=== PATIENT | male | born 1950 | race Caucasian/White ===

== ENCOUNTER → 2024-01-13 07:18 | Outpatient (REF) | payer MEDICARE, OTHER, SELFPAY | LOC: DHCBC/DCA 07:18 | PROVIDERS: ATTENDING PHYSICIAN Internal Medicine Cardiovascular Disease; FAMILY PHYSICIAN Family Medicine | DX: R06.02 Shortness of breath (principal) | CPT/HCPCS: 78452; 93017; A9500 ==

== ENCOUNTER 2025-06-14 22:28 | Inpatient (IN) | payer MEDICARE, OTHER, SELFPAY ==
[2025-06-14 19:50] VITALS: BP 148/66
[2025-06-14 19:51] VITALS: BP 148/66
--- NOTE | 2025-06-14 19:57 | ED.GENMED ---
History of Present Illness
General
Chief Complaint: Chest Pain
Source: patient and records
Exam Limitations: none
Time Seen by Provider: 06/14/25 19:49
Nursing documentation reviewed up to this point in time: agreed with
History of Present Illness
History of Present Illness:
74-year-old male presents via EMS severe mid upper abdominal pain into his back with nausea has not felt well all day ate dinner then developed worsening pain has a history of DJD,
Past History
Past History
ED Past Medical History: HTN, NIDDM and Other (Urinary retention)
ED Past Surgical History: Urological
Social History
Tobacco: Non-smoker
Alcohol: None
Drug: None
Personal:
Living: with family
Employment: Employed
Family History
Family History: Other (No urologic issues)
Review of Systems
Review of Systems
All Other Systems: Not applicable
Constitutional: Denies fever or fatigue
Cardiac: Reports chest pain
ABD/GI: Reports abdominal pain, nausea and vomiting
: Denies difficulty voiding
Musculoskeletal: Reports back pain
Skin: Reports no symptoms
Phy Exam
Physical Exam
Physical Exam:
Physical Exam
General: Ill-appearing male
Neck: No jaundice
Heart: s1/s2 regular rate and rhythm, no murmur. equal radial pulses.
Lungs: no acute respiratory distress. clear bilaterally
Abdomen: Distended diffusely tender most pronounced in the upper and diminished bowel
Neuro: alert and oriented. no focal neurological deficits
Skin: no rash
Psychiatric: well kept. interactive and cooperative
Extremities: no edema.
Scores
Heart Score for Chest Pain Patients
STEMI patient?: No
History: Slightly or Non-Suspicious
ECG: Normal
Age: >45 - <65 years
Risk Factors: 1 or 2 Risk Factors
Troponin: </= Normal Limit
Heart Score for Chest Pain Patients: 2
Heart Score Risk: 2.5% MACE over next 6 weeks
Course
Orders/Labs/Results
Orders:
Orders
06/14/25 19:48
Electrocardiogram (*1) Urgent
Reason for Study: Chest Pain
Cardiac Monitoring- Treatment ONCE
EKG- Treatment ONCE
IV Insert/Care/Rem.- Treatment PRN
O2 Therapy [RESP] Urgent
Titrate/Wean O2 to maintain O2 sat greater than (%): 90
Special Instructions: Maintain sats >/=90%
Pulse Ox/spot Check [RESP] Urgent
Quantity: 1
Special Instructions: ON ROOM AIR
06/14/25 19:49
HYDROmorphone [Dilaudid] 1 mg IV NOW STA
Ondansetron Injectable [Zofran] 4 mg IV NOW STA
06/14/25 19:50
Bladder Scan- Treatment ONCE
06/14/25 19:55
Alcohol Urgent
Complete Blood Count/With Diff Urgent
Comprehensive Metabolic Panel Urgent
Lipase Urgent
Prothrombin Time Urgent
Troponin I Urgent
06/14/25 20:31
US Abdomen Complete/Upper Urgent
Comment:
Reason For Exam: pancreatitis
06/14/25 21:05
0.9% Sodium Chloride 1000 ml [Nss] 1,000 ml IV BOLUS
06/14/25 21:07
Piperacillin/Tazo 3.375 Gram [Zosyn] 3.375 gram in 50 ml IV NOW
06/14/25 21:22
Lactic Acid Urgent
Blood Culture Q30M
CROW Source: Blood/Venous
Specimen Description:
Blood Culture Q30M
CROW Source: Blood/Venous
Specimen Description:
06/14/25 21:32
Promethazine [Phenergan] 25 mg 0.9% Sodium Chloride 50 ml [Nss] 50 ml IV NOW
06/14/25 21:33
0.9% Sodium Chloride [Nss (Preservative Free)] 10 ml IV NOW STA
HYDROmorphone [Dilaudid] 1 mg IV NOW STA
Pantoprazole [Protonix IV] 40 mg IV NOW STA
06/14/25 21:43
Lactated Ringers [Lr] 1,000 ml IV 1,000 mls/hr
06/14/25 21:44
Potassium Chloride [KCl] 40 meq 0.9% Sodium Chloride 250 ml [Nss] 250 ml IV NOW
06/14/25 21:56
Admit/Transfer Patient As Directed
Co-Sign Provider:
Level of Care: Inpatient admission
Assign to:: IMU- Intermediate Care
Physician / Group: wilfrido landa
Diagnosis: sepsis 2/2 acute pancreatitis poss cholangitis
Reason for Hospitalization: sepsis 2/2 acute pancreatitis poss cholangitis
Expected length of stay greater than two midnights?: Yes
ELOS- Estimated Length of Stay in days: 4
I certify the patient meets the requirements for IP care: Yes
Code Status As Directed
Resuscitation Status: Full Code
06/14/25 22:00
PRN Pain Medication Management As Directed
May give lesser potent ordered pain med per pt: Yes
preference::
Protocol:: Medication orders for pain may be administered in a
manner that supports deferring to patient preference
when the pt is:
- Requesting an ordered lesser potent pain medication.
Least to most potent pain medications are defined
as: acetaminophen < NSAID < tramadol < opioids
(morphine, oxycodone, hydromorphone).
- Requesting a lesser dose of the same medication IF
ORDERED.
- Requesting a less intrusive route of administration
if both routes are prescribed by the provider (PO <
IV).
06/14/25 22:01
Consult Notification Routine
Specialty to Notify: Gastroenterology
GASTROINTESTINAL CONSULT Routine
Consulting Provider: Kojo Dangelo
Was physician already notified: No
Reason for consult: sepsis 2/2 acute pancreatitis poss cholangitis
Abnormal Lab Results
06/14/25 06/14/25
19:55 21:22
WBC 21.9 H 10^3/uL
(4.8-10.8)
Abs Immat Gran (auto) 0.2 H 10^3/uL
(0-0.05)
Absolute Neuts (auto) 16.4 H 10^3/uL
(1.4-6.5)
Absolute Monos (auto) 1.9 H 10^3/uL
(0.1-0.6)
Immature Gran % 0.7 H %
(0-0.5)
Lymphocytes % 14.8 L %
(20.5-51.1)
Potassium 3.2 L mmol/L
(3.5-5.1)
Chloride 97 L mmol/L
(98-107)
BUN 28 H mg/dl
(9-20)
Creatinine 1.9 H mg/dL
(0.7-1.3)
Glucose 218 H mg/dl
(70-99)
Lactic Acid 4.0 H* mmol/L
(0.7-2.0)
Total Bilirubin 4.4 H mg/dl
(0.2-1.3)
AST 293 H U/L
(17-59)
ALT 121 H U/L
(0-50)
Albumin 5.1 H g/dl
(3.5-5.0)
Lipase > 4000 H* U/L
(23-300)
06/14/25 19:55
06/14/25 19:55
Vital Signs
Initial and Last Documented VS:
Initial Vital Signs
Temp Pulse Resp BP Pulse Ox
97.4 F 71 22 148/66 97
06/14/25 19:50 06/14/25 19:50 06/14/25 19:50 06/14/25 19:50 06/14/25 19:50
Last Documented Vital Signs
Temp Pulse Resp BP Pulse Ox
97.4 F 71 18 142/60 98
06/14/25 19:50 06/14/25 22:30 06/14/25 22:30 06/14/25 22:00 06/14/25 22:30
MDM/Problems Addressed
Differential Diagnosis Includes:
Thoracic dissection, ruptured AAA pancreatitis biliary colic perforated diverticulitis less likely acute coronary syndrome
MDM/Problems Addressed:
Chest pain back pain abdominal
Chronic conditions affecting care:
Chronic self cath
Chronic conditions affecting care: HTN
Acute Exacerbation and/or Progression of Chronic Illness:
Chronic self cath
Acute Exacerbation and/or Progression of Chronic Illness: HTN
*Pulse Oximetry
SaO2: 97
Oxygen Mode of Delivery: Room air
Patient hypoxic: no
*Critical Care Note
Total Time (30-74mins, 75-104mins- exclusive of procedures): 32
Update Note
Update Note:
8:30 PM update labs are noted looks like an obstructive biliary pattern, transaminitis lipase is pending creatinine is up we will hold on CT scan, check ultrasound gallstone pancreatitis choledocholithiasis would fit could be diagnosed without CT
with IV contrast
ED Attending Note
-
Portions of this chart may have been created with voice recognition software.� Occasional wrong word or��sound alike� substitutions may have occurred due to the inherent limitations of voice recognition software.
Discharge Plan
Departure
Patient Disposition: Admit
Date of Disposition: 06/14/25
Time of Disposition: 21:08
Admit to: Med/Surg
Presentation/result/management discussed w/ accepting MD/DO: Hospitalist
Patient with high blood pressure during this ER visit?: No
Condition: Serious
Discharge Problem:
Acute pancreatitis
Interventions
Interventions:
*Risk Screen - Suicide Last Done: 06/14/25 19:50
*General Assessment Last Done: 06/14/25 19:50
*Neglect/Abuse Screening Last Done: 06/14/25 19:50
*ED- Fall Risk Assessment Last Done: 06/14/25 20:00
*ED COVID-19 Vaccine History Last Done: 06/14/25 20:00
*ED Influenza Vaccine History Last Done: 06/14/25 20:00
ED- Cardiac Assessment Last Done: 06/14/25 20:00
[2025-06-14 20:00] VITALS: BP 142/65
[2025-06-14 20:03] LABS: Hematocrit 42.9 % (39.0-52.0); Hemoglobin 15.2 g/dL (13.0-18.0); Mean Corp Hgb Conc. 35.4 g/dL (33.0-37.0); Mean Corpuscular Volume 85.5 fL (80.0-94.0); Nucleated Red Blood Cells % 0 % (-); Platelet Count 197 10^3/uL (130-400); Red Cell Dist. Width 13.5 % (11.5-14.5)
[2025-06-14] MEDS: ZOFRAN 4 MG IV (20:05)
[2025-06-14] MEDS: DILAUDID 1 MG IV ×2 (20:05→21:43)
[2025-06-14 20:16] LABS: INR 1.00; PT 13.5 Sec (11.4-14.6)
[2025-06-14 20:24] LABS: ALT (SGPT) 121 U/L (0-50); AST (SGOT) 293 U/L (17-59); Albumin 5.1 g/dl (3.5-5.0); Alkaline Phosphatase 57 U/L (38-126); Blood Urea Nitrogen 28 mg/dl (9-20); Calcium 9.3 mg/dl (8.4-10.2); Carbon Dioxide 28 mmol/L (22-30); Chloride 97 mmol/L (98-107); Glucose 218 mg/dl (70-99); Potassium 3.2 mmol/L (3.5-5.1); Sodium 137 mmol/L (135-145); Total Protein 7.6 g/dl (6.3-8.2); eGFR 36.56
[2025-06-14 20:51] LABS: Troponin I 0.020 ng/ml
[2025-06-14 20:59] LABS: Lipase > 4000 U/L (23-300)
--- NOTE | 2025-06-14 21:15 | HPS.HSE ---
Addendum entered and electronically signed by Francisco Harper MD 06/14/25 22:21:
This is an addendum to the H&P written by Natacha Funez on 06/14/2025. �Patient seen and examined independently with PERSONAL DEVELOPMENT MENTOR.
74-year-old male past medical history of BPH, CKD 3B, hypertension, diabetes, hyperlipidemia, presenting with intermittent� indigiestion and heartburn for month. Severe mid upper back pain rating to the back with nausea today. Vomiting.��
Labs show creatinine 1.9. �Potassium 3.2. �LFTs elevated total bilirubin 4.4, AST 23, ALT 121. �Lipase greater than 4000. �Leukocytosis of 22.
Abdominal ultrasound pending.
Patient with acute pancreatitis likely biliary pancreatitis. �Patient appears septic possibly from acute cholangitis. �N.p.o., IV fluids, trend LFTs, GI consulted. �Empiric Zosyn. �Blood cultures. �Liver ultrasound pending. �Considered CT scan
however patient with CKD/SAMANTHA on CKD so will defer for now. �MRCP. �Protonix for GERD.
Original Note:
Family Physician
-
Family Physician: * NONE
Chief Complaint
-
Abdominal pain, nausea, vomiting
History of Present Illness
74-year-old male complaining of severe mid to upper left and right abdominal pain through to his back with nausea after eating dinner tonight. He reports he ate meatballs with Posta salad and bread. He has also had heartburn and indigestion for
the past month. He denies alcohol use states has rare occasional beer. Both of his daughters have had their gallbladders out. He denies fever, chills, chest pain, palpitations, cough, shortness of breath, diarrhea, rash. He has past medical
history of shingles in 2019 with post urinary retention self caths once a day but does also avoid, BPH status post TURP, HTN, DM 2.
Medical History
Past Medical History
Past Medical History: Reports Other
Additional Past Medical History:
history of shingles in 2019
urinary retention self caths once a day but does also avoid unclear occurred after shingles in 2020
BPH status post TURP
HTN
DM 2
Past Surgical History: Reports Other
Additional Past Surgical History:
BPH status post TURP
Social History
Tobacco: Non-smoker
Alcohol: Other (Rare occasional beer)
Personal:
Living: With Family
Employment: Retired
Family History
Family History: Other (Both daughters history of cholecystectomy)
Allergies / Home Medications
Allergies reflects when Allergies were last updated in [facility].
Home Medications with original date entered in [facility]
Allergy/Medication List:
Allergies
Allergy/AdvReac Type Severity Reaction Status Date / Time
seasonal allergies Allergy nasal Uncoded 06/14/25 19:55
symptoms
Home Medications
alfuzosin 10 mg tablet,extended release 24 hr 10 mg PO DAILY Urinary Issue 06/29/20
atenolol 100 mg tablet 100 mg PO DAILY Blood pressure 06/29/20
cholecalciferol (vitamin D3) 25 mcg (1,000 unit) capsule (Vitamin D3) 1,000 unit PO DAILY Supplement 06/29/20
cyanocobalamin (vitamin B-12) 1,000 mcg tablet 1,000 mcg PO DAILY Supplement 06/29/20
ferrous sulfate 137 mg (45 mg iron) tablet,extended release (Slow Fe) 137 mg PO DAILY Supplement 06/29/20
magnesium oxide 400 mg PO DAILY Electrolyte Repletion 06/29/20
multivitamin with folic acid 400 mcg tablet (Tab-A-Thea) 1 tab PO DAILY Supplement 06/29/20
potassium chloride 20 mEq tablet,extended release(part/cryst) (Klor-Con M) 20 meq PO BID Electrolyte Repletion 06/29/20
saw palmetto 450 mg capsule 900 mg PO DAILY Supplement 06/29/20
amlodipine 10 mg tablet (Norvasc) 10 mg PO DAILY Heart Disease/Condition 06/14/25
bethanechol chloride 25 mg tablet 25 mg PO BID Urinary Issue 06/14/25
glimepiride 4 mg tablet 4 mg PO DAILY Diabetes 06/14/25
hydrochlorothiazide 50 mg tablet 50 mg PO DAILY Fluid Retention/Swelling 06/14/25
metformin 500 mg tablet 500 mg PO BID Diabetes 06/14/25
Review of Systems
-
History Source: Patient and Family
A 12 point ROS was completed and negative except as noted: Yes
Constitutional: Reports Fatigue; Denies Fever or Chills
EENT: Denies Sore Throat or Runny Nose
Respiratory: Denies Cough or Trouble Breathing
Cardiac: Denies Chest Pain, Diaphoresis or Palpitations
Abdomen/GI: Reports Abdominal Pain (Generalized increased left upper quad), Nausea and Vomiting; Denies Diarrhea, Constipated, Bloody Stools or Black Stools
: Reports Other (Chronic urine retention); Denies Dysuria, Frequency or Flank Pain
Musculoskeletal: Denies Joint Pain
Skin: Denies Itching or Rash
Neurological: Reports Weakness (Generalized); Denies Dizzy or Headache
Endocrine: Reports No Symptoms
Hematologic/Lymphatic: Reports No Symptoms
Psych: Reports Calm
Physical Exam
Vital Signs
Vital Signs
Temp Pulse Resp BP Pulse Ox
97.4 F 64 20 148/66 97
06/14/25 19:50 06/14/25 19:51 06/14/25 20:01 06/14/25 19:51 06/14/25 19:58
Physical Exam
General: Pain and Other (Patient skinner appearing); No Fever or Chills
HEENT: NormoCephalic, Anicteric, Moist mucous membranes, PERRLA, [place] Conjunctivae and No Ptosis
Respiratory: Clear; No Wheezes, Rales or Rhonchi
Cardiac: S1/S2 and Regular Rhythm; No Murmur, Rub, Gallop or Peripheral Edema
Breast: Deferred by me
GI: Tender (Generalized abdominal pain increased left upper quadrant area unable to palpate liver and spleen due to severe pain)
Rectal: Deferred by Provider
Genito-urinary: Deferred by me
Musculoskeletal: No Clubbing, No Cyanosis and No Edema
Skin: Warm and Dry; No Rash
Neuro: AO x 3, No Motor Deficits, Nonfocal/grossly intact, Cranial Nerves Intact and No Sensory Deficits; No Slurred Speech, Facial Droop, Tremors or Sedated
Psych: Calm
Laboratory Results
-
06/14/25 19:55
06/14/25 19:55
Laboratory Results
PT 13.5 Sec (11.4-14.6) 06/14/25 19:55
INR 1.00 06/14/25 19:55
Total Bilirubin 4.4 mg/dl (0.2-1.3) H 06/14/25 19:55
AST 293 U/L (17-59) H 06/14/25 19:55
ALT 121 U/L (0-50) H 06/14/25 19:55
Alkaline Phosphatase 57 U/L (38-126) 06/14/25 19:55
Troponin I 0.020 ng/ml 06/14/25 19:55
Lipase > 4000 U/L (23-300) H* 06/14/25 19:55
Data Reviewed
-
Diagnostic Radiology: Report Reviewed by me
Lab Data: Labs Reviewed by me
Impression/Plan
-
Impression/plan
Admit to IMU
# Sepsis 2/2 acute pancreatitis suspect gallstone with possible cholangitis
Lipase> 4000
WBC 21.9, T. bili 4.4 , lactic acid 4 will trend
N.p.o.
- Consult GI
- IV pain control Dilaudid
- IV NSS 1 L given in ER
-Will give IV LR 1 L bolus, continue IV LR 100 cc an hour
-IV Protonix now and 40 mg daily
- IV Zofran as needed, IV Phenergan
- Will hold on CT with IV contrast due to estimated creat clearance 21
- Check MRCP/MRI abdomen in a.m.
- Follow CBC, CMP
#Acute transaminitis/hyperbilirubinemia
AST 293, ALT 121, alk phos 57, T. bili 4.4
Follow CMP
#Acute hypokalemia
K3.2
-IV K rider 40 mEq
- Follow CMP
#HTN�benign
BP 148/66
-Hold HCTZ, amlodipine, atenolol
#History urinary retention of unclear etiology developed in 2019 post shingles
Patient self caths once a day does also avoid
#CKD 4
Creat 1.9 prior 1.7 02/25/2022 estimated creat clearance approximately 21
#DM 2
Blood sugar 218
check HgbA1c
-Patient n.p.o.
History of shingles 2019
DVT prophylaxis
Subcu heparin
Full code
[2025-06-14] MEDS: NSS 1000 IV (21:28)
[2025-06-14] MEDS: ZOSYN 50 IV (21:28)
[2025-06-14 21:31] VITALS: BP 140/63
[2025-06-14] MEDS: PROTONIX IV 40 MG IV (21:43)
[2025-06-14] MEDS: NSS (PRESERVATIVE FREE) 10 ML IV (21:43)
[2025-06-14] MEDS: PHENERGAN 51 MG IV (21:56)
[2025-06-14 22:00] VITALS: BP 142/60
[2025-06-14] MEDS: LR 1000 IV (22:32)
[2025-06-14] MEDS: KCL 270 MEQ IV (22:32)
[2025-06-14 23:00] VITALS: BP 178/79
[2025-06-15] VITALS (40 sets, daily range): BP systolic 125–173; BP diastolic 68–97; BMI 29.4
[2025-06-15] MEDS: DILAUDID 1 MG IV ×5 (01:06→21:01)
[2025-06-15] MEDS: ZOFRAN 4 MG IV ×2 (01:06→08:47)
[2025-06-15] MEDS: LR 1000 IV (02:35)
--- NOTE | 2025-06-15 03:02 | PTCARENOTE ---
pt admitted from ED. pt is AAOx3, able to make needs known. VSS. on 2L NC 97%. pt with some nausea, did vomit once from the pain. pt rates pain 10/10 all throughout abdomen. medicated per MAR. NPO. IV fluids infusing. pt self cath's him self once in
the morning. 16F caude cath provided but patient stated he will have bring in supplies from home. pt oriented to room, call hernandez within reach, care ongoing.
[2025-06-15] MEDS: ZOSYN 50 IV ×4 (04:32→22:09)
[2025-06-15] MEDS: DILAUDID 0.5 MG IV ×2 (04:35→15:10)
[2025-06-15] MEDS: COMPAZINE 5 MG IV (04:50)
--- NOTE | 2025-06-15 05:13 | PTCARENOTE ---
pt still with 10/10 pain, medicated with PRN meds as able. still nauseous and dry heaving. not due for any nausea meds. notified covering LEAD DEVELOPER- x1 dose of IV compazine ordered.
[2025-06-15 05:19] LABS: Hematocrit 45.3 % (39.0-52.0); Hemoglobin 15.8 g/dL (13.0-18.0); Mean Corp Hgb Conc. 34.9 g/dL (33.0-37.0); Mean Corpuscular Volume 87.6 fL (80.0-94.0); Nucleated Red Blood Cells % 0 % (-); Platelet Count 157 10^3/uL (130-400); Red Cell Dist. Width 13.6 % (11.5-14.5)
[2025-06-15 05:54] LABS: ALT (SGPT) 329 U/L (0-50); AST (SGOT) 492 U/L (17-59); Albumin 4.0 g/dl (3.5-5.0); Alkaline Phosphatase 53 U/L (38-126); Blood Urea Nitrogen 33 mg/dl (9-20); Calcium 8.0 mg/dl (8.4-10.2); Carbon Dioxide 21 mmol/L (22-30); Chloride 102 mmol/L (98-107); Estimated Creatinine Clearance 32 ml/min; Glucose 416 mg/dl (70-99); HDL Cholesterol 28 mg/dl; LDL Cholesterol, Calculated 85 mg/dl; Potassium 5.5 mmol/L (3.5-5.1); Sodium 131 mmol/L (135-145); Total Protein 6.3 g/dl (6.3-8.2); Very Low Density Lipoprotein 53 mg/dl (0-30); eGFR 30.66
[2025-06-15] MEDS: NSS (PRESERVATIVE FREE) 10 ML IV (08:47)
[2025-06-15] MEDS: PROTONIX IV 40 MG IV (08:47)
[2025-06-15] MEDS: HEPARIN 5000 UNITS SC ×3 (08:48→23:39)
[2025-06-15 09:33] LABS: Glycohemoglobin (HgbA1c) 6.5 % (4.0-5.9)
--- NOTE | 2025-06-15 10:17 | CM ---
I.A: Completed By ANCELMO Simpson
Patient lives with his in a 2 STH w/ 3 LITZ[address], Full Flight inside, No DME, No VN/ PT, and No Inpatient Rehab.
PCP: Dr. Steven Silva
Pharmacy: [facility]
Patient has transportation when discharge to home. PLAN: Anticipate Home No Needs vs. VN.
[2025-06-15 10:48] LABS: Glucose - Point of Care 448 mg/dl (70-99)
[2025-06-15] MEDS: NOVOLIN R 0.1 UNITS IV (11:01)
[2025-06-15] MEDS: CALCIUM GLUCONATE 1000 MG IV (11:02)
--- NOTE | 2025-06-15 11:03 | CON.GS ---
Medical History
-
Chief Complaint: Abdominal pain
History of Present Illness:
Patient is a 74 yo M with a PMH of obesity, HTN, NIDDM, and BPH s/p TURP (self catheterizes daily) who presents with abdominal pain. Mr. Lua states that his pain began acutely yesterday evening. Severe generalized abdominal pain worse in the
middle and radiating to the back. He reports having a meal of meatballs and pasta salad with bread. His also reports a more longer standing history of indigestion over the past month. Denies any prior knowledge of gallstones or issues as a
relates to his gallbladder. No fevers or chills. No nausea or vomiting. Reports jaundice and tea colored urine, no pale stools. He does have an occasional beer. Family history notable for 2 daughters postcholecystectomy. No family history of
pancreatitis.
Past Medical History
Past Medical History: HTN and NIDDM
Past Surgical History: Urological (BPH s/p TURP)
Social History
Tobacco: Non-Smoker
Alcohol: Occasional
Drug: None
Personal:
Living: With Family
Family History
Family History: Other (2 daughters postcholecystectomy)
Allergies / Home Medications
Allergy/AdvReac Type Severity Reaction Status Date / Time
pollen extracts Allergy SEASONAL Verified 06/14/25 21:47
ALLERGIES-NASAL
SYMPTOMS
�Medication �Instructions �Recorded �Confirmed �Type
alfuzosin 10 mg tablet,extended 10 mg PO DAILY Urinary Issue 06/29/20 06/14/25 History
release 24 hr
atenolol 100 mg tablet 100 mg PO DAILY Blood pressure 06/29/20 06/14/25 History
cholecalciferol (vitamin D3) 25 1,000 unit PO DAILY Supplement 06/29/20 06/14/25 History
mcg (1,000 unit) capsule (Vitamin
D3)
cyanocobalamin (vitamin B-12) 1,000 mcg PO DAILY Supplement 06/29/20 06/14/25 History
1,000 mcg tablet
ferrous sulfate 137 mg (45 mg 137 mg PO DAILY Supplement 06/29/20 06/14/25 History
iron) tablet,extended release
(Slow Fe)
magnesium oxide 400 mg PO DAILY Electrolyte 06/29/20 06/14/25 History
Repletion
multivitamin with folic acid 400 1 tab PO DAILY Supplement 06/29/20 06/14/25 History
mcg tablet (Tab-A-Thea)
potassium chloride 20 mEq 20 meq PO BID Electrolyte Repletion 06/29/20 06/14/25 History
tablet,extended
release(part/cryst) (Klor-Con M)
saw palmetto 450 mg capsule 900 mg PO DAILY Supplement 06/29/20 06/14/25 History
amlodipine 10 mg tablet (Norvasc) 10 mg PO DAILY Heart 06/14/25 06/14/25 History
Disease/Condition
bethanechol chloride 25 mg tablet 25 mg PO BID Urinary Issue 06/14/25 06/14/25 History
glimepiride 4 mg tablet 4 mg PO DAILY Diabetes 06/14/25 06/14/25 History
hydrochlorothiazide 50 mg tablet 50 mg PO DAILY Fluid 06/14/25 06/14/25 History
Retention/Swelling
metformin 500 mg tablet 500 mg PO BID Diabetes 06/14/25 06/14/25 History
Review of Systems
-
A 10 point review of systems was completed, and was negative except as per HPI.
Physical Exam
Vital Signs
Temp Pulse Resp BP Pulse Ox
98.2 F 85 21 157/81 94
06/15/25 07:38 06/15/25 10:00 06/15/25 10:00 06/15/25 10:00 06/15/25 10:00
06/14/25 06/15/25 06/16/25
06:59 06:59 06:59
Actual Weight 98.3 kg
Body Mass Index (BMI) 29.4
Lab Results
06/15/25 04:45
WBC 20.6 10^3/uL (4.8-10.8) H 06/15/25 04:45
Hgb 15.8 g/dL (13.0-18.0) 06/15/25 04:45
Hct 45.3 % (39.0-52.0) 06/15/25 04:45
Plt Count 157 10^3/uL (130-400) D 06/15/25 04:45
Abs Immat Gran (auto) 0.1 10^3/uL (0-0.05) H 06/15/25 04:45
Neutrophils % 90.0 % (42.2-75.2) H 06/15/25 04:45
Physical Exam
General: Pain
HEENT: Scleral Icterus
Respiratory: Accessory Resp Muscle Use
Cardiac: Irregular Rhythm (Tachycardic)
GI: Soft, Tender (Diffusely tender), Distended and Obese
Data Reviewed
-
Ultrasound: Image Personally Visualized and interpreted and Report Reviewed by me
Labs: Labs Reviewed by me
Assessment / Plan
-
Patient is a 74 yo M p/w pancreatitis likely biliary in origin given his lab abnormalities (hyperbilirubinemia and transaminitis)
Interesting that his ultrasound demonstrated no stones, more likely sludge, less likely a mass or anatomic issue with his CBD. GI consult noted. MRI pending. The natural history and pathophysiology of biliary and stone disease was briefly
discussed. Role of cholecystectomy in preventing future episodes of pancreatitis was discussed. Timing and indication TBD based on his recovery and above-noted workup. All questions answered.
-- GI consult noted, MRI abdomen
-- Appears dehydrated and needs increased resuscitation
-- Would place Carbone catheter for accurate I's and O's and given his history of urinary retention needing straight caths at baseline, increased likelihood of bladder stretch injury given the volume that will be needed for his resuscitation
-- Timing and indication for cholecystectomy TBD based on his recovery and above-noted workup
[2025-06-15 11:27] LABS: Blood Urea Nitrogen 40 mg/dl (9-20); Calcium 7.4 mg/dl (8.4-10.2); Carbon Dioxide 20 mmol/L (22-30); Chloride 100 mmol/L (98-107); Estimated Creatinine Clearance 26 ml/min; Glucose 480 mg/dl (70-99); Potassium 5.7 mmol/L (3.5-5.1); Sodium 132 mmol/L (135-145); eGFR 23.98
[2025-06-15 11:45] LABS: Glucose - Point of Care 459 mg/dl (70-99)
[2025-06-15 11:46] LABS: Venous Blood Gas B.E. -8.3 mmol/L (-4 to +4); Venous Blood Gas O2 Sat % 99.8 %
[2025-06-15 11:47] LABS: Venous Blood Gas O2 Therapy 21
--- NOTE | 2025-06-15 12:17 | CON.GI ---
Addendum entered and electronically signed by JH Fisher 06/15/25 20:01:
correction to below under initial plan -- should read no stones or duct dilation noted in initial US completed on admission not CT.
Addendum entered and electronically signed by Kojo Dangelo DO 06/15/25 14:14:
I saw and examined the patient.
The BLASTING HELPER's note was reviewed and I agree with the note.
Comment: Mr. Lua is a 74 y.o male with a past medical history of HTN, HLD, NIDDM and BPH (s/p TURP who presented to the ED with abdominal pain. Patient reports being in his usual state of health until yesterday evening when he developed sharp,
acute epigastric abdominal pain with radiating symptoms into his back. Symptoms started after eating dinner and shortly after developed worsening abdominal pain without any nausea or vomiting. Denies any fevers, chills or other constitutional
symptoms. However, noticed his skin becoming more dark yellow as well as darker brown or colored urine. He denies any prior history of pancreatitis or significant alcohol use. Given his worsening symptoms, he came to the ED for further
evaluation. On admission, there was concerns for sepsis and was found to be febrile with leukocytosis as well as an elevated creatinine up to 2.7 along with elevated lactate 4.7 and elevated LFTs with T Bili 7's, AST 492, ALT 329, ALP 5 3 and
lipase greater than 4000. Upon admission, he was started on IV antibiotics as well as IVF for fluid resuscitation. Clinically, seems most consistent with biliary induced pancreatitis likely secondary to sludge as no stones were visualized and
concern for potential cholangitis given his recent fevers. There was no evidence of any biliary ductal dilatation on his prior ultrasound or other luminal filling defects. He would benefit from an eventual MRI/MRCP for further evaluation however
given his worsening abdominal pain favor proceeding with CT abdomen/pelvis for further evaluation given concern for guarding and worsening abdominal discomfort later this afternoon. Agree with ongoing IV abx and monitoring blood cultures. Rest of
ongoing supportive care as per primary ICU team and close monitoring of patient's renal function given concern for SAMANTHA on CKD along with his hyperkalemia. Will continue to follow closely and follow-up with repeat CT imaging later this afternoon.
Rest of care as outlined below.
Discussed with primary internal medicine team. GI will continue to follow.
Original Note:
Consultation
-
Date/Time Consultation Requested: 06/14/250
Date/Time Consultation Performed: 06/15/25 1215
Requesting Provider: JH Robertson
Performing Provider: JH Castro, Kojo Dangelo DO
Reason for Consultation: pancreatiitis
Medical History
Chief Complaint / HPI
Chief Complaint: abdominal pain
History of Present Illness:
Pt is a 74yo with hx obesity, HTN, hyperlipidemia, NIDDM, shingles, urinary retention with st cath daily, arthritis, vasectomy, BPH prior turp, prostate biopsy, spinal injection with onset of abdominal pain to back and nausea with eating after
eating dinner on 06/14. On admission concern for sepsis with WBC 21,900, hbg 15.2, and after admission noted with Na 131, K up to 5.5 creat up to 2.7, glucose 480, lactate 4.7 with rise in bili to 7.5, AST 492, ALT 329, alk phos 53, and lipase
>4000.
Pt with some lethargy with pain med but continued with severe 10/10 pain. In review with family pt with hx GERD with tums PRN with increased use over last several weeks. He takes NSAIDs several times per week for pain. He did have several
episode of non bloody emesis after onset of pain. No issues with diarrhea, constipation or rectal bleeding. No ETOH use, no new medications, no hx pancreatitis in past. No GPL-1 use or wt loss.
06/14/25 US abdomen with fatty liver, mild hepatomegaly
06/15/25 abd X ray No significantly dilated air-filled loops of bowel. No radiographic evidence for pathologic calcification or soft tissue mass. CBD 5 mm
Past Medical History
Past Medical History: HTN, Hypercholesterolemia, NIDDM and Other (shingles, urinary retention with st cath daily, arthritis, obesity )
Past Surgical History: Urological (vastectomy, turp, prostate biopsy, spinal injections)
Social History
Tobacco: Non-Smoker
Alcohol: None
Drug: None
Personal:
Living: With Family
Employment: Retired
Family History
Family History: Other (2 daughters with hx renato )
Allergies / Home Medications
Allergy/AdvReac Type Severity Reaction Status Date / Time
pollen extracts Allergy SEASONAL Verified 06/14/25 21:47
ALLERGIES-NASAL
SYMPTOMS
�Medication �Instructions �Recorded
alfuzosin 10 mg tablet,extended 10 mg PO DAILY Urinary Issue 06/29/20
release 24 hr
atenolol 100 mg tablet 100 mg PO DAILY Blood pressure 06/29/20
cholecalciferol (vitamin D3) 25 1,000 unit PO DAILY Supplement 06/29/20
mcg (1,000 unit) capsule (Vitamin
D3)
cyanocobalamin (vitamin B-12) 1,000 mcg PO DAILY Supplement 06/29/20
1,000 mcg tablet
ferrous sulfate 137 mg (45 mg 137 mg PO DAILY Supplement 06/29/20
iron) tablet,extended release
(Slow Fe)
magnesium oxide 400 mg PO DAILY Electrolyte 06/29/20
Repletion
multivitamin with folic acid 400 1 tab PO DAILY Supplement 06/29/20
mcg tablet (Tab-A-Thea)
potassium chloride 20 mEq 20 meq PO BID Electrolyte Repletion 06/29/20
tablet,extended
release(part/cryst) (Klor-Con M)
saw palmetto 450 mg capsule 900 mg PO DAILY Supplement 06/29/20
amlodipine 10 mg tablet (Norvasc) 10 mg PO DAILY Heart 06/14/25
Disease/Condition
bethanechol chloride 25 mg tablet 25 mg PO BID Urinary Issue 06/14/25
glimepiride 4 mg tablet 4 mg PO DAILY Diabetes 06/14/25
hydrochlorothiazide 50 mg tablet 50 mg PO DAILY Fluid 06/14/25
Retention/Swelling
metformin 500 mg tablet 500 mg PO BID Diabetes 06/14/25
Review of Systems
-
History Source: Patient and Family
Constitutional: Reports Fatigue
EENT: Reports Other (dry mucous membranes )
Respiratory: Reports No Symptoms
Abdomen/GI: Reports Abdominal Pain, Nausea and Vomiting
: Reports Other (decreased urination now with geller hx st cath )
Musculoskeletal: Reports No Symptoms
Skin: Reports No Symptoms
Neurological: Reports Weakness and Other (lethargy but given pain meds )
Endocrine: Reports No Symptoms
Hematologic/Lymphatic: Reports No Symptoms
Vital Signs
Temp Pulse Resp BP Pulse Ox
98.8 F 85 21 157/81 94
06/15/25 12:15 06/15/25 10:00 06/15/25 10:00 06/15/25 10:00 06/15/25 10:00
Physical Exam
Exam
General: Other (ill appearing, sleeping but answering some questions )
HEENT: Normocephalic and Anicteric
Respiratory: Other (decreased bases )
Cardiac: Regular Rhythm
GI: Soft, Distended (mild ) and Other (+ diffuse guarding and rebound with minimal palpation )
Musculoskeletal: No Clubbing and No Cyanosis
Skin: Warm and Dry
Neuro: Other (awakens to voice )
Psych: Calm
Results
WBC 20.6 10^3/uL (4.8-10.8) H 06/15/25 04:45
Hgb 15.8 g/dL (13.0-18.0) 06/15/25 04:45
Hct 45.3 % (39.0-52.0) 06/15/25 04:45
MCV 87.6 fL (80.0-94.0) 06/15/25 04:45
Plt Count 157 10^3/uL (130-400) D 06/15/25 04:45
Absolute Neuts (auto) 18.6 10^3/uL (1.4-6.5) H 06/15/25 04:45
PT 13.5 Sec (11.4-14.6) 06/14/25 19:55
INR 1.00 06/14/25 19:55
Sodium 132 mmol/L (135-145) L 06/15/25 10:56
Potassium 5.7 mmol/L (3.5-5.1) H 06/15/25 10:56
Chloride 100 mmol/L (98-107) 06/15/25 10:56
Carbon Dioxide 20 mmol/L (22-30) L 06/15/25 10:56
BUN 40 mg/dl (9-20) H 06/15/25 10:56
Creatinine 2.7 mg/dL (0.7-1.3) H 06/15/25 10:56
Calcium 7.4 mg/dl (8.4-10.2) L 06/15/25 10:56
Total Bilirubin 7.5 mg/dl (0.2-1.3) H D 06/15/25 04:45
AST 492 U/L (17-59) H 06/15/25 04:45
ALT 329 U/L (0-50) H 06/15/25 04:45
Alkaline Phosphatase 53 U/L (38-126) 06/15/25 04:45
Lipase > 4000 U/L (23-300) H* 06/14/25 19:55
Diagnostic Image Results:
06/14/25 US abdomen with fatty liver, mild hepatomegaly
06/15/25 abd X ray No significantly dilated air-filled loops of bowel. No radiographic evidence for pathologic calcification or soft tissue mass. CBD 5 mm
Prior GI Procedures:
EGD: none
Colonoscopy: none
Assessment / Plan
-
Pt is a 74yo with hx obesity, HTN, hyperlipidemia, NIDDM, shingles, urinary retention with st cath daily, arthritis, vasectomy, BPH prior turp, prostate biopsy, spinal injection with onset of abdominal pain to back and nausea with eating after
eating dinner on 06/14. On admission concern for sepsis with WBC 21,900, hbg 15.2, and after admission noted with Na 131, K up to 5.5 creat up to 2.7, glucose 480, lactate 4.7 with rise in bili to 7.5, AST 492, ALT 329, alk phos 53, and lipase
>4000. He takes NSAIDs several times per week for pain. He did have several episode of non bloody emesis after onset of pain. No issues with diarrhea, constipation or rectal bleeding. No ETOH use, no new medications, no hx pancreatitis in past or
family hx pancreatic issues. No GPL-1 use or wt loss.
06/14/25 US abdomen with fatty liver, mild hepatomegaly
06/15/25 abd X ray No significantly dilated air-filled loops of bowel. No radiographic evidence for pathologic calcification or soft tissue mass. CBD 5 mm
-pancreatitis
elevated LFT's
-increasing abdominal pain with guarding
-leukocytosis with concern for developing sepsis
-elevated lactate
-hemoconcentration with elevated hbg
-SAMANTHA worsening after admission
-leukocytosis
-hyperglycemia
-hyperkalemia
-hyponatremia
other med problems:
-obesity, HTN, hyperlipidemia, NIDDM, shingles, urinary retention with st cath daily, arthritis, vasectomy, BPH prior turp, prostate biopsy, spinal injection
PLAN:
etiology of symptoms with concern for severe pancreatitis--no stone or duct dilation on CT, no hx ETOH use, no new medication, no prior hx pancreatitis in past
agree with transfer to ICU
with degree of pain with guarding and rebound on exam will check CT without contrast to exclude any other process
for MRCP when stable to proceed
aggressive IVF -- getting IVF bolus now cont IVF per renal with worsening SAMANTHA, hyperkalemia and hyperglycemia
cont geller for accurate I+O
close monitoring as concern for developing ileus with distention
add CRP, check triglycerides and IGG4
NPO
pain control per hospitalist
I reviewed with Dr. De Paz from ICU, Dr. Oro from renal, Dr. Ceja, and Dr. Dangelo for
updated family at length on severity of illness and need for very close monitoring of status
-
-
Thank you for consultation and allowing me to participate in the patient's care. Please call the [facility] physician during the after hours with any questions or concerns.
--- NOTE | 2025-06-15 12:17 | PTCARENOTE ---
late entry Received this am, c/o 9.5/10 abd pain screams with palpation. Labs noted. AAO, VSS bp 150s/70s HR 80s SR. LC, 97% RAIR. N/V overnight- IV Zofran given with IV Dilaudid. Bladder scanned d/t pain and no urine output =74ml D/w provider
stat OBS series ordered.
0800 Repeat labs relayed to provider-
1030 IVF changed to NS 150ml/hr. Repeat labs drawn. EKG completed. Accu checked with pre insulin and again post insulin as required- both RR 400s. IV Calcium given.
Carbone placed per provider.
[2025-06-15 12:41] LABS: Glucose 457 mg/dl (70-99)
[2025-06-15] MEDS: NSS 1000 IV ×5 (13:20→22:10)
--- NOTE | 2025-06-15 13:22 | PTCARENOTE ---
NS Bolus initiated
--- NOTE | 2025-06-15 13:50 | W.PN.HOSP.TC ---
Addendum entered and electronically signed by Artem Ceja MD 06/15/25 13:58:
[email or web address]/[email or web address]
Original Note:
Today's Communication/Plan
-
Assessment / Plan
Assessment / Plan
Ill-appearing
Scleral Anicteric
DMM
No JVD
CTABL
RRR though tachycardic, S1/S2
Soft, tenderness to palpation diffusely, ND, BS+
Warm, Dry
AAOx3
Calm
Pancreatitis likely cholangitis
IV fluids
IV antibiotics with anaerobic coverage
Blood cultures
Continue to hyperkalemia change LR to NS
Increase rate
GI and surgery consulted
Hyponatremia hypovolemic
Give Carbone
Hyperkalemia 5.7
Again temporize however also now with hyperglycemia
Slight anion gap of 12
Begin insulin drip hourly Accu-Cheks upgrade to ICU
Diabetes complicated by mild DKA as calculated AG 12
Insulin drip
IV fluids
N.p.o.
Hourly Accu-Cheks
SAMANTHA
Monitor urinary output
Avoid nephrotoxins hypotension
Check urine studies and renal bladder ultrasound
Consult nephrology
Place Carbone catheter
Anticipated Discharge: > 48 hours
Subjective/Interval History
-
Date of Service: June 15, 2025
Seen and examined
Laying in bed tenderness throughout entire abdomen
Objective Data
-
Labs:
Laboratory Results
06/15/25 06/15/25 06/15/25
04:45 10:56 12:01
WBC 20.6 H
Hgb 15.8
Hct 45.3
Plt Count 157 D
Sodium 131 L 132 L Cancelled
Potassium 5.5 H D 5.7 H Cancelled
Chloride 102 100 Cancelled
Carbon Dioxide 21 L 20 L Cancelled
BUN 33 H 40 H Cancelled
Creatinine 2.2 H 2.7 H Cancelled
Glucose 416 H 480 H* Cancelled
Calcium 8.0 L 7.4 L
Total Bilirubin 7.5 H D
AST 492 H
ALT 329 H
Alkaline Phosphatase 53
06/15/25 06/15/25 06/15/25
12:01 12:40 12:56
WBC
Hgb
Hct
Plt Count
Sodium Pending
Potassium Pending Pending
Chloride Pending
Carbon Dioxide Pending
BUN Pending
Creatinine Pending
Glucose 457 H* Pending
Calcium Cancelled Pending
Total Bilirubin
AST
ALT
Alkaline Phosphatase
06/15/25 06/15/25 06/15/25
14:00 16:00 18:00
WBC
Hgb
Hct
Plt Count
Sodium
Potassium Pending Pending Pending
Chloride
Carbon Dioxide
BUN
Creatinine
Glucose
Calcium
Total Bilirubin
AST
ALT
Alkaline Phosphatase
06/15/25 06/15/25
20:00 22:00
WBC
Hgb
Hct
Plt Count
Sodium
Potassium Pending Pending
Chloride
Carbon Dioxide
BUN
Creatinine
Glucose
Calcium
Total Bilirubin
AST
ALT
Alkaline Phosphatase
Vital Signs:
Vital Signs
Temp Pulse Resp BP Pulse Ox
98.8 F 85 21 157/81 94
06/15/25 12:15 06/15/25 10:00 06/15/25 10:00 06/15/25 10:00 06/15/25 10:00
I&O
06/14/25 06/15/25 06/16/25
06:59 06:59 06:59
Intake Total 50 / 50 750 / 750
Output Total 700 / 700 100 / 100
Balance -650 / -650 650 / 650
[2025-06-15 14:00] LABS: C-Reactive Protein 70.90 mg/L (0.0-10.00)
--- NOTE | 2025-06-15 14:00 | PTCARENOTE ---
Report to Emily, transferred to 2721.
--- NOTE | 2025-06-15 14:00 | W.CON.NEPH ---
Consultation
-
Date/Time Consultation Requested: 06/15/25 1:30 PM
Date/Time Consultation Performed: 06/15/25 1:45 PM
Requesting Provider: Dr. Mcgill
Performing Provider: Dr. Oro
Reason for Consultation: Acute kidney
Medical History
-
Chief Complaint: SAMANTHA
History of Present Illness:
The patient is a 74-year-old male with a past medical history of hypertension maintained on amlodipine atenolol and hydrochlorothiazide. He has a history of diabetes and is maintained on metformin and glimepiride. He is maintained alfuzosin
chronically on and for BPH. He has a history of chronic kidney disease stage III with a baseline creatinine noted at 1.7 as of January 2022. He presented to the hospital with nausea vomiting and severe abdominal pain radiating to the mid upper back.
Lipase levels and symptomatology were consistent with pancreatitis. Nephrology was consulted as he is in acute renal failure with his creatinine escalating on presentation from 1.9-2.7. These symptoms came on suddenly last pm after dinner. He has
a history of BPH status post TURP but has chronic urinary retention and self caths once daily.
Past Medical History
history of shingles in 2019
urinary retention self caths once a day but does also avoid unclear occurred after shingles in 2019
BPH status post TURP
HTN
DM 2
CKD stage IIIb creatinine 1.01 February 2022
Social History
Tobacco: Non-Smoker
Alcohol: Occasional
Drug: None
Family History
no ckd
Allergies / Home Medications
Allergy/AdvReac Type Severity Reaction Status Date / Time
pollen extracts Allergy SEASONAL Verified 06/14/25 21:47
ALLERGIES-NASAL
SYMPTOMS
�Medication �Instructions �Recorded �Confirmed �Type
alfuzosin 10 mg tablet,extended 10 mg PO DAILY Urinary Issue 06/29/20 06/14/25 History
release 24 hr
atenolol 100 mg tablet 100 mg PO DAILY Blood pressure 06/29/20 06/14/25 History
cholecalciferol (vitamin D3) 25 1,000 unit PO DAILY Supplement 06/29/20 06/14/25 History
mcg (1,000 unit) capsule (Vitamin
D3)
cyanocobalamin (vitamin B-12) 1,000 mcg PO DAILY Supplement 06/29/20 06/14/25 History
1,000 mcg tablet
ferrous sulfate 137 mg (45 mg 137 mg PO DAILY Supplement 06/29/20 06/14/25 History
iron) tablet,extended release
(Slow Fe)
magnesium oxide 400 mg PO DAILY Electrolyte 06/29/20 06/14/25 History
Repletion
multivitamin with folic acid 400 1 tab PO DAILY Supplement 06/29/20 06/14/25 History
mcg tablet (Tab-A-Thea)
potassium chloride 20 mEq 20 meq PO BID Electrolyte Repletion 06/29/20 06/14/25 History
tablet,extended
release(part/cryst) (Klor-Con M)
saw palmetto 450 mg capsule 900 mg PO DAILY Supplement 06/29/20 06/14/25 History
amlodipine 10 mg tablet (Norvasc) 10 mg PO DAILY Heart 06/14/25 06/14/25 History
Disease/Condition
bethanechol chloride 25 mg tablet 25 mg PO BID Urinary Issue 06/14/25 06/14/25 History
glimepiride 4 mg tablet 4 mg PO DAILY Diabetes 06/14/25 06/14/25 History
hydrochlorothiazide 50 mg tablet 50 mg PO DAILY Fluid 06/14/25 06/14/25 History
Retention/Swelling
metformin 500 mg tablet 500 mg PO BID Diabetes 06/14/25 06/14/25 History
Review of Systems
-
History Source: Patient
All other systems: Negative unless noted
Respiratory: Trouble Breathing
Cardiac: No Symptoms
Abdomen/GI: Abdominal Pain, Nausea and Vomiting
: Other (Chronic self-catheterization currently with Carbone catheter)
Musculoskeletal: Other (back pain)
Skin: No Symptoms
Neurological: No Symptoms
Endocrine: No Symptoms
Hematologic/Lymphatic: No Symptoms
Physical Exam
Vital Signs
Vital Signs
Temp Pulse Resp BP Pulse Ox
98.8 F 85 21 157/81 94
06/15/25 12:15 06/15/25 10:00 06/15/25 10:00 06/15/25 10:00 06/15/25 10:00
Lab Results
06/15/25 04:45
06/15/25 22:00
WBC 20.6 10^3/uL (4.8-10.8) H 06/15/25 04:45
RBC 5.17 10^6/uL (4.70-6.10) 06/15/25 04:45
Hgb 15.8 g/dL (13.0-18.0) 06/15/25 04:45
Hct 45.3 % (39.0-52.0) 06/15/25 04:45
Plt Count 157 10^3/uL (130-400) D 06/15/25 04:45
eGFR Cancelled 06/15/25 12:01
Albumin 4.0 g/dl (3.5-5.0) 06/15/25 04:45
Physical Exam
General: AOx3, Nontoxic , NAD
HEENT: PERRL, EOMI, Anicteric, Conjunctivae Clear, Ear/Nose Intact, Hearing Normal, Oropharynx Clear/Moist, Dentition Intact, Facial Symmetry, Neck Supple, Neck: Trachea Midline, No JVD and No Thyromegaly, no Bruits
Respiratory: Clear to auscultation bilaterally with normal lung excursion
Cardiac: S1/S2 and Regular Rate/Rhythm
Breast: Deferred by me
Abdomen: Exquisitely tender peritoneal signs noted, no detectable bowel sounds and No Hepatosplenomegaly
Rectal: Deferred by Provider
Genito-urinary: No Costovertebral Tenderness
Extremities: No Clubbing, No Cyanosis and No Edema
Skin: No Rash or open lesions
Neuro: Nonfocal/Grossly Intact, CN II-XII (Intact) and Strength (Musculoskeletal exam 5 out of 5 both upper and lower extremities)
Hematologic/Lymphatic: No Cervical Lymphadenopathy, No Submandibular Lymphadenopathy and No Supraclavicular Lymphadenopathy
Psych: Mood/affect pleasant, Insight/judgement good and Appropriate
Vascular: plus 2 pedal and radial pulses
Data Reviewed
-
Radiology: Report Reviewed by me (Chest x-ray personally reviewed no evidence of gross congestive heart failure or pneumonic process)
Labs: Labs Reviewed by me (BMP CBC, lipase, Fractional excretion of sodium < 1 %)
Old Records: Reviewed (Reviewed old records from date 02/25/2022 creatinine 1.7)
Assessment/Plan
-
Impression:
SAMANTHA (2.7)
CKD (1.9 ?)
Metabolic acidosis
Hyperkalemia
Profound abdominal pain likely due to evolving pancreatitis/sepsis
Abnormal LFTs
History of HTN
History of diabetes
History of profound BPH requiring self-catheterization daily
Plan:
SAMANTHA:
- Likely prerenally mediated given fractional secretion of sodium less than 1%
-Possibly also related to pancreatitis with evolving MOF
-No acute dialysis required yet..
-Aggressive IV fluids to be provided with 3 L on admission and then at 200 cc/h of normal saline
-If metabolic acidosis evolves we can add sodium HCO3 to his IV fluid
-Maintain Carbone catheter
-Hold metformin and hydrochlorothiazide
- Zosyn to be renally dosed
[2025-06-15] MEDS: NOVOLIN R INSULIN INFUSION 100 IV (14:04)
[2025-06-15 14:09] LABS: Glucose - Point of Care 445 mg/dl (70-99)
[2025-06-15 14:24] LABS: INR 1.22; PT 15.7 Sec (11.4-14.6)
[2025-06-15 14:26] LABS: APTT 28.3 Sec (23.4-35.0)
--- NOTE | 2025-06-15 14:37 | CON.INTV ---
Consultation
Consultation Request
Date/Time Consultation Requested: 1255 06/15
Date/Time Consultation Performed: 06/15
Requesting Provider: Dr. Artem Ceja
Performing Provider: Dr. Rogers; Dr. De Paz
Medical History
-
Chief Complaint: Abdominal pain
History of Present Illness:
Patient is a 74-year-old male with PMH of NIDDM, CKD stage IIIb, BPH s/p TURP, HTN, and HLD who presented to [facility] with abdominal pain that started last night. Patient has been having some bloating/indigestion for a few weeks. Last
night, he developed acute onset, 10/10 intensity, epigastric abdominal pain with radiation to the back after eating dinner. Patient has never had pain like this before. Patient then presented to the ED due to the pain. Associated symptoms include
nausea, vomiting, subjective fever, fatigue, chills, and shortness of breath due to abdominal pain with inspiration. In the ED, patient was hemodynamically stable, afebrile, and intermittently mildly tachypneic. No history of pancreatitis. No
history of abdominal surgery. No alcohol consumption. Initial labs on 06/14 were remarkable for the following: WBCs 21.9 w/ left shift, lipase >4000, K 3.2, Cr 1.9, lactate 4.0, glucose 218, T. bili 4.4, AST 293, and ALT 121. Today's labs are
remarkable for the following: WBCs 20.6 w/ left shift, VBG showing pH 7.26 and HCO3 18.4, K 5.7, Cr 2.8, glucose 480, and lactate 4.7. Given these findings, patient was upgraded to the ICU.
Past Medical History
Past Medical History: HTN, Hypercholesterolemia, NIDDM, Renal Failure and Other (BPH)
Past Surgical History: Urological (TURP (2019))
Social History
Tobacco: Non-smoker
Alcohol: None
Personal:
Living: With Family
Employment: Retired
Family History
Family History: Other (Cholecystectomy (2 daughters))
Allergies / Home Medications
Allergies
Allergy/AdvReac Type Severity Reaction Status Date / Time
pollen extracts Allergy SEASONAL Verified 06/14/25 21:47
ALLERGIES-NASAL
SYMPTOMS
Home Medications
�Medication �Instructions �Recorded �Confirmed �Last Taken �Type
alfuzosin 10 mg tablet,extended 10 mg PO DAILY Urinary Issue 06/29/20 06/14/25 06/29/20 08:00 History
release 24 hr
atenolol 100 mg tablet 100 mg PO DAILY Blood pressure 06/29/20 06/14/25 06/30/20 06:00 History
cholecalciferol (vitamin D3) 25 1,000 unit PO DAILY Supplement 06/29/20 06/14/25 Unknown History
mcg (1,000 unit) capsule (Vitamin
D3)
cyanocobalamin (vitamin B-12) 1,000 mcg PO DAILY Supplement 06/29/20 06/14/25 Unknown History
1,000 mcg tablet
ferrous sulfate 137 mg (45 mg 137 mg PO DAILY Supplement 06/29/20 06/14/25 Unknown History
iron) tablet,extended release
(Slow Fe)
magnesium oxide 400 mg PO DAILY Electrolyte 06/29/20 06/14/25 Unknown History
Repletion
multivitamin with folic acid 400 1 tab PO DAILY Supplement 06/29/20 06/14/25 Unknown History
mcg tablet (Tab-A-Thea)
potassium chloride 20 mEq 20 meq PO BID Electrolyte Repletion 06/29/20 06/14/25 Unknown History
tablet,extended
release(part/cryst) (Klor-Con M)
saw palmetto 450 mg capsule 900 mg PO DAILY Supplement 06/29/20 06/14/25 Unknown History
amlodipine 10 mg tablet (Norvasc) 10 mg PO DAILY Heart 06/14/25 06/14/25 Unknown History
Disease/Condition
bethanechol chloride 25 mg tablet 25 mg PO BID Urinary Issue 06/14/25 06/14/25 Unknown History
glimepiride 4 mg tablet 4 mg PO DAILY Diabetes 06/14/25 06/14/25 Unknown History
hydrochlorothiazide 50 mg tablet 50 mg PO DAILY Fluid 06/14/25 06/14/25 Unknown History
Retention/Swelling
metformin 500 mg tablet 500 mg PO BID Diabetes 06/14/25 06/14/25 Unknown History
Review of Systems
-
History Source: Patient
Constitutional: Fever, Fatigue and Chills
Respiratory: Trouble Breathing
Abdomen/GI: Abdominal Pain, Nausea and Vomiting
: Dark Urine
Vitals / Labs / Diagnostic Testing
Vital Signs
Temp Pulse Resp BP Pulse Ox
98.8 F 86 24 157/72 97
06/15/25 14:13 06/15/25 14:09 06/15/25 14:09 06/15/25 14:09 06/15/25 14:09
Lab Data
06/15/25 04:45
06/15/25 22:00
Laboratory Results
06/14/25 06/15/25
19:55 13:55
PT 13.5 15.7 H
INR 1.00 1.22
APTT 28.3
Diagnostic Testing:
Physical Exam
-
HEENT: Normocephalic and Anicteric
Cardiovascular: S1/S2 and Regular Rhythm
Respiratory: Clear
GI: Distended, Tender and Other (Guarding)
Neurology: Awake, AO x 3 and No Motor Deficits
Skin: Good Color
Assessment
-
Assessment: Patient is a 74-year-old male with PMH of CKD stage IIIb, NIDDM, HTN, HLD, and BPH who is being upgraded to the [place] ICU with acute pancreatitis and possible sepsis complicated by hyperglycemia, acute kidney injury, hyperkalemia,
hyperbilirubinemia, and transaminitis. Etiology of pancreatitis is to be determined, though concern for acute cholangitis given subjective fever, chills, abdominal pain with guarding, transaminitis, and hyperbilirubinemia. Patient has multiple
signs of decreased end organ perfusion, including lactate 4.8, Cr 2.8, VBG pH 7.26 and HCO3 18.4. Critical illness hypoglycemia with glucose 480.
Impression:
#Acute pancreatitis
#Suspected sepsis 2/2 possible biliary pathology
#Metabolic acidosis
#Hyperglycemia
#SAMANTHA
#Hyperkalemia
#BPH
#HTN
Plan:
#Acute pancreatitis
#Suspected sepsis 2/2 possible biliary pathology
#Metabolic acidosis
#SAMANTHA
Aggressive IVF resuscitation
Continue piperacillin�tazobactam given concern for acute cholangitis and/or sepsis
N.p.o., antiemetics, pain control
CTAP pending
Lactate every 2 hours
Monitor I's and O's, urine output
Nephrology, GI, surgery following
#Hyperglycemia
Insulin bolus and drip, per protocol
BMPs every 4 hours
Goal glucose 140�180
#Hyperkalemia
Insulin and treatment of underlying pancreatitis, possible sepsis should normalize K
Calcium gluconate administered this morning
BMPs every 4 hours
#BPH
Carbone in place
Monitor I's and O's
#HTN
Home medications on hold
DVT PPx: SQH
[2025-06-15] MEDS: NOVOLIN R 10 UNITS IV (14:43)
[2025-06-15 15:20] LABS: Blood Urea Nitrogen 42 mg/dl (9-20); Calcium 7.1 mg/dl (8.4-10.2); Carbon Dioxide 20 mmol/L (22-30); Chloride 103 mmol/L (98-107); Estimated Creatinine Clearance 25 ml/min; Glucose 395 mg/dl (70-99); Potassium 4.8 mmol/L (3.5-5.1); Sodium 131 mmol/L (135-145); eGFR 22.96
[2025-06-15 15:59] LABS: Glucose - Point of Care 317 mg/dl (70-99)
[2025-06-15] MEDS: NOVOLOG FLEXPEN SC (16:40)
[2025-06-15 16:43] LABS: Glucose - Point of Care 287 mg/dl (70-99)
--- NOTE | 2025-06-15 16:53 | W.PN.UPDATE ---
Update Note
Progress Note Update
-06/[address] a/p without contrast
IMPRESSION: Findings suggesting severe acute pancreatitis.
Mild hepatosplenomegaly.
Probable stones in the common bile duct. No secondary findings to suggest acute cholecystitis on this CT exam. However, ultrasound is the study of choice for evaluation of the gallbladder.
Mild abdominopelvic ascites.
Moderate left hydroureter.
Mild diverticulosis.
Moderate air in the bladder likely due to Carbone catheter placement.
Severe prostate hypertrophy.
Mild age indeterminate T12 compression fracture. New from [address] Dangelo-- plan for ERCP today - reviewed risk and benefits of procedure including and not limited to risk of bleeding, infection, perforation, reaction to medication. Also discussed risk of not proceeding with ERCP including
severe sepsis and . Discussed pt with continued to follow closely with severe pancreatitis and risk.
pt with some distention and continue nausea with vomiting-- I attempted to place NGT for decompression prior to procedure. Pt with resistance and pulling with providers hand and now declines reattempt. I reviewed with patient and family risk of
aspiration with procedure. Pt and family accept risk and agree to proceed with ERCP. Updated nursing staff. and binding dyer.
[2025-06-15 17:35] LABS: Venous Blood Gas B.E. -10.6 mmol/L (-4 to +4); Venous Blood Gas O2 Sat % 99.6 %
[2025-06-15 17:38] LABS: Glucose - Point of Care 277 mg/dl (70-99)
[2025-06-15 17:54] LABS: Potassium 2.8 mmol/L (3.5-5.1)
--- NOTE | 2025-06-15 18:00 | PTCARENOTE ---
labs sent prior to pt going to gi lab. upon return to unit, k noted at 2.8. Dr De Paz aware, call placed to gi lab to hold insulin drip until potassium can be redrawn.
--- NOTE | 2025-06-15 19:33 | W.PN.UPDATE ---
Update Note
Progress Note Update
EUS showed choledocholithisis and non-dilated CBD; ERCP attempted but unsuccessful due to inability to locate ampulla, from significant edema in his duodenum. Fever/leukocytosis are likely 2/2 pancreatitis and overlying cholangitis is unlikely.
f/u with blood cx and clinically. will re-attempt ercp in 2 days when his duodenal edema improves. early enteral feeding (unless there is ileus), IVF LR.
--- NOTE | 2025-06-15 19:50 | PTCARENOTE ---
Transferred pt from GI lab via bed on monitor , pt drowsy, disoriented to place/time, 1' AV block w/occas pac, weak distal pulses, + LE edema, skin warm/dry, O2 6 liters nc, sat 96, lungs decr, + bowel sounds, no bm, abd obese, dist/firm/tender, no
n/v, NPO, geller draining scooter urine; Insulin gtt was shut off in the GI lab at 1800, labs sent
[2025-06-15 20:14] LABS: Urine Character Slightly Cloudy (Clear)
[2025-06-15 20:20] LABS: Urine Red Blood Cell 80-90 /HPF (0-2); Urine Squamous Cell 0-2 /LPF (Few)
[2025-06-15 20:26] LABS: Blood Urea Nitrogen 46 mg/dl (9-20); Calcium 6.9 mg/dl (8.4-10.2); Carbon Dioxide 22 mmol/L (22-30); Chloride 105 mmol/L (98-107); Estimated Creatinine Clearance 23 ml/min; Glucose 239 mg/dl (70-99); Magnesium 1.8 mg/dl (1.6-2.3); Potassium 4.9 mmol/L (3.5-5.1); Sodium 135 mmol/L (135-145); eGFR 20.32
--- NOTE | 2025-06-15 20:30 | PTCARENOTE ---
Glycemic protocal restarted per Destiny Tucker NP
2039- apres 10mg iv given for elevated bp
[2025-06-15] MEDS: APRESOLINE 10 MG IV (20:41)
[2025-06-15] MEDS: CALCIUM GLUCONATE 130 MG IV (20:54)
--- NOTE | 2025-06-15 21:01 | PTCARENOTE ---
3gm elaine gluc over 1 hr given, dilauidi 1mg iv given for pain
[2025-06-15 21:40] LABS: Glucose - Point of Care 224 mg/dl (70-99)
[2025-06-15 22:43] LABS: Glucose - Point of Care 242 mg/dl (70-99)
[2025-06-15] MEDS: ATIVAN 0.25 MG IV (23:27)
[2025-06-15 23:40] LABS: Glucose - Point of Care 196 mg/dl (70-99)
--- NOTE | 2025-06-15 23:46 | PTCARENOTE ---
sys reviewed, changes noted, pt oriented, asking appropriate questions, anxious, mitts off, ativan 0.5mg iv given per order
[2025-06-16] VITALS (32 sets, daily range): BP systolic 130–172; BP diastolic 64–92; PULSE 99–100; O2SAT 95–99; BMI 29.6
[2025-06-16 00:47] LABS: Glucose - Point of Care 162 mg/dl (70-99)
--- NOTE | 2025-06-16 00:53 | PTCARENOTE ---
IVF decr to 125/hr per order
[2025-06-16] MEDS: DILAUDID 1 MG IV ×3 (02:00→22:58)
--- NOTE | 2025-06-16 02:00 | PTCARENOTE ---
dilaudid 1mg iv given for pain, CHG bath done, linens changed
--- NOTE | 2025-06-16 03:02 | DOWNTIME ---
There was a [employer] Client Rougher Machine Operator Downtime on 06/16/2025 from 0100 to 06/16/2025 at 0255. Downtime documentation of patient's care, including medication administrations, has been reconciled in the electronic record per guidelines. Refer to the
patient's paper chart under the miscellaneous tab to see printed paper medication records and downtime forms.
[2025-06-16] MEDS: ZOSYN 50 IV ×4 (03:23→22:46)
[2025-06-16 03:41] LABS: Glucose - Point of Care 117 mg/dl (70-99)
[2025-06-16 03:47] LABS: Hematocrit 38.8 % (39.0-52.0); Hemoglobin 13.7 g/dL (13.0-18.0); Mean Corp Hgb Conc. 35.3 g/dL (33.0-37.0); Mean Corpuscular Volume 85.7 fL (80.0-94.0); Platelet Count 160 10^3/uL (130-400); Red Cell Dist. Width 14.3 % (11.5-14.5)
--- NOTE | 2025-06-16 03:52 | PTCARENOTE ---
sys reviewed, changes noted, easily arousable from sleep, oriented,abd pain w/ movement
[2025-06-16 04:36] LABS: ALT (SGPT) 187 U/L (0-50); AST (SGOT) 92 U/L (17-59); Albumin 3.4 g/dl (3.5-5.0); Alkaline Phosphatase 43 U/L (38-126); Blood Urea Nitrogen 48 mg/dl (9-20); Calcium 7.2 mg/dl (8.4-10.2); Carbon Dioxide 21 mmol/L (22-30); Chloride 110 mmol/L (98-107); Estimated Creatinine Clearance 24 ml/min; Glucose 109 mg/dl (70-99); Magnesium 1.8 mg/dl (1.6-2.3); Potassium 4.1 mmol/L (3.5-5.1); Sodium 139 mmol/L (135-145); Total Protein 5.5 g/dl (6.3-8.2); Triglycerides 232 mg/dl (10-149); eGFR 21.13
[2025-06-16] MEDS: NSS 1000 IV (04:53)
[2025-06-16] MEDS: CALCIUM GLUCONATE 130 MG IV (05:21)
--- NOTE | 2025-06-16 05:22 | PTCARENOTE ---
3 gm elaine gluc hung over 1hr per order
[2025-06-16 05:37] LABS: Glucose - Point of Care 105 mg/dl (70-99)
--- NOTE | 2025-06-16 06:17 | PTCARENOTE ---
dilaudid 1mg iv given for pain, 1 gm Mag sulfate hung over 1 hr per order
[2025-06-16] MEDS: MAGNESIUM SULFATE 102 GRAMS IV (06:18)
[2025-06-16 06:38] LABS: Glucose - Point of Care 121 mg/dl (70-99)
[2025-06-16 07:07] LABS: Glucose - Point of Care 163 mg/dl (70-99)
[2025-06-16 07:07] LABS: Glucose - Point of Care 114 mg/dl (70-99)
[2025-06-16 07:42] LABS: Glucose - Point of Care 117 mg/dl (70-99)
[2025-06-16] MEDS: LR 1000 IV ×2 (07:53→15:56)
[2025-06-16] MEDS: HEPARIN 5000 UNITS SC ×3 (07:54→23:02)
[2025-06-16] MEDS: NSS (PRESERVATIVE FREE) 10 ML IV (07:56)
[2025-06-16] MEDS: PROTONIX IV 40 MG IV (07:56)
[2025-06-16 08:42] LABS: Glucose - Point of Care 142 mg/dl (70-99)
--- NOTE | 2025-06-16 08:47 | W.PN.UPDATE ---
Update Note
Progress Note Update
Chart reviewed. Pancreatitis mgmt per GI/Hospitalist. Tentatively for rpt attempt ERCP tomorrow per GI note. CCY timing TBD, GS will follow peripherally.
[2025-06-16] MEDS: NOVOLOG FLEXPEN SC ×3 (09:08→16:13)
--- NOTE | 2025-06-16 09:12 | W.PN.GI.CBS2 ---
Addendum entered and electronically signed by Kojo Dangelo DO 06/16/25 14:17:
I saw and examined the patient.
The DRAPERY MAKER's note was reviewed and I agree with the note.
Comment: Reviewed recent EUS/ERCP findings which was performed on 06/15/2025. As the major papilla could not be found (secondary to duodenal edema), advised to repeat ERCP in 2 days and could be coordinated tomorrow on 06/17/2025 pending patient's
clinical course. He remains critically ill and significantly distended on exam secondary to his underlying biliary-induced pancreatitis with evidence of choledocholithiasis on prior imaging and recent EUS. Would continue to monitor serial
abdominal exams and concern for possible development of abdominal compartment syndrome. No evidence of ileus on recent CT imaging however still at risk and would limit opioids as much as possible if feasible. Okay for small sips of water as
tolerated and keep n.p.o. at midnight. Would continue IV Zosyn as well pending ERCP for biliary decompression. Agree with rest of ongoing supportive care as below.
GI will continue to follow, please call with any questions or concerns.
Original Note:
Today's Communication / Plan
-
etiology of symptoms with concern for severe pancreatitis--CBD stone on CT and EUS, no hx ETOH use, no new medication, no prior hx pancreatitis in past
IGG4 pending, TG stable 232, baseline CRP 70.90
cont to monitor WBC-- with rise overnight without fever
EUS and ERCP as noted unable to complete -- plan for tentative repeat ERCP 06/17
MRCP held as unable to tolerate
attempted NGT 06/15 -- with distention pt declined reattempt
blood cx pending- remains on IV Zosyn, no pressor needed
cont pain control
IVF per renal now at 125ml/hr as requiring 5 liter O2 at this time
ok for ice chips and small sips- slow progression with concern for ileus
hold bowel regiment will give Dulcolax
reviewed with nursing for OOB
pain control per hospitalist
I reviewed with Dr. De Paz from ICU
appreciate renal input
updated and nursing staff
Assessment / Plan
-
Pt is a 74yo with hx obesity, HTN, hyperlipidemia, NIDDM, shingles, urinary retention with st cath daily, arthritis, vasectomy, BPH prior turp, prostate biopsy, spinal injection with onset of abdominal pain to back and nausea with eating after
eating dinner on 06/14. On admission concern for sepsis with WBC 21,900, hbg 15.2, and after admission noted with Na 131, K up to 5.5 creat up to 2.7, glucose 480, lactate 4.7 with rise in bili to 7.5, AST 492, ALT 329, alk phos 53, and lipase
>4000. He takes NSAIDs several times per week for pain. He did have several episode of non bloody emesis after onset of pain. No issues with diarrhea, constipation or rectal bleeding. No ETOH use, no new medications, no hx pancreatitis in past or
family hx pancreatic issues. No GPL-1 use or wt loss.
06/14/25 US abdomen with fatty liver, mild hepatomegaly
06/15/25 abd X ray No significantly dilated air-filled loops of bowel. No radiographic evidence for pathologic calcification or soft tissue mass. CBD 5 mm
06/15/25 CT Abd/pelvis Wo Iv Cont Findings suggesting severe acute pancreatitis. Mild hepatosplenomegaly.Probable stones in the common bile duct. No secondary findings to suggest acute cholecystitis on this CT exam. However, ultrasound is the study
of choice for evaluation of the gallbladder. Mild abdominopelvic ascites. Moderate left hydroureter. Mild diverticulosis. Moderate air in the bladder likely due to Carbone catheter placement.
Severe prostate hypertrophy. Mild age indeterminate T12 compression fracture. New from 2020
06/15/25 EUS - Multiple stones were visualized endosonographically in the lower third of the main bile duct. Pancreatic parenchymal abnormalities consisting of diffuse echogenicity and hyperechoic strands were noted in the pancreatic head. No
specimens collected.
06/15/25 ERCP The esophagus was successfully intubated under direct vision. The major papilla was not found.
-severe acute pancreatitis
-abdominal distention with likely ileus
-elevated LFT's
-leukocytosis
-elevated lactate - improving
-SAMANTHA worsening after admission
-leukocytosis
-hyperglycemia
-hyperkalemia
-hyponatremia
-CT with mild ascites, Moderate left hydroureter
other med problems:
-obesity, HTN, hyperlipidemia, NIDDM, shingles, urinary retention with st cath daily, arthritis, vasectomy, BPH prior turp, prostate biopsy, spinal injection
PLAN:
etiology of symptoms with concern for severe pancreatitis--CBD stone on CT and EUS, no hx ETOH use, no new medication, no prior hx pancreatitis in past
IGG4 pending, TG stable 232, baseline CRP 70.90
cont to monitor WBC-- with rise overnight without fever
EUS and ERCP as noted unable to complete -- plan for tentative repeat ERCP 06/17
MRCP held as unable to tolerate
attempted NGT 06/15 -- with distention pt declined reattempt
blood cx pending- remains on IV Zosyn, no pressor needed
cont pain control
IVF per renal now at 125ml/hr as requiring 5 liter O2 at this time
ok for ice chips and small sips- slow progression with concern for ileus
hold bowel regiment will give Dulcolax
reviewed with nursing for OOB
pain control per hospitalist
I reviewed with Dr. De Paz from ICU
appreciate renal input
updated and nursing staff
Subjective
Subjective
Date of Service: June 16, 2025
NPO small amount of ice chips and sips overnight, no stools, no flatus, still with pain and distention but slight improvement
Objective
Data Reviewed
Laboratory Data:
Laboratory Results
06/16/25 03:31
06/16/25 03:31
Laboratory Results
PT 15.7 Sec (11.4-14.6) H 06/15/25 13:55
INR 1.22 06/15/25 13:55
APTT 28.3 Sec (23.4-35.0) 06/15/25 13:55
Phosphorus 3.9 mg/dl (2.5-4.5) 06/15/25 19:59
Magnesium 1.8 mg/dl (1.6-2.3) 06/16/25 03:31
Total Bilirubin 3.2 mg/dl (0.2-1.3) H D 06/16/25 03:31
AST 92 U/L (17-59) H 06/16/25 03:31
ALT 187 U/L (0-50) H 06/16/25 03:31
Alkaline Phosphatase 43 U/L (38-126) 06/16/25 03:31
Lipase > 4000 U/L (23-300) H* 06/14/25 19:55
Vital Signs and I&O:
Vital Signs
Temp Pulse Resp BP Pulse Ox
98.4 F 97 20 161/81 96
06/16/25 07:20 06/16/25 08:00 06/16/25 08:00 06/16/25 08:00 06/16/25 08:00
I&O
06/15/25 06/16/25 06/17/25
06:59 06:59 06:59
Intake Total 50 / 50 6026.5 / 6278.8 507.6 / 507.6
Output Total 700 / 700 1000 / 1000 125 / 125
Balance -650 / -650 5026.5 / 5278.8 382.6 / 382.6
Physical Exam
Physical Exam
HEENT: Anicteric and Moist mucous membranes
Cardiology: Normal Sinus Rhythm
Pulmonary: Clear and Other (decreased bases )
GI: Distended, Tender (diffuse ) and Other (tympanic )
Extremities: No Edema
Neuro: Other (sleepy but arousable )
--- NOTE | 2025-06-16 09:25 | W.PN.HOSP.TC ---
Today's Communication/Plan
-
NPO/IVF
IV Abx
serial BMPs with DKA protocol
pain control - defer CARRY OUT CLERK AND SHELF STOCKER at present
feeding per GI if indicated
repeat ERCP in 2 or so days - allowing duodenal edema to settle
d/w ICU team and RN
Assessment / Plan
Assessment / Plan
Assessment:
Acute biliary pancreatitis
- CT: severe acute pancreatitis with CBD stones
- s/p EUS and ERCP 06/15: inability to locate ampulla due to duodenal edema. repeat ERCP in 2 days
- continue NPO and IVF
- continue Zosyn for possible cholangitis
- GI following
- GS following for eventual CCY TBD
Ileus from acute pancreatitis
- NPO and IVF
- feeding trials as per GI
SAMANTHA
Acute hyperkalemia
Hypovolemic hyponatremia
- s/p temporization
- continue IVF, now transitioned from NSS To LR
- monitor UOP with Carbone in place
- follow serial BMPs
- renal/bladder US
- Nephrology following
mild DKA (AG 12)
- continue DKA protocol; insulin drip, monitor BMP q6h
- accu-checks
- HYDRAULIC RIVETER following
Hypomagnesemia
Hypocalcemia
- repleted via IV
DVT ppx: SC heparin
Code: Full
Total Critical Care Time 42 minutes. I was immediately available to the patient and staff. I personally examined, reviewed labs, diagnostic images/reports, interpretations, treatment plans, discussed patient care with other providers and family
or caregivers (if patient is unable to make decisions), entered orders as appropriate and documented the medical record.
Anticipated Discharge: > 48 hours
Subjective/Interval History
-
Date of Service: June 16, 2025
reports abdominal tenderness
no fever/chills
no SOB
Cr 3.2 today
Objective Data
-
Labs:
Laboratory Results
06/16/25 06/16/25 06/16/25
03:31 09:21 15:21
WBC 26.6 H
Hgb 13.7
Hct 38.8 L
Plt Count 160
Sodium 139 Pending Pending
Potassium 4.1 Pending Pending
Chloride 110 H Pending Pending
Carbon Dioxide 21 L Pending Pending
BUN 48 H Pending Pending
Creatinine 3.0 H Pending Pending
Glucose 109 H Pending Pending
Calcium 7.2 L Pending Pending
Total Bilirubin 3.2 H D
AST 92 H
ALT 187 H
Alkaline Phosphatase 43
06/16/25
21:21
WBC
Hgb
Hct
Plt Count
Sodium Pending
Potassium Pending
Chloride Pending
Carbon Dioxide Pending
BUN Pending
Creatinine Pending
Glucose Pending
Calcium Pending
Total Bilirubin
AST
ALT
Alkaline Phosphatase
Vital Signs:
Vital Signs
Temp Pulse Resp BP Pulse Ox
98.4 F 97 20 161/81 96
06/16/25 07:20 06/16/25 08:00 06/16/25 08:00 06/16/25 08:00 06/16/25 08:00
I&O
06/15/25 06/16/25 06/17/25
06:59 06:59 06:59
Intake Total 50 / 50 6026.5 / 6278.8 507.6 / 507.6
Output Total 700 / 700 1000 / 1000 125 / 125
Balance -650 / -650 5026.5 / 5278.8 382.6 / 382.6
Physical Exam
-
General: Conversant
HEENT: Normocephalic and Atraumatic
Respiratory: Negative Wheezes or Rales
Cardiac: Regular Rhythm and S1/S2
GI: Tender and Distended
Neuro: AO x 3
Psych: Calm
Data Reviewed
-
Critical Care Time (in minutes): 42
Labs: Labs Reviewed by me
[2025-06-16 09:38] LABS: Glucose - Point of Care 133 mg/dl (70-99)
[2025-06-16] MEDS: DULCOLAX 10 MG RECTAL (09:58)
[2025-06-16] MEDS: NOVOLIN R INSULIN INFUSION 100 IV (10:08)
[2025-06-16 10:24] LABS: Blood Urea Nitrogen 48 mg/dl (9-20); Calcium 7.6 mg/dl (8.4-10.2); Carbon Dioxide 21 mmol/L (22-30); Chloride 109 mmol/L (98-107); Estimated Creatinine Clearance 22 ml/min; Glucose 127 mg/dl (70-99); Potassium 4.2 mmol/L (3.5-5.1); Sodium 138 mmol/L (135-145); eGFR 19.56
--- NOTE | 2025-06-16 10:54 | W.PN.NEPH.PH ---
Today's Communication / Plan
-
cotn IVF
Assessment/Plan
-
Impression:
SAMANTHA (2.7)
CKD (1.9 ?)
Metabolic acidosis
Hyperkalemia
Profound abdominal pain likely due to evolving pancreatitis/sepsis
Abnormal LFTs
History of HTN
History of diabetes
History of profound BPH requiring self-catheterization daily
Plan:
SAMANTHA:
- Likely prerenally mediated given fractional secretion of sodium less than 1%
-Possibly also related to pancreatitis with evolving MOF
-No acute dialysis required yet..
-would cont IVF with LR
monitor mild metabolic acidosis which seem stable
-Maintain Geller catheter
-Held metformin and hydrochlorothiazide
- Zosyn to be renally dosed
get baseline cr from pcp office, will call pcp to fax
-
-
Date of Service: June 16, 2025
CC / HPI / ROS
-
Chief Complaint:
SAMANTHA
History of Present Illness:
cr up at 3.1 non oliguric with geller
elaine is low but improving to 7.6 post IV rider
k normla
Review of Systems:
c/o abd pain, nausea. no cp
Labs
-
Labs:
WBC 26.6 10^3/uL (4.8-10.8) H 06/16/25 03:31
RBC 4.53 10^6/uL (4.70-6.10) L 06/16/25 03:31
Hgb 13.7 g/dL (13.0-18.0) 06/16/25 03:31
Hct 38.8 % (39.0-52.0) L 06/16/25 03:31
Plt Count 160 10^3/uL (130-400) 06/16/25 03:31
eGFR 19.56 06/16/25 09:50
Phosphorus 3.9 mg/dl (2.5-4.5) 06/15/25 19:59
Albumin 3.4 g/dl (3.5-5.0) L 06/16/25 03:31
Physical Exam
-
Vital Signs:
Vital Signs
Temp Pulse Resp BP Pulse Ox
98.4 F 97 20 161/81 96
06/16/25 07:20 06/16/25 08:00 06/16/25 08:00 06/16/25 08:00 06/16/25 08:00
Cardiovascular:: Regular rate and rhythm
Lung Excursion:: Normal (decreased BS)
Abdomen:: Distended, Soft and Tender (mid upper abd)
Extremity Edema:: None: Bilateral:
Geller Catheter: Yes
--- NOTE | 2025-06-16 11:16 | W.PN.INTV ---
Today's Communication / Plan
Recommendations
Continue IVF's, antibiotics, antiemetics, pain control
Continue insulin drip
Plan for repeat ERCP tomorrow
N.p.o. given severe pancreatitis and procedure tomorrow
Assessment
-
Assessment: Patient is a 74-year-old male with PMH of CKD stage IIIb, NIDDM, HTN, HLD, and BPH who is being upgraded to the [place] ICU with acute pancreatitis and possible sepsis complicated by hyperglycemia, acute kidney injury, hyperkalemia,
hyperbilirubinemia, and transaminitis. Etiology of pancreatitis is to be determined, though concern for acute cholangitis given subjective fever, chills, abdominal pain with guarding, transaminitis, and hyperbilirubinemia. Patient has multiple
signs of decreased end organ perfusion, including lactate 4.8, Cr 2.8, VBG pH 7.26 and HCO3 18.4. Critical illness hypoglycemia with glucose 480.
06/16: Patient seems to be slightly improving overall. Status post EUS and attempted ERCP. Concern for the patient's increasing oxygen requirement, as he is now requiring 4 L. Labs overall improving, though WBCs increased to 26.6. Patient is
producing urine (approximately 1 L in last 24 hours), and creatinine may be plateauing in the low threes (currently 3.2). Lactate decreasing, now 1.0 from 4.7 yesterday. Bicarb steady around 21. AST and ALT substantially improved, down to 92 and
187, respectively. T. bili 3.2 from 7.5 yesterday. Glucoses under much better control, now in the mid 100s. Patient is positive approximately 5 L over the last 24 hours. Abdomen distended and slightly more tense than yesterday. Monitoring for
abdominal compartment syndrome given copious IVF's in setting of pancreatitis.
Impression:
#Acute pancreatitis
#Suspected sepsis 2/2 possible biliary pathology
#Metabolic acidosis
#Hyperglycemia
#SAMANTHA
#Hyperkalemia
#BPH
#HTN
Plan:
#Acute pancreatitis
#Possible sepsis 2/2 suspected choledocholithiasis
#Metabolic acidosis
#SAMANTHA
Continue IVF resuscitation (now on LR 125 mL/hr)
Continue piperacillin�tazobactam given concern for acute cholangitis and/or sepsis
N.p.o., antiemetics, pain control
Monitor I's and O's
Per GI, plan is for repeat ERCP tomorrow
Consider intravesical pressure measurement if abdomen becomes more tense
Nephrology, GI, surgery following
#Hyperglycemia
Continue insulin drip, per protocol
BMPs every 4 hours
Goal glucose 140�180
#Hyperkalemia (resolved)
Resolved following insulin administration and treatment of pancreatitis/metabolic acidosis with IVF's, antibiotic
BMPs every 4 hours
#BPH
Carbone in place
Monitor I's and O's
#HTN
Home medications on hold
DVT PPx: SQH
Subjective Dataa
Subjective Data
Date of Service:
Date of Service: June 16, 2025
Subjective:
Patient is at the bedside with present on hospital day #3. Patient is feeling 'much better' than yesterday. Abdominal pain is now 7/10 from 05/07 yesterday. No recent vomiting. Producing urine.
Review of Systems
General: Pain
Cardiopulmonary: Other (Denies shortness of breath and chest pain)
GI: Abdominal Pain, Nausea and Other (Denies vomiting since yesterday)
Genitourinary: Carbone
Objective Data
Data Reviewed
Vital Signs / I&O / Oxygen:
Vital Signs
Temp Pulse Resp BP Pulse Ox
98.4 F 97 20 161/81 96
06/16/25 07:20 06/16/25 08:00 06/16/25 08:00 06/16/25 08:00 06/16/25 08:00
Intake and Output
06/15/25 06/16/25 06/17/25
06:59 06:59 06:59
Intake Total 50 / 50 6026.5 / 6278.8 747.8 / 747.8
Output Total 700 / 700 1000 / 1000 125 / 125
Balance -650 / -650 5026.5 / 5278.8 622.8 / 622.8
SaO2 96
Nasal Cannula flow liters per 6
minute
Physical Exam
General: Pain and Other (Mild tachypnea with shallow breathing, though denies dyspnea)
HEENT: Normocephalic
Cardiovascular: S1-S2, Regular Rhythm and Other (No peripheral edema)
GI: Distended (Tense) and Non Tender
Neurology: Awake, AO x 3 and No Motor Deficits
Skin: Warm and Good Color
Labs/Micro/Reports
Lab Data
06/16/25 03:31
Laboratory Results
06/15/25
13:55
PT 15.7 H
INR 1.22
APTT 28.3
Microbiology
06/14/25 21:22 Blood/Venous Blood Culture - Preliminary
No Growth in 24 hours- Final report to follow
06/14/25 21:22 Blood/Venous Blood Culture - Preliminary
No Growth in 24 hours- Final report to follow
[2025-06-16 11:43] LABS: Glucose - Point of Care 120 mg/dl (70-99)
--- NOTE | 2025-06-16 12:41 | PTCARENOTE ---
Pt reported needing to have bm, refused bedpan. With mod/heavy assist got to commode, but pt reported being unable to move bowel. Assisted to chair. Pt with mild baca with activity. Eased when at rest. Abdomen remains taught, c/o 5-6/10 lower
abd both sides but doesn't feels he needs medication at this time. Forgetful and drowsy, sleeping intermittently t/o shift. Maintained on ivf and glycemic as charted. Carbone continued output as charted. Sediment increased today. Pt tolerating
ice chips/sips of water. Denies nausea. Family at bedside. Call hernandez in place. Otherwise no changes.
[2025-06-16] MEDS: DILAUDID 0.5 MG IV ×3 (12:56→20:41)
--- NOTE | 2025-06-16 12:58 | PN.DE.MGMTRT ---
Insulin Management
- -
06/16/2025 Diabetes Management Consult
Patient admitted 06/14 with c/o sever mid - upper abdominal pain into back with nausea, chest pain - acute pancreatitis. PMH HTN, HLD, diabetes, BPH, urinary retention, ckd 3b. Prior to admission was taking glimepiride 4 mg daily, metformin 500
mg BID. A1C on admission 6.5%, cr 3.2, eGFR 21.13.
Patient is sleeping, awakens to name but dozes right back to sleep, unable to discuss diabetes care but did state he has had diabetes 30+ years. and daughter at bedside able to provide further information. States he has been taking
glimepiride and metformin for about 3 - 4 years and sees his primary doctor for ongoing diabetes care. He has never tested his glucose.
Glucose up to 480 yesterday, critical care glycemic protocol initiated at that time. Has required up to 6 units of insulin per hour. Currently requiring 2.3 units per hour. Patient remains NPO, critically ill. Will continue critical care
glycemic protocol and assess in AM for readiness to transition off of insulin infusion. When patient condition improves will provide glucose monitor and educate on testing procedure and appropriate times to test.
Discussed with nurse
Will follow
Diabetes History
- -
Type of Diabetes: 2
Pre-Admission Diabetes Regimen
06/15/25 06/15/25 06/15/25
13:51 14:42 14:51
Creatinine Cancelled Cancelled 2.8 H
06/15/25 06/16/25 06/16/25
19:59 03:31 09:50
Creatinine 3.1 H 3.0 H 3.2 H
Lab Results
Hemoglobin A1c 6.5 % (4.0-5.9) H 06/15/25 04:45
Insulin Pump Settings
IP Diabetes Regimen
06/15/25 06/15/25 06/15/25
13:51 13:58 14:42
Glucose Cancelled Cancelled
POC Glucose 445 H
06/15/25 06/15/25 06/15/25
14:51 15:48 16:32
Glucose 395 H
POC Glucose 317 H 287 H
06/15/25 06/15/25 06/15/25
17:27 19:59 21:28
Glucose 239 H
POC Glucose 277 H 224 H
06/15/25 06/15/25 06/16/25
22:32 23:28 00:36
Glucose
POC Glucose 242 H 196 H 162 H
06/16/25 06/16/25 06/16/25
01:28 02:29 03:30
Glucose
POC Glucose 163 H 114 H 117 H
06/16/25 06/16/25 06/16/25
03:31 05:26 06:27
Glucose 109 H
POC Glucose 105 H 121 H
06/16/25 06/16/25 06/16/25
07:30 08:31 09:27
Glucose
POC Glucose 117 H 142 H 133 H
06/16/25 06/16/25
09:50 11:32
Glucose 127 H
POC Glucose 120 H
Patient Education
[2025-06-16 13:54] LABS: Glucose - Point of Care 130 mg/dl (70-99)
--- NOTE | 2025-06-16 14:28 | PN.CDI ---
CDI
- -
CDI:
Physician Documentation Request
Admit Date: 06/14/25 22:28
Dear Doctor/Resident ,
Please review the following and provide your response in the progress notes.
Clinical Indicators:
Pt admitted with Acute biliary pancreatitis/SAMANTHA /DKA
GI progress note 06/16,' IVF per renal now at 125ml/hr as requiring 5 liter O2 at this time...Pulmonary: Clear and Other (decreased bases )...'
Direct Marketing Executive consult, ' ..... intermittently mildly tachypneic...Patient has multiple signs of decreased end organ perfusion, including lactate 4.8, Cr 2.8, VBG pH 7.26 ..Respiratory: Trouble Breathing...'
Direct Marketing Executive note 06/16,' Nasal Cannula flow liters per 6 ...General: Pain and Other (Mild tachypnea with shallow breathing, though denies dyspnea)..'
Selected Entries
06/15/25
20:00 06/15/25
20:00 06/15/25
20:00
Nasal Cannula flow liters per minute 6 6 6
06/16/25
08:00 06/16/25
12:00 06/16/25
13:00
Pulse 104 102
Nasal Cannula flow liters per minute 6
Clarify which of the following accurately represents the patient's respiratory status:
Acute Hypoxic respiratory failure
Hypoxia only
Other ( please specify)
Additional information for Respiratory Failure:
Recognized criteria for Respiratory Failure (Source: [employer] 2019 June 17.
Documentation tips: Acute Respiratory Failure, The Hospitalist.)
ABGs: (1 or more) Symptoms Please indicate type if known
1. p)2 <60 or RA SPO2 <91% on RA 1. Tachypnea, SOB, dyspnea Hypoxic
2. pCO2 >45 and pH <7.35 2. Use of accessory muscles Hypercapnic
3. pO2 decrease of pCO2 increase by 3. Pallor or cyanosis Hypoxic and Hypercapnic
10 mmHg from baseline if known 4. Anxiety or restlessness Unable to determine
4. P/F Ratio (pO2/FiO2)less than 300 5. Unable to speak in full sentences
Use of terms such as suspected, likely, concern for, or probable (associated with a specific diagnosis that is being evaluated, monitored, or treated as if it exists) are acceptable and can be coded in the inpatient setting, when documented at the
time of discharge.
Thank you,
Rakel Alejandro RN
CDI Specialist
[place] [facility]
Please use your independent medical judgment in providing your response.
--- NOTE | 2025-06-16 14:52 | PN.CDI ---
CDI
- -
CDI:
Physician Documentation Request
Admit Date: 06/14/25 22:28
Dear Doctor Cruz,
Please review the following and provide your response in the progress notes.
Clinical Indicators:
Pt admitted with Acute biliary pancreatitis/SAMANTHA /DKA
Pt care note 06/15 @ 1950, ' Transferred pt from GI lab via bed on monitor , pt drowsy, disoriented to place/time...'
Pt care note 06/15 @ 2346,' changes noted, pt oriented, asking appropriate questions, anxious, mitts off, ativan 0.5mg iv given per order...'
Pt care note 06/16@ 1241,' Forgetful and drowsy, sleeping intermittently t/o shift. ...'
Based on the above, could you clarify in the Progress Notes and Discharge Summary which, if any of the following, is the most likely etiology of the confusion/altered mental status.
Toxic Metabolic Encephalopathy
Metabolic Encephalopathy
Other ( please specify)
Use of terms such as suspected, likely, concern for, or probable (associated with a specific diagnosis that is being evaluated, monitored, or treated as if it exists) are acceptable and can be coded in the inpatient setting, when documented at the
time of discharge.
Thank you,
Rakel Alejandro RN
CDI Specialist
[employer]
Please use your independent medical judgment in providing your response.
[2025-06-16 14:56] LABS: Venous Blood Gas B.E. -5.8 mmol/L (-4 to +4); Venous Blood Gas O2 Sat % 99.9 %
[2025-06-16 15:36] LABS: Blood Urea Nitrogen 48 mg/dl (9-20); Calcium 7.4 mg/dl (8.4-10.2); Carbon Dioxide 20 mmol/L (22-30); Chloride 108 mmol/L (98-107); Estimated Creatinine Clearance 22 ml/min; Glucose 127 mg/dl (70-99); Potassium 3.9 mmol/L (3.5-5.1); Sodium 135 mmol/L (135-145); eGFR 18.85
[2025-06-16 15:54] LABS: Glucose - Point of Care 126 mg/dl (70-99)
--- NOTE | 2025-06-16 16:01 | CM ---
Acute severe pancreatitis w concern for biliary obstruction, ERCP attempted but unsuccessful,significant edema in his duodenum. Will re-attempt ERCP in 2 days when his duodenal edema improves. SAMANTHA/CKD. NPO. IV/Zosyn. Discharge POC: TBD.
Anticipate no needs vs RN.
--- NOTE | 2025-06-16 17:01 | W.PN.UPDATE ---
Update Note
Progress Note Update
Patient re-examined thru the day. Abdomen seems to be more distended and tender. No rebound tenderness.
Lactate is improving, VBG with improving pH. Urine output, 475 ml over 9 hours, Cr still gradually climbing.
Attempted to check intra-vesical pressure, around 8 mm, unclear if it is accurate reading.
Patient after counselling, agreed for another attempt at NG for decompression, after pre-treatment with dilaudid.
Continue to monitor lactate, pH and urine output.
Updated patient and family regarding risk of compartment syndrome.
POCUS showed small volume ascites in the dependent areas but no large pocket that can be easily drained, will continue to monitor with bedside US
We discussed the next steps in the event he deteriorates, which may include intubation, mechanical ventilation and pharmacological paralytics and attempt at paracentesis.
Continue IVF at reduced rate.
d/w GI, Renal and Surgery service.
[2025-06-16 17:42] LABS: Glucose - Point of Care 131 mg/dl (70-99)
--- NOTE | 2025-06-16 18:02 | W.PN.UPDATE ---
Update Note
Progress Note Update
revisit , pt just had NGT placed
UOP noted 475 since am
cr up at 3.3
baseline cr seem 1.7 on 06/11/25, 1.9 in 01/2025 suspect CKD stage 3b
cont to monitor labs closely and vol status
if concern of hypervolemia would reduce IVF
high risk of dialysis based on clinical course
reviewed with family in detail
--- NOTE | 2025-06-16 18:11 | PTCARENOTE ---
inserted conrad rice for decompression to right nare.
[2025-06-16 18:40] LABS: Glucose - Point of Care 136 mg/dl (70-99)
[2025-06-16 19:41] LABS: Glucose - Point of Care 134 mg/dl (70-99)
[2025-06-16 20:43] LABS: Glucose - Point of Care 145 mg/dl (70-99)
[2025-06-16 21:33] LABS: Glucose - Point of Care 140 mg/dl (70-99)
[2025-06-16 21:50] LABS: Blood Urea Nitrogen 51 mg/dl (9-20); Calcium 7.0 mg/dl (8.4-10.2); Carbon Dioxide 21 mmol/L (22-30); Chloride 108 mmol/L (98-107); Estimated Creatinine Clearance 23 ml/min; Glucose 134 mg/dl (70-99); Potassium 3.8 mmol/L (3.5-5.1); Sodium 133 mmol/L (135-145); eGFR 20.32
[2025-06-16 22:41] LABS: Glucose - Point of Care 129 mg/dl (70-99)
--- NOTE | 2025-06-16 23:38 | PTCARENOTE ---
Patient aao x1 at start of shift, drowsiness and confusion noted. Intra abdominal pressure 12 at start of shift. Patient c/o pain 7/10 earlier, prn dilaudid 0.5mg administered as ordered, patient asleep upon reassessment. Awake a short time later
and c/o continued pain 7/10, PRN dilaudid 1mg administered as ordered. Patient repositioned and currently asleep. NSR on the monitor, wk rp b/l, wk pp b/l, trace LE edema. 93-96% on 6L o2 n/c, lung sounds diminished throughout. Carbone intact and
draining dark yellow urine. Abdomen firm, round, distended. NGT remains in place to LIWS. LR continues at 125ml/hr to right hand IV site, patient remains on insulin gtt as well. Call hernandez within reach, will continue to monitor patient closely.
[2025-06-17] VITALS (29 sets, daily range): BP systolic 144–182; BP diastolic 64–95; PULSE 110; O2SAT 95
[2025-06-17] MEDS: CALCIUM GLUCONATE 130 MG IV (00:47)
[2025-06-17] MEDS: LR 1000 IV ×3 (00:47→20:50)
[2025-06-17 01:05] LABS: Glucose - Point of Care 134 mg/dl (70-99)
--- NOTE | 2025-06-17 01:20 | PTCARENOTE ---
Patient Ca low, repleating at this time. Midnight intra abdominal pressure 16, Tucker [employer] P[employer] HOSE notified. Unsure if pressures are accurate. Assessment otherwise unchanged.
[2025-06-17 02:31] LABS: Glucose - Point of Care 135 mg/dl (70-99)
[2025-06-17] MEDS: ZOSYN 50 IV ×4 (04:07→21:50)
[2025-06-17 04:31] LABS: B.E. -3.9 mmol/L; HCO3 20.8 mmol/L (21-28); O2 Saturation % 97.8 % (94-98); PCO2 36 mmHg (35-48); PO2 81 mmHg (83-108)
[2025-06-17] MEDS: DILAUDID 1 MG IV ×4 (04:32→20:47)
[2025-06-17 04:34] LABS: Glucose - Point of Care 132 mg/dl (70-99)
[2025-06-17 04:51] LABS: Blood Urea Nitrogen 52 mg/dl (9-20); Calcium 7.4 mg/dl (8.4-10.2); Carbon Dioxide 21 mmol/L (22-30); Chloride 109 mmol/L (98-107); Estimated Creatinine Clearance 22 ml/min; Glucose 133 mg/dl (70-99); Potassium 3.8 mmol/L (3.5-5.1); Sodium 139 mmol/L (135-145); eGFR 18.85
[2025-06-17] MEDS: CALCIUM GLUCONATE 100 IV (05:38)
[2025-06-17 06:10] LABS: Hematocrit 35.6 % (39.0-52.0); Hemoglobin 12.4 g/dL (13.0-18.0); Mean Corp Hgb Conc. 34.8 g/dL (33.0-37.0); Mean Corpuscular Volume 86.8 fL (80.0-94.0); Nucleated Red Blood Cells % 0 % (-); Platelet Count 129 10^3/uL (130-400); Red Cell Dist. Width 14.6 % (11.5-14.5)
[2025-06-17 06:31] LABS: ALT (SGPT) 98 U/L (0-50); AST (SGOT) 38 U/L (17-59); Albumin 3.0 g/dl (3.5-5.0); Alkaline Phosphatase 57 U/L (38-126); Total Protein 5.3 g/dl (6.3-8.2)
[2025-06-17 06:33] LABS: Glucose - Point of Care 143 mg/dl (70-99)
[2025-06-17 06:35] LABS: C-Reactive Protein > 270.00 mg/L (0.0-10.00)
[2025-06-17 07:13] LABS: ALT (SGPT) 96 U/L (0-50); AST (SGOT) 38 U/L (17-59); Albumin 2.9 g/dl (3.5-5.0); Alkaline Phosphatase 56 U/L (38-126); Total Protein 5.1 g/dl (6.3-8.2)
--- NOTE | 2025-06-17 07:19 | W.PN.UPDATE ---
Update Note
Progress Note Update
no new issues overnight, NGT placed and abdomen slight less distended this am with decompression of air. WBC lower 20,900, and LFT's some improved trend. Tentative plan for ERCP today pending review with Dr. Marte. Updated nursing staff. cont NPO,
IV remain at LR at 100ml/hr.
[2025-06-17] MEDS: NOVOLOG FLEXPEN SC ×3 (07:46→15:58)
[2025-06-17] MEDS: HEPARIN 5000 UNITS SC ×3 (07:47→23:58)
[2025-06-17] MEDS: PROTONIX IV 40 MG IV (07:47)
[2025-06-17] MEDS: NSS (PRESERVATIVE FREE) 10 ML IV (07:47)
[2025-06-17 08:34] LABS: Glucose - Point of Care 140 mg/dl (70-99)
--- NOTE | 2025-06-17 08:58 | PTCARENOTE ---
recd pt 0715 handoff bedside with previous RN. VS noted, forgetful initially, slow speech, hesitant to answer orientation questions initially. After engagement, pt more brightly interactive, A&O x 4. Verbalizing appropriately. See assessment as
documented. bedside, updated on plans for day. Seen by GI and Dr. De Paz. Intraabdominal pressure obtained. Continues on glycemic protocol.
--- NOTE | 2025-06-17 09:33 | PN.DE.MGMTRT ---
Insulin Management
- -
06/17/2025 Diabetes Management Consult Follow up
Patient admitted 06/14 with c/o sever mid - upper abdominal pain into back with nausea, chest pain - acute pancreatitis. PMH HTN, HLD, diabetes, BPH, urinary retention, ckd 3b. Prior to admission was taking glimepiride 4 mg daily, metformin 500
mg BID. A1C on admission 6.5%, cr 3.2, eGFR 21.13.
Patient awakens to name, but dozes right back to sleep, unable to discuss diabetes care but did state he has had diabetes 30+ years. and daughter at bedside able to provide further information. States he has been taking glimepiride and
metformin for about 3 - 4 years and sees his primary doctor for ongoing diabetes care. He has never tested his glucose.
Critical Care glycemic protocol initiated yesterday. Has required up to 1.5 units of insulin per hour. Patient remains NPO, critically ill. Patient for ERCP today. Will continue critical care glycemic protocol and assess in AM for readiness to
transition off of insulin infusion. When patient condition improves will provide glucose monitor and educate on testing procedure and appropriate times to test.
Discussed with nurse
Will follow
Diabetes History
- -
Type of Diabetes: 2
Pre-Admission Diabetes Regimen
06/16/25 06/16/25 06/16/25
09:50 14:42 21:20
Creatinine 3.2 H 3.3 H 3.1 H
06/17/25 06/17/25
04:03 06:00
Creatinine 3.3 H Cancelled
Lab Results
Hemoglobin A1c 6.5 % (4.0-5.9) H 06/15/25 04:45
Insulin Pump Settings
IP Diabetes Regimen
06/16/25 06/16/25 06/16/25
09:27 09:50 11:32
Glucose 127 H
POC Glucose 133 H 120 H
06/16/25 06/16/25 06/16/25
13:43 14:42 15:43
Glucose 127 H
POC Glucose 130 H 126 H
06/16/25 06/16/25 06/16/25
17:31 18:28 19:30
Glucose
POC Glucose 131 H 136 H 134 H
06/16/25 06/16/25 06/16/25
20:31 21:20 21:22
Glucose 134 H
POC Glucose 145 H 140 H
06/16/25 06/17/25 06/17/25
22:30 00:45 02:29
Glucose
POC Glucose 129 H 134 H 135 H
06/17/25 06/17/25 06/17/25
04:03 04:33 06:00
Glucose 133 H Cancelled
POC Glucose 132 H
06/17/25 06/17/25
06:32 08:32
Glucose
POC Glucose 143 H 140 H
Patient Education
--- NOTE | 2025-06-17 09:49 | W.PN.GS2 ---
Today's Communication / Plan
-
`
Assessment / Plan
-
Assessment: 74-year-old male with severe pancreatitis gallstone mediated with choledocholithiasis on CT and EUS
Secondary ileus
Initial ERCP unsuccessful at stone extraction.
Surgery notified yesterday evening regarding concerns for abdominal compartment syndrome.
Symptoms were likely reflective of worsening ileus. Abdomen is distended but soft. There are no clinical signs of ACS (hemodynamic instability, multisystem organ failure, increased peak airway pressures and difficulty with ventilation). Bladder
pressures typically only reflective of an accurate intra-abdominal pressure when measured in patients who are intubated and paralyzed.
Plan:
Continue current supportive care for severe pancreatitis
ERCP per GI
Available for assistance however given severity of pancreatitis and ileus cholecystectomy would likely be deferred on unless complete resolution of abdominal distention and ileus prior to discharge.
Subjective Data
-
Date of Service: June 17, 2025
Patient seen and examined.
at bedside.
Reviewed with nursing
Resting comfortably in hospital bed.
Just received Dilaudid recently.
Reports improved abdominal pain.
NG tube in place
Objective Data
-
Intake and Output
06/16/25 06/17/25 06/18/25
06:59 06:59 06:59
Intake Total 6026.5 / 6278.8 3344.9 / 3446.4 233.0 / 233.0
Output Total 1000 / 1000 1925 / 1925 175 / 175
Balance 5026.5 / 5278.8 1419.9 / 1521.4 58.0 / 58.0
Intake:
IV fluids (Total) 5926.5 / 6178.8 2764.9 / 2866.4 203.0 / 203.0
Lr 1,000 ml @ 100 mls/hr IV . 2595 / 2695 200 / 200
Q10H [facility] Rx#:[id number]
Nss 1,000 ml @ 125 mls/hr IV . 2750 / 2875 125 / 125
Q8H [facility] Rx#:[id number]
elaine gluc 260 / 260
insulin 66.5 / 68.8 44.9 / 46.4 3.0 / 3.0
mag sulfate 100 / 100
nss 1999 / 1999
IV piggybacks 100 / 100 380 / 380
Carbone intermittent irrigation 200 / 200
Amount instilled into GI Tube (
Total)
[place]
Output:
Urine, Carbone 1000 / 1000 1925 / 1925 175 / 175
Urine, Voided 0 / 0
Vital Signs
Temp Pulse Resp BP Pulse Ox
98.5 F 110 20 163/83 92
06/17/25 08:00 06/17/25 08:00 06/17/25 08:00 06/17/25 08:00 06/17/25 08:00
Lab Results
06/17/25 05:43
Calcium Cancelled 06/17/25 06:00
Phosphorus 3.9 mg/dl (2.5-4.5) 06/15/25 19:59
Magnesium 1.8 mg/dl (1.6-2.3) 06/16/25 03:31
Total Bilirubin 2.3 mg/dl (0.2-1.3) H 06/17/25 06:30
Direct Bilirubin 0.9 mg/dl (0.0-0.4) H 06/17/25 06:30
AST 38 U/L (17-59) 06/17/25 06:30
ALT 96 U/L (0-50) H 06/17/25 06:30
Alkaline Phosphatase 56 U/L (38-126) 06/17/25 06:30
Total Protein 5.1 g/dl (6.3-8.2) L 06/17/25 06:30
Albumin 2.9 g/dl (3.5-5.0) L 06/17/25 06:30
Physical Exam
-
NAD AAO x 3
ABD: Softly distended and protuberant. Not tense. Generalized areas of tenderness with some voluntary guarding on deep palpation but no signs of peritonitis.
NG tube in place with bilious contents in canister
--- NOTE | 2025-06-17 10:23 | W.PN.NEPH.PH ---
Today's Communication / Plan
-
cotn IVF and follow labs
Assessment/Plan
-
Impression:
SAMANTHA (2.7)
CKD 3b(1.7-1.9 )
Metabolic acidosis
Hyperkalemia
Profound abdominal pain likely due to evolving pancreatitis/sepsis
Abnormal LFTs
History of HTN
History of diabetes
History of profound BPH requiring self-catheterization daily
Plan:
SAMANTHA:
- Likely prerenally mediated given fractional secretion of sodium less than 1%
-Possibly also related to pancreatitis with evolving MOF
cr relatively no sig change at 3.3 and improving UOP with geller
-No acute dialysis required yet..
-would cont IVF with LR
monitor mild metabolic acidosis which seem stable
-Maintain Geller catheter
-Held metformin and hydrochlorothiazide
- Zosyn to be renally dosed
prn calcium rider, check i elaine in am
for ERCP today
d/w pt and GI
d/w family at bedside
-
-
Date of Service: June 17, 2025
CC / HPI / ROS
-
Chief Complaint:
SAMANTHA
History of Present Illness:
cr up at 3.3 non oliguric with geller
elaine is low s/p post IV rider
bicarb stable 21, alb 2.9
Review of Systems:
c/o abd pain,has NGT placed last night no cp at rest
Labs
-
Labs:
WBC 20.9 10^3/uL (4.8-10.8) H 06/17/25 05:43
RBC 4.10 10^6/uL (4.70-6.10) L 06/17/25 05:43
Hgb 12.4 g/dL (13.0-18.0) L 06/17/25 05:43
Hct 35.6 % (39.0-52.0) L 06/17/25 05:43
Plt Count 129 10^3/uL (130-400) L 06/17/25 05:43
eGFR Cancelled 06/17/25 06:00
Phosphorus 3.9 mg/dl (2.5-4.5) 06/15/25 19:59
Albumin 2.9 g/dl (3.5-5.0) L 06/17/25 06:30
Physical Exam
-
Vital Signs:
Vital Signs
Temp Pulse Resp BP Pulse Ox
98.5 F 114 20 153/73 94
06/17/25 08:00 06/17/25 10:00 06/17/25 10:00 06/17/25 09:52 06/17/25 09:52
Cardiovascular:: Regular rate and rhythm
Lung Excursion:: Normal (decreased BS)
Abdomen:: Distended, Soft and Tender (mid upper abd)
Extremity Edema:: None: Bilateral: (trace)
Geller Catheter: Yes
[2025-06-17 10:44] LABS: Glucose - Point of Care 159 mg/dl (70-99)
--- NOTE | 2025-06-17 11:20 | W.PN.HOSP.TC ---
Today's Communication/Plan
-
continue insulin drip
IVF, NPO, NGT
repeat ERCP
continue Abx
follow GI/GS/ICU/Renal recs
d/w bedside earlier today
Assessment / Plan
Assessment / Plan
Assessment:
Acute biliary pancreatitis
- CT: severe acute pancreatitis with CBD stones
- s/p EUS and ERCP 06/15: inability to locate ampulla due to duodenal edema. repeat ERCP today
- continue NPO and IVF
- continue Zosyn for possible cholangitis
- GI following
- GS following for eventual CCY TBD
Ileus from acute pancreatitis
- NPO and IVF
- NGT in place for decompression
SAMANTHA
Acute hyperkalemia
Hypovolemic hyponatremia
- s/p temporization
- continue LR fluids
- monitor UOP with Carbone in place
- follow serial BMPs
- renal/bladder US when able
- Nephrology following
mild DKA (AG 12)
- continue DKA protocol; insulin drip, monitor serial BMPs
- accu-checks
- [employer] Diabetes team following
Acute hypoxic respiratory failure on 6L NC
Bibasilar atelectasis
- IS as able
- wean O2 as able
Hypomagnesemia
Hypocalcemia
- repleted via IV
Toxic Metabolic Encephalopathy
- multifactorial from procedural sedation, acute illness, pain meds
- monitor mentation
DVT ppx: SC heparin
Code: Full
Total Critical Care Time 42 minutes. I was immediately available to the patient and staff. I personally examined, reviewed labs, diagnostic images/reports, interpretations, treatment plans, discussed patient care with other providers and family or
caregivers (if patient is unable to make decisions), entered orders as appropriate and documented the medical record.
Anticipated Discharge: > 48 hours
Subjective/Interval History
-
Date of Service: June 17, 2025
improving abd pain with NGT and Dilaudid dosing
for repeat ERCP today
Objective Data
-
Labs:
Laboratory Results
06/17/25 06/17/25 06/17/25
04:03 04:19 05:43
WBC 20.9 H
Hgb 12.4 L
Hct 35.6 L
Plt Count 129 L
HCO3 20.8 L
Sodium 139
Potassium 3.8
Chloride 109 H
Carbon Dioxide 21 L
BUN 52 H
Creatinine 3.3 H
Glucose 133 H
Calcium 7.4 L
Total Bilirubin 2.4 H
AST 38
ALT 98 H
Alkaline Phosphatase 57
06/17/25 06/17/25 06/17/25
06:00 06:30 12:00
WBC
Hgb
Hct
Plt Count
HCO3
Sodium Cancelled Pending
Potassium Cancelled Pending
Chloride Cancelled Pending
Carbon Dioxide Cancelled Pending
BUN Cancelled Pending
Creatinine Cancelled Pending
Glucose Cancelled Pending
Calcium Cancelled Pending
Total Bilirubin Cancelled 2.3 H
AST Cancelled 38
ALT Cancelled 96 H
Alkaline Phosphatase Cancelled 56
06/17/25
20:00
WBC
Hgb
Hct
Plt Count
HCO3
Sodium Pending
Potassium Pending
Chloride Pending
Carbon Dioxide Pending
BUN Pending
Creatinine Pending
Glucose Pending
Calcium Pending
Total Bilirubin
AST
ALT
Alkaline Phosphatase
Vital Signs:
Vital Signs
Temp Pulse Resp BP Pulse Ox
98.5 F 114 20 153/73 94
06/17/25 08:00 06/17/25 10:00 06/17/25 10:00 06/17/25 09:52 06/17/25 09:52
I&O
06/16/25 06/17/25 06/18/25
06:59 06:59 06:59
Intake Total 6026.5 / 6278.8 3344.9 / 3446.4 587.7 / 587.7
Output Total 1000 / 1000 1925 / 1925 500 / 500
Balance 5026.5 / 5278.8 1419.9 / 1521.4 87.7 / 87.7
Physical Exam
-
General: No Apparent Distress
HEENT: Normocephalic, Atraumatic and Other (+ NG tube)
Cardiac: Regular Rhythm and S1/S2
GI: Tender and Distended
Genito-urinary: No Costovertebral Tender
Neuro: AO x 3
Psych: Calm
Data Reviewed
-
Critical Care Time (in minutes): 42
Labs: Labs Reviewed by me
--- NOTE | 2025-06-17 11:21 | W.PN.INTV ---
Today's Communication / Plan
Recommendations
N.p.o. for tentative repeat ERCP today
Continue IVF's, antibiotics
NGT in place for decompression
Assessment
-
Assessment: Patient is a 74-year-old male with PMH of CKD stage IIIb, NIDDM, HTN, HLD, and BPH who is being upgraded to the [place] ICU with acute pancreatitis and possible sepsis complicated by hyperglycemia, acute kidney injury, hyperkalemia,
hyperbilirubinemia, and transaminitis. Etiology of pancreatitis is to be determined, though concern for acute cholangitis given subjective fever, chills, abdominal pain with guarding, transaminitis, and hyperbilirubinemia. Patient has multiple
signs of decreased end organ perfusion, including lactate 4.8, Cr 2.8, VBG pH 7.26 and HCO3 18.4. Critical illness hypoglycemia with glucose 480.
06/16: Patient seems to be slightly improving overall. Status post EUS and attempted ERCP. Concern for the patient's increasing oxygen requirement, as he is now requiring 4 L. Labs overall improving, though WBCs increased to 26.6. Patient is
producing urine (approximately 1 L in last 24 hours), and creatinine may be plateauing in the low threes (currently 3.2). Lactate decreasing, now 1.0 from 4.7 yesterday. Bicarb steady around 21. AST and ALT substantially improved, down to 92 and
187, respectively. T. bili 3.2 from 7.5 yesterday. Glucoses under much better control, now in the mid 100s. Patient is positive approximately 5 L over the last 24 hours. Abdomen distended and slightly more tense than yesterday. Monitoring for
abdominal compartment syndrome given copious IVF's in setting of pancreatitis.
06/17: Patient slightly improved from yesterday afternoon/evening. Good urine output (~800 mL from 12 AM�6 AM). Improved oxygen requirement from yesterday, currently on 2 L. Improving leukocytosis, transaminases, and bilirubin. Creatinine still
elevated at 3.3, which is relatively stable from recent days. Sugars well-controlled on insulin drip. CXR shows improving atelectasis, which is consistent with the patient's improved abdominal exam. Overall, respiratory status, abdominal exam,
increased urine output, and labs indicate slight improvement.
Impression:
#Acute pancreatitis
#Suspected sepsis 2/2 possible biliary pathology
#Metabolic acidosis
#Hyperglycemia
#SAMANTHA
#Hyperkalemia
#BPH
#HTN
Plan:
#Acute pancreatitis
#Possible sepsis 2/2 suspected choledocholithiasis
#Metabolic acidosis
#SAMANTHA
Continue IVF resuscitation (now on LR 125 mL/hr)
Continue piperacillin�tazobactam given concern for acute cholangitis and/or sepsis
Per GI, tentative plan is for repeat ERCP today
N.p.o., antiemetics, pain control
NGT in place
Monitor I's and O's
Nephrology, GI, surgery following
#Hyperglycemia
Continue insulin drip, per protocol
BMPs every 8 hours
Goal glucose 140�180
#Hyperkalemia (resolved)
Resolved following insulin administration and treatment of pancreatitis/metabolic acidosis with IVF's, antibiotic
BMPs every 8 hours
#BPH
Carbone in place
Monitor I's and O's
#HTN
Home medications on hold
DVT PPx: SQH
Subjective Dataa
Subjective Data
Date of Service:
Date of Service: June 17, 2025
Subjective:
Patient is seen at the bedside on hospital day #4. Patient states he is feeling a little better than yesterday. Abdominal pain is now 5/10 from 02/04 yesterday. Patient reports feeling slightly less distended. No nausea or vomiting. Mild
shortness of breath with improved oxygen requirement relative to yesterday.
Review of Systems
General: Other (Denies fever or chills)
Cardiopulmonary: Dyspnea (Mild)
GI: Abdominal Pain (5/10, improved from yesterday) and Other (Denies nausea or vomiting)
Genitourinary: Carbone
Objective Data
Data Reviewed
Vital Signs / I&O / Oxygen:
Vital Signs
Temp Pulse Resp BP Pulse Ox
98.5 F 114 20 153/73 94
06/17/25 08:00 06/17/25 10:00 06/17/25 10:00 06/17/25 09:52 06/17/25 09:52
Intake and Output
06/16/25 06/17/25 06/18/25
06:59 06:59 06:59
Intake Total 6026.5 / 6278.8 3344.9 / 3446.4 587.7 / 587.7
Output Total 1000 / 1000 1925 / 1925 500 / 500
Balance 5026.5 / 5278.8 1419.9 / 1521.4 87.7 / 87.7
SaO2 94
Nasal Cannula flow liters per 2
minute
Physical Exam
General: Pain and Other (Mild tachypnea, though appears more comfortable than yesterday)
HEENT: Normocephalic
Cardiovascular: S1-S2, Regular Rhythm and Other (No peripheral edema)
GI: Soft (Improved from tense abdomen yesterday afternoon/evening), Distended (Markedly improved from yesterday evening), Non Tender and NG Tube (Draining dark green, bilious abdominal contents)
Neurology: Awake, Alert, Oriented (X 2; disoriented to time) and No Motor Deficits
Skin: Warm and Good Color
Labs/Micro/Reports
Lab Data
06/17/25 05:43
Laboratory Results
06/17/25
04:19
pH 7.37
pCO2 36
pO2 81 L
HCO3 20.8 L
O2 Delivery Level
Microbiology
06/15/25 19:59 Urine Urine Culture - Final
NO GROWTH
06/14/25 21:22 Blood/Venous Blood Culture - Preliminary
No Growth in 48 hours- Final report to follow
06/14/25 21:22 Blood/Venous Blood Culture - Preliminary
No Growth in 48 hours- Final report to follow
06/15/25 12:01 Blood/Venous Blood Culture - Preliminary
No Growth in 24 hours- Final report to follow
06/15/25 11:30 Blood/Venous Blood Culture - Preliminary
No Growth in 24 hours- Final report to follow
--- NOTE | 2025-06-17 12:21 | PTCARENOTE ---
Awaiting procedure. Family bedside. Oral care done, labs drawn and sent.
[2025-06-17] MEDS: APRESOLINE 10 MG IV (12:47)
[2025-06-17 12:58] LABS: Glucose - Point of Care 129 mg/dl (70-99)
[2025-06-17 13:14] LABS: Blood Urea Nitrogen 53 mg/dl (9-20); Calcium 7.4 mg/dl (8.4-10.2); Carbon Dioxide 21 mmol/L (22-30); Chloride 109 mmol/L (98-107); Estimated Creatinine Clearance 22 ml/min; Glucose 137 mg/dl (70-99); Potassium 3.7 mmol/L (3.5-5.1); Sodium 140 mmol/L (135-145); eGFR 19.56
--- NOTE | 2025-06-17 13:55 | PTCARENOTE ---
transported to GI lab #6 for procedure. Pt anxious. Support given to pt, and handoff to GI lab staff.
[2025-06-17 14:17] LABS: Glucose - Point of Care 142 mg/dl (70-99)
[2025-06-17] MEDS: ZOFRAN 4 MG IV (15:58)
--- NOTE | 2025-06-17 16:12 | SUR.PHASEI ---
arrived back in ICU via bed from GI lab 6. Sonorous. Settled in room, VS noted, IV fluids continue, LR as ordered. Glucose noted, insulin continuing. NG to low intermittent, connected, irrigated easily. Carbone emptied clear yellow. NG tube
falcon changed. VS noted, see documentation filed for exact times, as policy after general anesthesia. Med as requested, see MAR for exact times, for nausea and pain. Abd softly distended. Brushed/swabbed teeth. resting unless disturbed.
[2025-06-17 16:16] LABS: Glucose - Point of Care 142 mg/dl (70-99)
[2025-06-17 16:41] LABS: Glucose - Point of Care 153 mg/dl (70-99)
--- NOTE | 2025-06-17 18:12 | PTCARENOTE ---
I/O tallied. Order obtained re: intraabdominal pressure monitoring, to discontinue. Sleeping unless disturbed. When awakened, notes pain bearable.
[2025-06-17 18:53] LABS: Glucose - Point of Care 143 mg/dl (70-99)
--- NOTE | 2025-06-17 20:00 | PTCARENOTE ---
Assumed care of patient. Hand-off validation done with off-going nurse. Patient is drowsy but awakens to verbal stimuli. Patient is disoriented to time, but follows commands and moves all extremities. He is in sinus tach, blood pressures with
systolic 150-160. Trace generalized edema noted, pulses are all palpable. Patient is on 4L NC, lungs diminished in the bases. Abdomen is distended, firm but softer than previous assessment according to off-going nurse. Bowel sounds are hypoactive,
abdomen is tender. Carbone catheter in place draining light yellow urine. Skin is dry and intact, IV sites are c/d/i.
[2025-06-17 20:34] LABS: Glucose - Point of Care 156 mg/dl (70-99)
[2025-06-17 21:12] LABS: Blood Urea Nitrogen 54 mg/dl (9-20); Calcium 7.1 mg/dl (8.4-10.2); Carbon Dioxide 23 mmol/L (22-30); Chloride 109 mmol/L (98-107); Estimated Creatinine Clearance 25 ml/min; Glucose 156 mg/dl (70-99); Potassium 3.6 mmol/L (3.5-5.1); Sodium 136 mmol/L (135-145); eGFR 22.01
[2025-06-17 22:40] LABS: Glucose - Point of Care 153 mg/dl (70-99)
[2025-06-18] VITALS (29 sets, daily range): BP systolic 153–188; BP diastolic 63–91; BMI 30.6
--- NOTE | 2025-06-18 | PTCARENOTE ---
Patient required medication for pain throughout abdomen. BGM checks Q2 per protocol. No other changes in assessment at this time.
[2025-06-18] MEDS: DILAUDID 0.5 MG IV ×3 (00:04→19:43)
[2025-06-18] MEDS: ZOFRAN 4 MG IV (00:25)
[2025-06-18] MEDS: APRESOLINE 10 MG IV ×4 (00:26→20:19)
[2025-06-18 00:31] LABS: Glucose - Point of Care 162 mg/dl (70-99)
[2025-06-18] MEDS: DILAUDID 1 MG IV ×2 (02:36→06:31)
[2025-06-18] MEDS: LR 1000 IV ×2 (02:37→08:56)
[2025-06-18 02:41] LABS: Glucose - Point of Care 176 mg/dl (70-99)
[2025-06-18] MEDS: ZOSYN 50 IV ×4 (04:06→21:55)
[2025-06-18 04:08] LABS: Hematocrit 35.0 % (39.0-52.0); Hemoglobin 11.6 g/dL (13.0-18.0); Mean Corp Hgb Conc. 33.1 g/dL (33.0-37.0); Mean Corpuscular Volume 92.8 fL (80.0-94.0); Platelet Count 142 10^3/uL (130-400); Red Cell Dist. Width 14.3 % (11.5-14.5)
--- NOTE | 2025-06-18 04:13 | PTCARENOTE ---
No changes in patient assessment.
[2025-06-18 04:39] LABS: Glucose - Point of Care 141 mg/dl (70-99)
[2025-06-18 04:49] LABS: Blood Urea Nitrogen 55 mg/dl (9-20); Calcium 6.9 mg/dl (8.4-10.2); Carbon Dioxide 25 mmol/L (22-30); Chloride 112 mmol/L (98-107); Estimated Creatinine Clearance 24 ml/min; Glucose 135 mg/dl (70-99); Potassium 3.4 mmol/L (3.5-5.1); Sodium 144 mmol/L (135-145); eGFR 21.13
[2025-06-18] MEDS: CALCIUM GLUCONATE 130 MG IV (05:21)
[2025-06-18] MEDS: KCL 270 MEQ IV (05:27)
[2025-06-18 06:38] LABS: Glucose - Point of Care 145 mg/dl (70-99)
--- NOTE | 2025-06-18 08:06 | W.PN.GI.CBS2 ---
Addendum entered and electronically signed by Demetria Luciano MD 06/18/25 08:52:
duodenitis continue PPI
Original Note:
Today's Communication / Plan
-
Continue supportive care with IV fluids, pain control, NG decompression, correction of electrolytes, antibiotics
will give Dulcolax suppository today
repeat obstruction series in a.m. and if distention is improving will start him on clear liquids
if mentation is not improving may also need a CT head but most likely has metabolic encephalopathy. Will also get ammonia level.
Assessment / Plan
-
Pt is a 74yo with hx obesity, HTN, hyperlipidemia, NIDDM, shingles, urinary retention with st cath daily, arthritis, vasectomy, BPH prior turp, prostate biopsy, spinal injection with onset of abdominal pain to back and nausea with eating after
eating dinner on 06/14. On admission concern for sepsis with WBC 21,900, hbg 15.2, and after admission noted with Na 131, K up to 5.5 creat up to 2.7, glucose 480, lactate 4.7 with rise in bili to 7.5, AST 492, ALT 329, alk phos 53, and lipase
>4000. He takes NSAIDs several times per week for pain. He did have several episode of non bloody emesis after onset of pain. No issues with diarrhea, constipation or rectal bleeding. No ETOH use, no new medications, no hx pancreatitis in past or
family hx pancreatic issues. No GPL-1 use or wt loss.
06/14/25 US abdomen with fatty liver, mild hepatomegaly
06/15/25 abd X ray No significantly dilated air-filled loops of bowel. No radiographic evidence for pathologic calcification or soft tissue mass. CBD 5 mm
06/15/25 CT Abd/pelvis Wo Iv Cont Findings suggesting severe acute pancreatitis. Mild hepatosplenomegaly.Probable stones in the common bile duct. No secondary findings to suggest acute cholecystitis on this CT exam. However, ultrasound is the study
of choice for evaluation of the gallbladder. Mild abdominopelvic ascites. Moderate left hydroureter. Mild diverticulosis. Moderate air in the bladder likely due to Carbone catheter placement.
Severe prostate hypertrophy. Mild age indeterminate T12 compression fracture. New from 2020
06/15/25 EUS - Multiple stones were visualized endosonographically in the lower third of the main bile duct. Pancreatic parenchymal abnormalities consisting of diffuse echogenicity and hyperechoic strands were noted in the pancreatic head. No
specimens collected.
06/15/25 ERCP The esophagus was successfully intubated under direct vision. The major papilla was not found.
-severe acute pancreatitis
-abdominal distention with likely ileus
-elevated LFT's
-leukocytosis
-elevated lactate - improving
-SAMANTHA worsening after admission
-leukocytosis
-hyperglycemia
-hyperkalemia
-hyponatremia
-CT with mild ascites, Moderate left hydroureter
other med problems:
-obesity, HTN, hyperlipidemia, NIDDM, shingles, urinary retention with st cath daily, arthritis, vasectomy, BPH prior turp, prostate biopsy, spinal injection
PLAN:
etiology of symptoms with concern for severe pancreatitis--CBD stone on CT and EUS, no hx ETOH use, no new medication, no prior hx pancreatitis in past
IGG4 normal at 9, TG stable 232, baseline CRP 70.90
Status post ERCP 06/17/2025 with removal of CBD stones and stent to common hepatic and PD
Still appears very confused likely encephalopathy multifactorial from opiates, sepsis, SAMANTHA with electrolyte disturbances, will also get an ammonia level he did have mild hepatosplenomegaly on imaging so possible cirrhosis cannot be ruled out likely
from MAFLD
Ileus improving from acute pancreatitis abdomen distention is less with NG tube decompression
Continue antibiotics with Zosyn
WBC count trending down
Continue to trend labs nephrology on board. His creatinine is improving. Correction of hypokalemia per primary team
Continue IV fluids
Could likely start clear liquids if NG output decreases and abdominal distention decreases would be ideal to start enteric/PO feeds as soon as possible
Will also give Dulcolax suppository.
Subjective
Subjective
Date of Service: June 18, 2025
Patient appears very drowsy and not able to really answer any questions at the current time. Does respond to pain stimulus. Status post ERCP 06/17/2025 with removal of CBD stones and placement of stent in the common hepatic and PD
Objective
Data Reviewed
Laboratory Data:
Laboratory Results
06/18/25 03:59
Laboratory Results
PT 15.7 Sec (11.4-14.6) H 06/15/25 13:55
INR 1.22 06/15/25 13:55
APTT 28.3 Sec (23.4-35.0) 06/15/25 13:55
Phosphorus 3.9 mg/dl (2.5-4.5) 06/15/25 19:59
Magnesium 1.8 mg/dl (1.6-2.3) 06/16/25 03:31
Total Bilirubin 2.3 mg/dl (0.2-1.3) H 06/17/25 06:30
AST 38 U/L (17-59) 06/17/25 06:30
ALT 96 U/L (0-50) H 06/17/25 06:30
Alkaline Phosphatase 56 U/L (38-126) 06/17/25 06:30
Lipase > 4000 U/L (23-300) H* 06/14/25 19:55
Vital Signs and I&O:
Vital Signs
Temp Pulse Resp BP Pulse Ox
99.6 F 98 17 167/65 94
06/18/25 07:39 06/18/25 06:00 06/18/25 06:00 06/18/25 06:06 06/18/25 06:00
I&O
06/17/25 06/18/25 06/19/25
06:59 06:59 06:59
Intake Total 3344.9 / 3446.4 3124.0 / 3250.5 253.0 / 253.0
Output Total 1924 / 192 3050 / 3150 250 / 250
Balance 1419.9 / 1521.4 74.0 / 100.5 3.0 / 3.0
06/17/2025 ERCP
Impression:
- Duodenitis, characterized by congestion (edema), erythema and
friability.
- The major papilla appeared normal.
- A filling defect consistent with a stone was seen on the
cholangiogram.
- Choledocholithiasis was found. Removal was accomplished by
biliary sphincterotomy and balloon extraction.
- A pancreatic sphincterotomy was performed.
- One plastic pancreatic stent was placed into the ventral
pancreatic duct.
- A biliary sphincterotomy was performed.
- The biliary tree was swept.
- One plastic stent was placed into the common hepatic duct.
Physical Exam
Physical Exam
Cardiology: Normal Sinus Rhythm and Other (Tachycardic)
Pulmonary: Other (Decreased breath sounds at the bases)
GI: Soft, Distended, Tender and Other (Hypoactive bowel sounds, no rebound or rigidity)
--- NOTE | 2025-06-18 08:09 | PTCARENOTE ---
0700 assumed care . pt in bed;
- awake, drowsy, oriented to himself, place; Pupils sluggish +2 center, equal
-SpO2: 94% on 4L via nasal canula; Decreased to 2L ; Lungs diminished RR 19 to 20
-Abdomen distended, soft, hyperactive bowel sounds x 4 Quadrants . N-J tube RT: green output 200 overnight
-Indwelling Carbone: scooter, clear urine
- On Insulin qtt-Accu checks Q 2 hrs; Insulin adjusted per critical hyperglycemic protocol; LR 125; K-cl for K 3.4
HOB elevated call hernandez within reach
--- NOTE | 2025-06-18 08:14 | W.PN.INTV ---
Today's Communication / Plan
Recommendations
Continue IVF, antibiotics, insulin drip
Monitor LFTs s/p ERCP
Urine output improving, continue to monitor labs
Assessment
-
Assessment: Patient is a 74-year-old male with PMH of CKD stage IIIb, NIDDM, HTN, HLD, and BPH who is being upgraded to the [place] ICU with acute pancreatitis and possible sepsis complicated by hyperglycemia, acute kidney injury, hyperkalemia,
hyperbilirubinemia, and transaminitis. Etiology of pancreatitis is to be determined, though concern for acute cholangitis given subjective fever, chills, abdominal pain with guarding, transaminitis, and hyperbilirubinemia. Patient has multiple
signs of decreased end organ perfusion, including lactate 4.8, Cr 2.8, VBG pH 7.26 and HCO3 18.4. Critical illness hypoglycemia with glucose 480.
06/16: Patient seems to be slightly improving overall. Status post EUS and attempted ERCP. Concern for the patient's increasing oxygen requirement, as he is now requiring 4 L. Labs overall improving, though WBCs increased to 26.6. Patient is
producing urine (approximately 1 L in last 24 hours), and creatinine may be plateauing in the low threes (currently 3.2). Lactate decreasing, now 1.0 from 4.7 yesterday. Bicarb steady around 21. AST and ALT substantially improved, down to 92 and
187, respectively. T. bili 3.2 from 7.5 yesterday. Glucoses under much better control, now in the mid 100s. Patient is positive approximately 5 L over the last 24 hours. Abdomen distended and slightly more tense than yesterday. Monitoring for
abdominal compartment syndrome given copious IVF's in setting of pancreatitis.
06/17: Patient slightly improved from yesterday afternoon/evening. Good urine output (~800 mL from 12 AM�6 AM). Improved oxygen requirement from yesterday, currently on 2 L. Improving leukocytosis, transaminases, and bilirubin. Creatinine still
elevated at 3.3, which is relatively stable from recent days. Sugars well-controlled on insulin drip. CXR shows improving atelectasis, which is consistent with the patient's improved abdominal exam. Overall, respiratory status, abdominal exam,
increased urine output, and labs indicate slight improvement.
06/18: Patient appears to be doing well s/p ERCP yesterday. Good urine output (~700 mL from 12 AM�6 AM). Patient lowered from 4L to 2 L while at the bedside, breathing comfortably. Improving leukocytosis (17.6 from 20.9 yesterday). Creatinine
slightly improved at 3.0 from 3.3 yesterday, though still elevated over baseline of 1.7�1.9. Sugars well-controlled on insulin drip. Fluids and antibiotics continuing. Waxing and waning confusion and drowsiness this morning, suspect ICU related
delirium. Overall, abdominal exam improving with good urine output, stable respiratory status, and labs indicating slight improvement.
Impression:
#Acute pancreatitis
#Suspected sepsis 2/2 possible biliary pathology
#Metabolic acidosis
#Hyperglycemia
#SAMANTHA
#Hyperkalemia
#BPH
#HTN
Plan:
#Acute pancreatitis
#Possible sepsis 2/2 suspected choledocholithiasis
#Metabolic acidosis
#SAMANTHA
Continue IVF resuscitation (now on LR 75 mL/hr)
Continue piperacillin�tazobactam given concern for acute cholangitis and/or sepsis
S/p ERCP 06/17 with choledocholithiasis, stone removal, and stents placed in CHD and pancreatic duct
N.p.o., antiemetics, pain control
NGT in place for decompression
CMP to evaluate LFTs s/p ERCP
Monitor I's and O's
Nephrology, GI, surgery following
#Hyperglycemia
Continue insulin drip, per protocol
BMPs q8h
Goal glucose 140�180
#Hyperkalemia
K 3.4 this morning
Repleted with 40 mEq IV
BMPs q8h
#BPH
Carbone in place, producing clear light yellow urine
Monitor I's and O's
#HTN
Start metoprolol 5 mg IV q6h
Home medications on hold
#Delirium
Hydromorphone reduced from 1 mg IV q.4h. to 0.5 mg IV q.3h.
No other delirium associated medications currently being administered
DVT PPx: SQH
PT/OT: eval pending
Subjective Dataa
Subjective Data
Date of Service:
Date of Service: June 18, 2025
Subjective:
Patient seen at the bedside on hospital day number #5. Nursing reports NAEO. Patient appears drowsy, but he is arousable and answers questions. Denies pain and shortness of breath. Producing adequate urine. No BM.
Review of Systems
General: Other (Denies pain or chills)
Cardiopulmonary: Other (Denies shortness of breath)
GI: Other (Denies abdominal pain)
Objective Data
Data Reviewed
Vital Signs / I&O / Oxygen:
Vital Signs
Temp Pulse Resp BP Pulse Ox
99.6 F 98 17 167/65 94
06/18/25 07:39 06/18/25 06:00 06/18/25 06:00 06/18/25 06:06 06/18/25 06:00
Intake and Output
06/17/25 06/18/25 06/19/25
06:59 06:59 06:59
Intake Total 3344.9 / 3446.4 3124.0 / 3250.5 253.0 / 253.0
Output Total 1925 / 1925 3050 / 3150 250 / 250
Balance 1419.9 / 1521.4 74.0 / 100.5 3.0 / 3.0
SaO2 94
Nasal Cannula flow liters per 2
minute
Physical Exam
General: Other (Resting comfortably in bed)
HEENT: Normocephalic
Cardiovascular: S1-S2, Regular Rhythm and Other (No M/R/G)
Respiratory: Clear
GI: Soft (Improving relative to prior 2 days), Distended (Improving relative to prior 2 days), Non Tender and NG Tube (Draining dark green, bilious abdominal contents)
Neurology: Other (Awoken from sleep, appears tired, but arousable and answers questions)
Skin: Warm, Good Color and Other (No jaundice)
Labs/Micro/Reports
Lab Data
06/18/25 03:59
Microbiology
06/14/25 21:22 Blood/Venous Blood Culture - Preliminary
No Growth in 72 hours- Final report to follow
06/14/25 21:22 Blood/Venous Blood Culture - Preliminary
No Growth in 72 hours- Final report to follow
06/15/25 12:01 Blood/Venous Blood Culture - Preliminary
No Growth in 48 hours- Final report to follow
06/15/25 11:30 Blood/Venous Blood Culture - Preliminary
No Growth in 48 hours- Final report to follow
06/15/25 19:59 Urine Urine Culture - Final
NO GROWTH
[2025-06-18 08:20] LABS: Glucose - Point of Care 130 mg/dl (70-99)
[2025-06-18] MEDS: NOVOLOG FLEXPEN SC ×3 (08:43→18:14)
[2025-06-18] MEDS: HEPARIN 5000 UNITS SC ×3 (08:54→23:07)
[2025-06-18] MEDS: PROTONIX IV 40 MG IV (08:54)
[2025-06-18] MEDS: NSS (PRESERVATIVE FREE) 10 ML IV (08:54)
[2025-06-18] MEDS: DULCOLAX 10 MG RECTAL (08:55)
[2025-06-18 08:59] LABS: Ammonia 10 umol/L (9-30)
--- NOTE | 2025-06-18 09:20 | PTCARENOTE ---
LR dropped from 125 to 75 ; Hydralizine given PRN order for BP 177/101.
--- NOTE | 2025-06-18 09:21 | W.PN.NEPH.PH ---
Today's Communication / Plan
-
Maintain lactated Ringer's
Replete IV calcium
Follow BMP
No acute HD required
Maintain Lopressor for blood pressure
Assessment/Plan
-
Impression:
SAMANTHA (2.7)
CKD 3b(1.7-1.9 )
Metabolic acidosis
Hyperkalemia
Profound abdominal pain likely due to evolving pancreatitis/sepsis
Abnormal LFTs
History of HTN
History of diabetes
History of profound BPH requiring self-catheterization daily
Plan:
SAMANTHA:
-Status post ERCP last evening (06/17) with placement of endoscopic stent into biliary or pancreatic duct with sphincterotomy
- Likely prerenally mediated given fractional secretion of sodium less than 1%
-Possibly also related to pancreatitis with evolving MOF
-cr down to 3 with significant nonoliguric urine output of 2600 via Geller,weights rising
-No acute dialysis required
-would cont IVF with LR
-Remains hypertensive, maintained on IV metoprolol
-monitor mild metabolic acidosis which seem stable
-Maintain Geller catheter
-NG tube to drain
-Held metformin and hydrochlorothiazide
- Zosyn to be renally dosed
-Continue calcium infusion follow-up ionized calcium for hypocalcemia
d/w pt and GI
d/w family at bedside
-
-
Date of Service: June 18, 2025
CC / HPI / ROS
-
Chief Complaint:
SAMANTHA
History of Present Illness:
cr down to 3 ,non oliguric with geller
elaine is low s/p post IV rider
Hemodynamically stable, hypertensive
Review of Systems:
c/o abd pain,has NGT placed last night no cp at rest
Geller
Lethargic but weakly interact
Labs
-
Labs:
WBC 17.6 10^3/uL (4.8-10.8) H 06/18/25 03:59
RBC 3.77 10^6/uL (4.70-6.10) L 06/18/25 03:59
Hgb 11.6 g/dL (13.0-18.0) L 06/18/25 03:59
Hct 35.0 % (39.0-52.0) L 06/18/25 03:59
Plt Count 142 10^3/uL (130-400) 06/18/25 03:59
eGFR Cancelled 06/18/25 12:00
Phosphorus 3.9 mg/dl (2.5-4.5) 06/15/25 19:59
Physical Exam
-
Vital Signs:
Vital Signs
Temp Pulse Resp BP Pulse Ox
99.6 F 111 17 177/103 94
06/18/25 07:39 06/18/25 08:54 06/18/25 06:00 06/18/25 08:54 06/18/25 06:00
Cardiovascular:: Regular rate and rhythm
Lung Excursion:: Normal (decreased BS)
Abdomen:: Distended, Soft and Tender (mid upper abd)
Extremity Edema:: None: Bilateral: (trace)
Geller Catheter: Yes
Other Findings::
NG tube
--- NOTE | 2025-06-18 10:04 | PN.DE.MGMTRT ---
Insulin Management
- -
06/18/2025 Diabetes Management Consult Follow up
Patient admitted 06/14 with c/o sever mid - upper abdominal pain into back with nausea, chest pain - acute pancreatitis. PMH HTN, HLD, diabetes, BPH, urinary retention, ckd 3b. Prior to admission was taking glimepiride 4 mg daily, metformin 500
mg BID. A1C on admission 6.5%, cr 3, eGFR 21.13.
Patient awakens to name, but dozes right back to sleep, unable to discuss diabetes care but did state he has had diabetes 30+ years. at bedside able to provide further information. States he has been taking glimepiride and metformin for about
3 - 4 years and sees his primary doctor for ongoing diabetes care. He has never tested his glucose.
Critical Care glycemic protocol initiated 06/15. Has required 1.5 to 2 units of insulin per hour. Patient remains NPO, critically ill. Will continue critical care glycemic protocol insulin infusion; discussed briefly with candlemaking laborer.
When patient condition improves will provide glucose monitor and educate on testing procedure and appropriate times to test.
Discussed with nurse
Will follow
Diabetes History
- -
Type of Diabetes: 2
Pre-Admission Diabetes Regimen
06/17/25 06/17/25 06/18/25
12:06 20:37 03:59
Creatinine 3.2 H 2.9 H 3.0 H
06/18/25 06/18/25
03:59 12:00
Creatinine Cancelled Cancelled
Lab Results
Hemoglobin A1c 6.5 % (4.0-5.9) H 06/15/25 04:45
Insulin Pump Settings
IP Diabetes Regimen
06/17/25 06/17/25 06/17/25
10:33 12:06 12:57
Glucose 137 H
POC Glucose 159 H 129 H
06/17/25 06/17/25 06/17/25
14:16 16:05 16:30
Glucose
POC Glucose 142 H 142 H 153 H
06/17/25 06/17/25 06/17/25
18:42 20:33 20:37
Glucose 156 H
POC Glucose 143 H 156 H
06/17/25 06/18/25 06/18/25
22:29 00:19 02:29
Glucose
POC Glucose 153 H 162 H 176 H
06/18/25 06/18/25 06/18/25
03:59 03:59 04:27
Glucose 135 H Cancelled
POC Glucose 141 H
06/18/25 06/18/25 06/18/25
06:28 08:00 12:00
Glucose Cancelled
POC Glucose 145 H 130 H
Patient Education
[2025-06-18 10:23] LABS: Glucose - Point of Care 159 mg/dl (70-99)
[2025-06-18] MEDS: LOPRESSOR 5 MG IV ×3 (11:54→23:08)
[2025-06-18 12:17] LABS: Glucose - Point of Care 154 mg/dl (70-99)
--- NOTE | 2025-06-18 13:05 | CM ---
Addendum entered by Joana Brito 06/18/25 14:55:
Spoke with . Explained and provided [employer] list. Chose in order of preference: [facility] [place], [place], [facility] and [facility].
Original Note:
NGT, OBS series on 06/19/25, IV/Lopressor, IV/Zosyn, following lytes. Discharge POC: Therapy rec for SNF. [employer] list explained and provided to 3 daughters in room. Requested at least 4 preferences.
--- NOTE | 2025-06-18 13:10 | W.PN.HOSP.TC ---
Today's Communication/Plan
-
reduce pain meds
continue IVF; monitor I/os and UOP
continue Abx
continue NG decompression; OBS series in 24 hours
PT/OT
follow GI/ICU/renal/GS recs
family updated
Assessment / Plan
Assessment / Plan
Assessment:
Acute biliary pancreatitis
- CT: severe acute pancreatitis with CBD stones
- s/p EUS and ERCP 06/15: inability to locate ampulla due to duodenal edema.
- repeat ERCP 06/17: sphincterotomy and stone extraction, bile duct and pancreatic duct stent placements.
- continue NPO and IVF
- continue Zosyn, day 4
- GI following
- GS following for eventual CCY TBD
Ileus from acute pancreatitis
- NPO and IVF
- NGT in place for decompression
- Obs series 06/19
SAMANTHA
Acute hyperkalemia
Hypovolemic hyponatremia
- s/p temporization
- continue LR fluids
- monitor UOP with Carbone in place
- follow serial BMPs
- renal/bladder US when able
- Nephrology following
mild DKA (AG 12)
- continue DKA protocol; insulin drip, monitor serial BMPs
- accu-checks
- INCIDENT MANAGER Diabetes team following
Acute hypoxic respiratory failure on 6L NC
Bibasilar atelectasis
- IS as able
- wean O2 as able
Hypomagnesemia
Hypocalcemia
- repleted via IV
Toxic Metabolic Encephalopathy
- multifactorial from procedural sedation, acute illness, pain meds
- monitor mentation
Duodenitis on EGD
- continue PPI
DVT ppx: SC heparin
Code: Full
Total Critical Care Time 41 minutes. I was immediately available to the patient and staff. I personally examined, reviewed labs, diagnostic images/reports, interpretations, treatment plans, discussed patient care with other providers and family or
caregivers (if patient is unable to make decisions), entered orders as appropriate and documented the medical record.
Anticipated Discharge: > 48 hours
Subjective/Interval History
-
Date of Service: June 18, 2025
s/p ERCP 06/17 with stone removal
distention improving with NG tube
drowsiness earlier but improved after decrease in pain meds
Objective Data
-
Labs:
Laboratory Results
06/18/25 06/18/25 06/18/25
03:59 03:59 03:59
WBC 17.6 H
Hgb 11.6 L
Hct 35.0 L
Plt Count 142
Sodium 144 D Cancelled
Potassium 3.4 L Cancelled
Chloride 112 H
Carbon Dioxide
BUN
Creatinine
Glucose
Calcium
Total Bilirubin
AST
ALT
Alkaline Phosphatase
06/18/25 06/18/25 06/18/25
03:59 03:59 03:59
WBC
Hgb
Hct
Plt Count
Sodium
Potassium
Chloride Cancelled
Carbon Dioxide 25 Cancelled
BUN 55 H Cancelled
Creatinine 3.0 H
Glucose
Calcium
Total Bilirubin
AST
ALT
Alkaline Phosphatase
06/18/25 06/18/25 06/18/25
03:59 03:59 03:59
WBC
Hgb
Hct
Plt Count
Sodium
Potassium
Chloride
Carbon Dioxide
BUN
Creatinine Cancelled
Glucose 135 H Cancelled
Calcium 6.9 L* Cancelled
Total Bilirubin
AST
ALT
Alkaline Phosphatase
06/18/25 06/18/25
12:00 16:00
WBC
Hgb
Hct
Plt Count
Sodium Cancelled Pending
Potassium Cancelled Pending
Chloride Cancelled Pending
Carbon Dioxide Cancelled Pending
BUN Cancelled Pending
Creatinine Cancelled Pending
Glucose Cancelled Pending
Calcium Cancelled Pending
Total Bilirubin Pending
AST Pending
ALT Pending
Alkaline Phosphatase Pending
Vital Signs:
Vital Signs
Temp Pulse Resp BP Pulse Ox
99.2 F 111 17 177/103 94
06/18/25 11:18 06/18/25 08:54 06/18/25 06:00 06/18/25 08:54 06/18/25 06:00
I&O
06/17/25 06/18/25 06/19/25
06:59 06:59 06:59
Intake Total 3344.9 / 3446.4 3124.0 / 3250.5 559.0 / 559.0
Output Total 1925 / 1925 3050 / 3150 850 / 850
Balance 1419.9 / 1521.4 74.0 / 100.5 -291.0 / -291.0
Physical Exam
-
General: No Apparent Distress
HEENT: Normocephalic, Atraumatic and Other (+ NG Tube)
Respiratory: Negative Wheezes
Cardiac: Regular Rhythm and S1/S2
GI: Soft and Distended
Musculoskeletal: No Edema
Neuro: AO x 3
Psych: Calm
Data Reviewed
-
Critical Care Time (in minutes): 41
Labs: Labs Reviewed by me
[2025-06-18] MEDS: NOVOLIN R INSULIN INFUSION 100 IV (13:16)
[2025-06-18 14:15] LABS: Glucose - Point of Care 133 mg/dl (70-99)
--- NOTE | 2025-06-18 15:50 | PTCARENOTE ---
- patient remains in bed. Bed placed in a chair position - pt tolerated for 3 hours
-mental status waxing and waning from been oriented to been confused; Family (2 daughters) and at bedside, updates provided
-Sinus Tachycardia 101 . Blood pressure elevated : Hydralazine PRN + Metoprolol 5 IV Q 6 hrs
- On 2L via nasal canula SpO2 95%. on RA SpO2 89%
-Abdomen continues to be distended, tender to touch. NJ tube flushed, on Low-intermitted suctioning- draining green output
-Indwelling geller draining yellow urine; Monitoring strict I and O : see documentation
-On Insulin qtt per critical care protocol; LR 75/hr
[2025-06-18 15:53] LABS: ALT (SGPT) 58 U/L (0-50); AST (SGOT) 27 U/L (17-59); Albumin 3.0 g/dl (3.5-5.0); Alkaline Phosphatase 66 U/L (38-126); Blood Urea Nitrogen 53 mg/dl (9-20); Calcium 7.4 mg/dl (8.4-10.2); Carbon Dioxide 23 mmol/L (22-30); Chloride 112 mmol/L (98-107); Estimated Creatinine Clearance 31 ml/min; Glucose 142 mg/dl (70-99); Potassium 3.4 mmol/L (3.5-5.1); Sodium 140 mmol/L (135-145); Total Protein 5.4 g/dl (6.3-8.2); eGFR 25.09
[2025-06-18 16:08] LABS: Glucose - Point of Care 157 mg/dl (70-99)
[2025-06-18 16:44] LABS: Magnesium 2.2 mg/dl (1.6-2.3)
[2025-06-18] MEDS: KCL 260 MEQ IV (17:15)
[2025-06-18 18:10] LABS: Glucose - Point of Care 177 mg/dl (70-99)
[2025-06-18] MEDS: LR IV (19:39)
--- NOTE | 2025-06-18 20:00 | PTCARENOTE ---
Assumed care at 1900. IVF and insulin infusing. Patient confused and delirious requiring frequent reorientation. Sinus tach on the monitor. Abdomen round, firm, distended with hypoactive bowel sounds. PRN dilaudid given for 9/10 abd pain with some
relief. See worklist for nursing shift assessment details.
[2025-06-18 20:37] LABS: Glucose - Point of Care 174 mg/dl (70-99)
[2025-06-18] MEDS: MELATONIN 5 MG PO (21:55)
[2025-06-18 22:54] LABS: Glucose - Point of Care 160 mg/dl (70-99)
[2025-06-19] VITALS (45 sets, daily range): BP systolic 89–178; BP diastolic 63–113; BMI 29.6
--- NOTE | 2025-06-19 | PTCARENOTE ---
No change from previous assessment. Enema given without results.
[2025-06-19] MEDS: LR 1000 IV ×3 (01:07→22:49)
[2025-06-19 01:21] LABS: Glucose - Point of Care 153 mg/dl (70-99)
[2025-06-19] MEDS: DILAUDID 0.5 MG IV (01:55)
[2025-06-19] MEDS: CARDIZEM 20 MG IV (02:06)
[2025-06-19] MEDS: CARDIZEM 125 IV ×3 (02:13→16:50)
--- NOTE | 2025-06-19 02:44 | W.PN.UPDATE ---
Update Note
Progress Note Update
0150- Patient's rhythm changed, heart rate sustained 150s in rapid Afib. EKG obtained. SBP 170s, slightly diaphoretic, and short of breath at times but able to speak. He had not received pain medication in some time and is being treated for acute
pancreatitis, will give prn dilaudid IV now. Last dose of lopressor given at 2330. Will initiate cardizem bolus of 20mg IV and cardizem gtt for Rapid Afib.
[2025-06-19 03:00] LABS: Hematocrit 33.4 % (39.0-52.0); Hemoglobin 11.4 g/dL (13.0-18.0); Mean Corp Hgb Conc. 34.1 g/dL (33.0-37.0); Mean Corpuscular Volume 89.3 fL (80.0-94.0); Platelet Count 129 10^3/uL (130-400); Red Cell Dist. Width 13.9 % (11.5-14.5)
[2025-06-19 03:27] LABS: ALT (SGPT) 53 U/L (0-50); AST (SGOT) 31 U/L (17-59); Albumin 3.0 g/dl (3.5-5.0); Alkaline Phosphatase 76 U/L (38-126); Blood Urea Nitrogen 53 mg/dl (9-20); Calcium 7.3 mg/dl (8.4-10.2); Carbon Dioxide 23 mmol/L (22-30); Chloride 115 mmol/L (98-107); Estimated Creatinine Clearance 35 ml/min; Glucose 136 mg/dl (70-99); Potassium 3.1 mmol/L (3.5-5.1); Sodium 143 mmol/L (135-145); Total Protein 5.4 g/dl (6.3-8.2); eGFR 29.07
[2025-06-19] MEDS: ZOSYN 50 IV ×4 (04:06→21:18)
[2025-06-19 04:15] LABS: Glucose - Point of Care 139 mg/dl (70-99)
[2025-06-19] MEDS: ATIVAN 1 MG IV (05:29)
[2025-06-19] MEDS: LOPRESSOR 5 MG IV (05:29)
[2025-06-19] MEDS: KCL 270 MEQ IV ×3 (05:29→20:33)
[2025-06-19] MEDS: NSS (PRESERVATIVE FREE) 0.5 ML IV (05:36)
[2025-06-19 06:24] LABS: Glucose - Point of Care 152 mg/dl (70-99)
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
--- NOTE | 2025-06-19 07:17 | W.PN.INTV ---
Today's Communication / Plan
Recommendations
- Continue IV Lopressor scheduled and titrate Cardizem infusion as needed
- Give additional IV KCl 40 mEq, serial labs
- Clamp chest tube, trial of clear liquids
- check TSH, ECHO
Assessment
-
Assessment: Patient is a 74-year-old male with PMH of CKD stage IIIb, NIDDM, HTN, HLD, and BPH who is being upgraded to the [place] ICU with acute pancreatitis and possible sepsis complicated by hyperglycemia, acute kidney injury, hyperkalemia,
hyperbilirubinemia, and transaminitis. Etiology of pancreatitis is to be determined, though concern for acute cholangitis given subjective fever, chills, abdominal pain with guarding, transaminitis, and hyperbilirubinemia. Patient has multiple
signs of decreased end organ perfusion, including lactate 4.8, Cr 2.8, VBG pH 7.26 and HCO3 18.4. Critical illness hypoglycemia with glucose 480.
06/16: Patient seems to be slightly improving overall. Status post EUS and attempted ERCP. Concern for the patient's increasing oxygen requirement, as he is now requiring 4 L. Labs overall improving, though WBCs increased to 26.6. Patient is
producing urine (approximately 1 L in last 24 hours), and creatinine may be plateauing in the low threes (currently 3.2). Lactate decreasing, now 1.0 from 4.7 yesterday. Bicarb steady around 21. AST and ALT substantially improved, down to 92 and
187, respectively. T. bili 3.2 from 7.5 yesterday. Glucoses under much better control, now in the mid 100s. Patient is positive approximately 5 L over the last 24 hours. Abdomen distended and slightly more tense than yesterday. Monitoring for
abdominal compartment syndrome given copious IVF's in setting of pancreatitis.
06/17: Patient slightly improved from yesterday afternoon/evening. Good urine output (~800 mL from 12 AM�6 AM). Improved oxygen requirement from yesterday, currently on 2 L. Improving leukocytosis, transaminases, and bilirubin. Creatinine still
elevated at 3.3, which is relatively stable from recent days. Sugars well-controlled on insulin drip. CXR shows improving atelectasis, which is consistent with the patient's improved abdominal exam. Overall, respiratory status, abdominal exam,
increased urine output, and labs indicate slight improvement.
06/18: Patient appears to be doing well s/p ERCP yesterday. Good urine output (~700 mL from 12 AM�6 AM). Patient lowered from 4L to 2 L while at the bedside, breathing comfortably. Improving leukocytosis (17.6 from 20.9 yesterday). Creatinine
slightly improved at 3.0 from 3.3 yesterday, though still elevated over baseline of 1.7�1.9. Sugars well-controlled on insulin drip. Fluids and antibiotics continuing. Waxing and waning confusion and drowsiness this morning, suspect ICU related
delirium. Overall, abdominal exam improving with good urine output, stable respiratory status, and labs indicating slight improvement.
#1. Acute severe pancreatitis, with concern for biliary obstruction
- CT abdomen pelvis reviewed, suggestive of stone in CBD. Abnormal LFTs noted.
- 06/15, Patient upgraded to ICU, 2 additional liters of normal saline bolus given in view of elevated lactate and developing multiorgan dysfunction followed by maintenance IV fluids
- Lactic acid level improving
- 06/16. Abdominal progressively more distended with concern for abdominal compartment syndrome. NG tube was placed after sedation with decompression.
- 06/18. Abdominal is less distended, less tender, clinically improving. after ERCP, stone extraction and strent placement on 06/17
- 06/19, continued improvement in abdominal exam. Trial of NG clamping and clear liquids
#2. Acute kidney injury with underlying chronic kidney disease with hyperkalemia
- Responded well to aggressive IV fluid hydration
- Continue insulin infusion, hyperkalemia improved, rather hypokalemia now, replace with IV KCl
- Serial labs
- Nephrology service on case
- Creatinine continues to improve, good urine output
#3. Hyperglycemia, suspect in the setting of acute severe pancreatitis
- Continue insulin infusion, serial BMPs
#4. Lactic acidosis
- This is in the setting of severe pancreatitis
- Serial lactate improved, pH improved.
#5. Atrial Fibrillation with RVR, new onset 06/19
- Likely in the setting of acute critical illness
- Continue IV Lopressor 5 mg every 6 hours scheduled, Cardizem infusion in addition. Check TSH, check echocardiogram
- In view of recent sphincterotomy and acute critical illness, hold off full dose anticoagulation in the short-term
DVT prophylaxis subcu heparin, GI prophylaxis with IV Protonix
Critical Care time [48] mins -- The patient is admitted for acute critical illness for the treatment of vital organ failure and/or prevention of further life-threatening conditions. Total care includes time spent in review of history, physical exam,
medications, hemodynamic/ventilator parameters, laboratory data, imaging and discussion with house staff, pharmacy, respiratory therapy, valet attendant, and nursing.
Updated patient's at bedside
Subjective Dataa
Subjective Data
Date of Service:
Date of Service: June 19, 2025
Subjective:
Patient comfortably lying in bed in no acute distress, appears more confused.
Review of Systems
General: Other (Looks comfortable, somewhat limited review of system due to encephalopathy)
Objective Data
Data Reviewed
Vital Signs / I&O / Oxygen:
Vital Signs
Temp Pulse Resp BP Pulse Ox
99.2 F 113 25 152/71 95
06/19/25 06:19 06/19/25 06:15 06/19/25 06:15 06/19/25 06:15 06/19/25 06:15
Intake and Output
06/18/25 06/19/25 06/20/25
06:59 06:59 06:59
Intake Total 3124.0 / 3250.5 2223.5 / 2223.5
Output Total 3050 / 3150 3475 / 3475
Balance 74.0 / 100.5 -1251.5 / -1251.5
SaO2 95
Nasal Cannula flow liters per 2
minute
Physical Exam
General: Other (Resting comfortably in bed)
HEENT: Normocephalic
Cardiovascular: S1-S2, Regular Rhythm and Other (No M/R/G)
Respiratory: Clear
GI: Soft (Improving relative to prior 2 days), Distended (Improving relative to prior 2 days), Non Tender and NG Tube (Draining dark green, bilious abdominal contents)
Neurology: Other (Awoken from sleep, appears tired, but arousable and answers questions)
Skin: Warm, Good Color and Other (No jaundice)
Labs/Micro/Reports
Lab Data
06/19/25 02:46
Microbiology
06/14/25 21:22 Blood/Venous Blood Culture - Preliminary
No Growth in 4 days- Final report to follow
06/14/25 21:22 Blood/Venous Blood Culture - Preliminary
No Growth in 4 days- Final report to follow
06/15/25 12:01 Blood/Venous Blood Culture - Preliminary
No Growth in 72 hours- Final report to follow
06/15/25 11:30 Blood/Venous Blood Culture - Preliminary
No Growth in 72 hours- Final report to follow
06/15/25 19:59 Urine Urine Culture - Final
NO GROWTH
--- NOTE | 2025-06-19 07:58 | W.PN.GI.CBS2 ---
Today's Communication / Plan
-
Clamp NG tube and trial of clear liquids
Currently on Cardizem drip for new onset of A-fib may need cardiology evaluation to see if he needs anticoagulation also
Will give milk of molasses enema
Assessment / Plan
-
Pt is a 74yo with hx obesity, HTN, hyperlipidemia, NIDDM, shingles, urinary retention with st cath daily, arthritis, vasectomy, BPH prior turp, prostate biopsy, spinal injection with onset of abdominal pain to back and nausea with eating after
eating dinner on 06/14. On admission concern for sepsis with WBC 21,900, hbg 15.2, and after admission noted with Na 131, K up to 5.5 creat up to 2.7, glucose 480, lactate 4.7 with rise in bili to 7.5, AST 492, ALT 329, alk phos 53, and lipase
>4000. He takes NSAIDs several times per week for pain. He did have several episode of non bloody emesis after onset of pain. No issues with diarrhea, constipation or rectal bleeding. No ETOH use, no new medications, no hx pancreatitis in past or
family hx pancreatic issues. No GPL-1 use or wt loss.
06/14/25 US abdomen with fatty liver, mild hepatomegaly
06/15/25 abd X ray No significantly dilated air-filled loops of bowel. No radiographic evidence for pathologic calcification or soft tissue mass. CBD 5 mm
06/15/25 CT Abd/pelvis Wo Iv Cont Findings suggesting severe acute pancreatitis. Mild hepatosplenomegaly.Probable stones in the common bile duct. No secondary findings to suggest acute cholecystitis on this CT exam. However, ultrasound is the study
of choice for evaluation of the gallbladder. Mild abdominopelvic ascites. Moderate left hydroureter. Mild diverticulosis. Moderate air in the bladder likely due to Carbone catheter placement.
Severe prostate hypertrophy. Mild age indeterminate T12 compression fracture. New from 2020
06/15/25 EUS - Multiple stones were visualized endosonographically in the lower third of the main bile duct. Pancreatic parenchymal abnormalities consisting of diffuse echogenicity and hyperechoic strands were noted in the pancreatic head. No
specimens collected.
06/15/25 ERCP The esophagus was successfully intubated under direct vision. The major papilla was not found.
-severe acute pancreatitis
-abdominal distention with likely ileus
-elevated LFT's
-leukocytosis
-elevated lactate - improving
-SAMANTHA worsening after admission
-leukocytosis
-hyperglycemia
-hyperkalemia
-hyponatremia
-CT with mild ascites, Moderate left hydroureter
other med problems:
-obesity, HTN, hyperlipidemia, NIDDM, shingles, urinary retention with st cath daily, arthritis, vasectomy, BPH prior turp, prostate biopsy, spinal injection
PLAN:
etiology of symptoms with concern for severe pancreatitis--CBD stone on CT and EUS, no hx ETOH use, no new medication, no prior hx pancreatitis in past
IGG4 normal at 9, TG stable 232, baseline CRP 70.90
Status post ERCP 06/17/2025 with removal of CBD stones and stent to common hepatic and PD
Still appears very confused likely encephalopathy multifactorial from opiates, sepsis, SAMANTHA with electrolyte disturbances, ammonia level normal. has mild hepatosplenomegaly on imaging so possible cirrhosis cannot be ruled out likely from MAFLD
Ileus improving from acute pancreatitis abdomen distention is less with NG tube decompression and abdomen x-ray also shows improved ileus.
Receiving K rider for hypokalemia
Continue antibiotics with Zosyn
WBC count trending down
Continue to trend labs nephrology on board. His creatinine is improving.
Since ileus is improving will clamp NG tube today and start a trial of clear liquids and if tolerates can DC NG tube
would be ideal to start enteric/PO feeds as soon as possible especially since he has not had oral intake and also has hypoalbuminemia, will start protein supplements if able to tolerate diet
Did not have a bowel movement with a suppository and enema yesterday will give him a milk of molasses enema also today
New onset of A-fib last night started on Cardizem drip may need cardiology evaluation to see if he needs anticoagulation
Subjective
Subjective
Date of Service: June 19, 2025
He had an episode of rapid A-fib last night and was started on Cardizem drip. he still appears confused but mentation is waxing and waning, ammonia level was normal. Received suppository and soapsuds enema but no bowel movement. Abdomen x-ray
shows no bowel obstruction NG tube with minimal output
Objective
Data Reviewed
Laboratory Data:
Laboratory Results
06/19/25 02:46
Laboratory Results
PT 15.7 Sec (11.4-14.6) H 06/15/25 13:55
INR 1.22 06/15/25 13:55
APTT 28.3 Sec (23.4-35.0) 06/15/25 13:55
Phosphorus 3.9 mg/dl (2.5-4.5) 06/15/25 19:59
Magnesium 2.2 mg/dl (1.6-2.3) 06/18/25 03:59
Total Bilirubin 1.5 mg/dl (0.2-1.3) H 06/19/25 02:46
Total Bilirubin Cancelled 06/19/25 02:46
AST 31 U/L (17-59) 06/19/25 02:46
AST Cancelled 06/19/25 02:46
ALT 53 U/L (0-50) H 06/19/25 02:46
ALT Cancelled 06/19/25 02:46
Alkaline Phosphatase 76 U/L (38-126) 06/19/25 02:46
Alkaline Phosphatase Cancelled 06/19/25 02:46
Lipase > 4000 U/L (23-300) H* 06/14/25 19:55
06/19/2025 CXR
IMPRESSION:
Lung volumes are mildly decreased with mild bibasilar atelectasis, similar to prior.
06/19/2025 Abd Xray
IMPRESSION:
Nasoenteric tube tip and side-port project over the stomach. Nonobstructive bowel gas pattern.
Vital Signs and I&O:
Vital Signs
Temp Pulse Resp BP Pulse Ox
99.2 F 113 25 152/71 95
06/19/25 06:19 06/19/25 06:15 06/19/25 06:15 06/19/25 06:15 06/19/25 06:15
I&O
06/18/25 06/19/25 06/20/25
06:59 06:59 06:59
Intake Total 3124.0 / 3250.5 2223.5 / 2223.5
Output Total 3050 / 3150 3475 / 3475
Balance 74.0 / 100.5 -1251.5 / -1251.5
Physical Exam
Physical Exam
Cardiology: Irregular Rate/Rhythm (Tachycardic)
Pulmonary: Clear and Other (Decreased breath sounds at bases)
GI: Soft and Distended (Less distended than yesterday, hypoactive bowel sounds, nontender)
[2025-06-19 08:18] LABS: Glucose - Point of Care 133 mg/dl (70-99)
--- NOTE | 2025-06-19 08:55 | W.PN.NEPH.PH ---
Today's Communication / Plan
-
Continue IV fluids and potassium repletion
SAMANTHA improving with creatinine down to 2.3
Assessment/Plan
-
Impression:
SAMANTHA (2.7)
CKD 3b(1.7-1.9 )
Metabolic acidosis
Hyperkalemia
Profound abdominal pain likely due to evolving pancreatitis/sepsis
Abnormal LFTs
History of HTN
History of diabetes
History of profound BPH requiring self-catheterization daily
Plan:
SAMANTHA:
-Status post ERCP evening (06/17) with placement of endoscopic stent into biliary or pancreatic duct with sphincterotomy
- Likely prerenally mediated given fractional secretion of sodium less than 1%
-Possibly also related to pancreatitis with evolving MOF
-cr down to 2.3 with significant nonoliguric urine output of 3 liters via Geller,weights stable
-No acute dialysis required
-would cont IVF with LR
-Remains hypertensive with atrial fibrillation last evening now on Cardizem drip
-monitor mild metabolic acidosis which seem stable
-Maintain Geller catheter
-NG tube to drain
-Held metformin and hydrochlorothiazide
- Zosyn to be renally dosed
-Replete potassium with another 40 mill equivalents this afternoon
d/w and nursing at bedside
-
-
Date of Service: June 19, 2025
CC / HPI / ROS
-
Chief Complaint:
SAMANTHA
History of Present Illness:
cr down to 2.3,non oliguric with geller
Evolving hypokalemia
Hemodynamically stable, hypertensive and with A-fib now on Cardizem drip
Review of Systems:
c/o abd pain,
Nonoliguric via Geller
Lethargic but weakly interact
Weight stable
Labs
-
Labs:
WBC 15.5 10^3/uL (4.8-10.8) H 06/19/25 02:46
RBC 3.74 10^6/uL (4.70-6.10) L 06/19/25 02:46
Hgb 11.4 g/dL (13.0-18.0) L 06/19/25 02:46
Hct 33.4 % (39.0-52.0) L 06/19/25 02:46
Plt Count 129 10^3/uL (130-400) L 06/19/25 02:46
eGFR 29.07 06/19/25 02:46
eGFR Cancelled 06/19/25 02:46
Phosphorus 3.9 mg/dl (2.5-4.5) 06/15/25 19:59
Physical Exam
-
Vital Signs:
Vital Signs
Temp Pulse Resp BP Pulse Ox
99.2 F 113 25 152/71 95
06/19/25 06:19 06/19/25 06:15 06/19/25 06:15 06/19/25 06:15 06/19/25 06:15
Cardiovascular:: Regular rate and rhythm
Respiratory:: Bilateral: CTA
Lung Excursion:: Normal (decreased BS)
Abdomen:: Distended, Soft and Tender (mid upper abd)
Extremity Edema:: None: Bilateral: (trace)
Geller Catheter: Yes
Other Findings::
NG tube
[2025-06-19] MEDS: NOVOLOG FLEXPEN SC ×3 (09:45→18:08)
[2025-06-19] MEDS: HEPARIN 5000 UNITS SC (09:47)
[2025-06-19] MEDS: NSS (PRESERVATIVE FREE) 10 ML IV (09:47)
[2025-06-19] MEDS: PROTONIX IV 40 MG IV (09:47)
--- NOTE | 2025-06-19 09:54 | PTCARENOTE ---
0700 assumed care.
On cardizem qtt 15ml for Afib; Insulin qtt per critical glycose protocol, K-cl for (K 3.1/ Total replated K-CL 40mg x 2 (80mg); LR adjusted per order from 75 to 100;
Inwelling geller for chronic retention draining clear urine
[2025-06-19 10:08] LABS: Glucose - Point of Care 152 mg/dl (70-99)
[2025-06-19 12:13] LABS: Glucose - Point of Care 132 mg/dl (70-99)
--- NOTE | 2025-06-19 12:18 | CON.CAR ---
Addendum entered and electronically signed by Tony Titus MD 06/19/25 13:26:
Patient seen and examined
2 daughters and son-in-law at bedside
Patient in acute distress due to abdominal pain
Recent procedures as noted
And new onset atrial fibrillation which is a new diagnosis with heart rates in the 110s to 130s
Agree with DONTRELL Gutierrez's note and assessment
Agree with DONTRELL Gutierrez's plan
Exam:
Appears in acute distress
Awake alert and oriented
Telemetry demonstrates atrial fibrillation 120 to 130 bpm
He is normotensive with that heart rate
Cor irregularly irregular without murmur rub
Lungs are diminished but clear
Nonfocal neurologically
JVP 6
His abdomen is distended and tender in the right and middle epigastric quadrants
He is having diarrhea
Trace extremity edema
PCP: Steven Silva
Operations Logistics Analyst: Noe Mckeon
Impression:
Presented 06/14/2025 with severe abdominal pain associated with radiation to back and nausea
Acute pancreatitis with CBD stones
s/p EUS and ERCP 06/15: inability to locate ampulla due to duodenal edema.
repeat ERCP 06/17: sphincterotomy and stone extraction, bile duct and pancreatic duct stent placements.Ileus from acute pancreatitis
Abnormal LFTs
Atrial fibrillation with rapid ventricular response new diagnosis as of 06/19/2025
SAMANTHA on CKD (baseline creat 1.7-1.9)
Leukocytosis
Hyperkalemia
Hyponatremia
Acute hypoxic respiratory insufficiency
TME
Duodenitis on EGD
Chronic kidney disease stage IIIb
Type II DM
Hypertension
Hyperlipidemia
Obesity
History of shingles
Arthritis
BPH with self-catheterization
History of TURP
Echo: ordered
Exercise nuclear stress test 01/13/2024: 6 minutes on Vito protocol achieving 7 METS 85% age-predicted max heart rate. Normal blood pressure response. Abnormal sestamibi perfusion complicated by soft tissue attenuation with fixed defect in apical
lateral segment consistent with possible area of ischemia
Plan:
Presented 06/14/2025 with severe abdominal pain associated with radiation to back and nausea and was found to have acute severe pancreatitis with CBD stones. Status post ERCP/sphincterectomy, stone extraction, bile duct and pancreatic duct stents
06/17/2025. Complicated by ileus
- Per review of GI notes patient continues to be n.p.o. with trial of clear liquids and clamp of NG tube.
- Continue antibiotics per primary service
Patient developed atrial fibrillation with rapid ventricular response on morning of 06/19/2025 this is new diagnosis for patient
- Current plan is for rate control. Continue IV diltiazem drip at 15 mg/hr plus IV Lopressor 7.5 mg Q6. Adequate heart rate control goal is average less than 110 bpm which will be difficult given his pancreatitis and recent procedures. I spent
time with patient family and nursing discussing that we may need to allow permissive elevated rates until his overall clinical picture improves and his pancreatitis improves.. Increase Lopressor to 7.5 mg IV every 6 hours.
- Continue with correction of electrolytes as patient's potassium 3.4 (being repleted), calcium 7.4
- Patient currently getting subcu heparin every 8 hours. After discussing with grades 1 thru 6 home teacher, hospitalist and GI they are okay with starting IV heparin gtt. Eventual initiation of oral anticoagulation well once no additional procedures planned
- Would check echocardiogram this admission.
- Check TSH, plan for labs on 06/20/2025
SAMANTHA on CKD 3. Patient baseline creatinine 1.7-1.9. Peaked at 3.3. Improving, currently 2.3. Nephrology following. Carbone in place patient making good urine. Defer to nephrology regarding diuretic
Patient does have history of hypertension and previously on amlodipine 10 mg, atenolol 100 mg, hydrochlorothiazide 50 mg as outpatient. These medications are currently on hold.
Plan discussed with patient, patient's at bedside, nursing, hospitalist, GI, grades 1 thru 6 home teacher
Original Note:
Consultation
Consultation Request
Date/Time Consultation Requested: 06/19/2025
Date/Time Consultation Performed: 06/19/2025
Requesting Provider: Dr. Arroyo
Performing Provider: Tianna Gutierrez PA-C for Dr. Titus
Reason for Consultation: New onset atrial fibrillation with rapid ventricular response
Medical History
-
History of Present Illness:
Patient is a 74-year-old male with PMH of CKD stage IIIb, NIDDM, HTN, HLD, and BPH with self catheterization who presented to emergency department 06/14/2025 with severe mid to upper left and right abdominal pain through to his back with nausea.
Patient was found to have severe acute pancreatitis with abnormal LFTs, leukocytosis, SAMANTHA. Also found to have ileus. He underwent EUS ERCP 06/15/2025 with inability to locate ampulla due to duodenal edema. He underwent repeat ERCP on 06/17/2025
with removal of CBD stones and stent to common hepatic and pancreatic duct. Patient developed atrial fibrillation with rapid ventricular response on early childhood associate of 06/19/2025 prompting cardiology consult. At time of this evaluation patient
lethargic in bed with at bedside. She helps to provide history. Prior to presentation to hospital patient was a active 74-year-old male with no concerning cardiac symptoms. He walked his dog regularly as well as performed out side yard work
and chores without concerning cardiac symptoms.
Past medical history:
Chronic kidney disease stage IIIb
Type II DM
Hypertension
Hyperlipidemia
Obesity
History of shingles
Arthritis
BPH with self-catheterization
History of TURP
Past Medical History
Past Medical History: Other (See HPI)
Past Surgical History: Urological (TURP/prostate biopsy, vasectomy)
Social History
Tobacco: Non-Smoker
Alcohol: Occasional
Drug: None
Personal:
Living: With Family
Employment: Retired
Family History
Family History: Other (Father had coronary artery disease/LA. Mother hypertension, diabetes)
Allergies / Home Medications
Allergy/AdvReac Type Severity Reaction Status Date / Time
pollen extracts Allergy SEASONAL Verified 06/14/25 21:47
ALLERGIES-NASAL
SYMPTOMS
�Medication �Instructions �Recorded �Confirmed �Type
alfuzosin 10 mg tablet,extended 10 mg PO DAILY Urinary Issue 06/29/20 06/14/25 History
release 24 hr
atenolol 100 mg tablet 100 mg PO DAILY Blood pressure 06/29/20 06/14/25 History
cholecalciferol (vitamin D3) 25 1,000 unit PO DAILY Supplement 06/29/20 06/14/25 History
mcg (1,000 unit) capsule (Vitamin
D3)
cyanocobalamin (vitamin B-12) 1,000 mcg PO DAILY Supplement 06/29/20 06/14/25 History
1,000 mcg tablet
ferrous sulfate 137 mg (45 mg 137 mg PO DAILY Supplement 06/29/20 06/14/25 History
iron) tablet,extended release
(Slow Fe)
magnesium oxide 400 mg PO DAILY Electrolyte 06/29/20 06/14/25 History
Repletion
multivitamin with folic acid 400 1 tab PO DAILY Supplement 06/29/20 06/14/25 History
mcg tablet (Tab-A-Thea)
potassium chloride 20 mEq 20 meq PO BID Electrolyte Repletion 06/29/20 06/14/25 History
tablet,extended
release(part/cryst) (Klor-Con M)
saw palmetto 450 mg capsule 900 mg PO DAILY Supplement 06/29/20 06/14/25 History
amlodipine 10 mg tablet (Norvasc) 10 mg PO DAILY Heart 06/14/25 06/14/25 History
Disease/Condition
bethanechol chloride 25 mg tablet 25 mg PO BID Urinary Issue 06/14/25 06/14/25 History
glimepiride 4 mg tablet 4 mg PO DAILY Diabetes 06/14/25 06/14/25 History
hydrochlorothiazide 50 mg tablet 50 mg PO DAILY Fluid 06/14/25 06/14/25 History
Retention/Swelling
metformin 500 mg tablet 500 mg PO BID Diabetes 06/14/25 06/14/25 History
Review of Systems
-
History Source: Family (Patient's at bedside as patient is lethargic)
All other systems: Negative unless noted
Physical Exam
Vital Signs
Temp Pulse Resp BP Pulse Ox
98.5 F 113 25 152/71 95
06/19/25 12:00 06/19/25 06:15 06/19/25 06:15 06/19/25 06:15 06/19/25 06:15
GEN: Lethargic, lying in bed moaning, opens eyes and follows simple commands
HEENT: supple, anicteric, mmm
LUNGS: Crackles at bases otherwise CTA anteriorly, no wheezes/rales
CV: Irregularly irregular tachycardic S1/S2, no murmur, rub or gallop
ABD: Distended, tender to palpation
EXT: No edema, clubbing or cyanosis
NEURO: Unable to assess as patient lethargic but opens eyes and follows simple commands
SKIN: No rash, warm, dry, pink
Lab Results
06/19/25 02:46
Troponin I 0.020 ng/ml 06/14/25 19:55
Impression / Plan
-
PCP: Steven Silva
Operations Logistics Analyst: Noe Mckeon
Impression:
Presented 06/14/2025 with severe abdominal pain associated with radiation to back and nausea
Acute pancreatitis with CBD stones
s/p EUS and ERCP 06/15: inability to locate ampulla due to duodenal edema.
repeat ERCP 06/17: sphincterotomy and stone extraction, bile duct and pancreatic duct stent placements.
Ileus from acute pancreatitis
Abnormal LFTs
Atrial fibrillation with rapid ventricular response new diagnosis as of 06/19/2025
SAMANTHA on CKD (baseline creat 1.7-1.9)
Leukocytosis
Hyperkalemia
Hyponatremia
Acute hypoxic respiratory insufficiency
TME
Duodenitis on EGD
Chronic kidney disease stage IIIb
Type II DM
Hypertension
Hyperlipidemia
Obesity
History of shingles
Arthritis
BPH with self-catheterization
History of TURP
Echo: ordered
Exercise nuclear stress test 01/13/2024: 6 minutes on Vito protocol achieving 7 METS 85% age-predicted max heart rate. Normal blood pressure response. Abnormal sestamibi perfusion complicated by soft tissue attenuation with fixed defect in apical
lateral segment consistent with possible area of ischemia
Plan:
Presented 06/14/2025 with severe abdominal pain associated with radiation to back and nausea and was found to have acute severe pancreatitis with CBD stones. Status post ERCP/sphincterectomy, stone extraction, bile duct and pancreatic duct stents
06/17/2025. Complicated by ileus
- Per review of GI notes patient continues to be n.p.o. with trial of clear liquids and clamp of NG tube.
- Continue antibiotics per primary service
Patient developed atrial fibrillation with rapid ventricular response on morning of 06/19/2025 this is new diagnosis for patient
- Current plan is for rate control. Continue IV diltiazem drip at 15 mg/hr plus IV Lopressor 5 mg Q6. Heart rates remain poorly controlled and blood pressure also elevated. Increase Lopressor to 7.5 mg IV every 6 hours.
- Continue with correction of electrolytes as patient's potassium 3.4 (being repleted), calcium 7.4
- Patient currently getting subcu heparin every 8 hours. After discussing with grades 1 thru 6 home teacher, hospitalist and GI they are okay with starting IV heparin gtt. Eventual initiation of oral anticoagulation well once no additional procedures planned
- Would check echocardiogram this admission.
- Check TSH, plan for labs on 06/20/2025
SAMANTHA on CKD 3. Patient baseline creatinine 1.7-1.9. Peaked at 3.3. Improving, currently 2.3. Nephrology following. Carbone in place patient making good urine.
Patient does have history of hypertension and previously on amlodipine 10 mg, atenolol 100 mg, hydrochlorothiazide 50 mg as outpatient. These medications are currently on hold.
Plan discussed with patient, patient's at bedside, nursing, hospitalist, GI, grades 1 thru 6 home teacher
HPI 06/19/2025:
Patient is a 74-year-old male with PMH of CKD stage IIIb, NIDDM, HTN, HLD, and BPH with self catheterization who presented to emergency department 06/14/2025 with severe mid to upper left and right abdominal pain through to his back with nausea.
Patient was found to have severe acute pancreatitis with abnormal LFTs, leukocytosis, SAMANTHA. Also found to have ileus. He underwent EUS ERCP 06/15/2025 with inability to locate ampulla due to duodenal edema. He underwent repeat ERCP on 06/17/2025
with removal of CBD stones and stent to common hepatic and pancreatic duct. Patient developed atrial fibrillation with rapid ventricular response on early childhood associate of 06/19/2025 prompting cardiology consult. At time of this evaluation patient
lethargic in bed with at bedside. She helps to provide history. Prior to presentation to hospital patient was a active 74-year-old male with no concerning cardiac symptoms. He walked his dog regularly as well as performed out side yard work
and chores without concerning cardiac symptoms.
Data Reviewed
-
EKG: Report Reviewed by me, Discussed with Physician, Discussed with Nurse, Discussed with Patient and Discussed with Family
Radiology: Report Reviewed by me, Discussed with Physician, Discussed with Nurse, Discussed with Patient and Discussed with Family
CT Scan: Report Reviewed by me, Discussed with Physician, Discussed with Nurse, Discussed with Patient and Discussed with Family
Labs: Labs Reviewed by me, Discussed with Physician, Discussed with Nurse, Discussed with Patient and Discussed with Family
[2025-06-19] MEDS: ZOFRAN 4 MG IV (13:17)
[2025-06-19 13:41] LABS: Hematocrit 32.9 % (39.0-52.0); Hemoglobin 11.4 g/dL (13.0-18.0); Mean Corp Hgb Conc. 34.7 g/dL (33.0-37.0); Mean Corpuscular Volume 86.6 fL (80.0-94.0); Platelet Count 147 10^3/uL (130-400); Red Cell Dist. Width 13.9 % (11.5-14.5)
[2025-06-19 13:54] LABS: APTT 32.2 Sec (23.4-35.0)
[2025-06-19] MEDS: LOPRESSOR 7.5 MG IV ×3 (14:06→23:00)
[2025-06-19 14:18] LABS: Glucose - Point of Care 199 mg/dl (70-99)
[2025-06-19] MEDS: LOPRESSOR IV (14:23)
--- NOTE | 2025-06-19 15:02 | W.PN.HOSP.TC ---
Today's Communication/Plan
-
rate control; IV Cardizem, IV Lopressor, Heparin drip for A. Fib
clears
bowel regimen
IV Abx
wean insulin drip
Assessment / Plan
Assessment / Plan
Assessment:
Acute biliary pancreatitis
- CT: severe acute pancreatitis with CBD stones
- s/p EUS and ERCP 06/15: inability to locate ampulla due to duodenal edema.
- repeat ERCP 06/17: sphincterotomy and stone extraction, bile duct and pancreatic duct stent placements.
- diet: Clears
- continue IVF
- continue Zosyn, day 5
- GI following
- GS following for eventual CCY TBD
Ileus from acute pancreatitis
- AXR 06/19 with improved distention, non-obstuctive gas pattern
- diet: clears
- prn Zofran
SAMANTHA
Acute hyperkalemia
Hypovolemic hyponatremia
- s/p temporization
- continue LR fluids
- monitor UOP with Carbone in place
- follow serial BMPs
- renal/bladder US when able
- Nephrology following
mild DKA (AG 12)
- continue DKA protocol; insulin drip, monitor serial BMPs
- accu-checks
- PATENT SEARCHER Diabetes team following
new Parox A. Fib
- check TSH
- continue Cardizem drip + standing Lopressor 7.5mg q6
- continue IV Heparin drip - requires intensive monitoring
- Echo pending
Acute hypoxic respiratory failure on 6L NC
Bibasilar atelectasis
- IS as able
- wean O2 as able
Hypomagnesemia
Hypocalcemia
Hypokalemia
- repleted via IV
Toxic Metabolic Encephalopathy
- multifactorial from procedural sedation, acute illness, pain meds
- monitor mentation
Duodenitis on EGD
- continue PPI
DVT ppx: SC heparin
Code: Full
Total Critical Care Time 41 minutes. I was immediately available to the patient and staff. I personally examined, reviewed labs, diagnostic images/reports, interpretations, treatment plans, discussed patient care with other providers and family or
caregivers (if patient is unable to make decisions), entered orders as appropriate and documented the medical record.
Anticipated Discharge: > 48 hours
Subjective/Interval History
-
Date of Service: June 19, 2025
periods of agitation requiring restraints, IV ativan last evening
AXR with improved distention, less obstructive gas pattern
GI placed on clears
also New Afib today on Cardizem drip
Objective Data
-
Labs:
Laboratory Results
06/19/25 06/19/25 06/19/25
02:46 13:35 21:00
WBC 18.7 H
Hgb 11.4 L
Hct 32.9 L
Plt Count 147
APTT 32.2 Pending
Sodium 143
Potassium 3.1 L
Chloride 115 H
Carbon Dioxide 23
BUN 53 H
Creatinine 2.3 H
Glucose 136 H
Calcium 7.3 L
Total Bilirubin 1.5 H
AST 31
ALT 53 H
Alkaline Phosphatase 76
Vital Signs:
Vital Signs
Temp Pulse Resp BP Pulse Ox
98.5 F 128 25 152/88 95
06/19/25 12:00 06/19/25 14:06 06/19/25 06:15 06/19/25 14:06 06/19/25 06:15
I&O
06/18/25 06/19/25 06/20/25
06:59 06:59 06:59
Intake Total 3124.0 / 3250.5 2223.5 / 2240.2 1304.7 / 1304.7
Output Total 3050 / 3150 3475 / 3475 1250 / 1250
Balance 74.0 / 100.5 -1251.5 / -1234.8 54.7 / 54.7
Physical Exam
-
General: No Apparent Distress
HEENT: Normocephalic, Atraumatic and Other (+ NG tube)
Respiratory: Decreased Breath Sounds; Negative Wheezes
Cardiac: Irregular Rhythm
GI: Soft and Nontender
Musculoskeletal: No Edema
Neuro: AO x 3
Psych: Calm
Data Reviewed
-
Critical Care Time (in minutes): 41
Labs: Labs Reviewed by me
--- NOTE | 2025-06-19 15:45 | PTCARENOTE ---
- Enema (MOM) given per order. Moderate bowel movement post enema
- patient confused at all times. Dilaudid have not given during this shift. Restraints taking off
- Afib 109 on telemetry; Per cardiology orders : Metoprolol 7.5 Iv Q 6 hours (increased from 5 mg); On Cardizem 15 mg /15ml; BP: 150/75; Heparin initiated
- SpO2 96% on RA lungs diminished No SOB observed
- Abdomen round, distended, soft to touch, mild tenderness per non-verbal pain assessment scale; N-[place] tube capped since am, around 12:00 pt pulled [place] tube out. Encouraged clear liquid diet
-Insulin qtt : per critical glucose protocol
-Indwelling geller (chronic urinal retention) clear yellow urine
[2025-06-19 16:15] LABS: Glucose - Point of Care 146 mg/dl (70-99)
[2025-06-19 18:15] LABS: Glucose - Point of Care 135 mg/dl (70-99)
[2025-06-19 19:43] LABS: ALT (SGPT) 54 U/L (0-50); AST (SGOT) 38 U/L (17-59); Albumin 3.0 g/dl (3.5-5.0); Alkaline Phosphatase 79 U/L (38-126); Blood Urea Nitrogen 45 mg/dl (9-20); Calcium 7.4 mg/dl (8.4-10.2); Carbon Dioxide 23 mmol/L (22-30); Chloride 116 mmol/L (98-107); Estimated Creatinine Clearance 36 ml/min; Glucose 189 mg/dl (70-99); Potassium 3.3 mmol/L (3.5-5.1); Sodium 144 mmol/L (135-145); Total Protein 5.4 g/dl (6.3-8.2); eGFR 34.38
[2025-06-19 20:07] LABS: Glucose - Point of Care 220 mg/dl (70-99)
[2025-06-19] MEDS: APRESOLINE 10 MG IV (20:33)
[2025-06-19 21:00] LABS: Glucose - Point of Care 217 mg/dl (70-99)
--- NOTE | 2025-06-19 21:33 | PTCARENOTE ---
Received pt from previous RN. Pt is AAOx2 (time), confused/forgetful, restless. Afib on the monitor. Pt on 2L NC O2 sat 96%, lungs diminished, non-productive cough. Pt incont of two liquid/loose stools. Carbone in place, for critical I&O. Cardizem,
Heparin gtts. LR infusing at 100 ml/hr. Insulin gtt per protocol (see worklist). PRN Hydralazine given (see MAR). Mouth care provided. Bed alarm in place. Call hernandez in reach. Safe environment maintained.
[2025-06-19 21:37] LABS: APTT 60.7 Sec (23.4-35.0)
[2025-06-19] MEDS: MELATONIN 5 MG PO (22:02)
[2025-06-19 22:06] LABS: Glucose - Point of Care 189 mg/dl (70-99)
[2025-06-19 23:06] LABS: Glucose - Point of Care 159 mg/dl (70-99)
--- NOTE | 2025-06-19 23:56 | PTCARENOTE ---
Systems reviewed, no new changes in assessment. Gtts maintained (see worklist). Call hernandez in reach. Safe environment maintained.
[2025-06-20] VITALS (17 sets, daily range): BP systolic 143–176; BP diastolic 74–145; BMI 29.6
[2025-06-20 00:05] LABS: Glucose - Point of Care 133 mg/dl (70-99)
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
[2025-06-20] MEDS: CARDIZEM 125 IV ×3 (00:59→18:08)
[2025-06-20 01:10] LABS: Glucose - Point of Care 96 mg/dl (70-99)
[2025-06-20 02:07] LABS: Glucose - Point of Care 121 mg/dl (70-99)
[2025-06-20] MEDS: DILAUDID 0.5 MG IV ×2 (02:11→20:04)
[2025-06-20] MEDS: APRESOLINE 10 MG IV (03:01)
[2025-06-20 03:09] LABS: Glucose - Point of Care 148 mg/dl (70-99)
--- NOTE | 2025-06-20 03:36 | PTCARENOTE ---
Systems reviewed, no new changes in assessment. Frequently reorienting pt. Pt cursing and calling staff names. B/l wrist restraints in place. AM labs provided. Gtts maintained. Insulin gtt turned off per protocol (see worklist). Call hernandez in reach.
Safe environment maintained.
[2025-06-20 03:46] LABS: Hematocrit 32.7 % (39.0-52.0); Hemoglobin 11.2 g/dL (13.0-18.0); Mean Corp Hgb Conc. 34.3 g/dL (33.0-37.0); Mean Corpuscular Volume 88.6 fL (80.0-94.0); Platelet Count 161 10^3/uL (130-400); Red Cell Dist. Width 13.6 % (11.5-14.5)
[2025-06-20] MEDS: ZOSYN 50 IV ×4 (04:00→21:36)
[2025-06-20 04:09] LABS: APTT 77.6 Sec (23.4-35.0)
[2025-06-20 04:10] LABS: Glucose - Point of Care 193 mg/dl (70-99)
[2025-06-20 04:39] LABS: ALT (SGPT) 59 U/L (0-50); AST (SGOT) 44 U/L (17-59); Albumin 3.0 g/dl (3.5-5.0); Alkaline Phosphatase 84 U/L (38-126); Blood Urea Nitrogen 40 mg/dl (9-20); Calcium 7.5 mg/dl (8.4-10.2); Carbon Dioxide 21 mmol/L (22-30); Chloride 117 mmol/L (98-107); Estimated Creatinine Clearance 37 ml/min; Glucose 158 mg/dl (70-99); Magnesium 1.9 mg/dl (1.6-2.3); Potassium 3.3 mmol/L (3.5-5.1); Sodium 146 mmol/L (135-145); Total Protein 5.4 g/dl (6.3-8.2); eGFR 36.56
[2025-06-20] MEDS: LOPRESSOR 7.5 MG IV ×4 (05:01→23:02)
[2025-06-20 05:04] LABS: Glucose - Point of Care 195 mg/dl (70-99)
[2025-06-20] MEDS: KCL 270 MEQ IV (05:04)
[2025-06-20 06:06] LABS: Glucose - Point of Care 221 mg/dl (70-99)
[2025-06-20 06:58] LABS: Glucose - Point of Care 193 mg/dl (70-99)
--- NOTE | 2025-06-20 08:13 | W.PN.CARDCBS ---
Today's Communication / Plan
-
IV diltiazem
IV metoprolol
Heparin until tolerating p.o.'s and can give NOAC therapy
Permissive elevated rates
Impression / Plan
-
PCP: Steven Silva
Joss House Keeper: Noe Mckeon
Impression:
Presented 06/14/2025 with severe abdominal pain associated with radiation to back and nausea
Acute pancreatitis with CBD stones
s/p EUS and ERCP 06/15: inability to locate ampulla due to duodenal edema.
repeat ERCP 06/17: sphincterotomy and stone extraction, bile duct and pancreatic duct stent placements.
Ileus from acute pancreatitis
Abnormal LFTs
Atrial fibrillation with rapid ventricular response new diagnosis as of 06/19/2025
SAMANTHA on CKD (baseline creat 1.7-1.9)
Leukocytosis
Hyperkalemia
Hyponatremia
Acute hypoxic respiratory insufficiency
TME
Duodenitis on EGD
Chronic kidney disease stage IIIb
Type II DM
Hypertension
Hyperlipidemia
Obesity
History of shingles
Arthritis
BPH with self-catheterization
History of TURP
Echo: ordered
Exercise nuclear stress test 01/13/2024: 6 minutes on Vito protocol achieving 7 METS 85% age-predicted max heart rate. Normal blood pressure response. Abnormal sestamibi perfusion complicated by soft tissue attenuation with fixed defect in apical
lateral segment consistent with possible area of ischemia
Plan:
Presented 06/14/2025 with severe abdominal pain associated with radiation to back and nausea and was found to have acute severe pancreatitis with CBD stones. Status post ERCP/sphincterectomy, stone extraction, bile duct and pancreatic duct stents
06/17/2025. Complicated by ileus
- Per review of GI notes patient continues to be n.p.o. with trial of clear liquids and clamp of NG tube.
- Continue antibiotics per primary service
Patient developed atrial fibrillation with rapid ventricular response on morning of 06/19/2025 this is new diagnosis for patient
- Current plan is for rate control. Continue IV diltiazem drip at 15 mg/hr plus IV Lopressor 5 mg Q6. Heart rates remain poorly controlled and blood pressure also elevated. Increased Lopressor to 7.5 mg IV every 6 hours.
- Continue with correction of electrolytes as patient's potassium 3.4 (being repleted), calcium 7.4
- Continue heparin drip and can transition to oral anticoagulation once we are sure he will need further procedures
- Would check echocardiogram this admission.
- Check TSH, plan for labs on 06/20/2025
Renal function improving nephrology following. Carbone in place patient making good urine.
Patient does have history of hypertension and previously on amlodipine 10 mg, atenolol 100 mg, hydrochlorothiazide 50 mg as outpatient. These medications are currently on hold.
HPI 06/19/2025:
Patient is a 74-year-old male with PMH of CKD stage IIIb, NIDDM, HTN, HLD, and BPH with self catheterization who presented to emergency department 06/14/2025 with severe mid to upper left and right abdominal pain through to his back with nausea.
Patient was found to have severe acute pancreatitis with abnormal LFTs, leukocytosis, SAMANTHA. Also found to have ileus. He underwent EUS ERCP 06/15/2025 with inability to locate ampulla due to duodenal edema. He underwent repeat ERCP on 06/17/2025
with removal of CBD stones and stent to common hepatic and pancreatic duct. Patient developed atrial fibrillation with rapid ventricular response on business education instructor of 06/19/2025 prompting cardiology consult. At time of this evaluation patient
lethargic in bed with at bedside. She helps to provide history. Prior to presentation to hospital patient was a active 74-year-old male with no concerning cardiac symptoms. He walked his dog regularly as well as performed out side yard work
and chores without concerning cardiac symptoms.
Progress Note - Joss House Keeper
Subjective
Date of Service: June 20, 2025
And restraints
Pain improved
Objective
Labs:
06/20/25 03:27
Labs
Hgb 11.2 g/dL (13.0-18.0) L 06/20/25 03:27
Hct 32.7 % (39.0-52.0) L 06/20/25 03:27
Plt Count 161 10^3/uL (130-400) 06/20/25 03:27
PT 15.7 Sec (11.4-14.6) H 06/15/25 13:55
INR 1.22 06/15/25 13:55
APTT 77.6 Sec (23.4-35.0) H 06/20/25 03:27
Sodium 146 mmol/L (135-145) H 06/20/25 03:27
Potassium 3.3 mmol/L (3.5-5.1) L 06/20/25 03:27
BUN 40 mg/dl (9-20) H 06/20/25 03:27
Creatinine 1.9 mg/dL (0.7-1.3) H 06/20/25 03:27
Glucose 158 mg/dl (70-99) H 06/20/25 03:27
Vital Signs and I&O:
Vital Signs
Temp Pulse Resp BP Pulse Ox
100.2 F 126 24 157/87 95
06/20/25 02:55 06/20/25 06:00 06/20/25 06:00 06/20/25 06:00 06/20/25 06:00
Vital Signs
Temp Pulse Resp BP Pulse Ox
100.2 F 126 24 157/87 95
06/20/25 02:55 06/20/25 06:00 06/20/25 06:00 06/20/25 06:00 06/20/25 06:00
Intake & Output
06/18/25 06/19/25 06/20/25 06/21/25
06:59 06:59 06:59 06:59
Intake Total 3124.0 / 3250.5 2223.5 / 2240.2 3973.0 / 4159.5 367.7 / 367.7
Output Total 3050 / 3150 3475 / 3475 4010 / 4210 400 / 400
Balance 74.0 / 100.5 -1251.5 / -1234.8 -37.0 / -50.5 -32.3 / -32.3
Physical Exam
Physical Exam
����Physical Exam
���������������������General:��no apparent distress, not acutely ill
���������������������������Neck:��supple. no meningeal signs. normal psoterior pharynx
������������������������
���������������������������Heart:�Cor irregularly irregular
��������������������������Lungs: ��no acute respiratory distress. clear bilaterally
����������������������Abdomen:�normal bowel sounds. not tender. no CVAT
��������������������������Neuro:��alert and oriented. no focal neurological deficits
������������������������������Skin: ��no rash
�����������������������Psychiatric:�well kept. interactive and cooperative
�����������������������Extremities:��no edema. no calf tenderness. negative homans. good distal pulses
��
�
--- NOTE | 2025-06-20 08:20 | W.PN.NEPH.PH ---
Today's Communication / Plan
-
Maintain more hypotonic IV fluid
SAMANTHA continues to improve
Maintain Geller catheter
Assessment/Plan
-
Impression:
SAMANTHA (2.7)
CKD 3b(1.7-1.9 )
Metabolic acidosis
Hyperkalemia
Profound abdominal pain likely due to evolving pancreatitis/sepsis
Abnormal LFTs
History of HTN
History of diabetes
History of profound BPH requiring self-catheterization daily
Plan:
SAMANTHA:
-Status post ERCP evening (06/17) with placement of endoscopic stent into biliary or pancreatic duct with sphincterotomy
- Likely prerenally mediated given fractional secretion of sodium less than 1%
-Possibly also related to pancreatitis with evolving MOF
-cr down to 1.9 with significant nonoliguric urine output of 2.8 liters via Geller,weights stable
-No acute dialysis required
- IV fluids already changed by the link wire fabric machine tender to more hypotonic given evolving hypernatremia
-Remains hypertensive with atrial fibrillation last evening now on Cardizem drip and heparin
-monitor mild metabolic acidosis which seem stable
-Maintain Geller catheter
-NG tube to drain
-Held metformin and hydrochlorothiazide
- Zosyn to be renally dosed
-Replete potassium
d/w and nursing at bedside
-
-
Date of Service: June 20, 2025
CC / HPI / ROS
-
Chief Complaint:
SAMANTHA
History of Present Illness:
cr down to 1.9,non oliguric with geller
Evolving hypokalemia and hypernatremia
Hemodynamically stable, hypertensive and with A-fib now on Cardizem drip and heparin
Patient now in restraints after extreme agitation last evening
Review of Systems:
c/o abd pain,
Nonoliguric via Geller
Lethargic but weakly interacts following sedation
Weight stable
Labs
-
Labs:
WBC 18.6 10^3/uL (4.8-10.8) H 06/20/25 03:27
RBC 3.69 10^6/uL (4.70-6.10) L 06/20/25 03:27
Hgb 11.2 g/dL (13.0-18.0) L 06/20/25 03:27
Hct 32.7 % (39.0-52.0) L 06/20/25 03:27
Plt Count 161 10^3/uL (130-400) 06/20/25 03:27
eGFR 36.56 06/20/25 03:27
Phosphorus 3.9 mg/dl (2.5-4.5) 06/15/25 19:59
Albumin 3.0 g/dl (3.5-5.0) L 06/20/25 03:27
Physical Exam
-
Vital Signs:
Vital Signs
Temp Pulse Resp BP Pulse Ox
100.2 F 126 24 157/87 95
06/20/25 02:55 06/20/25 06:00 06/20/25 06:00 06/20/25 06:00 06/20/25 06:00
Cardiovascular:: Regular rate and rhythm
Respiratory:: Bilateral: CTA
Lung Excursion:: Normal (decreased BS)
Abdomen:: Distended, Soft and Tender (mid upper abd)
Extremity Edema:: None: Bilateral: (trace)
Geller Catheter: Yes
[2025-06-20] MEDS: NOVOLIN R INSULIN INFUSION 100 IV (08:22)
[2025-06-20] MEDS: MAGNESIUM SULFATE 102 GRAMS IV (08:22)
[2025-06-20] MEDS: KCL ELIXIR 40 MEQ PO ×2 (08:25→18:05)
[2025-06-20] MEDS: NSS (PRESERVATIVE FREE) 10 ML IV (08:25)
[2025-06-20] MEDS: NOVOLOG FLEXPEN SC (08:26)
[2025-06-20] MEDS: PROTONIX IV 40 MG IV (08:26)
[2025-06-20 08:29] LABS: Glucose - Point of Care 141 mg/dl (70-99)
[2025-06-20] MEDS: HALDOL 2 MG IV ×2 (08:44→23:01)
[2025-06-20] MEDS: LR IV (08:47)
--- NOTE | 2025-06-20 08:49 | W.PN.GI.CBS2 ---
Today's Communication / Plan
-
LFD
Assessment / Plan
-
Pt is a 74yo with hx obesity, HTN, hyperlipidemia, NIDDM, shingles, urinary retention with st cath daily, arthritis, vasectomy, BPH prior turp, prostate biopsy, spinal injection with onset of abdominal pain to back and nausea with eating after
eating dinner on 06/14. On admission concern for sepsis with WBC 21,900, hbg 15.2, and after admission noted with Na 131, K up to 5.5 creat up to 2.7, glucose 480, lactate 4.7 with rise in bili to 7.5, AST 492, ALT 329, alk phos 53, and lipase
>4000. He takes NSAIDs several times per week for pain. He did have several episode of non bloody emesis after onset of pain. No issues with diarrhea, constipation or rectal bleeding. No ETOH use, no new medications, no hx pancreatitis in past or
family hx pancreatic issues. No GPL-1 use or wt loss.
06/14/25 US abdomen with fatty liver, mild hepatomegaly
06/15/25 abd X ray No significantly dilated air-filled loops of bowel. No radiographic evidence for pathologic calcification or soft tissue mass. CBD 5 mm
06/15/25 CT Abd/pelvis Wo Iv Cont Findings suggesting severe acute pancreatitis. Mild hepatosplenomegaly.Probable stones in the common bile duct. No secondary findings to suggest acute cholecystitis on this CT exam. However, ultrasound is the study
of choice for evaluation of the gallbladder. Mild abdominopelvic ascites. Moderate left hydroureter. Mild diverticulosis. Moderate air in the bladder likely due to Carbone catheter placement.
Severe prostate hypertrophy. Mild age indeterminate T12 compression fracture. New from 2020
06/15/25 EUS - Multiple stones were visualized endosonographically in the lower third of the main bile duct. Pancreatic parenchymal abnormalities consisting of diffuse echogenicity and hyperechoic strands were noted in the pancreatic head. No
specimens collected.
06/15/25 ERCP The esophagus was successfully intubated under direct vision. The major papilla was not found.
-severe acute pancreatitis
-abdominal distention with likely ileus
-elevated LFT's
-leukocytosis
-elevated lactate - improving
-SAMANTHA worsening after admission
-leukocytosis
-hyperglycemia
-hyperkalemia
-hyponatremia
-CT with mild ascites, Moderate left hydroureter
other med problems:
-obesity, HTN, hyperlipidemia, NIDDM, shingles, urinary retention with st cath daily, arthritis, vasectomy, BPH prior turp, prostate biopsy, spinal injection
PLAN:
etiology of symptoms with concern for severe pancreatitis--CBD stone on CT and EUS, no hx ETOH use, no new medication, no prior hx pancreatitis in past
IGG4 normal at 9, TG stable 232, baseline CRP 70.90
Status post ERCP 06/17/2025 with removal of CBD stones and stent to common hepatic and PD
encephalopathy multifactorial from opiates, sepsis, SAMANTHA with electrolyte disturbances, ammonia level normal. has mild hepatosplenomegaly on imaging so possible cirrhosis cannot be ruled out likely from MAFLD
Ileus improving tolerating clear liquids will advance to low-fat diet
Will also start him on a bowel regimen with senna he had multiple bowel movements after milk of molasses enema
Electrolyte management per renal and critical care
Continue antibiotics with Zosyn
New onset of A-fib started on Cardizem drip and also evaluated by cardiology and started on heparin yesterday
Duodenitis continue PPI will change to p.o. twice daily
Follow-up with Dr. Marte in 6 to 8 weeks after DC
Will s/o and willl be available as needed
Subjective
Subjective
Date of Service: June 20, 2025
Mentation is improving less delirious today morning, he had multiple bowel movements after the milk of molasses enema yesterday discussed with nurse at bedside, he pulled out the NG tube yesterday and was tolerating clear liquids he was started on
heparin for new onset of A-fib and seen by cardiology
Objective
Data Reviewed
Laboratory Data:
Laboratory Results
06/20/25 03:27
Laboratory Results
PT 15.7 Sec (11.4-14.6) H 06/15/25 13:55
INR 1.22 06/15/25 13:55
APTT 77.6 Sec (23.4-35.0) H 06/20/25 03:27
Phosphorus 3.9 mg/dl (2.5-4.5) 06/15/25 19:59
Magnesium 1.9 mg/dl (1.6-2.3) 06/20/25 03:27
Total Bilirubin 1.6 mg/dl (0.2-1.3) H 06/20/25 03:27
AST 44 U/L (17-59) 06/20/25 03:27
ALT 59 U/L (0-50) H 06/20/25 03:27
Alkaline Phosphatase 84 U/L (38-126) 06/20/25 03:27
Lipase > 4000 U/L (23-300) H* 06/14/25 19:55
Vital Signs and I&O:
Vital Signs
Temp Pulse Resp BP Pulse Ox
100.2 F 126 24 157/87 95
06/20/25 02:55 06/20/25 06:00 06/20/25 06:00 06/20/25 06:00 06/20/25 06:00
I&O
06/19/25 06/20/25 06/21/25
06:59 06:59 06:59
Intake Total 2223.5 / 2240.2 3973.0 / 4159.5 367.7 / 367.7
Output Total 3475 / 3475 4010 / 4210 400 / 400
Balance -1251.5 / -1234.8 -37.0 / -50.5 -32.3 / -32.3
Physical Exam
Physical Exam
Cardiology: Irregular Rate/Rhythm
Pulmonary: Other (Decreased breath sounds at bases)
GI: Soft, Distended (Less distended), Non Tender and Normal Bowel Sounds
[2025-06-20] MEDS: HEPARIN 25000 UNITS/250 ML IV (08:51)
--- NOTE | 2025-06-20 08:53 | PTCARENOTE ---
07:00 Assumed care; patient in bed. In soft wrist restraints for Protection (attempted to heat staff during previous shift, acute delirium )
-confused, disoriented to time, oriented of person and place; Non-verbal pain scale 5 out of 10 pain scale level. C/o of lower back pain, denies abdominal pain. pt repositioned
-Afib 117: Metoprolol 7.5 IV +Cardizem 15ml; BP via RT Upper arm 167/94; MAP 113; Heparin qtt 12/
-SpO2 97% on 2L ;occasional wheezing
-Abdomen soft, round, distended, NOT firm, hypoactive bowel sounds x 4 quadrants; abdomen non-tender; On clear liquid diet- tolerating ok
-Inwelling geller draining clear yellow urine with hourly output about 150 to 200 cc
-on Insulin qtt; IVF; changed from LR to D5 0.45% with 20K-cl; Mg 1gm replated; K replated
-
[2025-06-20] MEDS: D5/0.45%NSS with KCL 20 MEQ 1000 IV ×2 (09:55→18:10)
[2025-06-20 10:23] LABS: Glucose - Point of Care 192 mg/dl (70-99)
[2025-06-20 10:28] LABS: APTT 80.9 Sec (23.4-35.0)
[2025-06-20 11:18] LABS: Glucose - Point of Care 192 mg/dl (70-99)
--- NOTE | 2025-06-20 11:40 | PTCARENOTE ---
PTT 80.9; PTT Within range/2nd PTT within range; No change in rate. per protocol next PTT in am
--- NOTE | 2025-06-20 12:24 | W.PN.INTV ---
Today's Communication / Plan
Recommendations
- Haldol 2 mg IV stat, initiate Seroquel 50 mg nightly
- Discontinue Ringer lactate, initiate D5 with half-normal saline, 20 of KCl at 100 mL/h
- Replace low potassium 40 mill equivalents IV and 40 mill equivalents p.o. Give magnesium sulfate 1 g x 1
- Serial labs
Assessment
-
Assessment: Patient is a 74-year-old male with PMH of CKD stage IIIb, NIDDM, HTN, HLD, and BPH who is being upgraded to the [facility] with acute pancreatitis and possible sepsis complicated by hyperglycemia, acute kidney injury, hyperkalemia,
hyperbilirubinemia, and transaminitis. Etiology of pancreatitis is to be determined, though concern for acute cholangitis given subjective fever, chills, abdominal pain with guarding, transaminitis, and hyperbilirubinemia. Patient has multiple
signs of decreased end organ perfusion, including lactate 4.8, Cr 2.8, VBG pH 7.26 and HCO3 18.4. Critical illness hypoglycemia with glucose 480.
06/16: Patient seems to be slightly improving overall. Status post EUS and attempted ERCP. Concern for the patient's increasing oxygen requirement, as he is now requiring 4 L. Labs overall improving, though WBCs increased to 26.6. Patient is
producing urine (approximately 1 L in last 24 hours), and creatinine may be plateauing in the low threes (currently 3.2). Lactate decreasing, now 1.0 from 4.7 yesterday. Bicarb steady around 21. AST and ALT substantially improved, down to 92 and
187, respectively. T. bili 3.2 from 7.5 yesterday. Glucoses under much better control, now in the mid 100s. Patient is positive approximately 5 L over the last 24 hours. Abdomen distended and slightly more tense than yesterday. Monitoring for
abdominal compartment syndrome given copious IVF's in setting of pancreatitis.
06/17: Patient slightly improved from yesterday afternoon/evening. Good urine output (~800 mL from 12 AM�6 AM). Improved oxygen requirement from yesterday, currently on 2 L. Improving leukocytosis, transaminases, and bilirubin. Creatinine still
elevated at 3.3, which is relatively stable from recent days. Sugars well-controlled on insulin drip. CXR shows improving atelectasis, which is consistent with the patient's improved abdominal exam. Overall, respiratory status, abdominal exam,
increased urine output, and labs indicate slight improvement.
06/18: Patient appears to be doing well s/p ERCP yesterday. Good urine output (~700 mL from 12 AM�6 AM). Patient lowered from 4L to 2 L while at the bedside, breathing comfortably. Improving leukocytosis (17.6 from 20.9 yesterday). Creatinine
slightly improved at 3.0 from 3.3 yesterday, though still elevated over baseline of 1.7�1.9. Sugars well-controlled on insulin drip. Fluids and antibiotics continuing. Waxing and waning confusion and drowsiness this morning, suspect ICU related
delirium. Overall, abdominal exam improving with good urine output, stable respiratory status, and labs indicating slight improvement.
#1. Acute severe pancreatitis, with concern for biliary obstruction
- CT abdomen pelvis reviewed, suggestive of stone in CBD. Abnormal LFTs noted.
- 06/15, Patient upgraded to ICU, 2 additional liters of normal saline bolus given in view of elevated lactate and developing multiorgan dysfunction followed by maintenance IV fluids
- Lactic acid level improving
- 06/16. Abdominal progressively more distended with concern for abdominal compartment syndrome. NG tube was placed after sedation with decompression.
- 06/18. Abdominal is less distended, less tender, clinically improving. after ERCP, stone extraction and stent placement on 06/17
- 06/19, continued improvement in abdominal exam. Trial of NG clamping and clear liquids
- 06/20, NG discontinued, tolerating clear liquids well
#2. Acute kidney injury with underlying chronic kidney disease with hyperkalemia/hypokalemia, hypernatremia
- Responded well to aggressive IV fluid hydration
- Continue insulin infusion, hyperkalemia improved, rather hypokalemia now, replace with IV KCl as well as PO Kcl
- Serial labs
- Nephrology service on case
- Creatinine continues to improve, good urine output
- Switch IV fluids to D5/half-normal/KCl in view of hypernatremia
#3. Hyperglycemia, suspect in the setting of acute severe pancreatitis
- Continue insulin infusion, serial BMPs
#4. Lactic acidosis
- This is in the setting of severe pancreatitis
- Serial lactate improved, pH improved.
#5. Atrial Fibrillation with RVR, new onset 06/19
- Likely in the setting of acute critical illness
- Continue IV Lopressor 5 mg every 6 hours scheduled, Cardizem infusion in addition. Check TSH, check echocardiogram
- On heparin for anticoagulation
#6. Delirium
- Patient has barely slept in 3 nights, ICU delirium complicated by critical illness, pain, essentially bedbound status
- Haldol 2 mg IV x 1 stat. Initiate Seroquel 50 mg nightly
DVT prophylaxis subcu heparin, GI prophylaxis with IV Protonix
Critical Care time [50] mins -- The patient is admitted for acute critical illness for the treatment of vital organ failure and/or prevention of further life-threatening conditions. Total care includes time spent in review of history, physical exam,
medications, hemodynamic/ventilator parameters, laboratory data, imaging and discussion with house staff, pharmacy, respiratory therapy, control cabinet assembler, and nursing.
Updated patient's at bedside
Subjective Dataa
Subjective Data
Date of Service:
Date of Service: June 20, 2025
Subjective:
Continues to improve from GI standpoint, continues to be delirious
Review of Systems
General: Other (Unable to obtain due to delirium)
Objective Data
Data Reviewed
Vital Signs / I&O / Oxygen:
Vital Signs
Temp Pulse Resp BP Pulse Ox
100.2 F 133 22 162/86 96
06/20/25 02:55 06/20/25 11:00 06/20/25 11:00 06/20/25 10:00 06/20/25 10:00
Intake and Output
06/19/25 06/20/25 06/21/25
06:59 06:59 06:59
Intake Total 2223.5 / 2240.2 3973.0 / 4159.5 367.7 / 367.7
Output Total 3475 / 3475 4010 / 4210 400 / 400
Balance -1251.5 / -1234.8 -37.0 / -50.5 -32.3 / -32.3
SaO2 96
Nasal Cannula flow liters per 2
minute
Physical Exam
General: Other (Resting comfortably in bed)
HEENT: Normocephalic
Cardiovascular: S1-S2, Irregular Rhythm (A-fib, heart rate 120s) and Other (No M/R/G)
Respiratory: Clear
GI: Soft (Improving relative to prior 2 days), Distended (Continues to improve), Non Tender and NG Tube (Removed)
Neurology: Other (Delirious, restless.)
Skin: Warm, Good Color and Other (No jaundice)
Labs/Micro/Reports
Lab Data
06/20/25 03:27
Laboratory Results
06/19/25 06/19/25 06/20/25
13:35 20:48 03:27
APTT 32.2 60.7 H 77.6 H
06/20/25
10:06
APTT 80.9 H
Microbiology
06/15/25 12:01 Blood/Venous Blood Culture - Final
No Growth - Final Report
06/15/25 11:30 Blood/Venous Blood Culture - Final
No Growth - Final Report
06/14/25 21:22 Blood/Venous Blood Culture - Final
No Growth - Final Report
06/14/25 21:22 Blood/Venous Blood Culture - Final
No Growth - Final Report
06/15/25 19:59 Urine Urine Culture - Final
NO GROWTH
--- NOTE | 2025-06-20 12:37 | PTCARENOTE ---
Improving in mental status noted. Patient awake and oriented person and place, still disoriented of time. Able to have logical conversations with staff and his who is bedside. Denies abdominal pain, denies chest pain. Does c/o of lower
abdominal pain. At times patient noted to be forgetful and attempting to pull peripheral lines. Will continue with current order of soft wrist restraints. For lunch, 1st time had low fat diet, able to tolerate without difficulties. Continues with
loose stools post enema MOM 06/19. Rectal Trumpit inserted. Inwelling geller care done, draining clear yellow urine.
[2025-06-20 12:39] LABS: Glucose - Point of Care 200 mg/dl (70-99)
[2025-06-20] MEDS: NOVOLOG FLEXPEN 4 UNITS SC ×2 (12:46→18:03)
--- NOTE | 2025-06-20 14:23 | W.PN.HOSP.TC ---
Today's Communication/Plan
-
seroquel HS, prn Haldol
LFD
continue IV abx
continue Cardizem/IV heparin
Echo Saturday
Assessment / Plan
Assessment / Plan
Assessment:
Acute biliary pancreatitis
- CT: severe acute pancreatitis with CBD stones
- s/p EUS and ERCP 06/15: inability to locate ampulla due to duodenal edema.
- repeat ERCP 06/17: sphincterotomy and stone extraction, bile duct and pancreatic duct stent placements.
- diet: LFD
- continue IVF
- continue Zosyn, day 6
- GI following
- GS following for eventual CCY TBD
Ileus from acute pancreatitis
- AXR 06/19 with improved distention, non-obstuctive gas pattern
- diet: LFD
- prn Zofran
SAMANTHA on CKD stage 3b (Cr baseline 1.7 to 1.9)
Acute hyperkalemia
Hypovolemic hyponatremia
- s/p temporization
- continue LR fluids
- monitor UOP with Carbone in place
- follow serial BMPs
- renal/bladder US when able
- Nephrology following
mild DKA (AG 12)
- continue DKA protocol; insulin drip, monitor serial BMPs
- accu-checks
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
new Parox A. Fib
- TSH normal
- continue Cardizem drip + standing Lopressor 7.5mg q6
- continue IV Heparin drip - requires intensive monitoring
- Echo pending
Acute hypoxic respiratory failure on 6L NC
Bibasilar atelectasis
- IS as able
- wean O2 as able
Hypomagnesemia
Hypocalcemia
Hypokalemia
- repleted via IV
Toxic Metabolic Encephalopathy/critical care delirium
- multifactorial from procedural sedation, acute illness, pain meds
- prn Haldol
- Seroquel HS
- monitor mentation
Duodenitis on EGD
- continue PPI
DVT ppx: SC heparin
Code: Full
Total Critical Care Time 41 minutes. I was immediately available to the patient and staff. I personally examined, reviewed labs, diagnostic images/reports, interpretations, treatment plans, discussed patient care with other providers and family or
caregivers (if patient is unable to make decisions), entered orders as appropriate and documented the medical record.
Anticipated Discharge: > 48 hours
Subjective/Interval History
-
Date of Service: June 20, 2025
delirious overnight - required IV Haldol
remains with confusion and delirium today
on LFD
Objective Data
-
Labs:
Laboratory Results
06/20/25 06/20/25 06/20/25
03:27 10:06 16:00
WBC 18.6 H
Hgb 11.2 L
Hct 32.7 L
Plt Count 161
APTT 77.6 H 80.9 H
Sodium 146 H Pending
Potassium 3.3 L Pending
Chloride 117 H Pending
Carbon Dioxide 21 L Pending
BUN 40 H Pending
Creatinine 1.9 H Pending
Glucose 158 H Pending
Calcium 7.5 L Pending
Total Bilirubin 1.6 H
AST 44
ALT 59 H
Alkaline Phosphatase 84
Vital Signs:
Vital Signs
Temp Pulse Resp BP Pulse Ox
98.5 F 111 21 143/78 98
06/20/25 14:11 06/20/25 14:00 06/20/25 14:00 06/20/25 14:00 06/20/25 14:00
I&O
06/19/25 06/20/25 06/21/25
06:59 06:59 06:59
Intake Total 2223.5 / 2240.2 3973.0 / 4159.5 822.5 / 822.5
Output Total 3475 / 3475 4010 / 4210 900 / 900
Balance -1251.5 / -1234.8 -37.0 / -50.5 -77.5 / -77.5
Physical Exam
-
General: No Apparent Distress
HEENT: Normocephalic and Atraumatic
Respiratory: Negative Wheezes
Cardiac: Regular Rhythm and S1/S2
GI: Soft and Nontender
Neuro: AO x 3
Psych: Calm
Data Reviewed
-
Critical Care Time (in minutes): 41
Labs: Labs Reviewed by me
[2025-06-20 14:26] LABS: Glucose - Point of Care 133 mg/dl (70-99)
[2025-06-20 15:28] LABS: Glucose - Point of Care 123 mg/dl (70-99)
[2025-06-20 16:15] LABS: Blood Urea Nitrogen 34 mg/dl (9-20); Calcium 7.4 mg/dl (8.4-10.2); Carbon Dioxide 25 mmol/L (22-30); Chloride 117 mmol/L (98-107); Estimated Creatinine Clearance 40 ml/min; Glucose 121 mg/dl (70-99); Potassium 3.4 mmol/L (3.5-5.1); Sodium 145 mmol/L (135-145); eGFR 39.01
[2025-06-20] MEDS: TYLENOL 650 MG PO (16:15)
[2025-06-20 16:33] LABS: Glucose - Point of Care 120 mg/dl (70-99)
--- NOTE | 2025-06-20 16:57 | PTCARENOTE ---
BMP 15:05: Na 145; K 3.[address] De Paz : will continue with IV fluids per current order; K-CL 40 meq elixir po now x 1 dose
[2025-06-20 17:29] LABS: Glucose - Point of Care 128 mg/dl (70-99)
[2025-06-20 18:27] LABS: Glucose - Point of Care 136 mg/dl (70-99)
--- NOTE | 2025-06-20 18:27 | PTCARENOTE ---
patient in bed. awake and oriented of person, place, and time. periods of confusion still noted. Restraints in place
Afib 85 : metoprlol 7.5 IV and Cardizem 15; Heparin 06/1200 PTT at goal. Next PTT in am
SpO2 98% via nasal canula. Intermittent wheezing
Multiple loose stool through shift. Low Fat diet able to tolerating
Indwelling Carbone draining clear yellow urine
K 34 Replated w K-cl 40 meq PO x 1; on D5 0.45 % w Potassium at 100/hr
HOB elevated
(Edilma ) at bedside, update provided
[2025-06-20] MEDS: PROTONIX 40 MG PO (20:03)
[2025-06-20 20:29] LABS: Glucose - Point of Care 155 mg/dl (70-99)
[2025-06-20] MEDS: SEROQUEL 50 MG PO (21:36)
[2025-06-20 22:18] LABS: Glucose - Point of Care 143 mg/dl (70-99)
--- NOTE | 2025-06-20 22:29 | PTCARENOTE ---
Patient aao x2 at start of shift; to person and place. Patient anxious about sleep and c/o pain 04/07 to back. PRN Dilaudid administered per orders with positive results. Afib on the monitor, positive pulses, trace edema. Lung sounds diminished at
b/l bases. Pox 96-97% on 2L o2 via n/c. BS active x4, patient incontinent of moderate amount of brown liquid/loose bm, patient unaware of incontinence. Hygiene provided with CHG wipes and catheter wipes. Carbone cath draining clear, yellow urine,
approx 100ml/hr. Patient contines on Cardiazem gtt, Heparin gtt, Insulin gtt, D5 NS 0.45% with 20mEq of potassium. Patient continues to be restless, agitated at times. Patient yells out when he needs something, despite call hernandez being next to right
hand. Bed alarm on, will continue to monitor patient closely. Restraints in use for safety at this time.
[2025-06-21] VITALS (26 sets, daily range): BP systolic 122–189; BP diastolic 67–109; BMI 30.3
[2025-06-21 00:27] LABS: Glucose - Point of Care 137 mg/dl (70-99)
[2025-06-21] MEDS: CARDIZEM 125 IV (01:43)
[2025-06-21 02:04] LABS: Glucose - Point of Care 108 mg/dl (70-99)
--- NOTE | 2025-06-21 02:09 | PTCARENOTE ---
Around 2300, patient states he is unable to sleep and is becoming increasingly agitated. Updated Amrik MICROBIOLOGICAL LABORATORY TECHNICIAN, 1x order placed for Haldol 2mg IV stat. Medication administered with positive results. Patient awakens easily, but appears to be more
relaxed and able to sleep at times. Last bg 108, Insulin gtt decreased to 1u per orders. Call hernandez within reach, will continue to monitor patient closely.
[2025-06-21] MEDS: APRESOLINE 10 MG IV ×2 (02:37→21:43)
[2025-06-21] MEDS: D5/0.45%NSS with KCL 20 MEQ 1000 IV ×2 (03:21→21:22)
[2025-06-21] MEDS: ZOSYN 50 IV ×4 (03:21→20:18)
[2025-06-21 03:31] LABS: Glucose - Point of Care 150 mg/dl (70-99)
[2025-06-21 03:39] LABS: Hematocrit 32.9 % (39.0-52.0); Hemoglobin 11.1 g/dL (13.0-18.0); Mean Corp Hgb Conc. 33.7 g/dL (33.0-37.0); Mean Corpuscular Volume 87.7 fL (80.0-94.0); Platelet Count 163 10^3/uL (130-400); Red Cell Dist. Width 13.8 % (11.5-14.5)
[2025-06-21 03:54] LABS: APTT 62.4 Sec (23.4-35.0)
[2025-06-21] MEDS: ZOFRAN 4 MG IV (03:54)
[2025-06-21 03:56] LABS: ALT (SGPT) 228 U/L (0-50); AST (SGOT) 446 U/L (17-59); Albumin 3.0 g/dl (3.5-5.0); Alkaline Phosphatase 152 U/L (38-126); Blood Urea Nitrogen 29 mg/dl (9-20); Calcium 7.1 mg/dl (8.4-10.2); Carbon Dioxide 25 mmol/L (22-30); Chloride 115 mmol/L (98-107); Estimated Creatinine Clearance 40 ml/min; Glucose 144 mg/dl (70-99); Magnesium 1.8 mg/dl (1.6-2.3); Potassium 3.5 mmol/L (3.5-5.1); Sodium 146 mmol/L (135-145); Total Protein 5.3 g/dl (6.3-8.2); eGFR 39.01
--- NOTE | 2025-06-21 04:02 | PTCARENOTE ---
Patient attempting to spit out mucous. RN offered suction, prior to deepuer touching patients mouth, patient vomited a moderate amount of clear/yellowish mucous. Hygiene provided. RN administered PRN Zofran and notified Amrik PEÑALOZA. HOB elevated
above 30 degrees. Pox 96% on 2L, no change in respiratory status. Will continue to monitor patient closely.
[2025-06-21 04:25] LABS: Glucose - Point of Care 170 mg/dl (70-99)
[2025-06-21] MEDS: HEPARIN 25000 UNITS/250 ML IV ×2 (05:03→22:07)
[2025-06-21] MEDS: LOPRESSOR 7.5 MG IV (05:04)
[2025-06-21 05:13] LABS: Glucose - Point of Care 186 mg/dl (70-99)
[2025-06-21 06:10] LABS: Glucose - Point of Care 180 mg/dl (70-99)
[2025-06-21] MEDS: MAGNESIUM SULFATE 102 GRAMS IV (06:21)
[2025-06-21] MEDS: KCL 270 MEQ IV (06:25)
[2025-06-21] MEDS: PROTONIX 40 MG PO (07:34)
--- NOTE | 2025-06-21 08:03 | W.PN.GI.CBS2 ---
Addendum entered and electronically signed by Demetria Luciano MD 06/21/25 14:20:
Since he is very lethargic now may not be able to tolerate p.o. intake will need Dobbhoff tube placement for enteric feeds and if unable to tolerate that then will need TPN
Addendum entered and electronically signed by Demetria Luciano MD 06/21/25 14:18:
Discussed with Dr. Marte he recommended getting an abdomen x-ray to check for stent placement will order for bedside.
Addendum entered and electronically signed by Demetria Luciano MD 06/21/25 14:08:
patient had a CT head today for worsening mentation changes and is consistent with acute CVA.
Also reviewed ultrasound results no obvious ductal dilatation noted and no cholecystitis noted discussed with Dr. Marte who is going to review the images and let us know if he needs repeat MRCP versus EUS and ERCP to rule out possible stent migration
If he has further nausea or vomiting may need NG tube placement and change his diet back to clear liquids, currently on low-fat diet as tolerated, need to encourage enteric feeds if tolerated but if unable to may need TPN
Continue to trend LFTs discussed with Dr. Hernandez also.
Diltiazem was discontinued and started on amiodarone and on heparin for A-fib
Original Note:
Today's Communication / Plan
-
Trend LFTs very closely and if continuing to rise will need to repeat MRCP and also then need to rule out the possibility of DILI less likely from shock liver although he is tachycardic his blood pressure has been stable
Assessment / Plan
-
Pt is a 74yo with hx obesity, HTN, hyperlipidemia, NIDDM, shingles, urinary retention with st cath daily, arthritis, vasectomy, BPH prior turp, prostate biopsy, spinal injection with onset of abdominal pain to back and nausea with eating after
eating dinner on 06/14. On admission concern for sepsis with WBC 21,900, hbg 15.2, and after admission noted with Na 131, K up to 5.5 creat up to 2.7, glucose 480, lactate 4.7 with rise in bili to 7.5, AST 492, ALT 329, alk phos 53, and lipase
>4000. He takes NSAIDs several times per week for pain. He did have several episode of non bloody emesis after onset of pain. No issues with diarrhea, constipation or rectal bleeding. No ETOH use, no new medications, no hx pancreatitis in past or
family hx pancreatic issues. No GPL-1 use or wt loss.
06/14/25 US abdomen with fatty liver, mild hepatomegaly
06/15/25 abd X ray No significantly dilated air-filled loops of bowel. No radiographic evidence for pathologic calcification or soft tissue mass. CBD 5 mm
06/15/25 CT Abd/pelvis Wo Iv Cont Findings suggesting severe acute pancreatitis. Mild hepatosplenomegaly.Probable stones in the common bile duct. No secondary findings to suggest acute cholecystitis on this CT exam. However, ultrasound is the study
of choice for evaluation of the gallbladder. Mild abdominopelvic ascites. Moderate left hydroureter. Mild diverticulosis. Moderate air in the bladder likely due to Carbone catheter placement.
Severe prostate hypertrophy. Mild age indeterminate T12 compression fracture. New from 2020
06/15/25 EUS - Multiple stones were visualized endosonographically in the lower third of the main bile duct. Pancreatic parenchymal abnormalities consisting of diffuse echogenicity and hyperechoic strands were noted in the pancreatic head. No
specimens collected.
06/15/25 ERCP The esophagus was successfully intubated under direct vision. The major papilla was not found.
-severe acute pancreatitis
-abdominal distention with likely ileus
-elevated LFT's
-leukocytosis
-elevated lactate - improving
-SAMANTHA worsening after admission
-leukocytosis
-hyperglycemia
-hyperkalemia
-hyponatremia
-CT with mild ascites, Moderate left hydroureter
other med problems:
-obesity, HTN, hyperlipidemia, NIDDM, shingles, urinary retention with st cath daily, arthritis, vasectomy, BPH prior turp, prostate biopsy, spinal injection
PLAN:
etiology of symptoms with concern for severe pancreatitis--CBD stone on CT and EUS, no hx ETOH use, no new medication, no prior hx pancreatitis in past
IGG4 normal at 9, TG stable 232, baseline CRP 70.90
Status post ERCP 06/17/2025 with removal of CBD stones and stent to common hepatic and PD
encephalopathy multifactorial from opiates, sepsis, SAMANTHA with electrolyte disturbances, ammonia level normal. Started on Seroquel per critical care and also on Haldol PRN
has mild hepatosplenomegaly on imaging so possible cirrhosis cannot be ruled out likely from MAFLD
Ileus improving started low-fat diet 06/20
Continue senna
Electrolyte management per renal and critical care
Continue antibiotics with Zosyn
New onset of A-fib started on Cardizem drip and also evaluated by cardiology and started on heparin
Duodenitis continue PPI will change to p.o. twice daily
Follow-up with Dr. Marte in 6 to 8 weeks after DC
Acute rise in LFTs today unclear if it is related to edema which he has had around the ampulla with severe duodenitis continue to trend LFTs and if persistently elevated on repeat then will need repeat MRCP. Although he is tachycardic there was no
reported hypotension so doubt low flow state or shock liver also less likely DILI but need to watch closely
Subjective
Subjective
Date of Service: June 21, 2025
Patient's mentation is still waxing and waning. He is on Haldol and also started on Seroquel. Currently he is very drowsy and unable to answer questions but discussed with nurse at bedside apparently prior to this he was more oriented and awake..
He has had 2 bowel movements overnight. Still tachycardic. Has been started on heparin and has been on Cardizem no bleeding. His LFTs acutely bumped up today
Objective
Data Reviewed
Laboratory Data:
Laboratory Results
06/21/25 03:17
06/21/25 03:17
Laboratory Results
PT 15.7 Sec (11.4-14.6) H 06/15/25 13:55
INR 1.22 06/15/25 13:55
APTT 62.4 Sec (23.4-35.0) H 06/21/25 03:17
Phosphorus 3.9 mg/dl (2.5-4.5) 06/15/25 19:59
Magnesium 1.8 mg/dl (1.6-2.3) 06/21/25 03:17
Total Bilirubin 2.6 mg/dl (0.2-1.3) H D 06/21/25 03:17
AST 446 U/L (17-59) H 06/21/25 03:17
ALT 228 U/L (0-50) H 06/21/25 03:17
Alkaline Phosphatase 152 U/L (38-126) H 06/21/25 03:17
Lipase > 4000 U/L (23-300) H* 06/14/25 19:55
Vital Signs and I&O:
Vital Signs
Temp Pulse Resp BP Pulse Ox
98.2 F 119 25 156/96 95
06/21/25 07:16 06/21/25 07:00 06/21/25 07:00 06/21/25 07:00 06/21/25 07:14
I&O
06/20/25 06/21/25 06/22/25
06:59 06:59 06:59
Intake Total 3973.0 / 4174.5 3893.1 / 4232.6 339.5 / 339.5
Output Total 4010 / 4210 3550 / 3625 75 / 75
Balance -37.0 / -35.5 343.1 / 607.6 264.5 / 264.5
Physical Exam
Physical Exam
Cardiology: Irregular Rate/Rhythm (Tachycardic)
Pulmonary: Clear and Other (Few crackles and decreased breath sounds at the bases)
GI: Soft, Distended, Non Tender and Other (Hypoactive bowel sounds)
[2025-06-21 08:05] LABS: Glucose - Point of Care 150 mg/dl (70-99)
--- NOTE | 2025-06-21 08:20 | PTCARENOTE ---
Rec'd care of patient at 0700. Patient initially alert and oriented. Communicating with staff. Repositioned into sitting position in bed to sip on clears and take po medication. Around 0745, patient lethargic. Opening eyes to verbal and tactile
stimuli. BG 150. Hospitalist at bedside. Order for lactic and ABG to be placed. Afib, 110-120's. Cardizem gtt infusing @ 15 mg/hr. +1 generalized anasarca. Palpable pulses. Weaned to RA. Pulse ox 93%. Lung sounds diminished in b/l base. Tachypneic.
Hypo BS. Abdomen round/soft/distended. Loose stools overnight. ABD US ordered. Carbone for critical I/O. Scrotal edema present. Heparin gtt infusing; next PTT due at 1000. GP maintained.
[2025-06-21] MEDS: NOVOLOG FLEXPEN SC ×3 (08:28→15:36)
--- NOTE | 2025-06-21 08:31 | PTCARENOTE ---
Orders placed to discontinue Cardizem gtt and initiate Amiodarone gtt.
--- NOTE | 2025-06-21 08:55 | PTCARENOTE ---
G collected. ABD US in progress.
[2025-06-21 09:03] LABS: B.E. -0.6 mmol/L; HCO3 22.9 mmol/L (21-28); O2 Saturation % 98.1 % (94-98); PCO2 33 mmHg (35-48); PO2 80 mmHg (83-108)
[2025-06-21] MEDS: CORDARONE 103 MG IV (09:15)
--- NOTE | 2025-06-21 09:23 | W.PN.NEPH.PH ---
Today's Communication / Plan
-
follow BMP
Assessment/Plan
-
Impression:
SAMANTHA (2.7)
CKD 3b(1.7-1.9 )
Metabolic acidosis
Hyperkalemia
Profound abdominal pain likely due to evolving pancreatitis/sepsis
Abnormal LFTs
History of HTN
History of diabetes
History of profound BPH requiring self-catheterization daily
Plan:
continue hypotonic IVF with K repletion
follow BMP
for ABG/abd US
for amiodarone to better control afib
will consider viri tomorrow given that he is intravascularly euvolemic but total body overloaded
d/w
critical care time 31 minutes
-
-
Date of Service: June 21, 2025
CC / HPI / ROS
-
Chief Complaint:
SAMANTHA
History of Present Illness:
cr down to 1.8, nonoliguric with geller
Na up at 146
Hemodynamically stable
A-fib now on Cardizem drip and heparin, tachycardic still
confused/lethargic today
critically ill in ICU
LFTs, bili rising
Review of Systems:
no pain
Nonoliguric via Geller
Lethargic but weakly interacts following commands
Labs
-
Labs:
WBC 17.0 10^3/uL (4.8-10.8) H 06/21/25 03:17
RBC 3.75 10^6/uL (4.70-6.10) L 06/21/25 03:17
Hgb 11.1 g/dL (13.0-18.0) L 06/21/25 03:17
Hct 32.9 % (39.0-52.0) L 06/21/25 03:17
Plt Count 163 10^3/uL (130-400) 06/21/25 03:17
Sodium 146 mmol/L (135-145) H 06/21/25 03:17
Potassium 3.5 mmol/L (3.5-5.1) 06/21/25 03:17
Chloride 115 mmol/L (98-107) H 06/21/25 03:17
Carbon Dioxide 25 mmol/L (22-30) 06/21/25 03:17
BUN 29 mg/dl (9-20) H 06/21/25 03:17
Creatinine 1.8 mg/dL (0.7-1.3) H 06/21/25 03:17
eGFR 39.01 06/21/25 03:17
Glucose 144 mg/dl (70-99) H 06/21/25 03:17
Calcium 7.1 mg/dl (8.4-10.2) L 06/21/25 03:17
Phosphorus 3.9 mg/dl (2.5-4.5) 06/15/25 19:59
Albumin 3.0 g/dl (3.5-5.0) L 06/21/25 03:17
Physical Exam
-
Vital Signs:
Vital Signs
Temp Pulse Resp BP Pulse Ox
98.2 F 118 21 145/83 91
06/21/25 07:16 06/21/25 08:00 06/21/25 08:00 06/21/25 08:00 06/21/25 08:00
Cardiovascular:: Regular rate and rhythm
Respiratory:: Bilateral: Coarse
Lung Excursion:: Normal
Abdomen:: Soft and Tender
Bowel Sounds:: Decreased
Extremity Edema:: +3: Bilateral:
[2025-06-21] MEDS: CORDARONE 259 MG IV ×2 (09:27→20:36)
--- NOTE | 2025-06-21 09:34 | PN.DE.MGMTRT ---
Insulin Management
- -
06/21/2025: Diabetes Management Follow up
Patient admitted 06/14 with c/o sever mid - upper abdominal pain into back with nausea, chest pain - acute pancreatitis.
PMH: HTN, HLD, diabetes, BPH, urinary retention, ckd 3b. Has had diabetes 30+ years. Prior to admission was taking glimepiride 4 mg daily, metformin 500 mg BID. A1C on admission 6.5%, cr 3--0>1.8, eGFR 39.01 today.
Patient asleep, attempts to awaken to name, but dozes right back to sleep, unable to discuss diabetes care. and 2 dtrs at bedside able to provide further information. States he has been taking glimepiride and metformin for about 3 - 4 years
and sees his primary doctor for ongoing diabetes care. He has never tested his glucose. Critical Care glycemic protocol was initiated on 06/15. Pt remains on continuous insulin infusion, requiring 1.7 to 3 units of insulin per hour.
Patient was started on low residue diet but still not eating, he is not awake enough to eat.
Will continue critical care glycemic protocol insulin infusion for now and closely monitor
When patient condition improves will provide glucose monitor and educate on testing procedure and appropriate times to test.
Discussed with nurse. Will cont to follow
Diabetes History
- -
Type of Diabetes: 2
Pre-Admission Diabetes Regimen
06/20/25 06/21/25
15:05 03:17
Creatinine 1.8 H 1.8 H
Lab Results
Hemoglobin A1c 6.5 % (4.0-5.9) H 06/15/25 04:45
Insulin Pump Settings
IP Diabetes Regimen
06/20/25 06/20/25 06/20/25
10:02 11:05 12:18
Glucose
POC Glucose 192 H 192 H 200 H
06/20/25 06/20/25 06/20/25
14:04 15:05 15:07
Glucose 121 H
POC Glucose 133 H 123 H
06/20/25 06/20/25 06/20/25
16:12 17:07 18:02
Glucose
POC Glucose 120 H 128 H 136 H
06/20/25 06/20/25 06/21/25
20:17 22:05 00:15
Glucose
POC Glucose 155 H 143 H 137 H
06/21/25 06/21/25 06/21/25
01:53 03:17 03:19
Glucose 144 H
POC Glucose 108 H 150 H
06/21/25 06/21/25 06/21/25
04:13 05:00 05:57
Glucose
POC Glucose 170 H 186 H 180 H
06/21/25
07:52
Glucose
POC Glucose 150 H
Meal type: Dinner
Meal type: Lunch
Amount consumed: 100%
Amount consumed: 50%
Patient Education
--- NOTE | 2025-06-21 09:38 | W.PN.HOSP.TC ---
Today's Communication/Plan
-
US RUQ and renal b/l
adjust Zosyn since SAMANTHA resolved
check lactate
head CT
low threshold to NG placement if no further improvement to attempt decompression with recent ileus
Assessment / Plan
Assessment / Plan
74yo M with PMHx of HTN, Afib, CHARLIE, DM admitted with abdominal pain, nausea, vomiting, CT found acute pancreatitis and duodenitis as well as acute cholangittis with stones seen in CBD on CT, had ERCP on 06/17/25 and remained on Abx afterwards.
A/P:
#Acute gall stone pancreatitis
#CHoledocholithiasis with colangitis
#Transaminitis 2/2 above
s/p hydration
On Zosyn - renaly adjusted
Bcx NTD
GI follows: S/P ERCP on 06/17/25
LFT elevated again on 06/21/25 - US RUQ and renal urgently, also cannot exclude cholecystitis, however not sen on initial CT
GEnSX eventually planning colecystectomy
#Paroxysmal Afib with RVR
poor control on max Cardizem
Started Amiodarone on 06/21/25
cotn telemetry
Cardiology follows
TSH WNL
HEparin drip
Echo
#SAMANTHA on CKD stage 3b
#Moderate L hydroureter
#BPH
Cr baseline 1.9-1.8
SAMANTHA resolved as of 06/20/25
follow Cr
[employer]ional Economic Liaison follows
watch for urinary retention
#DM with possible mild DKA
on insulin drip
DM diet when able to eat
DM CHILDREN'S AUTHOR follows
#Acute hypoxic respiratory failure on 6l O2 2/2 acute disease
off O2 as of 06/21/25
Follow chest XR
ABG w/o hypercarbia
#DIstended abd
since admission
moderate ascits on initial CT
follow US
#Acute metabolic encephalopathy
worsened on 06/21/[address]
CT head reasonable with new heparin drip and AMS
CAnnot exclude iatrogenic: received Haldol 8h prior on the top of CKD
#Ileus
s/p NG tube
BS present
XR on 06/19/25 - no obstructive pattern
#Hypokalemia
#Hypomagnesemia
#Hypokalemia
#Hypocalcemia
replete and follow
#DUodenitits
PPI as per GI
#Hepatosplenomegaly
Advise outpatient follow up, unclear reason for now
#Diverticulosis w/o diverticulitis
high fiber diet
DVT ppx hep drip
Full code
I have spent at least 60min critical care time reviewing chart, test results, communication with consultants, family bedside and providing direct patient care
Anticipated Discharge: > 48 hours
Subjective/Interval History
-
Date of Service: June 21, 2025
Objective Data
-
Labs:
Laboratory Results
06/21/25 06/21/25 06/21/25
03:17 08:54 10:00
WBC 17.0 H
Hgb 11.1 L
Hct 32.9 L
Plt Count 163
APTT 62.4 H Pending
HCO3 22.9
Sodium 146 H
Potassium 3.5
Chloride 115 H
Carbon Dioxide 25
BUN 29 H
Creatinine 1.8 H
Glucose 144 H
Calcium 7.1 L
Total Bilirubin 2.6 H D
AST 446 H
ALT 228 H
Alkaline Phosphatase 152 H
Vital Signs:
Vital Signs
Temp Pulse Resp BP Pulse Ox
98.2 F 118 21 145/83 91
06/21/25 07:16 06/21/25 08:00 06/21/25 08:00 06/21/25 08:00 06/21/25 08:00
I&O
06/20/25 06/21/25 06/22/25
06:59 06:59 06:59
Intake Total 3973.0 / 4174.5 3893.1 / 4232.6 487.7 / 487.7
Output Total 4010 / 4210 3550 / 3625 150 / 150
Balance -37.0 / -35.5 343.1 / 607.6 337.7 / 337.7
Review of Systems
-
Unable to obtain full review of systems at this time due to: Acuity
History Source: Patient
Physical Exam
-
General: Appears in Distress
HEENT: Normocephalic
Respiratory: Clear to Auscultation
Cardiac: Irregular Rhythm and Tachycardic
GI: Nontender and Distended
Genito-urinary: No Costovertebral Tender
Musculoskeletal: No Clubbing, No Cyanosis and No Edema
Neuro: Other (lethargic)
Psych: Confused
[2025-06-21 10:12] LABS: Glucose - Point of Care 179 mg/dl (70-99)
[2025-06-21 10:27] LABS: APTT 63.3 Sec (23.4-35.0)
[2025-06-21] MEDS: TRANDATE 10 MG IV ×3 (11:03→23:05)
[2025-06-21] MEDS: CALCIUM GLUCONATE 100 IV (11:03)
--- NOTE | 2025-06-21 12:12 | W.PN.INTV ---
Addendum entered and electronically signed by Houston Hernandez MD 06/22/25 02:16:
Pertinent physical exam:
Elderly man, sitting in bed in NAD; somnolent yet arousable to voice and following commands
PERRL/EOMI
No tracheal deviation
Tachycardic; irregularly irregular
CTA b/l with no w/r/r
Abdominal distension; no abd pain to palpation; firm but not rigid
No LE edema
Following commands although somnolent
Original Note:
Today's Communication / Plan
Recommendations
Repeat CMP to trend LFTs
Continue IVF's, insulin drip, amiodarone, Zosyn
CT head pending
Assessment
-
Assessment: Patient is a 74-year-old male with PMH of CKD stage IIIb, NIDDM, HTN, HLD, and BPH who is being upgraded to the [facility] with acute pancreatitis and possible sepsis complicated by hyperglycemia, acute kidney injury, hyperkalemia,
hyperbilirubinemia, and transaminitis. Etiology of pancreatitis is to be determined, though concern for acute cholangitis given subjective fever, chills, abdominal pain with guarding, transaminitis, and hyperbilirubinemia. Patient has multiple
signs of decreased end organ perfusion, including lactate 4.8, Cr 2.8, VBG pH 7.26 and HCO3 18.4. Critical illness hypoglycemia with glucose 480.
06/16: Patient seems to be slightly improving overall. Status post EUS and attempted ERCP. Concern for the patient's increasing oxygen requirement, as he is now requiring 4 L. Labs overall improving, though WBCs increased to 26.6. Patient is
producing urine (approximately 1 L in last 24 hours), and creatinine may be plateauing in the low threes (currently 3.2). Lactate decreasing, now 1.0 from 4.7 yesterday. Bicarb steady around 21. AST and ALT substantially improved, down to 92 and
187, respectively. T. bili 3.2 from 7.5 yesterday. Glucoses under much better control, now in the mid 100s. Patient is positive approximately 5 L over the last 24 hours. Abdomen distended and slightly more tense than yesterday. Monitoring for
abdominal compartment syndrome given copious IVF's in setting of pancreatitis.
06/17: Patient slightly improved from yesterday afternoon/evening. Good urine output (~800 mL from 12 AM�6 AM). Improved oxygen requirement from yesterday, currently on 2 L. Improving leukocytosis, transaminases, and bilirubin. Creatinine still
elevated at 3.3, which is relatively stable from recent days. Sugars well-controlled on insulin drip. CXR shows improving atelectasis, which is consistent with the patient's improved abdominal exam. Overall, respiratory status, abdominal exam,
increased urine output, and labs indicate slight improvement.
06/18: Patient appears to be doing well s/p ERCP yesterday. Good urine output (~700 mL from 12 AM�6 AM). Patient lowered from 4L to 2 L while at the bedside, breathing comfortably. Improving leukocytosis (17.6 from 20.9 yesterday). Creatinine
slightly improved at 3.0 from 3.3 yesterday, though still elevated over baseline of 1.7�1.9. Sugars well-controlled on insulin drip. Fluids and antibiotics continuing. Waxing and waning confusion and drowsiness this morning, suspect ICU related
delirium. Overall, abdominal exam improving with good urine output, stable respiratory status, and labs indicating slight improvement.
: Over the weekend, patient's abdominal exam improved and his NG tube was removed following clamping trial. Patient's creatinine continued to improve with good urine output. He was switched to IVFs D5/half-normal/KCl due to
hypernatremia. His insulin infusion was continued. On 06/19, patient developed A-fib with RVR. He was put on diltiazem infusion and Lopressor IV 5 mg every 6 hours was continued. Heparin for anticoagulation. Patient continued to have ICU
delirium, which was likely related to lack of sleep, critical illness, pain, and essentially bedbound status. Haldol 2 mg IV x 1 given overnight. Seroquel 50 mg nightly started.
06/21: Patient feeling same as yesterday. Abdomen is distended, moderately tense, though nontender. No pain reported. Transaminases elevated with AST 446 and ALT 228, increased from 44 and 59 yesterday, respectively. Alk phos 152. T. bili 2.6.
Lactate 0.6. Persistent leukocytosis (WBCs 17.0). Creatinine 1.8, which is patient's baseline. Patient in A-fib with HR 120s while on diltiazem, prior to starting amiodarone. ABG this morning showed pH 7.45, HCO3 22.9, pO2 80, and pCO2 33.
Abdominal ultrasound ordered for transaminitis showed no evidence for gallstones, gallbladder wall thickening, or biliary ductal dilation.
Impression:
#Acute pancreatitis
#Suspected sepsis 2/2 possible biliary pathology
#Metabolic acidosis
#Hyperglycemia
#SAMANTHA
#Hyperkalemia
#BPH
#HTN
#Delirium
#Transaminitis
#Hyperbilirubinemia
#Hypernatremia
Plan:
#Acute pancreatitis
#Possible sepsis 2/2 suspected choledocholithiasis
#Metabolic acidosis
#Transaminitis
#Hyperbilirubinemia
#SAMANTHA
CMP this afternoon to trend LFTs
Continue maintenance IVF (now on D5/0.45% NSS 100 mL/hr)
Continue piperacillin�tazobactam given concern for acute cholangitis and/or sepsis
S/p ERCP 06/15 and 06/17 with choledocholithiasis, stone removal, and stents placed in CHD and pancreatic duct
Antiemetics, pain control
NGT no longer in place
Blood cultures pending
Monitor I's and O's
Nephrology, GI, surgery following
#Hyperglycemia
Continue insulin drip, per protocol
Trend BMP
Goal glucose 140�180
#Hyperkalemia/hypokalemia
K 3.5 this morning
Repleted with 20 mEq IV
Trend BMP
#Hypernatremia
Na 146 this morning, stable from yesterday
Continue IVFs D5/0.45% NSS 100 mL/hr)
#BPH
Carbone in place, producing clear light yellow urine
Monitor I's and O's
#Atrial fibrillation
#HTN
Continue metoprolol 5 mg IV q6h
Diltiazem gtt discontinued this morning
Amiodarone gtt started this morning
Labetalol as needed for HTN
Home medications on hold
#Delirium
Hydromorphone reduced to 0.25 mg every 4 hours
Seroquel at bedtime
No other delirium associated medications currently being administered
Per primary team, CT head pending for lethargy
DVT PPx: Heparin
Subjective Dataa
Subjective Data
Date of Service:
Date of Service: June 21, 2025
Subjective:
Patient seen at the bedside with present on hospital day #8. Patient states he is feeling about the same as yesterday. No pain currently. No shortness of breath. states she thinks her is more distended than yesterday. Vomited
overnight, otherwise no new complaints.
Review of Systems
Cardiopulmonary: Other (Denies shortness of breath, palpitations, or chest pain)
GI: Other (Denies abdominal pain, nausea, or diarrhea. Vomited overnight.)
Objective Data
Data Reviewed
Vital Signs / I&O / Oxygen:
Vital Signs
Temp Pulse Resp BP Pulse Ox
98.2 F 112 23 138/96 94
06/21/25 07:16 06/21/25 11:03 06/21/25 11:00 06/21/25 11:03 06/21/25 11:00
Intake and Output
06/20/25 06/21/25 06/22/25
06:59 06:59 06:59
Intake Total 3973.0 / 4174.5 3893.1 / 4232.6 946.5 / 946.5
Output Total 4010 / 4210 3550 / 3625 375 / 375
Balance -37.0 / -35.5 343.1 / 607.6 571.5 / 571.5
SaO2 94
Nasal Cannula flow liters per 2
minute
Physical Exam
General: Other (Appears tired while lying in bed)
HEENT: Normocephalic
Cardiovascular: S1-S2, Irregular Rhythm (A-fib, heart rate 130s) and Other (No M/R/G)
Respiratory: Clear, Non-Labored Respirations and Other (No wheezes, crackles, or rhonchi; no supplemental O2 currently)
GI: Distended and Non Tender
Neurology: Awake, AO x 3 and Other (Answer questions appropriately)
Skin: Warm, Good Color and Other (No jaundice)
Labs/Micro/Reports
Lab Data
06/21/25 03:17
06/21/25 03:17
Laboratory Results
06/21/25 06/21/25 06/21/25
03:17 08:54 09:56
APTT 62.4 H 63.3 H
pH 7.45
pCO2 33 L
pO2 80 L
HCO3 22.9
O2 Delivery Level
Microbiology
06/15/25 12:01 Blood/Venous Blood Culture - Final
No Growth - Final Report
06/15/25 11:30 Blood/Venous Blood Culture - Final
No Growth - Final Report
06/14/25 21:22 Blood/Venous Blood Culture - Final
No Growth - Final Report
06/14/25 21:22 Blood/Venous Blood Culture - Final
No Growth - Final Report
[2025-06-21] MEDS: NOVOLIN R INSULIN INFUSION 100 IV (12:18)
[2025-06-21 12:29] LABS: Glucose - Point of Care 194 mg/dl (70-99)
--- NOTE | 2025-06-21 12:50 | W.PN.CARDCBS ---
Today's Communication / Plan
-
Pt remains NPO, GI evaluation ongoing.
Cont abx as per primary service.
Cont supportive care
Neuro work up per primary service.
Patient developed atrial fibrillation with rapid ventricular response on morning of 06/19/2025 this is new diagnosis for patient
Cont rate control.
IV cardizem changed to IV amiodarone by primary service for better rate control.
IV labetalol currently as needed. Will likely give [id number] labetalol next 24 hours.
Continue IV heparin anticoagulation with transition eventually to oral anticoagulation once mental status is improved and no further procedures are planned.
Echocardiogram is pending.
Impression / Plan
-
.
PCP: Steven Silva
Folder And Notcher: Noe Mckeon
Impression:
Presented 06/14/2025 with severe abdominal pain associated with radiation to back and nausea
Acute pancreatitis with CBD stones
s/p EUS and ERCP 06/15: inability to locate ampulla due to duodenal edema.
repeat ERCP 06/17: sphincterotomy and stone extraction, bile duct and pancreatic duct stent placements.
Suspected sepsis secondary to above
Ileus from acute pancreatitis
TME
Abnormal LFTs
Atrial fibrillation with rapid ventricular response new diagnosis as of 06/19/2025
SAMANTHA on CKD (baseline creat 1.7-1.9)
Leukocytosis
Hyperkalemia
Hyponatremia
Acute hypoxic respiratory insufficiency
Duodenitis on EGD
Chronic kidney disease stage IIIb
Type II DM
Hypertension
Hyperlipidemia
Obesity
History of shingles
BPH with self-catheterization / Hx TURP
Echo: pending
Exercise nuclear stress test 01/13/2024: 6 minutes on Vito protocol achieving 7 METS 85% age-predicted max heart rate. Normal blood pressure response. Abnormal sestamibi perfusion complicated by soft tissue attenuation with fixed defect in apical
lateral segment consistent with possible area of ischemia
Plan:
Presented 06/14/2025 with severe abdominal pain associated with radiation to back and nausea and was found to have acute severe pancreatitis with CBD stones. Status post ERCP/sphincterectomy, stone extraction, bile duct and pancreatic duct stents
06/17/2025. Complicated by ileus
Pt remains NPO, GI evaluation ongoing.
Cont abx as per primary service.
Cont supportive care
Neuro work up per primary service.
Patient developed atrial fibrillation with rapid ventricular response on morning of 06/19/2025 this is new diagnosis for patient
Cont rate control.
IV cardizem changed to IV amiodarone by primary service for better rate control.
IV labetalol currently as needed. Will likely give [id number] labetalol next 24 hours.
Continue IV heparin anticoagulation with transition eventually to oral anticoagulation once mental status is improved and no further procedures are planned.
Echocardiogram is pending.
Renal function improving nephrology following. Carbone in place
Patient does have history of hypertension and previously on amlodipine 10 mg, atenolol 100 mg, hydrochlorothiazide 50 mg as outpatient. These medications are currently on hold.
Discussed with nursing
CCT: 31 min
HPI 06/19/2025:
Patient is a 74-year-old male with PMH of CKD stage IIIb, NIDDM, HTN, HLD, and BPH with self catheterization who presented to emergency department 06/14/2025 with severe mid to upper left and right abdominal pain through to his back with nausea.
Patient was found to have severe acute pancreatitis with abnormal LFTs, leukocytosis, SMAANTHA. Also found to have ileus. He underwent EUS ERCP 06/15/2025 with inability to locate ampulla due to duodenal edema. He underwent repeat ERCP on 06/17/2025
with removal of CBD stones and stent to common hepatic and pancreatic duct. Patient developed atrial fibrillation with rapid ventricular response on early childhood worker of 06/19/2025 prompting cardiology consult. At time of this evaluation patient
lethargic in bed with at bedside. She helps to provide history. Prior to presentation to hospital patient was a active 74-year-old male with no concerning cardiac symptoms. He walked his dog regularly as well as performed out side yard work
and chores without concerning cardiac symptoms.
Progress Note - Folder And Notcher
Subjective
Date of Service: June 21, 2025
Pt seen and examined. lethargic. Does not answer questions
Objective
Labs:
06/21/25 03:17
06/21/25 03:17
Labs
Hgb 11.1 g/dL (13.0-18.0) L 06/21/25 03:17
Hct 32.9 % (39.0-52.0) L 06/21/25 03:17
Plt Count 163 10^3/uL (130-400) 06/21/25 03:17
PT 15.7 Sec (11.4-14.6) H 06/15/25 13:55
INR 1.22 06/15/25 13:55
APTT 63.3 Sec (23.4-35.0) H 06/21/25 09:56
Sodium 146 mmol/L (135-145) H 06/21/25 03:17
Potassium 3.5 mmol/L (3.5-5.1) 06/21/25 03:17
BUN 29 mg/dl (9-20) H 06/21/25 03:17
Creatinine 1.8 mg/dL (0.7-1.3) H 06/21/25 03:17
Glucose 144 mg/dl (70-99) H 06/21/25 03:17
Vital Signs and I&O:
Vital Signs
Temp Pulse Resp BP Pulse Ox
98.5 F 105 20 170/88 93
06/21/25 11:15 06/21/25 12:00 06/21/25 12:00 06/21/25 12:00 06/21/25 12:00
Vital Signs
Temp Pulse Resp BP Pulse Ox
98.5 F 105 20 170/88 93
06/21/25 11:15 06/21/25 12:00 06/21/25 12:00 06/21/25 12:00 06/21/25 12:00
Intake & Output
06/19/25 06/20/25 06/21/25 06/22/25
06:59 06:59 06:59 06:59
Intake Total 2223.5 / 2240.2 3973.0 / 4174.5 3893.1 / 4232.6 946.5 / 946.5
Output Total 3475 / 3475 4010 / 4210 3550 / 3625 375 / 375
Balance -1251.5 / -1234.8 -37.0 / -35.5 343.1 / 607.6 571.5 / 571.5
Physical Exam
Physical Exam
General: No acute distress, lethargic
Neck: Negative JVD
Heart: Irregularly irregular, Negative S3 positive S1/S2, Negative S4, No murmur
Lungs: CTA b/l, negative wheezes/rales/rhonchi
Abd: Positive BS, NT/ND, neg rebound/rigidity/guarding
Ext: Negative cyanosis/clubbing/edema
Neuro: nonfocal
--- NOTE | 2025-06-21 13:06 | PTCARENOTE ---
Addendum entered by Juliana Rosales RN 06/21/25 13:21:
MRI of the brain ordered.
Original Note:
Head ct completed. Neuro consult placed. Neurologist at bedside.
[2025-06-21] MEDS: LOPRESSOR IV (13:14)
[2025-06-21 13:21] LABS: Glucose - Point of Care 207 mg/dl (70-99)
[2025-06-21 13:24] LABS: ALT (SGPT) 290 U/L (0-50); AST (SGOT) 312 U/L (17-59); Albumin 2.7 g/dl (3.5-5.0); Alkaline Phosphatase 161 U/L (38-126); Total Protein 5.2 g/dl (6.3-8.2)
[2025-06-21 14:17] LABS: Glucose - Point of Care 186 mg/dl (70-99)
--- NOTE | 2025-06-21 14:38 | PTCARENOTE ---
Abdominal series ordered by GI.
--- NOTE | 2025-06-21 14:50 | CM ---
Acute pancreatitis, ? Sepsis. A-fib 120's, increased abdominal distention, CT head for lethargy, IV/insulin/Lopressor/Zosyn. Discharge POC: SNF. referrals previously forwarded. Suki following and updated today.
[2025-06-21 15:18] LABS: Glucose - Point of Care 183 mg/dl (70-99)
--- NOTE | 2025-06-21 15:21 | CON.NEURO4 ---
Addendum entered and electronically signed by Reymundo Aguilar MD 06/21/25 22:26:
The patient was seen and examined on 06/21/2025 along with the nurse practitioner Xiao Mathis, and I agree with the nurse practitioner Xiao Mathis's assessment and the management plan. Given below is my addendum.
The patient is 74 years old male, who has presented to the hospital on 06/14/25 with report of several weeks of indigestion and bloating and acute onset severe upper abdominal pain radiating to his back. Patient was found to have acute pancreatitis,
duodenitis, acute cholangitis with CBD stones and underwent ERCP on 06/17/25. Hospital course has been complicated by SAMANTHA on CKD, possible mild DKA, ileus, hypoxic respiratory failure, metabolic encephalopathy, and new onset Afib with RVR noted on
06/19/25. Per nursing staff, patient was severely agitated yesterday (06/20/25) and received haloperidol 2mg IV and was started on Seroquel 50mg HS.
CT Head was obtained and is suggestive of a right parietal lobe acute to subacute ischemic infarction.
He has been on a heparin drip for Afib with RVR.
The right parietal lobe acute to subacute infarct is likely secondary to atrial fibrillation with RVR which was noted on morning of 06/19/2025, however it does not likely explain the patient's altered mental status which is likely due to toxic
metabolic encephalopathy. MRI of the brain, and MRA of the head and neck are pending. The neurologic examination was limited as the patient could not cooperate with the neurologic examination. The patient was drowsy but was able to tell his name
and his age. The patient had antigravity strength in bilateral upper and lower extremities but he appeared to be weaker on the left side as compared to the right side. The plan is to continue with IV heparin with transition eventually to oral
anticoagulation once the patient's mental status has improved. Recommend to decrease the dose of Seroquel if possible and to avoid any sedating medication if possible.
Will follow-up.
Original Note:
Consultation - Neurology 4
-
CONSULTING PHYSICIAN: Reymundo Whitehead MD
REFERRING PHYSICIAN: Hospitalists/Dr. Landon
DICTATED BY: JH Kelly
DATE/TIME OF REQUEST: 06/21/25
DATE/TIME OF CONSULTATION: 06/21/25
Reason for Consultation: Change in mental status
History of Present Illness:
This is a 74-year-old male who has presented to the hospital on 06/14/25 with report of several weeks of indigestion and bloating and acute onset severe upper abdominal pain radiating to his back. Patient was found to have acute pancreatitis,
duodenitis, acute cholangitis with CBD stones and underwent ERCP on 06/17/25. Hospital course has been complicated by SAMANTHA on CKD, possible mild DKA, ileus, hypoxic respiratory failure, metabolic encephalopathy, and new onset Afib with RVR noted on
06/19/25. Per nursing staff, patient was severely agitate yesterday (06/20/25) and received haloperidol 2mg IV and was started on quetiapine 50mg HS. Today (06/21/25), he was noted to be severely lethargic with worsened abdominal distension. CT Head
was obtained and is suggestive of a right parietal lobe subacute ischemic infarct. He has been on a heparin drip for Afib with RVR. Patient is currently obtunded and does not provide extensive answers to questions but follows simple commands. Offers
no complaints. He is not a candidate for TNK/IAT due to stroke onset likely being several days ago and he is therapeutic on a heparin drip. His family denies any history of TIA or stroke in the past.
Past Medical History: HTN, HLD, CKD IIIb, DM, BPH, arthritis, shingles 2020 followed by chronic urinary retention/straight caths once daily
Surgical History: TURP, vasectomy, JOLIE.
Family History: Reviewed and noncontributory.
Social History: Denies tobacco and illicit drug use. Rare alcohol.
Allergies: Pollen extracts.
Home Medications: See below.
Review of Symptoms:
er the HPI. I am unable to obtain a complete review of systems�because of patient's inability to provide history.
Physical Exam:
The patient is afebrile, abdomen is rounded, breathing is unlabored, skin is warm and dry.
NIH Stroke Scale:
I performed the NIH stroke scale on the patient on 06/21/25 at 1300. The patient scored 7 points on the NIH stroke scale assessment, which were assigned as follows: See below.
Neurologic Examination:
The patient is obtunded. Opens eyes to loud voice/touch. He is oriented to person only. He is able to follow one-step commands and answer simple questions appropriately. There is no aphasia or dysarthria. On cranial nerve assessment, pupils are 3
mm bilateral, round and reactive to light and accommodation. Visual ferguson are challenging to assess but appear full. Extraocular movements are challenging to assess, tracks in all directions. There is no apparent facial asymmetry. Hearing is intact
bilaterally to normal conversation volume. Motor strength is 3+/5 LUE, and 4+/5 RUE and bilateral lower extremities. CHANEL sensation, double simultaneous, and coordination due to lethargy.
Lab Results: See below.
Neuro Imaging:
1. CT Head 06/21/25: Band-shaped focus of decreased density within the right parietal lobe as described, which likely represents an area of acute to subacute infarction.
Differentials for the patient's presentation include:
1. CT head imaging is suggestive of a subacute right parietal lobe ischemic stroke; etiology is concerning for a cardioembolic source given new onset Afib on 06/19/25.
2. Altered mental status; likely due to toxic metabolic encephalopathy. Subacute stroke is only likely playing a small role in the patient's lethargy/confusion/agitation.
Patient has the following risk factors for their symptoms: new onset Afib, HTN, HLD, DM
IV Tenecteplase/IAT candidacy: He is not a candidate for TNK/IAT due to stroke onset likely being several days ago and he is therapeutic on a heparin drip.
Recommendations:
-Okay to continue heparin drip with eventual transition to OAC. Would avoid giving heparin boluses.
-MRI brain, MRA head/neck pending.
-Goal normotension as this stroke likely occurred several days ago.
-Minimize sedating medications.
-Infectious workup per primary team.
-NIHSS and neurological checks per unit guidelines.
-LDL goal <70. LDL is 85. Statin use is contraindicated at this time due to severely elevated liver enzymes.
-Goal normoglycemia, hbA1c is 6.5.
-PT/OT/ST evaluations.
-Provide patient's family with a stroke education packet.
Discussed patient care with: Dr. Aguilar, patient's family
Vital Signs and Labs
-
Vital Signs and Labs:
Vital Signs
Temp Pulse Resp BP Pulse Ox
98 F 124 21 166/95 94
06/21/25 15:12 06/21/25 15:00 06/21/25 15:00 06/21/25 15:00 06/21/25 15:00
Lab Results
06/21/25 03:17
06/21/25 03:17
PT 15.7 Sec (11.4-14.6) H 06/15/25 13:55
INR 1.22 06/15/25 13:55
APTT 63.3 Sec (23.4-35.0) H 06/21/25 09:56
Sodium 146 mmol/L (135-145) H 06/21/25 03:17
Potassium 3.5 mmol/L (3.5-5.1) 06/21/25 03:17
BUN 29 mg/dl (9-20) H 06/21/25 03:17
Glucose 144 mg/dl (70-99) H 06/21/25 03:17
Calcium 7.1 mg/dl (8.4-10.2) L 06/21/25 03:17
Phosphorus 3.9 mg/dl (2.5-4.5) 06/15/25 19:59
LDL Cholesterol, Calc 85 mg/dl 06/15/25 04:45
Medications
-
Active Medications
Generic Name Dose Route Start Last Admin
Trade Name Freq PRN Reason Stop Dose Admin
Acetaminophen 650 mg 06/18/25 18:37
Acetaminophen 650 Mg Rectal Suppository RECTAL 07/16/25 18:36
Q6HPRN PRN
pain/fever
Acetaminophen 650 mg 06/20/25 16:11 06/20/25 16:15
Acetaminophen 325 Mg Tablet PO 07/18/25 16:10 650 mg
Q6HPRN PRN Administration
mild-moderate pain
Dextrose 12.5 grams 06/15/25 10:25
Dextrose 50% (0.5 Grams/Ml) 50 Ml Syringe IV 07/13/25 10:24
[id number] PRN
hypoglycemia (BG < 70 mg/dL)
Protocol
Hydralazine HCl 10 mg 06/15/25 20:36 06/21/25 02:37
Hydralazine 20 Mg/Ml Vial IV 07/13/25 20:35 10 mg
Q6HPRN PRN Administration
SBP>160 or DBP>105
Hydromorphone HCl 0.25 mg 06/21/25 08:29
Hydromorphone 0.5 Mg/0.5 Ml Syringe IV 07/05/25 08:23
Q4HPRN PRN
mild/mod pain
Insulin Human Regular 100 units in 100 mls @ 0 mls/hr 06/18/25 20:45 06/21/25 12:18
Novolin R Insulin Infusion IV 100 mls
PER PROTOCOL MODESTO Administration
Protocol
Per Protocol
Heparin Sodium 25,000 units in 250 mls @ 0 mls/hr 06/19/25 13:00 06/21/25 05:03
Heparin 17836 Units/250 Ml IV 250 mls
PER PROTOCOL MODESTO Administration
Protocol
Per Protocol
Potassium Chloride/Dextrose/Sod Cl 20 meq in 1,000 mls @ 100 mls/hr 06/20/25 08:00 06/21/25 03:21
D5/0.45%Nss With Kcl 20 Meq IV 1,000 mls
.Q10H MODESTO Administration
Piperacillin Sod/Tazobactam Sod 3.375 gram in 50 mls @ 100 mls/hr 06/21/25 08:00 06/21/25 13:26
Zosyn IV 50 mls
Q6H MODESTO Administration
Amiodarone HCl 450 mg/ 259 mls @ 0 mls/hr 06/21/25 08:30 06/21/25 09:27
Dextrose IV 259 mls
PER PROTOCOL MOEDSTO Administration
Protocol
Per Protocol
Insulin Aspart 0 units 06/15/25 16:30 06/21/25 15:36
Insulin Aspart (Novolog) 100 Units/Ml 3 Ml Flexpen SC 07/13/25 16:29 Not Given
AC MODESTO
Protocol
Labetalol HCl 10 mg 06/21/25 10:27
Labetalol Hcl 5 Mg/1 Ml (20 Mg/4 Ml) Injection IV 07/19/25 10:26
Q6HPRN PRN
SBP>160 and HR>100
Melatonin 5 mg 06/18/25 15:22 06/19/25 22:02
Melatonin 5 Mg Tablet PO 07/16/25 15:21 5 mg
HSPRN PRN Administration
SLEEP
Metoprolol Tartrate 7.5 mg 06/19/25 13:18 06/21/25 13:14
Metoprolol 5 Mg/5 Ml Vial IV 07/17/25 13:17 Not Given
Q6 MODESTO
Ondansetron HCl 4 mg 06/15/25 00:59 06/21/25 03:54
Ondansetron 4 Mg/2 Ml Vial IV 07/13/25 00:58 4 mg
Q6HPRN PRN Administration
nausea and vomiting
Pantoprazole Sodium 40 mg 06/20/25 20:00 06/21/25 07:34
Pantoprazole 40 Mg Delayed Release Tablet PO 07/18/25 19:59 40 mg
BID MODESTO Administration
Quetiapine Fumarate 50 mg 06/20/25 22:00 06/20/25 21:36
Quetiapine 25 Mg Tablet PO 07/18/25 21:59 50 mg
HS MODESTO Administration
Sennosides 17.2 mg 06/20/25 22:00 06/20/25 21:37
Sennosides (Senokot) 8.6 Mg Tablet PO 07/18/25 21:59 Not Given
HS MODESTO
Sodium Chloride 0 flush 06/15/25 02:00
Sodium Chloride 0.9% (Flush) Syringe IV 07/13/25 01:59
PER PROTOCOL MODESTO
Home Medications
�Medication �Instructions �Recorded
alfuzosin 10 mg tablet,extended 10 mg PO DAILY Urinary Issue 06/29/20
release 24 hr
atenolol 100 mg tablet 100 mg PO DAILY Blood pressure 06/29/20
cholecalciferol (vitamin D3) 25 1,000 unit PO DAILY Supplement 06/29/20
mcg (1,000 unit) capsule (Vitamin
D3)
cyanocobalamin (vitamin B-12) 1,000 mcg PO DAILY Supplement 06/29/20
1,000 mcg tablet
ferrous sulfate 137 mg (45 mg 137 mg PO DAILY Supplement 06/29/20
iron) tablet,extended release
(Slow Fe)
magnesium oxide 400 mg PO DAILY Electrolyte 06/29/20
Repletion
multivitamin with folic acid 400 1 tab PO DAILY Supplement 06/29/20
mcg tablet (Tab-A-Thea)
potassium chloride 20 mEq 20 meq PO BID Electrolyte Repletion 06/29/20
tablet,extended
release(part/cryst) (Klor-Con M)
saw palmetto 450 mg capsule 900 mg PO DAILY Supplement 06/29/20
amlodipine 10 mg tablet (Norvasc) 10 mg PO DAILY Heart 06/14/25
Disease/Condition
bethanechol chloride 25 mg tablet 25 mg PO BID Urinary Issue 06/14/25
glimepiride 4 mg tablet 4 mg PO DAILY Diabetes 06/14/25
hydrochlorothiazide 50 mg tablet 50 mg PO DAILY Fluid 06/14/25
Retention/Swelling
metformin 500 mg tablet 500 mg PO BID Diabetes 06/14/25
NIH Stroke Score
Subsequent NIH Scale
Date of Subsequent NIH Scale: 06/21/25
Time of Subsequent NIH Scale: 13:00
NIH Stroke Score
Level of Consciousness: 1 - Arousable
LOC Questions: 1-Answers one correctly
LOC Commands: 0-Performs both correctly
Best Horizontal Gaze: 0-Normal
Visual Ferguson: 0=Normal, no visual loss
Facial Palsy: 0=Normal, symmetrical
Motor - Right Arm: 1=Drift < 10 seconds
Motor - Left Arm: 2=Partial vs. gravity
Motor - Right Le-Drift < 5 seconds
Motor - Left Le-Drift < 5 seconds
Limb Ataxia: UN-Amputation/jointfusion
Sensation: 0-Normal
Best Language: 0-No aphasia
Dysarthria: 0-Normal
Extinction and Inattention: 0-No abnormality
NIH Total Score:: 7
Modified Adonis (mRS) Score
Modified Florence Scale (mRS): Moderately severe disability. Unable to attend to bodily needs/walk.
Score: 4
Alteplase Contraindication
Inclusion and Exclusion criteria reviewed: Yes
Reasons for NON-Tx with Thrombolytics ABSOLUTE Exclusions: Greater than 4.5 hrs from onset of sxs and On IV Heparin within last 48hrs and elevated PTT
[2025-06-21 16:19] LABS: Glucose - Point of Care 164 mg/dl (70-99)
[2025-06-21 16:33] LABS: APTT 130.3 Sec (23.4-35.0)
--- NOTE | 2025-06-21 16:41 | PTCARENOTE ---
Patient more alert. No recollection of today's events. Reoriented. Speech clear and appropriate. MAEx4. No other changes from previous assessments. Repositioned for comfort. Echo postponed d/t HR.
[2025-06-21 17:12] LABS: Glucose - Point of Care 140 mg/dl (70-99)
[2025-06-21 17:24] LABS: Glucose - Point of Care 125 mg/dl (70-99)
[2025-06-21 18:16] LABS: Glucose - Point of Care 118 mg/dl (70-99)
[2025-06-21] MEDS: PROTONIX PO (19:11)
[2025-06-21 19:17] LABS: Glucose - Point of Care 114 mg/dl (70-99)
[2025-06-21 20:25] LABS: Glucose - Point of Care 103 mg/dl (70-99)
[2025-06-21] MEDS: DILAUDID 0.25 MG IV (20:48)
[2025-06-21] MEDS: NSS (PRESERVATIVE FREE) 10 ML IV (20:48)
[2025-06-21] MEDS: PROTONIX IV 40 MG IV (20:48)
[2025-06-21 21:09] LABS: Glucose - Point of Care 109 mg/dl (70-99)
[2025-06-21] MEDS: LIDOCAINE 4% PATCH 1 PATCH TOPICAL (21:22)
--- NOTE | 2025-06-21 21:30 | PTCARENOTE ---
Received pt from previous RN. Pt is AAOx3, forgetful, NIH and neuro checks per protocol (see worklist). Afib w/ PVCs on the monitor, general +1 edema, weak pedals. Pt on RA O2 sat 95%, lungs diminished, tachypneic. Abd round/obese/distended, incont
of stool. Carbone in place for critical I&O. IVF infusing at 100 ml/hr. Heparin, Insulin and Amio gtts (see worklist). Pt c/o 03/07 back pain, PRN Dilaudid given (see MAR), lidocaine patch applied. Mouth care provided. PICC line being placed, awaiting
chest xray. Call hernandez in reach. Safe environment maintained.
[2025-06-21] MEDS: SEROQUEL PO (21:35)
[2025-06-21 22:13] LABS: Glucose - Point of Care 123 mg/dl (70-99)
[2025-06-21 23:14] LABS: Glucose - Point of Care 125 mg/dl (70-99)
[2025-06-21 23:26] LABS: APTT 109.1 Sec (23.4-35.0)
[2025-06-21] MEDS: OCEAN, SALINE MIST 2 SPRAYS NASAL (23:28)
[2025-06-21] MEDS: D5/0.45%NSS with KCL 20 MEQ IV (23:31)
[2025-06-22] VITALS (41 sets, daily range): BP systolic 140–204; BP diastolic 59–92; PULSE 96; O2SAT 95; BMI 30.5
[2025-06-22 00:04] LABS: Glucose - Point of Care 125 mg/dl (70-99)
--- NOTE | 2025-06-22 00:07 | PTCARENOTE ---
Systems reviewed, no new changes in assessment. Gtts maintained. PRN Hydralazine and Labetalol given (see MAR). Call hernandez in reach. Safe environment maintained.
[2025-06-22] MEDS: ZOSYN 50 IV ×4 (01:02→19:41)
[2025-06-22 01:05] LABS: Glucose - Point of Care 119 mg/dl (70-99)
[2025-06-22] MEDS: TRANDATE 20 MG IV (03:03)
[2025-06-22 03:12] LABS: Glucose - Point of Care 124 mg/dl (70-99)
--- NOTE | 2025-06-22 03:19 | PTCARENOTE ---
ICU WINE MANAGER ordered Labetalol 20 mg x1 for pts BP (see VS). Pt in NSR.
[2025-06-22] MEDS: APRESOLINE 20 MG IV ×3 (04:12→21:13)
[2025-06-22 04:39] LABS: Hematocrit 30.6 % (39.0-52.0); Hemoglobin 10.2 g/dL (13.0-18.0); Mean Corp Hgb Conc. 33.3 g/dL (33.0-37.0); Mean Corpuscular Volume 89.0 fL (80.0-94.0); Platelet Count 144 10^3/uL (130-400); Red Cell Dist. Width 13.8 % (11.5-14.5)
[2025-06-22 04:47] LABS: APTT 135.5 Sec (23.4-35.0)
[2025-06-22 05:09] LABS: Glucose - Point of Care 109 mg/dl (70-99)
[2025-06-22 05:12] LABS: ALT (SGPT) 189 U/L (0-50); AST (SGOT) 75 U/L (17-59); Albumin 2.6 g/dl (3.5-5.0); Alkaline Phosphatase 122 U/L (38-126); Blood Urea Nitrogen 28 mg/dl (9-20); Calcium 7.4 mg/dl (8.4-10.2); Carbon Dioxide 24 mmol/L (22-30); Chloride 116 mmol/L (98-107); Estimated Creatinine Clearance 38 ml/min; Glucose 110 mg/dl (70-99); Magnesium 1.9 mg/dl (1.6-2.3); Potassium 3.7 mmol/L (3.5-5.1); Sodium 143 mmol/L (135-145); Total Protein 5.0 g/dl (6.3-8.2); eGFR 32.42
[2025-06-22] MEDS: TRANDATE 10 MG IV ×2 (05:17→20:16)
[2025-06-22 05:31] LABS: Nucleated Red Blood Cells % 0.1 % (-)
[2025-06-22] MEDS: CARDENE 200 IV (05:44)
--- NOTE | 2025-06-22 05:53 | PTCARENOTE ---
Cardene gtt added for pts BP (see worklist).
[2025-06-22 06:06] LABS: Glucose - Point of Care 124 mg/dl (70-99)
[2025-06-22 06:55] LABS: Glucose - Point of Care 134 mg/dl (70-99)
--- NOTE | 2025-06-22 07:15 | PTCARENOTE ---
Received pt from previous RN this am. Pt is AAOx3, NIH performed in tandem with offgoing RN. (see worklist). This RN remained in room with patient while night RN left, then pt began making inappropriate comments to RN re: physical appearance,
marital status, etc. Pt was informed immediately that this line of conversation will not be tolerated. Charge nurse and community leader notified, incident report filed.
Pt remains in ST/SR on the monitor, general +1 edema, weak pedals, vitals as documented. Pt on RA O2 sat 95%, lungs diminished, tachypneic, wheezes t/o. Abd round/obese/distended, incont of stool overnight x3. Carbone in place for critical I&O. IVF,
Heparin, Insulin, Cardene, and Amio gtts infusing(see worklist). Plan discussed with patient and care team. Call hernandez in reach. Safe environment maintained.
[2025-06-22] MEDS: NOVOLOG FLEXPEN SC (08:16)
[2025-06-22 08:20] LABS: Glucose - Point of Care 134 mg/dl (70-99)
[2025-06-22] MEDS: PROTONIX IV 40 MG IV ×2 (08:26→19:42)
[2025-06-22] MEDS: D5/0.45%NSS with KCL 20 MEQ 1000 IV (08:26)
[2025-06-22] MEDS: NSS (PRESERVATIVE FREE) 10 ML IV ×2 (08:27→19:42)
[2025-06-22] MEDS: REMOVE LIDOCAINE PATCH 1 PATCH REMOVE (08:27)
--- NOTE | 2025-06-22 08:35 | W.PN.INTV ---
Today's Communication / Plan
Recommendations
Trend LFTs
Echo pending
MRI brain, MRA head/neck pending
C. Diff studies pending
Transitioned off amiodarone gtt, insulin gtt, nicardipine gtt, and IVFs
Low-fat diet started
Assessment
-
Assessment: Patient is a 74-year-old male with PMH of CKD stage IIIb, NIDDM, HTN, HLD, and BPH who is being upgraded to the [place] ICU with acute pancreatitis and possible sepsis complicated by hyperglycemia, acute kidney injury, hyperkalemia,
hyperbilirubinemia, and transaminitis. Etiology of pancreatitis is to be determined, though concern for acute cholangitis given subjective fever, chills, abdominal pain with guarding, transaminitis, and hyperbilirubinemia. Patient has multiple
signs of decreased end organ perfusion, including lactate 4.8, Cr 2.8, VBG pH 7.26 and HCO3 18.4. Critical illness hypoglycemia with glucose 480.
06/16: Patient seems to be slightly improving overall. Status post EUS and attempted ERCP. Concern for the patient's increasing oxygen requirement, as he is now requiring 4 L. Labs overall improving, though WBCs increased to 26.6. Patient is
producing urine (approximately 1 L in last 24 hours), and creatinine may be plateauing in the low threes (currently 3.2). Lactate decreasing, now 1.0 from 4.7 yesterday. Bicarb steady around 21. AST and ALT substantially improved, down to 92 and
187, respectively. T. bili 3.2 from 7.5 yesterday. Glucoses under much better control, now in the mid 100s. Patient is positive approximately 5 L over the last 24 hours. Abdomen distended and slightly more tense than yesterday. Monitoring for
abdominal compartment syndrome given copious IVF's in setting of pancreatitis.
06/17: Patient slightly improved from yesterday afternoon/evening. Good urine output (~800 mL from 12 AM�6 AM). Improved oxygen requirement from yesterday, currently on 2 L. Improving leukocytosis, transaminases, and bilirubin. Creatinine still
elevated at 3.3, which is relatively stable from recent days. Sugars well-controlled on insulin drip. CXR shows improving atelectasis, which is consistent with the patient's improved abdominal exam. Overall, respiratory status, abdominal exam,
increased urine output, and labs indicate slight improvement.
06/18: Patient appears to be doing well s/p ERCP yesterday. Good urine output (~700 mL from 12 AM�6 AM). Patient lowered from 4L to 2 L while at the bedside, breathing comfortably. Improving leukocytosis (17.6 from 20.9 yesterday). Creatinine
slightly improved at 3.0 from 3.3 yesterday, though still elevated over baseline of 1.7�1.9. Sugars well-controlled on insulin drip. Fluids and antibiotics continuing. Waxing and waning confusion and drowsiness this morning, suspect ICU related
delirium. Overall, abdominal exam improving with good urine output, stable respiratory status, and labs indicating slight improvement.
: Over the weekend, patient's abdominal exam improved and his NG tube was removed following clamping trial. Patient's creatinine continued to improve with good urine output. He was switched to IVFs D5/half-normal/KCl due to
hypernatremia. His insulin infusion was continued. On 06/19, patient developed A-fib with RVR. He was put on diltiazem infusion and Lopressor IV 5 mg every 6 hours was continued. Heparin for anticoagulation. Patient continued to have ICU
delirium, which was likely related to lack of sleep, critical illness, pain, and essentially bedbound status. Haldol 2 mg IV x 1 given overnight. Seroquel 50 mg nightly started.
06/21: Patient feeling same as yesterday. Abdomen is distended, moderately tense, though nontender. No pain reported. Transaminases elevated with AST 446 and ALT 228, increased from 44 and 59 yesterday, respectively. Alk phos 152. T. bili 2.6.
Lactate 0.6. Persistent leukocytosis (WBCs 17.0). Creatinine 1.8, which is patient's baseline. Patient in A-fib with HR 120s while on diltiazem, prior to starting amiodarone. ABG this morning showed pH 7.45, HCO3 22.9, pO2 80, and pCO2 33.
Abdominal ultrasound ordered for transaminitis showed no evidence for gallstones, gallbladder wall thickening, or biliary ductal dilation.
06/22: Patient feeling better than yesterday. He is awake, alert, oriented, conversant, and has much more energy. No pain. No SOB or supplemental oxygen requirement. No focal deficits. LFTs improved from yesterday, though still mildly elevated.
Persistent leukocytosis, slightly increased from yesterday. AXR yesterday showed biliary stents in place. No further GI interventions warranted at this time. Creatinine increased slightly from yesterday to 2.1 from 1.8, the patient continues to
produce good urine output. Insulin drip discontinued this morning, and patient started on glargine. Nicardipine drip started for HTN overnight, but stopped this morning. Patient started on metoprolol. Cardiac rhythm well-controlled on amiodarone,
with patient transitioned from amiodarone drip to PO this morning. Heparin drip continuing. Patient has had four mucoid BMs since last night, raising concern for C. diff given antibiotics and prolonged hospital course.
Plan:
#Acute pancreatitis
#Possible sepsis 2/2 suspected choledocholithiasis
#Metabolic acidosis
#Transaminitis
#Hyperbilirubinemia
#SAMANTHA
Trend LFTs
Continue piperacillin�tazobactam given concern for acute cholangitis and/or sepsis
IVFs discontinued this morning
S/p ERCP 06/15 and 06/17 with choledocholithiasis, stone removal, and stents placed in CHD and pancreatic duct
Antiemetics, pain control
NGT no longer in place
Blood cultures pending
Monitor I's and O's
Nephrology, GI, surgery following
#Hyperglycemia
Insulin drip discontinued this morning
Lantus started
Trend BMP
Goal glucose 140�180
#Hyperkalemia/hypokalemia (resolved)
K 3.7 this morning
Trend BMP
#Hypernatremia (resolved)
Na 143 this morning, resolved from yesterday
Continue IVFs D5/0.45% NSS 75 mL/hr)
#BPH
Carbone in place, producing clear light yellow urine
Monitor I's and O's
#Atrial fibrillation
#HTN
Amiodarone transitioned from gtt to PO this morning
Labetalol as needed for HTN
Home medications on hold (amlodipine, atenolol, HCTZ)
#Delirium
#Right parietal infarct
Hydromorphone reduced to 0.25 mg every 4 hours
Seroquel not given last
No other delirium associated medications currently being administered
CT head yesterday showed right parietal acute/subacute infarct
Per neurology, MRI brain and MRA head/neck pending
Neurology following
#Mucoid bowel movements
C. Diff studies pending
DVT PPx: Heparin
Subjective Dataa
Subjective Data
Date of Service:
Date of Service: June 22, 2025
Subjective:
Patient is seen at the bedside with present on hospital day #9. Patient is conversant and appears to have much more energy today. No current complaints. Patient has an appetite and wants to eat. Per nursing, patient had 3 mucoid bowel
movements overnight. Denies pain, shortness of breath, or palpitations. All of patient's/'s questions answered. While at the bedside, HR 105 in NSR, RR 24, SpO2 94% on RA.
Review of Systems
General: Satisfactory Appetite and Other (Denies fever, fatigue, chills, or pain)
Cardiopulmonary: Other (Denies shortness of breath, chest pain, or palpitations)
GI: Other (Denies abdominal pain, nausea, or vomiting)
Objective Data
Data Reviewed
Vital Signs / I&O / Oxygen:
Vital Signs
Temp Pulse Resp BP Pulse Ox
98.4 F 109 25 146/72 93
06/22/25 03:10 06/22/25 08:00 06/22/25 08:00 06/22/25 08:00 06/22/25 08:00
Intake and Output
06/21/25 06/22/25 06/23/25
06:59 06:59 06:59
Intake Total 3893.1 / 4232.6 3711.3 / 3855.0 287.4 / 287.4
Output Total 3550 / 3625 1500 / 1600 200 / 200
Balance 343.1 / 607.6 2211.3 / 2255.0 87.4 / 87.4
SaO2 93
Nasal Cannula flow liters per 2
minute
Physical Exam
General: Good Appetite and Other (Conversant with much more energy today)
HEENT: Normocephalic and Anicteric
Cardiovascular: S1-S2, Regular Rhythm, Peripheral Edema (Trace bilaterally) and Other (No M/R/G; pulses 2+ bilateral UE's)
Respiratory: Clear, Non-Labored Respirations and Other (No wheezes, crackles, or rhonchi; no supplemental O2 currently)
GI: Distended (Slightly less than yesterday), Non Tender and Other (No jaundice)
Neurology: Awake, Alert, AO x 3, No Motor Deficits and Other (CN II through XII grossly intact)
Skin: Warm, Good Color and Other (No jaundice)
Labs/Micro/Reports
Lab Data
06/22/25 04:17
06/22/25 04:17
Laboratory Results
06/21/25 06/21/25 06/21/25
08:54 09:56 16:06
APTT 63.3 H 130.3 H
pH 7.45
pCO2 33 L
pO2 80 L
HCO3 22.9
O2 Delivery Level
06/21/25 06/22/25
22:58 04:17
APTT 109.1 H 135.5 H
pH
pCO2
pO2
HCO3
O2 Delivery Level
Microbiology
06/15/25 12:01 Blood/Venous Blood Culture - Final
No Growth - Final Report
06/15/25 11:30 Blood/Venous Blood Culture - Final
No Growth - Final Report
06/14/25 21:22 Blood/Venous Blood Culture - Final
No Growth - Final Report
06/14/25 21:22 Blood/Venous Blood Culture - Final
No Growth - Final Report
--- NOTE | 2025-06-22 08:46 | PN.DE.MGMTRT ---
Insulin Management
- -
06/22/2025: Diabetes Management Follow up
Patient admitted 06/14 with c/o sever mid - upper abdominal pain into back with nausea, chest pain - acute pancreatitis.
PMH: HTN, HLD, diabetes, BPH, urinary retention, ckd 3b. Has had diabetes 30+ years. Prior to admission was taking glimepiride 4 mg daily, metformin 500 mg BID. A1C on admission 6.5%, cr 3--2.1, eGFR 32.42 today.
Patient aawake alert and oriented eating breakfast able discuss diabetes care. States he has been taking glimepiride and metformin for about 3 - 4 years and sees his primary doctor for ongoing diabetes care. He has never tested his glucose.
Critical Care glycemic protocol was initiated on 06/15. Pt remains on continuous insulin infusion, requiring 2 to 6 units of insulin per hour. Dr. Thompson has stopped drip, current glucose 147. Corrective insulin only ordered.
Discussed with Stunner, will start Lantus 12 units now and follow for needed adjustments.
When patient condition improves will provide glucose monitor and educate on testing procedure and appropriate times to test.
Discussed with nurse. Will cont to follow
Diabetes History
- -
Type of Diabetes: 2
Pre-Admission Diabetes Regimen
06/22/25
04:17
Creatinine 2.1 H
Lab Results
Hemoglobin A1c 6.5 % (4.0-5.9) H 06/15/25 04:45
Insulin Pump Settings
IP Diabetes Regimen
06/21/25 06/21/25 06/21/25
09:59 12:17 13:08
Glucose
POC Glucose 179 H 194 H 207 H
06/21/25 06/21/25 06/21/25
14:06 15:06 16:05
Glucose
POC Glucose 186 H 183 H 164 H
06/21/25 06/21/25 06/21/25
17:00 17:13 18:04
Glucose
POC Glucose 140 H 125 H 118 H
06/21/25 06/21/25 06/21/25
19:02 20:14 20:57
Glucose
POC Glucose 114 H 103 H 109 H
06/21/25 06/21/25 06/21/25
22:00 23:02 23:53
Glucose
POC Glucose 123 H 125 H 125 H
06/22/25 06/22/25 06/22/25
00:53 03:01 04:17
Glucose 110 H
POC Glucose 119 H 124 H
06/22/25 06/22/25 06/22/25
04:57 05:55 06:43
Glucose
POC Glucose 109 H 124 H 134 H
06/22/25
08:09
Glucose
POC Glucose 134 H
Patient Education
--- NOTE | 2025-06-22 08:49 | W.PN.GI.CBS2 ---
Today's Communication / Plan
-
Continue supportive care per critical care and primary team
Continue to trend LFTs
Since he is more awake okay for low-fat diet
Continue antibiotics
For echo
Assessment / Plan
-
Pt is a 74yo with hx obesity, HTN, hyperlipidemia, NIDDM, shingles, urinary retention with st cath daily, arthritis, vasectomy, BPH prior turp, prostate biopsy, spinal injection with onset of abdominal pain to back and nausea with eating after
eating dinner on 06/14. On admission concern for sepsis with WBC 21,900, hbg 15.2, and after admission noted with Na 131, K up to 5.5 creat up to 2.7, glucose 480, lactate 4.7 with rise in bili to 7.5, AST 492, ALT 329, alk phos 53, and lipase
>4000. He takes NSAIDs several times per week for pain. He did have several episode of non bloody emesis after onset of pain. No issues with diarrhea, constipation or rectal bleeding. No ETOH use, no new medications, no hx pancreatitis in past or
family hx pancreatic issues. No GPL-1 use or wt loss.
06/14/25 US abdomen with fatty liver, mild hepatomegaly
06/15/25 abd X ray No significantly dilated air-filled loops of bowel. No radiographic evidence for pathologic calcification or soft tissue mass. CBD 5 mm
06/15/25 CT Abd/pelvis Wo Iv Cont Findings suggesting severe acute pancreatitis. Mild hepatosplenomegaly.Probable stones in the common bile duct. No secondary findings to suggest acute cholecystitis on this CT exam. However, ultrasound is the study
of choice for evaluation of the gallbladder. Mild abdominopelvic ascites. Moderate left hydroureter. Mild diverticulosis. Moderate air in the bladder likely due to Carbone catheter placement.
Severe prostate hypertrophy. Mild age indeterminate T12 compression fracture. New from 2020
06/15/25 EUS - Multiple stones were visualized endosonographically in the lower third of the main bile duct. Pancreatic parenchymal abnormalities consisting of diffuse echogenicity and hyperechoic strands were noted in the pancreatic head. No
specimens collected.
06/15/25 ERCP The esophagus was successfully intubated under direct vision. The major papilla was not found.
-severe acute pancreatitis
-abdominal distention with likely ileus
-elevated LFT's
-leukocytosis
-elevated lactate - improving
-SAMANTHA worsening after admission
-leukocytosis
-hyperglycemia
-hyperkalemia
-hyponatremia
-CT with mild ascites, Moderate left hydroureter
other med problems:
-obesity, HTN, hyperlipidemia, NIDDM, shingles, urinary retention with st cath daily, arthritis, vasectomy, BPH prior turp, prostate biopsy, spinal injection
PLAN:
etiology of symptoms with concern for severe pancreatitis--CBD stone on CT and EUS, no hx ETOH use, no new medication, no prior hx pancreatitis in past
IGG4 normal at 9, TG stable 232, baseline CRP 70.90
Status post ERCP 06/17/2025 with removal of CBD stones and stent to common hepatic and PD
encephalopathy multifactorial from opiates, sepsis, SAMANTHA with electrolyte disturbances, ammonia level normal. Started on Seroquel per critical care and also on Haldol PRN
has mild hepatosplenomegaly on imaging so possible cirrhosis cannot be ruled out likely from MAFLD
Ileus improving started low-fat diet 06/20
Continue senna
Electrolyte management per renal and critical care
Continue antibiotics with Zosyn
New onset of A-fib 06/19 started on Cardizem drip and also evaluated by cardiology and started on heparin
Duodenitis continue PPI will change to p.o. twice daily
Follow-up with Dr. Marte in 6 to 8 weeks after DC
He had acute rise in LFTs yesterday which have been trending down unclear if he had a small amount of sludge or stones that he passed or if it was related to possible emboli given that he also has had an acute CVA, agree with echo to rule out
possible vegetations. No recorded hypotension so less likely shock liver, also less likely DILI
Ultrasound was negative for any ductal dilatation 06/21 and also abdomen x-ray shows that the biliary and PD stent are in place discussed with Dr. Marte yesterday no need for repeat EUS or ERCP for now will continue to trend LFTs
Noted input from neurology although he has an acute CVA they think the altered mental status was more from toxic encephalopathy. Haldol discontinued.
His mentation is much improved today. Would minimize opiates and sedation
Subjective
Subjective
Date of Service: June 22, 2025
Patient much more awake today and oriented to name and place, hungry and wants to eat, denies abdominal pain currently, had 3 bowel movements since yesterday no rectal bleeding soft not loose
LFTs are trending down, WBC count slightly higher today afebrile
Blood cultures from 06/21 pending but prior blood cultures are negative
Noted events yesterday acute worsening mental status he then had a CT head which showed possible acute CVA was evaluated by neurology and his altered mental status was thought to be more from toxic encephalopathy and less likely from the CVA.
Haldol was discontinued
Also had a abdomen x-ray which shows that the biliary stents are in place, ultrasound with no ductal dilatation noted
Objective
Data Reviewed
Laboratory Data:
Laboratory Results
06/22/25 04:17
06/22/25 04:17
Laboratory Results
PT 15.7 Sec (11.4-14.6) H 06/15/25 13:55
INR 1.22 06/15/25 13:55
APTT 135.5 Sec (23.4-35.0) H 06/22/25 04:17
Phosphorus 2.7 mg/dl (2.5-4.5) 06/22/25 04:17
Magnesium 1.9 mg/dl (1.6-2.3) 06/22/25 04:17
Total Bilirubin 1.3 mg/dl (0.2-1.3) 06/22/25 04:17
AST 75 U/L (17-59) H 06/22/25 04:17
ALT 189 U/L (0-50) H 06/22/25 04:17
Alkaline Phosphatase 122 U/L (38-126) 06/22/25 04:17
Lipase > 4000 U/L (23-300) H* 06/14/25 19:55
06/22/25 CXR
FINDINGS/IMPRESSION:
Placement of a right PICC with the catheter tip at the cavoatrial junction.
Mild opacity in the left lung base suggesting atelectasis or pneumonia. No pneumothorax or large pleural effusion. Stable cardiomediastinal silhouette.
06/21/25 CT head
IMPRESSION:
Band-shaped focus of decreased density within the right parietal lobe as described, which likely represents an area of acute to subacute infarction.
06/21/25 Abd Xray
IMPRESSION:
Biliary and pancreatic stents project over the right upper quadrant, stable from previous abdominal radiograph of June 19, 2025.
Since exam of June 19, 2025, interval removal of nasogastric tube.
06/21/25 US abdomen
IMPRESSION:
Small to moderate amount of free fluid is seen in all 4 quadrants, likely related to pancreatitis.
No evidence for gallstones or gallbladder wall thickening. Negative sonographic Capellan's sign.
No evidence for intrahepatic or extrahepatic biliary ductal dilation. On recent CT examination, small foci of increased density are present within the common bile duct, suspicious for common bile duct calculi.
Diffuse fatty infiltration of the liver.
Limited visualization of the pancreas with no gross peripancreatic fluid collection.
Splenomegaly.
Vital Signs and I&O:
Vital Signs
Temp Pulse Resp BP Pulse Ox
98.3 F 109 25 146/72 93
06/22/25 08:00 06/22/25 08:00 06/22/25 08:00 06/22/25 08:00 06/22/25 08:00
I&O
06/21/25 06/22/25 06/23/25
06:59 06:59 06:59
Intake Total 3893.1 / 4232.6 3711.3 / 3855.0 287.4 / 287.4
Output Total 3550 / 3625 1500 / 1600 200 / 200
Balance 343.1 / 607.6 2211.3 / 2255.0 87.4 / 87.4
Physical Exam
Physical Exam
Cardiology: Irregular Rate/Rhythm
Pulmonary: Clear and Other (Decreased breath sounds at the bases)
GI: Soft, Distended, Non Tender and Other (Hypoactive bowel sounds)
--- NOTE | 2025-06-22 09:05 | W.PN.NEPH.PH ---
Today's Communication / Plan
-
UA
Assessment/Plan
-
Impression:
SAMANTHA (2.7)
CKD 3b(1.7-1.9 )
Metabolic acidosis
Hyperkalemia
Profound abdominal pain likely due to evolving pancreatitis/sepsis
Abnormal LFTs
History of HTN
History of diabetes
History of profound BPH requiring self-catheterization daily
Plan:
continue hypotonic IVF with K repletion
follow BMP
US kidney 06/21 unremarkable
check UA
on amiodarone
will consider lasix tomorrow
wean cardene gtt as allowed, can convert to nifedipine
d/w
critical care time 31 minutes
-
-
Date of Service: June 22, 2025
CC / HPI / ROS
-
Chief Complaint:
SAMANTHA
History of Present Illness:
Cr up to 2.[address], nonoliguric
Na better
BP high, now on cardene gtt
Afib controlled with amiodarone
critically ill in ICU
LFTs, bili improving
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
Review of Systems:
no pain
Nonoliguric via Geller
awake and interactive
Labs
-
Labs:
WBC 18.9 10^3/uL (4.8-10.8) H 06/22/25 04:17
RBC 3.44 10^6/uL (4.70-6.10) L 06/22/25 04:17
Hgb 10.2 g/dL (13.0-18.0) L 06/22/25 04:17
Hct 30.6 % (39.0-52.0) L 06/22/25 04:17
Plt Count 144 10^3/uL (130-400) 11/25/25 04:17
Sodium 143 mmol/L (135-145) 06/22/25 04:17
Potassium 3.7 mmol/L (3.5-5.1) 06/22/25 04:17
Chloride 116 mmol/L (98-107) H 06/22/25 04:17
Carbon Dioxide 24 mmol/L (22-30) 06/22/25 04:17
BUN 28 mg/dl (9-20) H 06/22/25 04:17
Creatinine 2.1 mg/dL (0.7-1.3) H 06/22/25 04:17
eGFR 32.42 06/22/25 04:17
Glucose 110 mg/dl (70-99) H 06/22/25 04:17
Calcium 7.4 mg/dl (8.4-10.2) L 06/22/25 04:17
Phosphorus 2.7 mg/dl (2.5-4.5) 06/22/25 04:17
Albumin 2.6 g/dl (3.5-5.0) L 06/22/25 04:17
Physical Exam
-
Vital Signs:
Vital Signs
Temp Pulse Resp BP Pulse Ox
98.3 F 109 25 146/72 93
06/22/25 08:00 06/22/25 08:00 06/22/25 08:00 06/22/25 08:00 06/22/25 08:00
Cardiovascular:: Irregular rate and rhythm
Respiratory:: Bilateral: Coarse
Lung Excursion:: Normal
Abdomen:: Nontender and Soft
Bowel Sounds:: Normal
Extremity Edema:: None: Bilateral:
--- NOTE | 2025-06-22 09:10 | W.PN.CARDCBS ---
Today's Communication / Plan
-
Diet being advanced, GI evaluation ongoing.
Cont abx as per primary service.
Cont supportive care
Neuro work up per primary service. MRI brain pending
Patient developed atrial fibrillation with rapid ventricular response on morning of 06/19/2025 this is new diagnosis for patient
Converted to sinus.
Transition from IV amiodarone to amiodarone 200 mg BID
Transition from IV cardene to oral Lopressor 50 mg BID for HTN and HR control.
Continue IV heparin anticoagulation with transition eventually to oral anticoagulation once mental status is improved and no further procedures are planned.
Echocardiogram is pending.
His wt is up and would consider IV lasix. Reviewed with nephrology, likely to start IV diuresis next [address]
Patient does have history of hypertension and previously on amlodipine 10 mg, atenolol 100 mg, hydrochlorothiazide 50 mg as outpatient. These medications are currently on hold.
Discussed with nursing and family at bedside.
Impression / Plan
-
.
PCP: Steven Silva
Custom Tailor: Noe Mckeon
Impression:
Presented 06/14/2025 with severe abdominal pain associated with radiation to back and nausea
Acute pancreatitis with CBD stones
s/p EUS and ERCP 06/15: inability to locate ampulla due to duodenal edema.
repeat ERCP 06/17: sphincterotomy and stone extraction, bile duct and pancreatic duct stent placements.
Suspected sepsis secondary to above
Ileus from acute pancreatitis
TME
Abnormal LFTs
Atrial fibrillation with rapid ventricular response new diagnosis as of 06/19/2025
SAMANTHA on CKD (baseline creat 1.7-1.9)
Leukocytosis
Hyperkalemia
Hyponatremia
Acute hypoxic respiratory insufficiency
Duodenitis on EGD
Chronic kidney disease stage IIIb
Type II DM
Hypertension
Hyperlipidemia
Obesity
History of shingles
BPH with self-catheterization / Hx TURP
Echo: pending
Exercise nuclear stress test 01/13/2024: 6 minutes on Vito protocol achieving 7 METS 85% age-predicted max heart rate. Normal blood pressure response. Abnormal sestamibi perfusion complicated by soft tissue attenuation with fixed defect in apical
lateral segment consistent with possible area of ischemia
Plan:
Presented 06/14/2025 with severe abdominal pain associated with radiation to back and nausea and was found to have acute severe pancreatitis with CBD stones. Status post ERCP/sphincterectomy, stone extraction, bile duct and pancreatic duct stents
06/17/2025. Complicated by ileus
Diet being advanced, GI evaluation ongoing.
Cont abx as per primary service.
Cont supportive care
Neuro work up per primary service. MRI brain pending
Patient developed atrial fibrillation with rapid ventricular response on morning of 06/19/2025 this is new diagnosis for patient
Converted to sinus.
Transition from IV amiodarone to amiodarone 200 mg BID
Transition from IV cardene to oral Lopressor 50 mg BID for HTN and HR control.
Continue IV heparin anticoagulation with transition eventually to oral anticoagulation once mental status is improved and no further procedures are planned.
LFTs are improving
Echocardiogram is pending.
His wt is up and would consider IV lasix. Reviewed with nephrology, likely to start IV diuresis next [address]
Patient does have history of hypertension and previously on amlodipine 10 mg, atenolol 100 mg, hydrochlorothiazide 50 mg as outpatient. These medications are currently on hold.
Discussed with nursing and family at bedside.
HPI 06/19/2025:
Patient is a 74-year-old male with PMH of CKD stage IIIb, NIDDM, HTN, HLD, and BPH with self catheterization who presented to emergency department 06/14/2025 with severe mid to upper left and right abdominal pain through to his back with nausea.
Patient was found to have severe acute pancreatitis with abnormal LFTs, leukocytosis, SAMANTHA. Also found to have ileus. He underwent EUS ERCP 06/15/2025 with inability to locate ampulla due to duodenal edema. He underwent repeat ERCP on 06/17/2025
with removal of CBD stones and stent to common hepatic and pancreatic duct. Patient developed atrial fibrillation with rapid ventricular response on hub cutter apprentice of 06/19/2025 prompting cardiology consult. At time of this evaluation patient
lethargic in bed with at bedside. She helps to provide history. Prior to presentation to hospital patient was a active 74-year-old male with no concerning cardiac symptoms. He walked his dog regularly as well as performed out side yard work
and chores without concerning cardiac symptoms.
Progress Note - Custom Tailor
Subjective
Date of Service: June 22, 2025
Pt seen and examined. No complaints. No chest pain or shortness of breath.
Objective
Labs:
06/22/25 04:17
06/22/25 04:17
Labs
Hgb 10.2 g/dL (13.0-18.0) L 06/22/25 04:17
Hct 30.6 % (39.0-52.0) L 06/22/25 04:17
Plt Count 144 10^3/uL (130-400) 06/22/25 04:17
PT 15.7 Sec (11.4-14.6) H 06/15/25 13:55
INR 1.22 06/15/25 13:55
APTT 135.5 Sec (23.4-35.0) H 06/22/25 04:17
Sodium 143 mmol/L (135-145) 06/22/25 04:17
Potassium 3.7 mmol/L (3.5-5.1) 06/22/25 04:17
BUN 28 mg/dl (9-20) H 06/22/25 04:17
Creatinine 2.1 mg/dL (0.7-1.3) H 06/22/25 04:17
Glucose 110 mg/dl (70-99) H 06/22/25 04:17
Vital Signs and I&O:
Vital Signs
Temp Pulse Resp BP Pulse Ox
98.3 F 109 25 146/72 93
06/22/25 08:00 06/22/25 08:00 06/22/25 08:00 06/22/25 08:00 06/22/25 08:00
Vital Signs
Temp Pulse Resp BP Pulse Ox
98.3 F 109 25 146/72 93
06/22/25 08:00 06/22/25 08:00 06/22/25 08:00 06/22/25 08:00 06/22/25 08:00
Intake & Output
06/20/25 06/21/25 06/22/25 06/23/25
06:59 06:59 06:59 06:59
Intake Total 3973.0 / 4174.5 3893.1 / 4232.6 3711.3 / 3855.0 287.4 / 287.4
Output Total 4010 / 4210 3550 / 3625 1500 / 1600 200 / 200
Balance -37.0 / -35.5 343.1 / 607.6 2211.3 / 2255.0 87.4 / 87.4
Physical Exam
Physical Exam
General: No acute distress, AAOX3
Neck: Negative JVD
Heart: Regular, Negative S3 positive S1/S2, Negative S4, No murmur
Lungs: CTA b/l, negative wheezes/rales/rhonchi
Abd: Positive BS, NT/ND, neg rebound/rigidity/guarding
Ext: Negative cyanosis/clubbing/edema
Neuro: nonfocal
[2025-06-22 09:12] LABS: Glucose - Point of Care 167 mg/dl (70-99)
[2025-06-22] MEDS: CALCIUM GLUCONATE 100 IV (09:29)
[2025-06-22] MEDS: LOPRESSOR 50 MG PO ×2 (09:48→19:41)
[2025-06-22] MEDS: PACERONE 200 MG PO ×2 (09:49→19:41)
--- NOTE | 2025-06-22 09:50 | PTCARENOTE ---
PO Amiodarone and Metoprolol given at this time per order. Amio gtt and Cardene gtt stopped. Dr. Landon in room to assess pt at this time. Plan discussed to stop insulin gtt and resume sliding scale coverage.
[2025-06-22 09:58] LABS: Urine Character Slightly Cloudy (Clear)
[2025-06-22 10:03] LABS: Urine Red Blood Cell 60-70 /HPF (0-2); Urine Squamous Cell 0-2 /LPF (Few); Urine White Cell 0-2 /HPF (0-5)
[2025-06-22] MEDS: LANTUS 0.12 UNITS SC (10:45)
--- NOTE | 2025-06-22 11:21 | W.PN.HOSP.TC ---
Today's Communication/Plan
-
started diet
switched to oral Amio
Insulin switched from drip to SS
cont Zosyn and AM labs - noted small increase in Cr, but need to stop IVF as concern for developing edema. Discussed with nephro
Assessment / Plan
Assessment / Plan
74yo M with PMHx of HTN, Afib, CHARLIE, DM, chronic urinary retention with self cath at home admitted with abdominal pain, nausea, vomiting, CT found acute pancreatitis and duodenitis as well as acute cholangittis with stones seen in CBD on CT, had ERCP
on 06/17/25 and remained on Abx afterwards.
A/P:
#Acute gall stone pancreatitis
#Choledocholithiasis with cholangitis
#Transaminitis 2/2 above
s/p hydration
On Zosyn - renaly adjusted
Bcx NTD
GI follows: S/P ERCP on 06/17/25
LFT elevated again on 06/21/25 - US RUQ without new pathology, showed patent stent, LFT started to improve with better HR control
GEnSX eventually planning cholecystectomy
#Persistent leukocytosis
repeated Bcx
Chest XR without overt pneumonia
follow CBC
Patient started to improve on 06/22/25 - would not change Abx, monitor CBC and patient condition
No signs of developing sepsis - not hypotensive and not febrile
#Paroxysmal Afib with RVR
poor control on max Cardizem improved on Amiodarone on 06/21/25. Cont PO amio and BB as per cardio
cotn telemetry
Cardiology follows
TSH WNL
HEparin drip until finalized decisions on cholecystectomy
Echo
#Acute/subacute CVA
Band-shaped focus of decreased density within the right parietal lobe as described, which likely represents an area of acute to subacute infarction seen on CT on 06/21/25
cont Heparin and later Eliquis as per neurology
start statin when LFT improved
MRI/MRA brain pending
accuchecks
PT/OT
TSH 0.72 - WNL
HgbA1c 6.5%
LDL 85
#SAMANTHA on CKD stage 3b
#Moderate L hydroureter
#BPH with chronic urinary retention on self cath at home
Cr baseline 1.9-1.8
SAMANTHA resolved as of 06/20/25
follow Cr
Processing Supervisor follows
Carbone in place
US showed no hydronephrosis b/l as of 06/21/25
#DM with possible mild DKA
restarted insulin SS with accuchecks since on diet since 06/22/25
DM diet when able to eat
DM GEAR HOBBER SET UP OPERATOR follows
#Acute hypoxic respiratory failure on 6l O2 2/2 acute disease
off O2 as of 06/21/25
chest XR with atelectasis - IS
ABG w/o hypercarbia
#Distended abd
since admission
moderate ascites on initial CT
#Acute metabolic encephalopathy
worsened on 06/21/[address] head reasonable with new heparin drip and AMS
CAnnot exclude iatrogenic: received Haldol 8h prior on the top of CKD
#Ileus
s/p NG tube
BS present
XR on 06/19/25 - no obstructive pattern, BM daily since then
#Hypokalemia
#Hypomagnesemia
#Hypokalemia
#Hypocalcemia
replete and follow
#Duodenitis
PPI as per GI
#Hepatosplenomegaly
Advise outpatient follow up, unclear reason for now
#Diverticulosis w/o diverticulitis
high fiber diet
DVT ppx hep drip
Full code
I have spent at least 60min critical care time reviewing chart, test results, communication with consultants, family bedside and providing direct patient care
Anticipated Discharge: > 48 hours
Subjective/Interval History
-
Date of Service: June 22, 2025
Objective Data
-
Labs:
Laboratory Results
06/21/25 06/22/25 06/22/25
22:58 04:17 11:50
WBC 18.9 H
Hgb 10.2 L
Hct 30.6 L
Plt Count 144
APTT 109.1 H 135.5 H Pending
Sodium 143
Potassium 3.7
Chloride 116 H
Carbon Dioxide 24
BUN 28 H
Creatinine 2.1 H
Glucose 110 H
Calcium 7.4 L
Total Bilirubin 1.3
AST 75 H
ALT 189 H
Alkaline Phosphatase 122
Vital Signs:
Vital Signs
Temp Pulse Resp BP Pulse Ox
98.3 F 99 30 171/80 94
06/22/25 08:00 06/22/25 10:00 06/22/25 10:00 06/22/25 10:00 06/22/25 10:00
I&O
06/21/25 06/22/25 06/23/25
06:59 06:59 06:59
Intake Total 3893.1 / 4232.6 3711.3 / 3855.0 1024.6 / 1024.6
Output Total 3550 / 3625 1500 / 1600 350 / 350
Balance 343.1 / 607.6 2211.3 / 2255.0 674.6 / 674.6
Review of Systems
-
History Source: Patient
All other systems: Reviewed and negative
Physical Exam
-
General: No Apparent Distress
HEENT: Normocephalic
Respiratory: Clear to Auscultation
Cardiac: Irregular Rhythm
GI: Nontender and Distended
Genito-urinary: Turbid Urine and Carbone
Musculoskeletal: No Clubbing, No Cyanosis and No Edema
Neuro: Awake, Alert, Oriented, AO x 3 and No Motor Deficits
Psych: Calm
[2025-06-22 11:23] LABS: Glucose - Point of Care 147 mg/dl (70-99)
[2025-06-22 11:44] LABS: Lipase 187 U/L (23-300)
[2025-06-22 11:57] LABS: APTT 92.7 Sec (23.4-35.0)
--- NOTE | 2025-06-22 12:05 | PTCARENOTE ---
Addendum entered by Elin Brunner RN 06/22/25 16:26:
Stool was Cdiff neg.
Original Note:
Pt had 2nd loose/mucoid BM, per discussion in rounds, stool sent off to r/o cdiff. UA was also sent along with ordered PTT. Pt assisted oob to chair with physical therapist and RN, LINDSAY utilized for stability. Pt's and daughter in room. Pt with
hep gtt running, vitals remain stable.
[2025-06-22] MEDS: NORVASC 5 MG PO (13:32)
[2025-06-22] MEDS: NOVOLOG FLEXPEN-HIGH RESISTANCE 10 UNITS SC (13:33)
[2025-06-22 13:41] LABS: Glucose - Point of Care 314 mg/dl (70-99)
[2025-06-22] MEDS: NOVOLOG FLEXPEN 5 UNITS SC ×2 (14:54→17:24)
--- NOTE | 2025-06-22 15:03 | PTCARENOTE ---
PRN Hydralazine administered for HTN, see documentation. Echo was completed.
[2025-06-22] MEDS: DUONEB 3 ML INH ×2 (15:17→20:29)
--- NOTE | 2025-06-22 15:53 | CM ---
Started low fat diet, Insulin drip d/cd now on sliding scale, IV/Zosyn. Discharge POC: SNF. Referrals previously forwarded. Suki sorto.
--- NOTE | 2025-06-22 16:26 | PTCARENOTE ---
Pt dozing when undisturbed, occasionally disoriented when awakens from nap. States 'I don't feel good.' Vitals stable. Emotional support provided, pt reoriented to situation. remains at bedside.
--- NOTE | 2025-06-22 16:28 | PTCARENOTE ---
Scheduled nebs added per Dr. Hernandez, RT administered first dose as ordered.
[2025-06-22 17:12] LABS: Glucose - Point of Care 287 mg/dl (70-99)
[2025-06-22] MEDS: NOVOLOG FLEXPEN-HIGH RESISTANCE 7 UNITS SC (17:23)
--- NOTE | 2025-06-22 18:18 | W.PN.NEURO.1 ---
Today's Communication / Plan
-
The patient's mental status is much better today as compared to yesterday. He is alert and oriented x 3 and speech is clear. He has antigravity strength in bilateral upper and lower extremities. The patient is able to communicate fairly well
today.
Right parietal lobe acute to subacute infarct is likely secondary to atrial fibrillation with RVR which was noted on morning of 06/19/2025, however it does not likely explain the patient's altered mental status yesterday, which was likely due to
toxic metabolic encephalopathy. Today the patient's mental status has improved significantly.
MRI of the brain, and MRA of the head and neck are pending.
The plan is to continue with IV heparin until final decision regarding cholecystectomy. Later the patient can be started on Eliquis.
To start statin once the liver function tests have improved.
Recommend to avoid any sedating medication if possible.
I had a detailed discussion with the patient and his regarding the assessment and the management plan, and they verbalized understanding of our discussion.
Subjective/Objective
Subjective Data
Date of Service: June 22, 2025
The patient was seen and examined today.
The patient is 74 years old male, who has presented to the hospital on 06/14/25 with report of several weeks of indigestion and bloating and acute onset severe upper abdominal pain radiating to his back. Patient was found to have acute pancreatitis,
duodenitis, acute cholangitis with CBD stones and underwent ERCP on 06/17/25. Hospital course has been complicated by SAMANTHA on CKD, possible mild DKA, ileus, hypoxic respiratory failure, metabolic encephalopathy, and new onset Afib with RVR noted on
06/19/25. Per nursing staff, patient was severely agitated on 06/20/25 and received haloperidol 2mg IV and was started on Seroquel 50mg HS.
CT Head was obtained and is suggestive of a right parietal lobe acute to subacute ischemic infarction.
He has been on a heparin drip for Afib with RVR.
The patient's mental status is much better today as compared to yesterday. He is alert and oriented x 3 and speech is clear. He has antigravity strength in bilateral upper and lower extremities. The patient is able to communicate fairly well
today.
Right parietal lobe acute to subacute infarct is likely secondary to atrial fibrillation with RVR which was noted on morning of 06/19/2025, however it does not likely explain the patient's altered mental status yesterday, which was likely due to
toxic metabolic encephalopathy. Today the patient's mental status has improved significantly.
MRI of the brain, and MRA of the head and neck are pending.
The plan is to continue with IV heparin until final decision regarding cholecystectomy. Later the patient can be started on Eliquis.
To start statin once the liver function tests have improved.
Recommend to avoid any sedating medication if possible.
I had a detailed discussion with the patient and his regarding the assessment and the management plan, and they verbalized understanding of our discussion.
Objective Data
Vital Signs
Temp Pulse Resp BP Pulse Ox
36.6 C 101 23 182/81 94
06/22/25 15:29 06/22/25 18:00 06/22/25 18:00 06/22/25 18:00 06/22/25 18:00
Lab Results
06/22/25 04:17
06/22/25 04:17
PT 15.7 Sec (11.4-14.6) H 06/15/25 13:55
INR 1.22 06/15/25 13:55
APTT 92.7 Sec (23.4-35.0) H 06/22/25 11:26
Sodium 143 mmol/L (135-145) 06/22/25 04:17
Potassium 3.7 mmol/L (3.5-5.1) 06/22/25 04:17
BUN 28 mg/dl (9-20) H 06/22/25 04:17
Glucose 110 mg/dl (70-99) H 06/22/25 04:17
Calcium 7.4 mg/dl (8.4-10.2) L 06/22/25 04:17
Phosphorus 2.7 mg/dl (2.5-4.5) 06/22/25 04:17
Gxe-Q-Grohzegdtju Pept 6250 pg/ml 06/22/25 04:17
LDL Cholesterol, Calc 85 mg/dl 06/15/25 04:45
Patient Allergies
pollen extracts Allergy (Verified 06/14/25 21:47)
SEASONAL ALLERGIES-NASAL SYMPTOMS
Vital Signs and Labs
-
Vital Signs and Labs:
Vital Signs
Temp Pulse Resp BP Pulse Ox
36.6 C 101 23 182/81 94
06/22/25 15:29 06/22/25 18:00 06/22/25 18:00 06/22/25 18:00 06/22/25 18:00
Lab Results
06/22/25 04:17
06/22/25 04:17
PT 15.7 Sec (11.4-14.6) H 06/15/25 13:55
INR 1.22 06/15/25 13:55
APTT 92.7 Sec (23.4-35.0) H 06/22/25 11:26
Sodium 143 mmol/L (135-145) 06/22/25 04:17
Potassium 3.7 mmol/L (3.5-5.1) 06/22/25 04:17
BUN 28 mg/dl (9-20) H 06/22/25 04:17
Glucose 110 mg/dl (70-99) H 06/22/25 04:17
Calcium 7.4 mg/dl (8.4-10.2) L 06/22/25 04:17
Phosphorus 2.7 mg/dl (2.5-4.5) 06/22/25 04:17
Igy-G-Klfamkuiozc Pept 6250 pg/ml 06/22/25 04:17
LDL Cholesterol, Calc 85 mg/dl 06/15/25 04:45
Medications
-
Active Medications
Generic Name Dose Route Start Last Admin
Trade Name Freq PRN Reason Stop Dose Admin
Acetaminophen 650 mg 06/18/25 18:37
Acetaminophen 650 Mg Rectal Suppository RECTAL 07/16/25 18:36
Q6HPRN PRN
pain/fever
Acetaminophen 650 mg 06/20/25 16:11 06/20/25 16:15
Acetaminophen 325 Mg Tablet PO 07/18/25 16:10 650 mg
Q6HPRN PRN Administration
mild-moderate pain
Albuterol/Ipratropium 3 ml 06/22/25 16:00 06/22/25 15:17
Ipratropium 0.5/Albuterol 3 Mg (3 Ml Ampul) INH 06/26/25 12:01 3 ml
R QID MODESTO Administration
Protocol
Albuterol/Ipratropium 3 ml 06/22/25 14:43
Ipratropium 0.5/Albuterol 3 Mg (3 Ml Ampul) INH
R Q4HPRN PRN
SOB/wheezing
Protocol
Amiodarone HCl 200 mg 06/22/25 10:00 06/22/25 09:49
Amiodarone 200 Mg Tablet PO 07/20/25 09:59 200 mg
BID MODESTO Administration
Amlodipine Besylate 5 mg 06/22/25 12:00 06/22/25 13:32
Amlodipine 5 Mg Tablet PO 07/20/25 11:59 5 mg
DAILY MODESTO Administration
Dextrose 12.5 grams 06/22/25 10:13
Dextrose 50% (0.5 Grams/Ml) 50 Ml Syringe IV 07/20/25 10:12
[id number] PRN
hypoglycemia
Protocol
Glucagon 1 mg 06/22/25 10:13
Glucagon 1 Mg Vial IM 07/20/25 10:12
PRN PRN
hypoglycemia
Protocol
Hydralazine HCl 20 mg 06/22/25 04:03 06/22/25 14:58
Hydralazine 20 Mg/Ml Vial IV 07/13/25 20:35 20 mg
Q6HPRN PRN Administration
SBP>160 or DBP>105
Hydromorphone HCl 0.25 mg 06/21/25 08:29 06/21/25 20:48
Hydromorphone 0.5 Mg/0.5 Ml Syringe IV 07/05/25 08:23 0.25 mg
Q4HPRN PRN Administration
mild/mod pain
Heparin Sodium 25,000 units in 250 mls @ 0 mls/hr 06/19/25 13:00 06/21/25 22:07
Heparin 17893 Units/250 Ml IV 250 mls
PER PROTOCOL MODESTO Administration
Protocol
Per Protocol
Piperacillin Sod/Tazobactam Sod 2.25 grams in 50 mls @ 100 mls/hr 06/22/25 14:00 06/22/25 13:33
Zosyn IV 50 mls
Q6H MODESTO Administration
Insulin Glargine 15 units/ 0.15 mls @ 0 mls/hr 06/23/25 08:00
Device SC 07/21/25 07:59
DAILY MODESTO
As Directed
Insulin Aspart 0 units 06/22/25 11:30 06/22/25 17:23
Insulin Aspart High Resistance 300 Units/3 Ml Pen.Injctr SC 07/20/25 11:29 7 units
AC MODESTO Administration
Protocol
Insulin Aspart 5 units 06/22/25 16:30 06/22/25 17:24
Insulin Aspart (Novolog) 100 Units/Ml 3 Ml Flexpen SC 07/20/25 16:29 5 units
AC MODESTO Administration
Labetalol HCl 10 mg 06/21/25 10:27 06/22/25 05:17
Labetalol Hcl 5 Mg/1 Ml (20 Mg/4 Ml) Injection IV 07/19/25 10:26 10 mg
Q6HPRN PRN Administration
SBP>160 and HR>100
Lidocaine 1 patch 06/21/25 20:00 06/21/25 21:22
Lidocaine 4% Topical Patch TOPICAL 07/19/25 19:59 1 patch
DAILY@2000 MODESTO Administration
Protocol
Melatonin 5 mg 06/18/25 15:22 06/19/25 22:02
Melatonin 5 Mg Tablet PO 07/16/25 15:21 5 mg
HSPRN PRN Administration
SLEEP
Metoprolol Tartrate 50 mg 06/22/25 10:00 06/22/25 09:48
Metoprolol 50 Mg Regular Release Tablet PO 07/20/25 09:59 50 mg
BID MODESTO Administration
Ondansetron HCl 4 mg 06/15/25 00:59 06/21/25 03:54
Ondansetron 4 Mg/2 Ml Vial IV 07/13/25 00:58 4 mg
Q6HPRN PRN Administration
nausea and vomiting
Pantoprazole Sodium 40 mg 06/21/25 20:00 06/22/25 08:26
Pantoprazole Sodium 40 Mg/10 Ml Vial IV 07/19/25 19:59 40 mg
BID MODESTO Administration
Patch Removal 0 patch 06/22/25 08:00 06/22/25 08:27
Remove Lidocaine Patch REMOVE 07/20/25 07:59 1 patch
DAILY MODESTO Administration
Sennosides 17.2 mg 06/20/25 22:00 06/21/25 21:35
Sennosides (Senokot) 8.6 Mg Tablet PO 07/18/25 21:59 Not Given
HS MODESTO
Sodium Chloride 0 flush 06/15/25 02:00
Sodium Chloride 0.9% (Flush) Syringe IV 07/13/25 01:59
PER PROTOCOL MODESTO
Sodium Chloride 10 ml 06/21/25 20:00 06/22/25 08:27
Sodium Chloride 0.9% (Preservative Free) 10 Ml Vial IV 07/19/25 19:59 10 ml
BID MODESTO Administration
Sodium Chloride 2 sprays 06/21/25 23:07 06/21/25 23:28
Sodium Chloride 0.65% Nasal [place] 45 Ml Bottle NASAL 07/19/25 23:06 2 sprays
QIDPRN PRN Administration
dryness
Home Medications
�Medication �Instructions �Recorded
alfuzosin 10 mg tablet,extended 10 mg PO DAILY Urinary Issue 06/29/20
release 24 hr
atenolol 100 mg tablet 100 mg PO DAILY Blood pressure 06/29/20
cholecalciferol (vitamin D3) 25 1,000 unit PO DAILY Supplement 06/29/20
mcg (1,000 unit) capsule (Vitamin
D3)
cyanocobalamin (vitamin B-12) 1,000 mcg PO DAILY Supplement 06/29/20
1,000 mcg tablet
ferrous sulfate 137 mg (45 mg 137 mg PO DAILY Supplement 06/29/20
iron) tablet,extended release
(Slow Fe)
magnesium oxide 400 mg PO DAILY Electrolyte 06/29/20
Repletion
multivitamin with folic acid 400 1 tab PO DAILY Supplement 06/29/20
mcg tablet (Tab-A-Thea)
potassium chloride 20 mEq 20 meq PO BID Electrolyte Repletion 06/29/20
tablet,extended
release(part/cryst) (Klor-Con M)
saw palmetto 450 mg capsule 900 mg PO DAILY Supplement 06/29/20
amlodipine 10 mg tablet (Norvasc) 10 mg PO DAILY Heart 06/14/25
Disease/Condition
bethanechol chloride 25 mg tablet 25 mg PO BID Urinary Issue 06/14/25
glimepiride 4 mg tablet 4 mg PO DAILY Diabetes 06/14/25
hydrochlorothiazide 50 mg tablet 50 mg PO DAILY Fluid 06/14/25
Retention/Swelling
metformin 500 mg tablet 500 mg PO BID Diabetes 06/14/25
[2025-06-22] MEDS: HEPARIN 25000 UNITS/250 ML IV (18:30)
[2025-06-22] MEDS: LIDOCAINE 4% PATCH 1 PATCH TOPICAL (19:41)
[2025-06-22 20:01] LABS: APTT 81.7 Sec (23.4-35.0)
[2025-06-22] MEDS: OCEAN, SALINE MIST 2 SPRAYS NASAL (21:10)
[2025-06-22] MEDS: MELATONIN 5 MG PO (21:13)
[2025-06-22 21:28] LABS: Glucose - Point of Care 217 mg/dl (70-99)
--- NOTE | 2025-06-22 21:36 | PTCARENOTE ---
Received pt from previous RN. Pt is AAOx3, NIH/neuro checks per protocol (see worklist), forgetful at times pt reoriented, questions answered. NSR/sinus tach on the monitor. Pt on RA O2 sat 94%, lungs diminished, occasional wheezing, tachypneic. Abd
round/distended/obese/firm. Carbone in place. PTT drawn for 2nd therapeutic level, repeat in the morning. Heparin gtt at 1300 units (see worklist). PRN Labetalol and Hydralazine given for BP (see MAR). Mouth care provided. Call hernandez in reach. Safe
environment maintained.
[2025-06-22] MEDS: NOVOLOG FLEXPEN 4 UNITS SC (21:43)
[2025-06-23] VITALS (26 sets, daily range): BP systolic 126–206; BP diastolic 57–99; PULSE 84–100; O2SAT 95; BMI 30.9
--- NOTE | 2025-06-23 00:14 | PTCARENOTE ---
Systems reviewed, no new changes in assessment. Heparin gtt maintained. Neuro check complete. CHG bath complete. Call hernandez in reach. Safe environment maintained.
[2025-06-23] MEDS: ZOSYN 50 IV ×4 (02:27→19:42)
[2025-06-23] MEDS: TRANDATE 10 MG IV ×2 (04:22→11:48)
--- NOTE | 2025-06-23 04:48 | PTCARENOTE ---
Systems reviewed, no new changes in assessment. AM labs provided. Call hernandez in reach. Safe environment maintained.
[2025-06-23 04:52] LABS: Hematocrit 28.6 % (39.0-52.0); Hemoglobin 9.9 g/dL (13.0-18.0); Mean Corp Hgb Conc. 34.6 g/dL (33.0-37.0); Mean Corpuscular Volume 89.7 fL (80.0-94.0); Nucleated Red Blood Cells % 0.1 % (-); Platelet Count 153 10^3/uL (130-400); Red Cell Dist. Width 13.6 % (11.5-14.5)
[2025-06-23 05:11] LABS: APTT 83.0 Sec (23.4-35.0)
[2025-06-23 05:26] LABS: ALT (SGPT) 94 U/L (0-50); AST (SGOT) 26 U/L (17-59); Albumin 2.6 g/dl (3.5-5.0); Alkaline Phosphatase 102 U/L (38-126); Blood Urea Nitrogen 29 mg/dl (9-20); Calcium 7.5 mg/dl (8.4-10.2); Carbon Dioxide 22 mmol/L (22-30); Chloride 111 mmol/L (98-107); Estimated Creatinine Clearance 38 ml/min; Glucose 218 mg/dl (70-99); Potassium 3.7 mmol/L (3.5-5.1); Sodium 138 mmol/L (135-145); Total Protein 5.0 g/dl (6.3-8.2); eGFR 32.42
[2025-06-23] MEDS: DUONEB 3 ML INH ×4 (07:22→20:20)
--- NOTE | 2025-06-23 07:30 | PTCARENOTE ---
Received pt from previous RN. Pt is AAOx3, forgetful at times, drowsy but arousable, affect flat. NIH/neuro checks per protocol (see worklist), NSR/sinus tach on the monitor. Pt on RA O2 sat 94%, lungs diminished, tachypneic. Nebs administered by RT
as ordered. Abd round/distended/obese/firm. Incont loose/mucoid brown small bm. Carbone in place. Heparin gtt running (see worklist). Medications and assessment as documented. Plan discussed w/ pt and . Oral and rudolph care provided, CHG bath
completed. Call hernandez in reach. Safe environment maintained.
--- NOTE | 2025-06-23 07:55 | PN.DE.MGMTRT ---
Insulin Management
- -
06/23/2025: Diabetes Management Follow up
Patient admitted 06/14 with c/o severe mid - upper abdominal pain into back with nausea, chest pain - acute pancreatitis.
PMH: HTN, HLD, diabetes, BPH, urinary retention, ckd 3b. Has had diabetes 30+ years. Prior to admission was taking glimepiride 4 mg daily, metformin 500 mg BID. A1C on admission 6.5%, cr 3--2.1, eGFR 32.42 today.
Patient awake alert and oriented eating breakfast able discuss diabetes care. States he has been taking glimepiride and metformin for about 3 - 4 years and sees his primary doctor for ongoing diabetes care. He has never tested his glucose. Insulin
infusion stopped 06/22, glucose 147. Corrective insulin only ordered.
Yesterday received Lantus 12 units in AM, pre lunch glucose 314. AC novolog 5 units started, high corrective insulin continued. HS glucose 217 - received 4 units novolog.
Fasting glucose today 218. Will increase AM lantus to 15 units and AC novolog to 10 units continue high corrective insulin.
When patient condition improves will provide glucose monitor and educate on testing procedure and appropriate times to test.
Discussed with nurse. Will cont to follow
Diabetes History
- -
Type of Diabetes: 2 requiring insulin
Pre-Admission Diabetes Regimen
06/23/25
04:40
Creatinine 2.1 H
Lab Results
Hemoglobin A1c 6.5 % (4.0-5.9) H 06/15/25 04:45
Insulin Pump Settings
IP Diabetes Regimen
06/22/25 06/22/25 06/22/25
08:09 09:01 10:22
Glucose
POC Glucose 134 H 167 H 147 H
06/22/25 06/22/25 06/22/25
13:31 17:02 21:17
Glucose
POC Glucose 314 H 287 H 217 H
06/23/25
04:40
Glucose 218 H
POC Glucose
Meal type: Lunch
Meal type: Breakfast
Amount consumed: 50%
Amount consumed: 100%
Patient Education
--- NOTE | 2025-06-23 07:56 | W.PN.NEPH.PH ---
Today's Communication / Plan
-
No more IV fluids
Lasix 20 mg IV provided
Assessment/Plan
-
Impression:
SAMANTHA (2.7)
CKD 3b(1.7-1.9 )
Metabolic acidosis
Hyperkalemia
Profound abdominal pain likely due to evolving pancreatitis/sepsis
Abnormal LFTs
History of HTN
History of diabetes
History of profound BPH requiring self-catheterization daily
Plan:
Creatinine unchanged at 2.1 but patient is grossly nonoliguric with 1800 cc
Weights up, will provide 20 mg IV Lasix today
No further IV fluids as diet is advanced
follow BMP
US kidney 06/21 unremarkable
Remains hypertensive
checked UA (4 plus blood and albumin)
Zosyn renally dosed
on amiodarone
Now off Cardene and transition to metoprolol
critical care time 31 minutes
-
-
Date of Service: June 23, 2025
CC / HPI / ROS
-
Chief Complaint:
SAMANTHA
History of Present Illness:
Cr unchanged at 2.[address], nonoliguric
Na better
BP high, now on metoprolol
Afib controlled with amiodarone and on IV heparin
LFTs, bili improving
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
Review of Systems:
no pain
Nonoliguric via Geller
awake and interactive
Labs
-
Labs:
WBC 20.4 10^3/uL (4.8-10.8) H 06/23/25 04:40
RBC 3.19 10^6/uL (4.70-6.10) L 06/23/25 04:40
Hgb 9.9 g/dL (13.0-18.0) L 06/23/25 04:40
Hct 28.6 % (39.0-52.0) L 06/23/25 04:40
Plt Count 153 10^3/uL (130-400) 06/23/25 04:40
Sodium 138 mmol/L (135-145) 06/23/25 04:40
Potassium 3.7 mmol/L (3.5-5.1) 06/23/25 04:40
Chloride 111 mmol/L (98-107) H 06/23/25 04:40
Carbon Dioxide 22 mmol/L (22-30) 06/23/25 04:40
BUN 29 mg/dl (9-20) H 06/23/25 04:40
Creatinine 2.1 mg/dL (0.7-1.3) H 06/23/25 04:40
eGFR 32.42 06/23/25 04:40
Glucose 218 mg/dl (70-99) H 06/23/25 04:40
Calcium 7.5 mg/dl (8.4-10.2) L 06/23/25 04:40
Phosphorus 2.7 mg/dl (2.5-4.5) 06/22/25 04:17
Bwa-G-Vljjdetjrjt Pept 6250 pg/ml 06/22/25 04:17
Albumin 2.6 g/dl (3.5-5.0) L 06/23/25 04:40
Physical Exam
-
Vital Signs:
Vital Signs
Temp Pulse Resp BP Pulse Ox
99.4 F 96 16 173/86 95
06/23/25 07:43 06/23/25 07:23 06/23/25 07:23 06/23/25 07:00 06/23/25 07:23
Cardiovascular:: Irregular rate and rhythm
Respiratory:: Bilateral: Coarse
Lung Excursion:: Normal
Abdomen:: Nontender and Soft
Bowel Sounds:: Normal
Extremity Edema:: None: Bilateral:
Geller Catheter: Yes
[2025-06-23 08:09] LABS: Glucose - Point of Care 240 mg/dl (70-99)
--- NOTE | 2025-06-23 08:25 | W.PN.INTV ---
Today's Communication / Plan
Recommendations
Carbone catheter to be removed
Continue antibiotics
Trend CBC, CMP
Assessment
-
Assessment: Patient is a 74-year-old male with PMH of CKD stage IIIb, NIDDM, HTN, HLD, and BPH who is being upgraded to the [place] [facility] with acute pancreatitis and possible sepsis complicated by hyperglycemia, acute kidney injury, hyperkalemia,
hyperbilirubinemia, and transaminitis. Etiology of pancreatitis is to be determined, though concern for acute cholangitis given subjective fever, chills, abdominal pain with guarding, transaminitis, and hyperbilirubinemia. Patient has multiple
signs of decreased end organ perfusion, including lactate 4.8, Cr 2.8, VBG pH 7.26 and HCO3 18.4. Critical illness hypoglycemia with glucose 480.
06/16: Patient seems to be slightly improving overall. Status post EUS and attempted ERCP. Concern for the patient's increasing oxygen requirement, as he is now requiring 4 L. Labs overall improving, though WBCs increased to 26.6. Patient is
producing urine (approximately 1 L in last 24 hours), and creatinine may be plateauing in the low threes (currently 3.2). Lactate decreasing, now 1.0 from 4.7 yesterday. Bicarb steady around 21. AST and ALT substantially improved, down to 92 and
187, respectively. T. bili 3.2 from 7.5 yesterday. Glucoses under much better control, now in the mid 100s. Patient is positive approximately 5 L over the last 24 hours. Abdomen distended and slightly more tense than yesterday. Monitoring for
abdominal compartment syndrome given copious IVF's in setting of pancreatitis.
06/17: Patient slightly improved from yesterday afternoon/evening. Good urine output (~800 mL from 12 AM�6 AM). Improved oxygen requirement from yesterday, currently on 2 L. Improving leukocytosis, transaminases, and bilirubin. Creatinine still
elevated at 3.3, which is relatively stable from recent days. Sugars well-controlled on insulin drip. CXR shows improving atelectasis, which is consistent with the patient's improved abdominal exam. Overall, respiratory status, abdominal exam,
increased urine output, and labs indicate slight improvement.
06/18: Patient appears to be doing well s/p ERCP yesterday. Good urine output (~700 mL from 12 AM�6 AM). Patient lowered from 4L to 2 L while at the bedside, breathing comfortably. Improving leukocytosis (17.6 from 20.9 yesterday). Creatinine
slightly improved at 3.0 from 3.3 yesterday, though still elevated over baseline of 1.7�1.9. Sugars well-controlled on insulin drip. Fluids and antibiotics continuing. Waxing and waning confusion and drowsiness this morning, suspect ICU related
delirium. Overall, abdominal exam improving with good urine output, stable respiratory status, and labs indicating slight improvement.
: Over the weekend, patient's abdominal exam improved and his NG tube was removed following clamping trial. Patient's creatinine continued to improve with good urine output. He was switched to IVFs D5/half-normal/KCl due to
hypernatremia. His insulin infusion was continued. On 06/19, patient developed A-fib with RVR. He was put on diltiazem infusion and Lopressor IV 5 mg every 6 hours was continued. Heparin for anticoagulation. Patient continued to have ICU
delirium, which was likely related to lack of sleep, critical illness, pain, and essentially bedbound status. Haldol 2 mg IV x 1 given overnight. Seroquel 50 mg nightly started.
06/21: Patient feeling same as yesterday. Abdomen is distended, moderately tense, though nontender. No pain reported. Transaminases elevated with AST 446 and ALT 228, increased from 44 and 59 yesterday, respectively. Alk phos 152. T. bili 2.6.
Lactate 0.6. Persistent leukocytosis (WBCs 17.0). Creatinine 1.8, which is patient's baseline. Patient in A-fib with HR 120s while on diltiazem, prior to starting amiodarone. ABG this morning showed pH 7.45, HCO3 22.9, pO2 80, and pCO2 33.
Abdominal ultrasound ordered for transaminitis showed no evidence for gallstones, gallbladder wall thickening, or biliary ductal dilation.
06/22: Patient feeling better than yesterday. He is awake, alert, oriented, conversant, and has much more energy. No pain. No SOB or supplemental oxygen requirement. No focal deficits. LFTs improved from yesterday, though still mildly elevated.
Persistent leukocytosis, slightly increased from yesterday. AXR yesterday showed biliary stents in place. No further GI interventions warranted at this time. Creatinine increased slightly from yesterday to 2.1 from 1.8, the patient continues to
produce good urine output. Insulin drip discontinued this morning, and patient started on glargine. Nicardipine drip started for HTN overnight, but stopped this morning. Patient started on metoprolol. Cardiac rhythm well-controlled on amiodarone,
with patient transitioned from amiodarone drip to PO this morning. Heparin drip continuing. Patient has had four mucoid BMs since last night, raising concern for C. diff given antibiotics and prolonged hospital course.
06/23: Patient feeling little better today. Conversant with good energy. Denies pain or any other complaints. No SOB or supplemental O2 requirement. No chills. No focal deficits. LFTs continuing to improve. Persistent leukocytosis, slightly
increased from yesterday. ID now following. Creatinine stable, though slightly elevated over baseline. Good urine output. Heparin drip, though no other drips currently. Amlodipine increased to 10 mg p.o. daily, and metoprolol increased to 100
mg p.o. twice daily for hypertension. Lasix 20 mg started given peripheral edema. Overall, patient has greatly improved over the last few days.
Plan:
#Acute pancreatitis
#Possible sepsis 2/2 suspected choledocholithiasis
#Metabolic acidosis
#Transaminitis
#Hyperbilirubinemia
#SAMANTHA
Trend LFTs
Continue piperacillin�tazobactam given concern for acute cholangitis and/or sepsis
S/p ERCP 06/15 and 06/17 with choledocholithiasis, stone removal, and stents placed in CHD and pancreatic duct
Antiemetics, pain control as needed
Blood cultures show NGTD
Per nephrology, Lasix started
Monitor I's and O's
Nephrology, GI, surgery following
#Hyperglycemia
Continue basal-bolus insulin
Trend BMP
Goal glucose 140�180
#Hyperkalemia/hypokalemia (resolved)
K 3.7 this morning
Trend BMP
#Hypernatremia (resolved)
Na 138 this morning, stable
#BPH
Carbone in place, producing clear light yellow urine
Carbone will be discontinued
Straight catheterizations as needed
Monitor I's and O's
#Atrial fibrillation
#HTN
Continue amiodarone
Amlodipine increased from 5 to 10 mg p.o. daily
Labetalol, hydralazine as needed for HTN
Home atenolol and HCTZ on hold
#Delirium
#Right parietal infarct
Hydromorphone reduced to 0.25 mg every 4 hours, the patient has not needed it over recent days
No other delirium associated medications currently being administered
CT head 06/21 showed right parietal acute/subacute infarct
Per neurology, MRI brain and MRA head/neck pending (likely this afternoon)
Neurology following
#Mucoid bowel movements
C. Diff studies negative
DVT PPx: Heparin
Subjective Dataa
Subjective Data
Date of Service:
Date of Service: June 23, 2025
Subjective:
Patient seen at bedside with his present on hospital day #10. Patient states he is feeling a little better every day. No current complaints. Patient was hypertensive overnight, requiring labetalol and hydralazine. Otherwise, nurse reports
NAEO. Denies abdominal pain, shortness of breath, chills, or N/V/D.
Review of Systems
General: Other (Denies pain or chills)
Cardiopulmonary: Other (Denies chest pain or shortness of breath)
GI: Other (Denies abdominal pain, nausea, vomiting, or diarrhea)
Neuro: Other (Denies headache)
Objective Data
Data Reviewed
Vital Signs / I&O / Oxygen:
Vital Signs
Temp Pulse Resp BP Pulse Ox
99.4 F 96 16 173/86 95
06/23/25 07:43 06/23/25 07:23 06/23/25 07:23 06/23/25 07:00 06/23/25 07:23
Intake and Output
06/22/25 06/23/25 06/24/25
06:59 06:59 06:59
Intake Total 3711.3 / 3855.0 1724.6 / 1737.6
Output Total 1500 / 1600 1900 / 1900
Balance 2211.3 / 2255.0 -175.4 / -162.4
SaO2 95
Nasal Cannula flow liters per 2
minute
Physical Exam
General: Good Appetite and Other (Conversant)
HEENT: Normocephalic and Anicteric
Cardiovascular: S1-S2, Regular Rhythm, Peripheral Edema (1+ bilaterally) and Other (No M/R/G)
Respiratory: Clear, Non-Labored Respirations and Other (No wheezes, crackles, or rhonchi; no supplemental O2 currently)
GI: Distended (Less than yesterday), Non Tender and Other (No jaundice)
Neurology: Awake, Alert, AO x 3, No Motor Deficits and Other (CN II through XII grossly intact)
Skin: Warm and Good Color
Labs/Micro/Reports
Lab Data
06/23/25 04:40
06/23/25 04:40
Laboratory Results
06/22/25 06/22/25 06/23/25
19:36 04:40
APTT 92.7 H 81.7 H 83.0 H
Microbiology
06/21/25 12:39 Blood/Venous Blood Culture - Preliminary
No Growth in 24 hours- Final report to follow
06/22/25 11:26 Feces/Stool C. difficile GDH Antigen & Toxins - Final
Negative for toxigenic C.difficile
06/21/25 09:56 Blood/Venous Blood Culture - Preliminary
No Growth in 24 hours- Final report to follow
06/15/25 12:01 Blood/Venous Blood Culture - Final
No Growth - Final Report
06/15/25 11:30 Blood/Venous Blood Culture - Final
No Growth - Final Report
--- NOTE | 2025-06-23 08:50 | CON.ID ---
Consultation
-
Date/Time Consultation Requested: 06/23/25 7:08
Date/Time Consultation Performed: 06/23/25 8:50
Requesting Provider: Dr Landon
Performing Provider: Dr Griffith
Reason for Consultation: worsening leukocytosis
Chief Complaint / Past History
Chief Complaint
abdominal pain, nausea, vomiting
History of Present Illness
Mr Lua is a 74 year old male with past medical history of DM2 who presented here 06/14, 10 days ago, for severe mid to upper bilateral abdominal pain with radiation to the back and nausea beginning after dinner - meatballs, pasta salad and bread.
He has noticed some jaundice and dark brown urine. He reports a month of indigestion and heartburn which he treated with tums. No history of pancreatitis, gallstones or gallbladder disease. Has occasional beer. No new medications. Denied:
fever, chills, chest pain, palpitations, cough, shortness of breath, diarrhea, rash. Two daughters have had cholecystectomy.
On arrival here he was initially afebrile, bp hypertensive, HR 60s, wbc count 21.9, hgb 15.2, plt 197, no L shift on day 1 however developing on day 2, na 137, cr 1.9 - baseline seems to be 1.7 per nephrology, a1c 6.5, lactic acid initially 4 and
took two days to normalize, t bili initially 4.4, ast 293, alt 121, alk phos 57, lipase >4000. T bili peaked HD 2, 06/15 at 7.5, ast 492, alt 329 and alk phos 53 - subsequently downtrending. admission alcohol level was undetectable. He was started
on zosyn on admission. 06/14 abd us: fatty liver, gallbladder without calculi or wall thickening, blood cultures x2 done and finalized negative 06/15 CT a/p without IV contrast: severe acute pancreatitis, probable stones in CBD, mild abdominopelvic
ascites 06/15 he was noted to be in DKA and DKA protacol started. CXR no acute CP disease, 06/15 ERCP: choledocholithiasis and nondilated CBD, major papilla was not found, significant edema in the duodenum plan for repeat in two days; blood cultures
x2 done and finalized negative, UA 6-10 wbc/hpf and culture negative 06/16 CXR atelectasis, developing pneumonia not excluded, 06/17: repeat ERCP with removal of stone fragments, placement of plastic stent, shincterotomy 06/19 course complicated by
afib started on lopressor and cardizem 06/20 in the context of poor sleep developed ICU delirium treated with haldol and seroquel. 06/21 acute rise in LFTs noted t bili 2.6, AST 446, alt 228, alk phos 152 AXR showed stent in stable position, Abd US
no gallstones or gallbladder wall thickening, small/moderate free fluid in all 4 quadrants 06/21 CT head right parietal lobe acute to subacute infarct, seen by neurology and IV heparin drip continued, MRI of the brain and MRA of head and neck
planned; cardizem changed to amiodarone, CXR mild L lung base opacity - atelectasis vs pneumonia, echo: no valvular disease 06/23 wbc 20.4 (from 18.9 the day previous) hgb 9.9, plt 153,with increasing L shift from 82% to 87%, na 138, cr stable at
2.1, t bili 1.2, d bili 0.4, ast 26, alt 94, alk phos 102, probnp 6250, lipase 187, UA without pyuria just 0-2 wbc/hpf, started on lasix, C difficile negative, blood cultures x2 no growth at 24 hours. Patient is alert and able to provide a history.
Only complaints is back pain that has been present since admission and is unchanged and some sinus tenderness with scant bloody nasal discharge. No: headaches, sore throat, cough, sputum production, abdominal pain, suprapubic pain, pain over IVs,
new rashes, new joint pains. He has a central line and two peripheral IVs. He has a geller. He has been on zosyn since admission. ID is consulted for assistance with management.
Past History
Additional Past Medical History:
history of shingles in 2019
urinary retention self caths once a day
BPH status post TURP
HTN
DM 2
Additional Past Surgical History:
BPH status post TURP
Allergy History:
pollen extracts Allergy (Verified 06/14/25 21:47)
SEASONAL ALLERGIES-NASAL SYMPTOMS
Medications Reviewed: Yes
Social History
Tobacco: Non-Smoker
Alcohol: Occasional
Personal:
Family History
Family History: Other (as per hpi)
Review of Systems
Review of Systems
Constitutional: Reports Fatigue; Denies Fever or Chills
EENT: Denies Sore Throat or Runny Nose
Respiratory: Denies Cough or Trouble Breathing
Cardiac: Denies Chest Pain, Diaphoresis or Palpitations
Abdomen/GI: Reports Abdominal Pain (Generalized increased left upper quad), Nausea and Vomiting; Denies Diarrhea, Constipated, Bloody Stools or Black Stools
: Reports Other (Chronic urine retention); Denies Dysuria, Frequency or Flank Pain
Musculoskeletal: Denies Joint Pain
Skin: Denies Itching or Rash
Neurological: Reports Weakness (Generalized); Denies Dizzy or Headache
Endocrine: Reports No Symptoms
Hematologic/Lymphatic: Reports No Symptoms
Psych: Reports Calm
Vital Signs
Temp Pulse Resp BP Pulse Ox
99.4 F 96 16 173/86 95
06/23/25 07:43 06/23/25 07:23 06/23/25 07:23 06/23/25 07:00 06/23/25 07:23
Physical Exam
Physical Exam
Constitutional: No Acute Distress
Cardiovascular: Regular Rate and S1/S2; Negative Murmur or Rub
Pulmonary: Clear and Symmetric; Negative Wheezes, Rales or Rhonchi
Gastrointestinal: Soft, Non Tender, Non Distended and Normal Bowel Sounds
Skin: Warm and Dry; Negative Rash or Jaundice
Lab / Diagnostic Study Results
06/23/25 04:40
06/23/25 04:40
Abs Immat Gran (auto) 0.8 10^3/uL (0-0.05) H 06/23/25 04:40
Absolute Neuts (auto) 17.8 10^3/uL (1.4-6.5) H 06/23/25 04:40
Absolute Lymphs (auto) 0.8 10^3/uL (1.2-3.4) L 06/23/25 04:40
Absolute Monos (auto) 0.8 10^3/uL (0.1-0.6) H 06/23/25 04:40
Absolute Basos (auto) 0.1 10^3/uL (0-0.2) 06/23/25 04:40
Immature Gran % 3.9 % (0-0.5) H 06/23/25 04:40
Neutrophils % 87.2 % (42.2-75.2) H 06/23/25 04:40
Lymphocytes % 3.7 % (20.5-51.1) L 06/23/25 04:40
Monocytes % 4.0 % (1.7-9.3) 06/23/25 04:40
Eosinophils % 0.9 % (0-6) 06/23/25 04:40
Basophils % 0.3 % (0-2) 06/23/25 04:40
PT 15.7 Sec (11.4-14.6) H 06/15/25 13:55
INR 1.22 06/15/25 13:55
Lactic Acid 0.6 mmol/L (0.7-2.0) L 06/21/25 09:12
C-Reactive Protein Cancelled 06/17/25 06:00
Urine WBC 0-2 /HPF (0-5) 06/22/25 09:39
Ur Squamous Epith Cells 0-2 /LPF (Few) 06/22/25 09:39
Microbiology Results
Micro:
06/21/25 12:39 Blood Culture - Preliminary
Blood/Venous No Growth in 24 hours- Final report to follow
06/22/25 11:26 C. difficile GDH Antigen & Toxins - Final
Feces/Stool Negative for toxigenic C.difficile
06/21/25 09:56 Blood Culture - Preliminary
Blood/Venous No Growth in 24 hours- Final report to follow
06/15/25 12:01 Blood Culture - Final
Blood/Venous No Growth - Final Report
06/15/25 11:30 Blood Culture - Final
Blood/Venous No Growth - Final Report
06/14/25 21:22 Blood Culture - Final
Blood/Venous No Growth - Final Report
06/14/25 21:22 Blood Culture - Final
Blood/Venous No Growth - Final Report
06/15/25 19:59 Urine Culture - Final
Urine NO GROWTH
Assessment / Plan
Leukocytosis with L shift
Severe Acute pancreatitis - resolving
Ascites vs developing peripancreatic fluid collection
SAMANTHA on CKD3, baseline Cr ~1.9
- patient without focal complaints
- leukocytosis essentially stable in the 18-20 range for the last 5 days - suspect reactive - trend
- 06/22 UA no pyuria; also note negative UA and culture from 06/15
- 06/22 blood cultures x2 no growth to date
- 06/16-06/21 multiple CXRs read as atelectasis vs developing pneumonia; patient however with no cough or sputum production
- 06/22 C difficile negative, antibiotic associated diarrhea suspected
- continue to observe on zosyn (d10) for the short term
- would not recommend broadening therapy at this time as no definitive change in clinical status
[2025-06-23] MEDS: NOVOLOG FLEXPEN-HIGH RESISTANCE 4 UNITS SC ×2 (08:56→14:01)
[2025-06-23] MEDS: LANTUS 0.15 UNITS SC (08:57)
[2025-06-23] MEDS: LOPRESSOR 100 MG PO ×2 (08:57→19:44)
[2025-06-23] MEDS: PACERONE 200 MG PO ×2 (08:58→19:44)
[2025-06-23] MEDS: NORVASC 5 MG PO ×2 (08:58→14:02)
[2025-06-23] MEDS: LASIX 20 MG IV (08:59)
[2025-06-23] MEDS: REMOVE LIDOCAINE PATCH 1 PATCH REMOVE (08:59)
[2025-06-23] MEDS: PROTONIX IV 40 MG IV (08:59)
[2025-06-23] MEDS: NSS (PRESERVATIVE FREE) 10 ML IV (08:59)
--- NOTE | 2025-06-23 09:00 | W.PN.GI.CBS2 ---
Today's Communication / Plan
-
Continue supportive care
Will D/C senna
Added probiotics
Continue low-fat diet
Follow-up with Dr. Marte in 6 weeks after D/C
Assessment / Plan
-
Pt is a 74yo with hx obesity, HTN, hyperlipidemia, NIDDM, shingles, urinary retention with st cath daily, arthritis, vasectomy, BPH prior turp, prostate biopsy, spinal injection with onset of abdominal pain to back and nausea with eating after
eating dinner on 06/14. On admission concern for sepsis with WBC 21,900, hbg 15.2, and after admission noted with Na 131, K up to 5.5 creat up to 2.7, glucose 480, lactate 4.7 with rise in bili to 7.5, AST 492, ALT 329, alk phos 53, and lipase
>4000. He takes NSAIDs several times per week for pain. He did have several episode of non bloody emesis after onset of pain. No issues with diarrhea, constipation or rectal bleeding. No ETOH use, no new medications, no hx pancreatitis in past or
family hx pancreatic issues. No GPL-1 use or wt loss.
06/14/25 US abdomen with fatty liver, mild hepatomegaly
06/15/25 abd X ray No significantly dilated air-filled loops of bowel. No radiographic evidence for pathologic calcification or soft tissue mass. CBD 5 mm
06/15/25 CT Abd/pelvis Wo Iv Cont Findings suggesting severe acute pancreatitis. Mild hepatosplenomegaly.Probable stones in the common bile duct. No secondary findings to suggest acute cholecystitis on this CT exam. However, ultrasound is the study
of choice for evaluation of the gallbladder. Mild abdominopelvic ascites. Moderate left hydroureter. Mild diverticulosis. Moderate air in the bladder likely due to Carbone catheter placement.
Severe prostate hypertrophy. Mild age indeterminate T12 compression fracture. New from 2020
06/15/25 EUS - Multiple stones were visualized endosonographically in the lower third of the main bile duct. Pancreatic parenchymal abnormalities consisting of diffuse echogenicity and hyperechoic strands were noted in the pancreatic head. No
specimens collected.
06/15/25 ERCP The esophagus was successfully intubated under direct vision. The major papilla was not found.
-severe acute pancreatitis
-abdominal distention with likely ileus
-elevated LFT's
-leukocytosis
-elevated lactate - improving
-SAMANTHA worsening after admission
-leukocytosis
-hyperglycemia
-hyperkalemia
-hyponatremia
-CT with mild ascites, Moderate left hydroureter
other med problems:
-obesity, HTN, hyperlipidemia, NIDDM, shingles, urinary retention with st cath daily, arthritis, vasectomy, BPH prior turp, prostate biopsy, spinal injection
PLAN:
etiology of symptoms with concern for severe pancreatitis--CBD stone on CT and EUS, no hx ETOH use, no new medication, no prior hx pancreatitis in past
IGG4 normal at 9, TG stable 232, baseline CRP 70.90
Status post ERCP 06/17/2025 with removal of CBD stones and stent to common hepatic and PD
has mild hepatosplenomegaly on imaging so possible cirrhosis cannot be ruled out likely from MAFLD
Ileus improved having diarrhea C. difficile is negative may be antibiotic associated and resolving ileus started low-fat diet 06/20
DC senna-having diarrhea C. difficile is negative, may be antibiotic associated diarrhea and resolving ileus. Added probiotics
Electrolyte management per renal and critical care
Continue antibiotics with Zosyn
New onset of A-fib 06/19 now on amiodarone and heparin
Duodenitis continue PPI twice daily
Follow-up with Dr. Marte in 6 to 8 weeks after DC
He had acute rise in LFTs markedly improved and almost normalized now- unclear if he had a small amount of sludge or stones that he passed or if it was related to possible emboli given that he also has had an acute CVA, agree with echo to rule out
possible vegetations. No recorded hypotension so less likely shock liver, also less likely DILI
Ultrasound was negative for any ductal dilatation 06/21 and also abdomen x-ray shows that the biliary and PD stent are in place discussed with Dr. Marte no need for repeat EUS or ERCP for now will continue to trend LFTs
Noted input from neurology although he has an acute CVA they think the altered mental status was more from toxic encephalopathy. Haldol discontinued.
His mentation is much improved today. Would minimize opiates and sedation
GI samson s/o and will be available as needed
Subjective
Subjective
Date of Service: June 23, 2025
Had multiple bowel movements yesterday stool C. difficile is negative. Abdominal pain is improved and he is less distended. No nausea or vomiting and tolerating low-fat diet. Had echocardiogram results are pending, WBC count slightly higher
today. Noted input from renal getting Lasix today. Her LFTs have markedly improved.
Objective
Data Reviewed
Laboratory Data:
Laboratory Results
06/23/25 04:40
06/23/25 04:40
Laboratory Results
PT 15.7 Sec (11.4-14.6) H 06/15/25 13:55
INR 1.22 06/15/25 13:55
APTT 83.0 Sec (23.4-35.0) H 06/23/25 04:40
Phosphorus 2.7 mg/dl (2.5-4.5) 06/22/25 04:17
Magnesium 1.9 mg/dl (1.6-2.3) 06/22/25 04:17
Total Bilirubin 1.2 mg/dl (0.2-1.3) 06/23/25 04:40
AST 26 U/L (17-59) 06/23/25 04:40
ALT 94 U/L (0-50) H 06/23/25 04:40
Alkaline Phosphatase 102 U/L (38-126) 06/23/25 04:40
Lipase 187 U/L (23-300) 06/22/25 04:17
Vital Signs and I&O:
Vital Signs
Temp Pulse Resp BP Pulse Ox
99.4 F 109 16 200/92 95
11/26/25 07:43 06/23/25 08:57 06/23/25 07:23 06/23/25 08:57 06/23/25 07:23
I&O
06/22/25 06/23/25 06/24/25
06:59 06:59 06:59
Intake Total 3711.3 / 3855.0 1724.6 / 1737.6
Output Total 1500 / 1600 1900 / 1900
Balance 2211.3 / 2255.0 -175.4 / -162.4
Physical Exam
Physical Exam
Cardiology: Irregular Rate/Rhythm
Pulmonary: Other (Decreased breath sounds at the bases)
GI: Soft, Distended (Less distended, small umbilical hernia ) and Normal Bowel Sounds
[2025-06-23] MEDS: NOVOLOG FLEXPEN 10 UNITS SC ×3 (09:02→17:14)
[2025-06-23] MEDS: VISBIOME 2 CAP PO (09:07)
[2025-06-23] MEDS: NOVOLOG FLEXPEN SC (09:15)
--- NOTE | 2025-06-23 09:17 | W.PN.CARDCBS ---
Today's Communication / Plan
-
Neuro work up per primary service. MRI brain pending. CT noted. He would require fci anticoagulation with aFib and now CVA
Patient developed atrial fibrillation with rapid ventricular response on morning of 06/19/2025 this is new diagnosis for patient
Converted to sinus.
Cont amiodarone 200 mg BID
Lopressor increased to 100 mg BID by hospitalist for HTN and HR control.
Transition IV heparin anticoagulation to Eliquis 5 mg BID as no further procedures are planned. Discussed with GI.
LFTs are improving
Echocardiogram with preserved EF, noted above
His wt is up and agree with IV lasix.
IV lasix as per nephrology
Carbone in place.
pBNP 6249Jun 22
Impression / Plan
-
.
PCP: Steven Silva
Nurses Director: Noe Mckeon
Impression:
Presented 06/14/2025 with severe abdominal pain associated with radiation to back and nausea
Acute pancreatitis with CBD stones
s/p EUS and ERCP 06/15: inability to locate ampulla due to duodenal edema.
repeat ERCP 06/17: sphincterotomy and stone extraction, bile duct and pancreatic duct stent placements.
Acute to subacute CVA right parietal lobe by CT Jun 21
Suspected sepsis secondary to above, improved
Ileus from acute pancreatitis, improved
TME, improved
Abnormal LFTs, improving
Paroyxsmal Atrial fibrillation with rapid ventricular response new diagnosis as of 06/19/2025
SAMANTHA on CKD (baseline creat 1.7-1.9)
Leukocytosis
Hyperkalemia
Hyponatremia
Acute hypoxic respiratory insufficiency
Duodenitis on EGD
Chronic kidney disease stage IIIb
Type II DM
Hypertension
Hyperlipidemia
Obesity
History of shingles
BPH with self-catheterization / Hx TURP
Echo Jun 22 2025:Normal left ventricular chamber size myocardial thickness and systolic function. Left ventricular ejection fraction 55%. No significant valvular disease. No prior echo for comparison.
Exercise nuclear stress test 01/13/2024: 6 minutes on Vito protocol achieving 7 METS 85% age-predicted max heart rate. Normal blood pressure response. Abnormal sestamibi perfusion complicated by soft tissue attenuation with fixed defect in apical
lateral segment consistent with possible area of ischemia
CT Head Jun 21 2025: band-shaped focus of decreased density within the right parietal lobe, occupying a portion of the gyrus just posterior to the right postcentral sulcus. This is probably a portion of the superior parietal lobule. This would be
compatible with an area of acute to subacute infarction, measuring 2.4 cm transverse by 0.9 cm AP by 2.0 cm craniocaudal.
Plan:
Presented 06/14/2025 with severe abdominal pain associated with radiation to back and nausea and was found to have acute severe pancreatitis with CBD stones. Status post ERCP/sphincterectomy, stone extraction, bile duct and pancreatic duct stents
06/17/2025. Complicated by ileus
Diet being advanced, GI signed off
Cont abx as per primary service.
Cont supportive care
Neuro work up per primary service. MRI brain pending. CT noted. 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
Patient developed atrial fibrillation with rapid ventricular response on morning of 06/19/2025 this is new diagnosis for patient
Converted to sinus.
Cont amiodarone 200 mg BID
Lopressor increased to 100 mg BID by hospitalist for HTN and HR control.
Transition IV heparin anticoagulation to Eliquis 5 mg BID as no further procedures are planned. Discussed with GI.
LFTs are improving
Echocardiogram with preserved EF, noted above
His wt is up and agree with IV lasix.
IV lasix as per nephrology
Carbone in place.
pBNP 6250 Jun 22
Patient does have history of hypertension and previously on amlodipine 10 mg, atenolol 100 mg, hydrochlorothiazide 50 mg as outpatient. These medications are currently on hold.
Discussed with nursing and family at bedside.
HPI 06/19/2025:
Patient is a 74-year-old male with PMH of CKD stage IIIb, NIDDM, HTN, HLD, and BPH with self catheterization who presented to emergency department 06/14/2025 with severe mid to upper left and right abdominal pain through to his back with nausea.
Patient was found to have severe acute pancreatitis with abnormal LFTs, leukocytosis, SAMANTHA. Also found to have ileus. He underwent EUS ERCP 06/15/2025 with inability to locate ampulla due to duodenal edema. He underwent repeat ERCP on 06/17/2025
with removal of CBD stones and stent to common hepatic and pancreatic duct. Patient developed atrial fibrillation with rapid ventricular response on academic associate of 06/19/2025 prompting cardiology consult. At time of this evaluation patient
lethargic in bed with at bedside. She helps to provide history. Prior to presentation to hospital patient was a active 74-year-old male with no concerning cardiac symptoms. He walked his dog regularly as well as performed out side yard work
and chores without concerning cardiac symptoms.
Progress Note - Nurses Director
Subjective
Date of Service: June 23, 2025
Pt seen and examined. No complaints. No chest pain or shortness of breath.
Objective
Labs:
06/23/25 04:40
06/23/25 04:40
Labs
Hgb 9.9 g/dL (13.0-18.0) L 06/23/25 04:40
Hct 28.6 % (39.0-52.0) L 06/23/25 04:40
Plt Count 153 10^3/uL (130-400) 06/23/25 04:40
PT 15.7 Sec (11.4-14.6) H 06/15/25 13:55
INR 1.22 06/15/25 13:55
APTT 83.0 Sec (23.4-35.0) H 06/23/25 04:40
Sodium 138 mmol/L (135-145) 06/23/25 04:40
Potassium 3.7 mmol/L (3.5-5.1) 06/23/25 04:40
BUN 29 mg/dl (9-20) H 06/23/25 04:40
Creatinine 2.1 mg/dL (0.7-1.3) H 06/23/25 04:40
Glucose 218 mg/dl (70-99) H 06/23/25 04:40
Vital Signs and I&O:
Vital Signs
Temp Pulse Resp BP Pulse Ox
99.4 F 109 16 200/92 95
06/23/25 07:43 06/23/25 08:57 06/23/25 07:23 06/23/25 08:57 06/23/25 07:23
Vital Signs
Temp Pulse Resp BP Pulse Ox
99.4 F 109 16 200/92 95
06/23/25 07:43 06/23/25 08:57 06/23/25 07:23 06/23/25 08:57 06/23/25 07:23
Intake & Output
06/21/25 06/22/25 06/23/25 06/24/25
06:59 06:59 06:59 06:59
Intake Total 3893.1 / 4232.6 3711.3 / 3855.0 1724.6 / 1737.6
Output Total 3550 / 3625 1500 / 1600 1900 / 1900
Balance 343.1 / 607.6 2211.3 / 2255.0 -175.4 / -162.4
Physical Exam
Physical Exam
General: No acute distress, AAOX3
Neck: Negative JVD
Heart: Regular, Negative S3 positive S1/S2, Negative S4, No murmur
Lungs: CTA b/l, negative wheezes/rales/rhonchi
Abd: Positive BS, NT/ND, neg rebound/rigidity/guarding
Ext: Negative cyanosis/clubbing/edema
Neuro: nonfocal
--- NOTE | 2025-06-23 10:14 | W.PN.HOSP.TC ---
Today's Communication/Plan
-
cont Zosyn pending ID
Remove PICC
LAsix as per Nephro
Hydralazine PRN
follow AM labs
MRI/MRA pending
LFT significantly improved -start statin
Assessment / Plan
Assessment / Plan
74yo M with PMHx of HTN, Afib, CHARLIE, DM, chronic urinary retention with self cath at home admitted with abdominal pain, nausea, vomiting, CT found acute pancreatitis and duodenitis as well as acute cholangittis with stones seen in CBD on CT, had ERCP
on 06/17/25 and remained on Abx afterwards.
A/P:
#Acute gall stone pancreatitis
#Choledocholithiasis with cholangitis
#Transaminitis 2/2 above
s/p hydration
On Zosyn - renaly adjusted
Bcx NTD
GI follows: S/P ERCP on 06/17/25
LFT elevated again on 06/21/25 - US RUQ without new pathology, showed patent stent, LFT started to improve with better HR control
GEnSX eventually planning cholecystectomy
#Persistent leukocytosis
repeated Bcx NTD
Chest XR without overt pneumonia
follow CBC
Patient started to improve on 06/22/25
No signs of developing sepsis - not hypotensive and not febrile
Redness around PICC line - remove
ID consult
#Diarrhea
most likely 2/2 previous ileus
hold laxatives
C.diff neg
#Paroxysmal Afib with RVR
poor control on max Cardizem improved on Amiodarone on 06/21/25. Cont PO amio and BB as per cardio
cotn telemetry
Cardiology follows
TSH WNL
HEparin drip until finalized decisions on cholecystectomy
Echo: EF 55%, normal systolic and diastolic function, no significant valvular disease
#Acute/subacute CVA
Band-shaped focus of decreased density within the right parietal lobe as described, which likely represents an area of acute to subacute infarction seen on CT on 06/21/25
cont Heparin and later Eliquis as per neurology
start statin when LFT improved
MRI/MRA brain pending
accuchecks
PT/OT
TSH 0.72 - WNL
HgbA1c 6.5%
LDL 85
#SAMANTHA on CKD stage 3b
#Moderate L hydroureter - resolved with Carbone
#BPH with chronic urinary retention on self cath at home
#Volume overload without CHF
Cr baseline 1.9-1.8
SAMANTHA resolved as of 06/20/25
follow Cr
Medical Planner follows: lasix on 06/23/[address]
US showed no hydronephrosis b/l as of 06/21/25
#DM with possible mild DKA
restarted insulin SS with accuchecks since on diet since 06/22/25
DM diet when able to eat
DM METAL TANK ERECTOR follows
#Acute hypoxic respiratory failure on 6l O2 2/2 acute disease
off O2 as of 06/21/25
chest XR with atelectasis - IS
ABG w/o hypercarbia
#Distended abd
since admission
moderate ascites on initial CT
#Acute metabolic encephalopathy
worsened on 06/21/[address]
CT head reasonable with new heparin drip and AMS
CAnnot exclude iatrogenic: received Haldol 8h prior on the top of CKD
#Ileus - resolved
s/p NG tube
BS present
XR on 06/19/25 - no obstructive pattern, BM daily since then
#Hypokalemia
#Hypomagnesemia
#Hypokalemia
#Hypocalcemia
replete and follow
#Duodenitis
PPI as per GI
#Hepatosplenomegaly
Advise outpatient follow up, unclear reason for now
#Diverticulosis w/o diverticulitis
high fiber diet
DVT ppx hep drip
Full code
I have spent at least 60min critical care time reviewing chart, test results, communication with consultants, family bedside and providing direct patient care
Anticipated Discharge: > 48 hours
Subjective/Interval History
-
Date of Service: June 23, 2025
Objective Data
-
Labs:
Laboratory Results
06/23/25
04:40
WBC 20.4 H
Hgb 9.9 L
Hct 28.6 L
Plt Count 153
APTT 83.0 H
Sodium 138
Potassium 3.7
Chloride 111 H
Carbon Dioxide 22
BUN 29 H
Creatinine 2.1 H
Glucose 218 H
Calcium 7.5 L
Total Bilirubin 1.2
AST 26
ALT 94 H
Alkaline Phosphatase 102
Vital Signs:
Vital Signs
Temp Pulse Resp BP Pulse Ox
99.4 F 101 33 180/89 95
06/23/25 07:43 06/23/25 09:56 06/23/25 09:56 06/23/25 09:56 06/23/25 09:07
I&O
06/22/25 06/23/25 06/24/25
06:59 06:59 06:59
Intake Total 3711.3 / 3855.0 1724.6 / 1737.6 329 / 329
Output Total 1500 / 1600 1899 / 1974 175 / 175
Balance 2211.3 / 2255.0 -175.4 / -237.4 154 / 154
Review of Systems
-
History Source: Patient
All other systems: Reviewed and negative
Physical Exam
-
General: No Apparent Distress and Comfortable
HEENT: Normocephalic, Atraumatic and Moist Mucous Membranes
Respiratory: Clear to Auscultation
Cardiac: Irregular Rhythm
GI: Nontender and Distended
Genito-urinary: No Costovertebral Tender
Skin: Warm
Neuro: Awake, Alert, Oriented and AO x 3
Psych: Calm
--- NOTE | 2025-06-23 11:05 | W.PN.UPDATE ---
Update Note
Progress Note Update
Discussed with GenZandrax - no plans for intervention this admission unless fully recovered. Stop hep and start Elqiuis as advised by Card
[2025-06-23] MEDS: CALCIUM GLUCONATE 100 IV (11:37)
[2025-06-23] MEDS: ELIQUIS 5 MG PO ×2 (11:47→19:41)
[2025-06-23] MEDS: TYLENOL 650 MG PO (11:49)
[2025-06-23 11:56] LABS: Glucose - Point of Care 228 mg/dl (70-99)
--- NOTE | 2025-06-23 11:58 | PTCARENOTE ---
Per orders, heparin gtt stopped, Eliquis given. Pt assisted back to bed, x2 mod assist with RW, PRN Tylenol and Labetalol administered, see SEP. Plan for MRI at 13:00, tele orders rec'd. LEMUEL RN paged to remove PICC line at this time.
--- NOTE | 2025-06-23 12:07 | PTCARENOTE ---
Plan discussed with care team, ok to remove geller catheter and resume voiding/bladder scanning and straight cath per protocol. PICC line removed at this time. Pt and updated.
--- NOTE | 2025-06-23 12:45 | CM ---
Patient currently in ICU, Patient family continue to hope patient can go to [facility]. Per admissions no beds available at [facility] until next week. CM sent updated clinicals to SNF choices of patient and family. CM will continue to follow for discharge
planning needs.
Plan; SNF when medically appropriate.
--- NOTE | 2025-06-23 13:05 | PTCARENOTE ---
Pt transported to MRI dept in the bed.
--- NOTE | 2025-06-23 14:11 | PTCARENOTE ---
Pt back in room, medications administered as ordered, lunch tray given, pt covered with 14 units Novolog at this time. Pt feeding self salad and chicken fingers without any issues. Affect remains flat and irritable at times, 'I'm wiped out.'
Emotional support offered.
[2025-06-23] MEDS: DILAUDID 1 MG PO ×2 (14:31→21:29)
--- NOTE | 2025-06-23 14:46 | PTCARENOTE ---
Carbone removed at 14:30, pt DTV at 20:30. Pt has urinal at bedside, educated to call RN when he voids. Pt verbalized understanding.
[2025-06-23] MEDS: APRESOLINE 20 MG IV (15:07)
--- NOTE | 2025-06-23 15:18 | PTCARENOTE ---
Addendum entered by Elin Brunner RN 06/23/25 15:24:
Pt assisted to ambulate in room with OT, seated in the chair again, agreeable to sit up for at least another hour.
Original Note:
PRN Hydralazine administered 15:07 for continued HTN, pt now working with OT.
--- NOTE | 2025-06-23 16:48 | PTCARENOTE ---
Pt requesting to go back to bed, 2nd RN arrived to assist primary RN to help pt back into bed, pt again requiring frequent cueing and reminders how to transfer safely using walker...impulsive during transfer and not following staff cues
appropriately, started to sit before he was close to edge of bed and did not reach back for bed, nearly slid onto floor but nurses caught him and prevented fall, pt flailing and attempting to repeatedly punch this RN in the leg stating 'she stepped
on my foot!' because this RN bumped his foot with hers during transfer. Education provided again re: safety, pt repositioned in the bed for comfort. Call hernandez in hand, remains at bedside. Bed alarm activated.
[2025-06-23] MEDS: LIPITOR 40 MG PO (17:13)
[2025-06-23] MEDS: NOVOLOG FLEXPEN-HIGH RESISTANCE 7 UNITS SC (17:13)
[2025-06-23 17:14] LABS: Glucose - Point of Care 270 mg/dl (70-99)
[2025-06-23] MEDS: PROTONIX 40 MG PO (19:41)
[2025-06-23] MEDS: LIDOCAINE 4% PATCH 1 PATCH TOPICAL (19:42)
[2025-06-23] MEDS: DUONEB INH (20:18)
[2025-06-23] MEDS: MELATONIN 5 MG PO (20:45)
[2025-06-23 23:06] LABS: Glucose - Point of Care 277 mg/dl (70-99)
[2025-06-24] VITALS (13 sets, daily range): BP systolic 141–183; BP diastolic 60–93; PULSE 80; O2SAT 97; BMI 31.2
[2025-06-24] MEDS: ZOSYN 50 IV ×2 (01:52→08:21)
[2025-06-24 05:45] LABS: ALT (SGPT) 69 U/L (0-50); AST (SGOT) 33 U/L (17-59); Albumin 2.7 g/dl (3.5-5.0); Alkaline Phosphatase 116 U/L (38-126); Blood Urea Nitrogen 30 mg/dl (9-20); Calcium 7.8 mg/dl (8.4-10.2); Carbon Dioxide 23 mmol/L (22-30); Chloride 107 mmol/L (98-107); Estimated Creatinine Clearance 35 ml/min; Glucose 277 mg/dl (70-99); Magnesium 1.7 mg/dl (1.6-2.3); Potassium 3.7 mmol/L (3.5-5.1); Sodium 135 mmol/L (135-145); Total Protein 5.2 g/dl (6.3-8.2); eGFR 29.07
[2025-06-24 05:47] LABS: Hematocrit 30.0 % (39.0-52.0); Hemoglobin 10.2 g/dL (13.0-18.0); Mean Corp Hgb Conc. 34.0 g/dL (33.0-37.0); Mean Corpuscular Volume 88.2 fL (80.0-94.0); Platelet Count 186 10^3/uL (130-400); Red Cell Dist. Width 13.7 % (11.5-14.5)
[2025-06-24 07:00] LABS: Nucleated Red Blood Cells % 0 % (-)
[2025-06-24 07:24] LABS: Glucose - Point of Care 270 mg/dl (70-99)
[2025-06-24] MEDS: DUONEB INH ×2 (07:46→19:46)
--- NOTE | 2025-06-24 08:08 | W.PN.NEPH.PH ---
Today's Communication / Plan
-
lasix
Assessment/Plan
-
Impression:
SAMANTHA (2.7)
CKD 3b(1.7-1.9 )
Metabolic acidosis
Hyperkalemia
Profound abdominal pain likely due to evolving pancreatitis/sepsis
Abnormal LFTs
History of HTN
History of diabetes
History of profound BPH requiring self-catheterization daily
Plan:
for CT
lasix today
follow BMP
remains on broad spectrum abx
-
-
Date of Service: June 24, 2025
CC / HPI / ROS
-
Chief Complaint:
SAMANTHA
History of Present Illness:
SAMANTHA/Cr up to 2.3
WBC rising
low grade temps
geller out
BP high, now on metoprolol
Afib controlled with amiodarone and on IV heparin
LFTs, bili improving
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
Review of Systems:
no pain
awake and interactive
Labs
-
Labs:
WBC 25.2 10^3/uL (4.8-10.8) H 06/24/25 04:49
RBC 3.40 10^6/uL (4.70-6.10) L 06/24/25 04:49
Hgb 10.2 g/dL (13.0-18.0) L 06/24/25 04:49
Hct 30.0 % (39.0-52.0) L 06/24/25 04:49
Plt Count 186 10^3/uL (130-400) D 06/24/25 04:49
Sodium 135 mmol/L (135-145) 06/24/25 04:49
Potassium 3.7 mmol/L (3.5-5.1) 06/24/25 04:49
Chloride 107 mmol/L (98-107) 06/24/25 04:49
Carbon Dioxide 23 mmol/L (22-30) 06/24/25 04:49
BUN 30 mg/dl (9-20) H 06/24/25 04:49
Creatinine 2.3 mg/dL (0.7-1.3) H 06/24/25 04:49
eGFR 29.07 06/24/25 04:49
Glucose 277 mg/dl (70-99) H 06/24/25 04:49
Calcium 7.8 mg/dl (8.4-10.2) L 06/24/25 04:49
Phosphorus 4.1 mg/dl (2.5-4.5) 06/24/25 04:49
Sqb-Y-Uqighrqkout Pept 6250 pg/ml 06/22/25 04:17
Albumin 2.7 g/dl (3.5-5.0) L 06/24/25 04:49
Physical Exam
-
Vital Signs:
Vital Signs
Temp Pulse Resp BP Pulse Ox
97.6 F 93 16 141/80 96
06/24/25 07:28 06/24/25 07:00 06/23/25 20:22 06/24/25 04:00 06/23/25 20:58
Cardiovascular:: Regular rate and rhythm
Respiratory:: Bilateral: Coarse
Lung Excursion:: Normal
Abdomen:: Nontender and Soft
Bowel Sounds:: Normal
Extremity Edema:: +3: Bilateral:
[2025-06-24] MEDS: MAGNESIUM SULFATE 102 GRAMS IV (08:21)
[2025-06-24] MEDS: ELIQUIS 5 MG PO ×2 (08:22→20:24)
[2025-06-24] MEDS: VISBIOME 2 CAP PO (08:22)
[2025-06-24] MEDS: LANTUS 0.15 UNITS SC (08:22)
[2025-06-24] MEDS: VITAMIN B-12 1000 MCG PO (08:22)
[2025-06-24] MEDS: NORVASC 10 MG PO (08:22)
[2025-06-24] MEDS: VITAMIN D3 (cholecalciferol) 25 MCG PO (08:22)
[2025-06-24] MEDS: PROTONIX 40 MG PO ×2 (08:22→20:24)
[2025-06-24] MEDS: PACERONE 200 MG PO ×2 (08:22→20:24)
[2025-06-24] MEDS: LOPRESSOR 100 MG PO ×2 (08:22→20:24)
[2025-06-24] MEDS: NOVOLOG FLEXPEN-HIGH RESISTANCE 7 UNITS SC (08:23)
[2025-06-24] MEDS: NOVOLOG FLEXPEN 10 UNITS SC ×3 (08:23→17:26)
[2025-06-24] MEDS: OMNIPAQUE 50 ML PO (08:24)
[2025-06-24] MEDS: REMOVE LIDOCAINE PATCH 1 PATCH REMOVE (08:24)
[2025-06-24] MEDS: LASIX 20 MG IV (08:26)
[2025-06-24] MEDS: OCEAN, SALINE MIST 2 SPRAYS NASAL ×2 (08:27→18:43)
[2025-06-24] MEDS: DUONEB 3 ML INH ×3 (08:46→14:58)
--- NOTE | 2025-06-24 09:55 | W.PN.CARDCBS ---
Today's Communication / Plan
-
He would require detention anticoagulation with aFib and now CVA
Patient developed atrial fibrillation with rapid ventricular response on morning of 06/19/2025 this is new diagnosis for patient
Converted to sinus.
Cont amiodarone 200 mg BID
Cont Lopressor 100 mg BID by hospitalist for HTN and HR control.
Cont anticoagulation with Eliquis 5 mg BID as no further procedures are planned after GI and surgery input.
LFTs have improved
Echocardiogram with preserved EF, noted above
Cont IV lasix as per nephrology, lasix 20 mg IV on 06/24
Impression / Plan
-
.
PCP: Steven Silva
Export Coordinator: Noe Mckeon
Impression:
Presented 06/14/2025 with severe abdominal pain associated with radiation to back and nausea
Acute pancreatitis with CBD stones
s/p EUS and ERCP 06/15: inability to locate ampulla due to duodenal edema.
repeat ERCP 06/17: sphincterotomy and stone extraction, bile duct and pancreatic duct stent placements.
Acute to subacute CVA right parietal lobe by CT Jun 21
Suspected sepsis secondary to above, improved
Ileus from acute pancreatitis, improved
TME, improved
Abnormal LFTs, improving
Paroyxsmal Atrial fibrillation with rapid ventricular response new diagnosis as of 06/19/2025
SAMANTHA on CKD (baseline creat 1.7-1.9)
Leukocytosis
Hyperkalemia
Hyponatremia
Acute hypoxic respiratory insufficiency
Duodenitis on EGD
Chronic kidney disease stage IIIb
Type II DM
Hypertension
Hyperlipidemia
Obesity
History of shingles
BPH with self-catheterization / Hx TURP
Echo Jun 22 2025:Normal left ventricular chamber size myocardial thickness and systolic function. Left ventricular ejection fraction 55%. No significant valvular disease. No prior echo for comparison.
Exercise nuclear stress test 01/13/2024: 6 minutes on Vito protocol achieving 7 METS 85% age-predicted max heart rate. Normal blood pressure response. Abnormal sestamibi perfusion complicated by soft tissue attenuation with fixed defect in apical
lateral segment consistent with possible area of ischemia
CT Head Jun 21 2025: band-shaped focus of decreased density within the right parietal lobe, occupying a portion of the gyrus just posterior to the right postcentral sulcus. This is probably a portion of the superior parietal lobule. This would be
compatible with an area of acute to subacute infarction, measuring 2.4 cm transverse by 0.9 cm AP by 2.0 cm craniocaudal.
Plan:
Presented 06/14/2025 with severe abdominal pain associated with radiation to back and nausea and was found to have acute severe pancreatitis with CBD stones. Status post ERCP/sphincterectomy, stone extraction, bile duct and pancreatic duct stents
06/17/2025. Complicated by ileus
Diet being advanced, GI signed off
Cont abx as per primary service.
Cont supportive care
Neuro work up per primary service. MRI brain 06/23: subacute infarction within the right parietal lobe within associated developing cortical laminar necrosis.
Mild atrophy with sequelae of mild chronic small vessel ischemic disease.. CT noted. He would require detention anticoagulation with aFib and now CVA
Patient developed atrial fibrillation with rapid ventricular response on morning of 06/19/2025 this is new diagnosis for patient
Converted to sinus.
Cont amiodarone 200 mg BID
Cont Lopressor 100 mg BID by hospitalist for HTN and HR control.
Cont anticoagulation with Eliquis 5 mg BID as no further procedures are planned after GI and surgery input.
LFTs have improved
Echocardiogram with preserved EF, noted above
Cont IV lasix as per nephrology, lasix 20 mg IV on 06/[address]
pBNP 6250 Jun 22
Patient does have history of hypertension and previously on amlodipine 10 mg, atenolol 100 mg, hydrochlorothiazide 50 mg as outpatient. These medications are currently on hold.
Discussed with nursing and family at bedside.
HPI 06/19/2025:
Patient is a 74-year-old male with PMH of CKD stage IIIb, NIDDM, HTN, HLD, and BPH with self catheterization who presented to emergency department 06/14/2025 with severe mid to upper left and right abdominal pain through to his back with nausea.
Patient was found to have severe acute pancreatitis with abnormal LFTs, leukocytosis, SAMANTHA. Also found to have ileus. He underwent EUS ERCP 06/15/2025 with inability to locate ampulla due to duodenal edema. He underwent repeat ERCP on 06/17/2025
with removal of CBD stones and stent to common hepatic and pancreatic duct. Patient developed atrial fibrillation with rapid ventricular response on stereo compiler of 06/19/2025 prompting cardiology consult. At time of this evaluation patient
lethargic in bed with at bedside. She helps to provide history. Prior to presentation to hospital patient was a active 74-year-old male with no concerning cardiac symptoms. He walked his dog regularly as well as performed out side yard work
and chores without concerning cardiac symptoms.
Progress Note - Export Coordinator
Subjective
Date of Service: June 24, 2025
Pt seen and examined. No complaints. No chest pain or shortness of breath.
Objective
Labs:
06/24/25 04:49
06/24/25 04:49
Labs
Hgb 10.2 g/dL (13.0-18.0) L 06/24/25 04:49
Hct 30.0 % (39.0-52.0) L 06/24/25 04:49
Plt Count 186 10^3/uL (130-400) D 06/24/25 04:49
PT 15.7 Sec (11.4-14.6) H 06/15/25 13:55
INR 1.22 06/15/25 13:55
APTT 83.0 Sec (23.4-35.0) H 06/23/25 04:40
Sodium 135 mmol/L (135-145) 06/24/25 04:49
Potassium 3.7 mmol/L (3.5-5.1) 06/24/25 04:49
BUN 30 mg/dl (9-20) H 06/24/25 04:49
Creatinine 2.3 mg/dL (0.7-1.3) H 06/24/25 04:49
Glucose 277 mg/dl (70-99) H 06/24/25 04:49
Vital Signs and I&O:
Vital Signs
Temp Pulse Resp BP Pulse Ox
97.6 F 99 18 183/93 96
06/24/25 07:28 06/24/25 09:00 06/24/25 08:49 06/24/25 08:22 06/24/25 09:23
Vital Signs
Temp Pulse Resp BP Pulse Ox
97.6 F 99 18 183/93 96
06/24/25 07:28 06/24/25 09:00 06/24/25 08:49 06/24/25 08:22 06/24/25 09:23
Intake & Output
06/22/25 06/23/25 06/24/25 06/25/25
06:59 06:59 06:59 06:59
Intake Total 3711.3 / 3855.0 1724.6 / 1737.6 1562 / 1562 200 / 200
Output Total 1500 / 1600 1899 / 1974 685 / 685
Balance 2211.3 / 2255.0 -175.4 / -237.4 877 / 877 200 / 200
Physical Exam
Physical Exam
General: No acute distress, AAOX3
Neck: Negative JVD
Heart: Regular, Negative S3 positive S1/S2, Negative S4, No murmur
Lungs: CTA b/l, negative wheezes/rales/rhonchi
Abd: Positive BS, NT/ND, neg rebound/rigidity/guarding
Ext: Negative cyanosis/clubbing/edema
Neuro: nonfocal
[2025-06-24 10:03] LABS: Cortisol, Random 30.7 ug/dl
--- NOTE | 2025-06-24 10:25 | PTCARENOTE ---
Pt rec'd from previous RN 07:15, AOx3, NIHSS 0. Plan discussed, pt very worried about going for CT Scan, emotional support and education provided. Pt flat and anxious this am, states 'I feel hopeless. This place is a living hell.' Pt requiring much
encouragement to take medications, brush teeth, etc. arrived at bedside, updated...encouraging patient to adhere to plan of care. Oral care, pericare, back rub provided with assessment. Pt incontinent of very large amount urine. Pt did tolerate
oral contrast, was transported to CT scan at 09:45, tolerated well, returned to room and is eating breakfast watching TV with . Call hernandez in hand, bed alarm activated.
--- NOTE | 2025-06-24 10:50 | W.PN.ID1 ---
Addendum entered and electronically signed by Valerie Cisneros MD 06/24/25 11:48:
Received TT from Dr. Osborn.
As per IRAD review: Size fluid collection overestimated. It�s only 10 mm in the coronal plane - too small to drain.
Original Note:
Date of Service
Date of Service: June 24, 2025
Today's Communication
See below.
Assessment / Plan
Leukocytosis with L shift, trending up
Severe Acute pancreatitis s/p biliary stent, pancreatic stent 06/17
Ascites vs developing peripancreatic fluid collection
SAMANTHA on CKD3, baseline Cr ~1.9
BPH, chronic QUINONEZ/hydronephrosis worse after geller dc. Geller reinserted 06/24.
- 06/22 UA no pyuria; also note negative UA and culture from 06/15
- 06/22 blood cultures x2 no growth to date
- 06/16-06/21 multiple CXRs read as atelectasis vs developing pneumonia; patient however with no cough or sputum production
- 06/22 C difficile negative, antibiotic associated diarrhea suspected
- 06/24 CT increase peripancreatic fluid; new 6.1 cm LUQ fluid collection. Per GI, PD stent is supposed to self-dislodge as seen in CT
If safe, IR drainage of LUQ fluid collection for aerobic and anaerobic culture.
- Replace zosyn (d11) with meropenem for now.
- Trend wbc.
Chief Complaint
-: Leukocytosis
Subjective / Review of Systems
tried and sleepy. abd pain a little better.
Vital Signs / Physical Exam
Vital Signs
Vital Signs
Temp Pulse Resp BP Pulse Ox
97.6 F 97 18 147/78 96
06/24/25 07:28 06/24/25 10:04 06/24/25 08:49 06/24/25 10:04 06/24/25 09:23
Physical Exam
Constitutional: Acutely Ill
Eyes: No Conjunctival Hemorrhage
Cardiovascular: S1/S2 (tachycardic)
Pulmonary: Clear (anteriorly) and Non Labored
Gastrointestinal: Tender (diffuse), Distended (moderate ) and Decreased Bowel Sounds
Genito-Urinary: Negative Geller
Neurological: Awake and Other (Drowsy)
Objective Data
Lab Data
Lab Results
06/24/25 04:49
06/24/25 04:49
PT 15.7 Sec (11.4-14.6) H 06/15/25 13:55
INR 1.22 06/15/25 13:55
APTT 83.0 Sec (23.4-35.0) H 06/23/25 04:40
Estimated Creat Clear 35 ml/min 06/24/25 04:49
Lactic Acid 0.6 mmol/L (0.7-2.0) L 06/21/25 09:12
Total Bilirubin 1.0 mg/dl (0.2-1.3) 06/24/25 04:49
AST 33 U/L (17-59) 06/24/25 04:49
ALT 69 U/L (0-50) H 06/24/25 04:49
Alkaline Phosphatase 116 U/L (38-126) 06/24/25 04:49
C-Reactive Protein Cancelled 06/17/25 06:00
Most recent labs reviewed.
Micro Results:
06/21/25 09:56 Blood Culture - Preliminary
Blood/Venous No Growth in 72 hours- Final report to follow
06/21/25 12:39 Blood Culture - Preliminary
Blood/Venous No Growth in 48 hours- Final report to follow
06/22/25 11:26 C. difficile GDH Antigen & Toxins - Final
Feces/Stool Negative for toxigenic C.difficile
06/15/25 12:01 Blood Culture - Final
Blood/Venous No Growth - Final Report
06/15/25 11:30 Blood Culture - Final
Blood/Venous No Growth - Final Report
06/14/25 21:22 Blood Culture - Final
Blood/Venous No Growth - Final Report
06/14/25 21:22 Blood Culture - Final
Blood/Venous No Growth - Final Report
06/15/25 19:59 Urine Culture - Final
Urine NO GROWTH
06/24/25 CT a/p:
1. SEVERE ACUTE PANCREATITIS with an interval increase in peripancreatic fluid.
2. 6.1 cm acute peripancreatic collection in the left upper quadrant of the abdomen.
3. Plastic biliary stent in place.
4. Dislodged pancreatic stent located in a small bowel loop in the left side of the abdomen.
5. Small volume of ascites.
6. Moderate pneumobilia in the liver secondary to interval biliary sphincterotomy.
7. Moderate to severe distention of the urinary bladder consistent with ACUTE URINARY BLADDER OUTLET OBSTRUCTION.
8. SEVERE BILATERAL HYDROURETER and MODERATE BILATERAL HYDRONEPHROSIS which has increased since 06/15/2025.
9. Severely enlarged prostate gland.
Care Review
Plan reviewed with: Physician (Dr. Landon)
--- NOTE | 2025-06-24 11:14 | W.PN.HOSP.TC ---
Today's Communication/Plan
-
Merrem
Carbone
Discussing with IRAD drainage for peripancreatic effusion
Assessment / Plan
Assessment / Plan
74yo M with PMHx of HTN, Afib, CHARLIE, DM, chronic urinary retention with self cath at home admitted with abdominal pain, nausea, vomiting, CT found acute pancreatitis and duodenitis as well as acute cholangittis with stones seen in CBD on CT, had ERCP
on 06/17/25 and remained on Abx afterwards. Due to worsening leukocytosis CT abd/pelvis repeated on 06/24/25 and showed b/l hydronephrosis 2/2 bladder outlet obstruction, so Carbone was placed back. Also concern for loculated fluid collection in the
left upper quadrant of the abdomen and HAP
A/P:
#Acute gall stone pancreatitis
#Choledocholithiasis with cholangitis
#Transaminitis 2/2 above
s/p hydration
Bcx NTD
GI follows: S/P ERCP on 06/17/25 with sphincterotomy and stent placement, that later dislodged - discussed with GI and since LFT WNL, there is no further concerns
LFT elevated again on 06/21/25 - US RUQ without new pathology, showed patent stent, LFT started to improve with better HR control
GEnSX eventually planning cholecystectomy after full recovery
CT on 06/24/25 showed persistent pancreatic inflammation and loculated fluid collection in the left upper quadrant of the abdomen 6cm, ID switched to MErrem as of 06/24/25, reviewing with IRAD for drain
#Persistent leukocytosis
repeated Bcx NTD
Chest XR without overt pneumonia
follow CBC
Patient started to improve on 06/22/25
No signs of developing sepsis - not hypotensive and not febrile
Redness around PICC line - remove
ID consult
#Concern for LLL HAP
Ct showed airspace consolidation in the basilar segments of the left lower lobe containing air bronchograms.
Now on merrem as per ID
#Diarrhea
most likely 2/2 previous ileus
hold laxatives
C.diff neg
#Paroxysmal Afib with RVR
poor control on max Cardizem improved on Amiodarone on 06/21/25. Cont PO amio and BB as per cardio
cotn telemetry
Cardiology follows
TSH WNL
HEparin drip until finalized decisions on cholecystectomy
Echo: EF 55%, normal systolic and diastolic function, no significant valvular disease
#Acute/subacute CVA
Band-shaped focus of decreased density within the right parietal lobe as described, which likely represents an area of acute to subacute infarction seen on CT on 06/21/25
cont Heparin and later Eliquis as per neurology
start statin when LFT improved
MRI/MRA brain pending
accuchecks
PT/OT
TSH 0.72 - WNL
HgbA1c 6.5%
LDL 85
#SAMANTHA on CKD stage 3b
#Moderate L hydroureter 2/2 chronic bladder outlet obstruction
#BPH with chronic urinary retention on self cath at home
#Volume overload without CHF
#Large BPH s/p TURP
US showed no hydronephrosis b/l as of 06/21/25
Cr baseline 1.9-1.8
SAMANTHA resolved as of 06/20/25, but then worsened with TOV again
follow Cr
Grinding Room Supervisor follows: lasix on 06/23/25
Carbone removed on 06/22/25 but worsening b/l hydronephrosis - placed back on 06/24/25
#Anasarca
2/2 IVF for pancreatitis
Lasix
#DM with possible mild DKA
restarted insulin SS with accuchecks since on diet since 06/22/25
DM diet when able to eat
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
#Acute hypoxic respiratory failure on 6l O2 2/2 acute disease
off O2 as of 06/21/25
chest XR with atelectasis - IS
ABG w/o hypercarbia
#Distended abd
since admission
moderate ascites on initial CT
#Acute metabolic encephalopathy
worsened on 06/21/[address]
CT head reasonable with new heparin drip and AMS
Cannot exclude iatrogenic: received Haldol 8h prior on the top of CKD
#Ileus - resolved
s/p NG tube
BS present
XR on 06/19/25 - no obstructive pattern, BM daily since then
#Hypokalemia
#Hypomagnesemia
#Hypokalemia
#Hypocalcemia
replete and follow
#Duodenitis
PPI as per GI
#Hepatosplenomegaly
Advise outpatient follow up, unclear reason for now
#Diverticulosis w/o diverticulitis
high fiber diet
DVT ppx hep drip
Full code
I have spent at least 60min critical care time reviewing chart, test results, communication with consultants, family bedside and providing direct patient care
Anticipated Discharge: > 48 hours
Subjective/Interval History
-
Date of Service: June 24, 2025
Objective Data
-
Labs:
Laboratory Results
06/24/25
04:49
WBC 25.2 H
Hgb 10.2 L
Hct 30.0 L
Plt Count 186 D
Sodium 135
Potassium 3.7
Chloride 107
Carbon Dioxide 23
BUN 30 H
Creatinine 2.3 H
Glucose 277 H
Calcium 7.8 L
Total Bilirubin 1.0
AST 33
ALT 69 H
Alkaline Phosphatase 116
Vital Signs:
Vital Signs
Temp Pulse Resp BP Pulse Ox
97.6 F 97 18 147/78 96
06/24/25 07:28 06/24/25 10:04 06/24/25 08:49 06/24/25 10:04 06/24/25 09:23
I&O
06/23/25 06/24/25 06/25/25
06:59 06:59 06:59
Intake Total 1724.6 / 1737.6 1562 / 1562 111 / 1112
Output Total 1899 / 1974 685 / 685
Balance -175.4 / -237.4 877 / 877 111 / 111
Review of Systems
-
History Source: Patient
All other systems: Reviewed and negative
Physical Exam
-
General: No Apparent Distress
HEENT: Normocephalic
Respiratory: Clear to Auscultation
Cardiac: Regular Rhythm
GI: Nontender and Distended; Negative Soft
Musculoskeletal: No Clubbing, No Cyanosis and No Edema
Neuro: Awake, Alert, Oriented and AO x 3
Psych: Calm
--- NOTE | 2025-06-24 11:44 | W.PN.UPDATE ---
Update Note
Progress Note Update
As per IRAD review: Size of this collection is overstated. It�s only 10 mm in the coronal plane. It�s too small to put a drain into
--- NOTE | 2025-06-24 12:20 | PTCARENOTE ---
Results of CT scan reviewed with care team, per orders from Dr. Landon, 14 fr. geller replaced for bladder outlet obstruction. Initial output 1100 mls clear yellow urine in addition to several episodes of incontinence prior to placement. Pt
assisted oob to chair with PT and RN, rolling walker utilized. Family at bedside.
[2025-06-24 12:22] LABS: Glucose - Point of Care 239 mg/dl (70-99)
[2025-06-24] MEDS: NOVOLOG FLEXPEN-HIGH RESISTANCE 4 UNITS SC ×2 (12:50→17:26)
[2025-06-24] MEDS: LANTUS 0.05 UNITS SC (13:17)
[2025-06-24] MEDS: STERILE WATER FOR INJECTION 10 ML IV ×2 (13:17→20:26)
[2025-06-24] MEDS: MERREM 500 MG IV ×2 (13:18→20:26)
--- NOTE | 2025-06-24 15:37 | W.PN.GI.CBS2 ---
Today's Communication / Plan
-
Called back to comment on PD stent dislodged into SB. This was placed at time of ERCP/biliary sphincterotomy/CBD stone extraction to prophylactically prevent worsening pancreatitis in setting of gallstone pancreatitis due to choledocholithiasis.
It is designed to fall out spontaneously as there are no internal flaps. No need to replace PD stent
He is clinically improved from pancreatitis standpoint. Good appetite, tolerating POs, LFTs nearly normalized
Peripancreatic fluid collection increased from his admission CT but no need to intervene. Would not attempt drainage of this fluid- it will possibly mature into a pseudocyst. Repeat imaging after d/c to f/u
Should have eventual cholecystectomy
Follow up with Dr Marte after d/c
Will sign off again. Please call back if needed.
Assessment / Plan
-
Summary: 74yo presents with abdominal pain to back and nausea after eating dinner on 06/14. Admitted for sepsis with WBC 21,900, hbg 15.2, and after admission creat up to 2.7, lactate 4.7 with rise in bili to 7.5, AST 492, ALT 329, and lipase
>4000. He takes NSAIDs several times per week for pain. He did have several episode of non bloody emesis after onset of pain. No ETOH use, no new medications, no hx pancreatitis in past or family hx pancreatic issues. No GPL-1 use or wt loss.
06/14/25 US abdomen with fatty liver, mild hepatomegaly
06/15/25 CT AP w/o contrast- Severe acute pancreatitis. Mild hepatosplenomegaly. Probable stones in the common bile duct. Mild ascites.
06/15/25 EUS - Multiple CBD stones. Diffuse pancreatic echogenicity and hyperechoic strands in head.
06/15/25 ERCP- Major papilla was not found due to edema
06/17/25 ERCP- Duodenitis. CBD stones removed with biliary sphincterotomy and balloon extraction and 10Fr x 5cm stent placed into CHD. Pancreatic sphincterotomy and 4Fr x 4cm external pigtail and no internal flaps stent placed into PD
06/24/25 CT AP w/PO CONTRAST only- Severe acute pancreatitis. 6.1 x 4.0 x 2.0 cm acute peripancreatic fluid collection in LUQ (reread as 10mm). Biliary stent in place. Dislodged pancreatic stent in SB. Small ascites. Moderate pneumobilia due to
sphincterotomy.
Impression:
Gallstone pancreatitis
Choledocholithiasis s/p ERCP removal
ARF
Acute CVA
-elevated LFT's nearly normalized
-leukocytosis - WBC up to 25K
-elevated lactate - resolved
-SAMANTHA worsening after admission - Cr 2.3
other med problems:
-obesity, HTN, hyperlipidemia, NIDDM, shingles, urinary retention with st cath daily, arthritis, vasectomy, BPH prior turp, prostate biopsy, spinal injection
Subjective
Subjective
Date of Service: June 24, 2025
Denies complaints. Appetite is good and ate full lunch. Denies abd pain
Objective
Data Reviewed
Laboratory Data:
Laboratory Results
06/24/25 04:49
06/24/25 04:49
Laboratory Results
PT 15.7 Sec (11.4-14.6) H 06/15/25 13:55
INR 1.22 06/15/25 13:55
APTT 83.0 Sec (23.4-35.0) H 06/23/25 04:40
Phosphorus 4.1 mg/dl (2.5-4.5) 06/24/25 04:49
Magnesium 1.7 mg/dl (1.6-2.3) 06/24/25 04:49
Total Bilirubin 1.0 mg/dl (0.2-1.3) 06/24/25 04:49
AST 33 U/L (17-59) 06/24/25 04:49
ALT 69 U/L (0-50) H 06/24/25 04:49
Alkaline Phosphatase 116 U/L (38-126) 06/24/25 04:49
Lipase 187 U/L (23-300) 06/22/25 04:17
Vital Signs and I&O:
Vital Signs
Temp Pulse Resp BP Pulse Ox
97.8 F 82 18 149/62 95
06/24/25 15:36 06/24/25 14:58 06/24/25 14:58 06/24/25 12:05 06/24/25 14:58
I&O
06/23/25 06/24/25 06/25/25
06:59 06:59 06:59
Intake Total 1724.6 / 1737.6 1562 / 1562 1112 / 1112
Output Total 1900 / 1975 685 / 685 1100 / 1100
Balance -175.4 / -237.4 877 / 877
Physical Exam
Physical Exam
GI: Soft, Distended and Non Tender
--- NOTE | 2025-06-24 17:00 | PTCARENOTE ---
Pt was transferred to [facility] in wheelchair with all belongings, handoff given to Urszula CASE.
--- NOTE | 2025-06-24 17:20 | PTCARENOTE ---
Received patient as transfer from ICU into room 406-1. Pt stood and pivoted from WC to bed with x2 assist. AAOx3, VSS, denies pain. Tele showing NSR with PAC's. Bed alarm in place. Pt oriented to room and has call hernandez within reach. Instructed to
ring for assistance if getting OOB.
[2025-06-24 17:23] LABS: Glucose - Point of Care 218 mg/dl (70-99)
[2025-06-24] MEDS: LIPITOR 40 MG PO (17:27)
[2025-06-24] MEDS: TYLENOL 650 MG PO (18:41)
[2025-06-24] MEDS: LIDOCAINE 4% PATCH 1 PATCH TOPICAL (20:28)
[2025-06-24 20:40] LABS: Glucose - Point of Care 189 mg/dl (70-99)
[2025-06-24] MEDS: MELATONIN 5 MG PO (23:09)
[2025-06-25] VITALS (8 sets, daily range): BP systolic 137–172; BP diastolic 59–83; PULSE 88; BMI 30.5
[2025-06-25] MEDS: MERREM 500 MG IV ×3 (04:04→20:34)
[2025-06-25] MEDS: STERILE WATER FOR INJECTION 10 ML IV ×3 (04:04→20:34)
--- NOTE | 2025-06-25 07:16 | PN.DE.MGMTRT ---
Insulin Management
- -
06/25/2025: Diabetes Management Follow up
Patient admitted 06/14 with c/o severe mid - upper abdominal pain into back with nausea, chest pain - acute pancreatitis.
PMH: HTN, HLD, diabetes, BPH, urinary retention, ckd 3b. Has had diabetes 30+ years. Prior to admission was taking glimepiride 4 mg daily, metformin 500 mg BID. A1C on admission 6.5%, cr 3--2.1, eGFR 32.42 today.
Patient awake alert and oriented eating breakfast able discuss diabetes care. States he has been taking glimepiride and metformin for about 3 - 4 years and sees his primary doctor for ongoing diabetes care. He has never tested his glucose. Insulin
infusion stopped 06/22, glucose 147. Corrective insulin only ordered.
Yesterday received Lantus 20 units in AM, and AC novolog 10 units started, high corrective insulin continued. Glucose range 218 to 270, hs 189.
Fasting glucose today 177. Will continue AM lantus 20 units and increase AC novolog from 10 units to 14 units reduce high corrective insulin to moderate AC.
When patient condition improves will provide glucose monitor and educate on testing procedure and appropriate times to test.
Discussed with nurse. Will cont to follow
Diabetes History
- -
Type of Diabetes: 2 requiring insulin
Pre-Admission Diabetes Regimen
Lab Results
Hemoglobin A1c 6.5 % (4.0-5.9) H 06/15/25 04:45
Insulin Pump Settings
IP Diabetes Regimen
06/24/25 06/24/25 06/24/25
07:13 12:02 17:22
POC Glucose 270 H 239 H 218 H
06/24/25
20:38
POC Glucose 189 H
Meal type: Lunch
Meal type: Breakfast
Amount consumed: 100%
Patient Education
[2025-06-25 07:46] LABS: Glucose - Point of Care 215 mg/dl (70-99)
[2025-06-25] MEDS: DUONEB 3 ML INH ×2 (07:46→11:14)
[2025-06-25 08:00] LABS: Hematocrit 29.5 % (39.0-52.0); Hemoglobin 10.1 g/dL (13.0-18.0); Mean Corp Hgb Conc. 34.2 g/dL (33.0-37.0); Mean Corpuscular Volume 88.9 fL (80.0-94.0); Platelet Count 207 10^3/uL (130-400); Red Cell Dist. Width 13.2 % (11.5-14.5)
[2025-06-25] MEDS: VISBIOME 2 CAP PO (08:15)
[2025-06-25] MEDS: LOPRESSOR 100 MG PO ×2 (08:15→20:33)
[2025-06-25] MEDS: PROTONIX 40 MG PO ×2 (08:15→20:34)
[2025-06-25] MEDS: ELIQUIS 5 MG PO ×2 (08:16→20:33)
[2025-06-25] MEDS: PACERONE 200 MG PO ×2 (08:16→20:34)
[2025-06-25] MEDS: VITAMIN B-12 1000 MCG PO (08:16)
[2025-06-25] MEDS: NORVASC 10 MG PO (08:16)
[2025-06-25] MEDS: REMOVE LIDOCAINE PATCH 1 PATCH REMOVE (08:17)
[2025-06-25] MEDS: VITAMIN D3 (cholecalciferol) 25 MCG PO (08:17)
[2025-06-25 08:25] LABS: Nucleated Red Blood Cells % 0 % (-)
[2025-06-25 08:26] LABS: ALT (SGPT) 61 U/L (0-50); AST (SGOT) 47 U/L (17-59); Albumin 2.7 g/dl (3.5-5.0); Alkaline Phosphatase 131 U/L (38-126); Blood Urea Nitrogen 26 mg/dl (9-20); Calcium 7.7 mg/dl (8.4-10.2); Carbon Dioxide 26 mmol/L (22-30); Chloride 105 mmol/L (98-107); Estimated Creatinine Clearance 38 ml/min; Glucose 177 mg/dl (70-99); Potassium 3.5 mmol/L (3.5-5.1); Sodium 136 mmol/L (135-145); Total Protein 5.3 g/dl (6.3-8.2); eGFR 32.42
--- NOTE | 2025-06-25 09:54 | W.PN.CARDCBS ---
Today's Communication / Plan
-
Stable cardiac status, we will sign off
Outpatient follow-up to be arranged
Impression / Plan
-
PCP: Steven Silva
Export Agent: Noe Mckeon
Impression:
Presented 06/14/2025 with severe abdominal pain associated with radiation to back and nausea
Acute pancreatitis with CBD stones
s/p EUS and ERCP 06/15: inability to locate ampulla due to duodenal edema.
repeat ERCP 06/17: sphincterotomy and stone extraction, bile duct and pancreatic duct stent placements.
Acute to subacute CVA right parietal lobe by CT Jun 21
Suspected sepsis secondary to above, improved
Ileus from acute pancreatitis, improved
TME, improved
Abnormal LFTs, improving
Paroyxsmal Atrial fibrillation with rapid ventricular response new diagnosis as of 06/19/2025
SAMANTHA on CKD (baseline creat 1.7-1.9)
Leukocytosis
Hyperkalemia
Hyponatremia
Acute hypoxic respiratory insufficiency
Duodenitis on EGD
Chronic kidney disease stage IIIb
Type II DM
Hypertension
Hyperlipidemia
Obesity
History of shingles
BPH with self-catheterization / Hx TURP
Echo Jun 22 2025:Normal left ventricular chamber size myocardial thickness and systolic function. Left ventricular ejection fraction 55%. No significant valvular disease. No prior echo for comparison.
Exercise nuclear stress test 01/13/2024: 6 minutes on Vito protocol achieving 7 METS 85% age-predicted max heart rate. Normal blood pressure response. Abnormal sestamibi perfusion complicated by soft tissue attenuation with fixed defect in apical
lateral segment consistent with possible area of ischemia
CT Head Jun 21 2025: band-shaped focus of decreased density within the right parietal lobe, occupying a portion of the gyrus just posterior to the right postcentral sulcus. This is probably a portion of the superior parietal lobule. This would be
compatible with an area of acute to subacute infarction, measuring 2.4 cm transverse by 0.9 cm AP by 2.0 cm craniocaudal.
Plan:
Presented 06/14/2025 with severe abdominal pain associated with radiation to back and nausea and was found to have acute severe pancreatitis with CBD stones. Status post ERCP/sphincterectomy, stone extraction, bile duct and pancreatic duct stents
06/17/2025. Complicated by ileus
Neuro work up per primary service. MRI brain 06/23: subacute infarction within the right parietal lobe within associated developing cortical laminar necrosis.
Mild atrophy with sequelae of mild chronic small vessel ischemic disease.. CT noted. 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
Patient developed atrial fibrillation with rapid ventricular response on morning of 06/19/2025 this is new diagnosis for patient
Converted to sinus.
Cont amiodarone 200 mg BID
Cont Lopressor 100 mg BID by hospitalist for HTN and HR control.
Cont anticoagulation with Eliquis 5 mg BID as no further procedures are planned after GI and surgery input.
Echocardiogram with preserved EF, noted above
IV lasix as per nephrology, lasix 20 mg IV on 06/[address]
pBNP 6250 Jun 22
Stable cardiac status, we will sign off
Outpatient follow-up to be arranged
Discussed with nursing and family at bedside.
HPI 06/19/2025:
Patient is a 74-year-old male with PMH of CKD stage IIIb, NIDDM, HTN, HLD, and BPH with self catheterization who presented to emergency department 06/14/2025 with severe mid to upper left and right abdominal pain through to his back with nausea.
Patient was found to have severe acute pancreatitis with abnormal LFTs, leukocytosis, SAMANTHA. Also found to have ileus. He underwent EUS ERCP 06/15/2025 with inability to locate ampulla due to duodenal edema. He underwent repeat ERCP on 06/17/2025
with removal of CBD stones and stent to common hepatic and pancreatic duct. Patient developed atrial fibrillation with rapid ventricular response on bucket chucker of 06/19/2025 prompting cardiology consult. At time of this evaluation patient
lethargic in bed with at bedside. She helps to provide history. Prior to presentation to hospital patient was a active 74-year-old male with no concerning cardiac symptoms. He walked his dog regularly as well as performed out side yard work
and chores without concerning cardiac symptoms.
Progress Note - Export Agent
Subjective
Date of Service: June 25, 2025
No acute overnight events. No cardiac complaints today. Maintaining sinus rhythm on review of telemetry.
Objective
Labs:
06/25/25 07:35
06/25/25 07:35
Labs
Hgb 10.1 g/dL (13.0-18.0) L 06/25/25 07:35
Hct 29.5 % (39.0-52.0) L 06/25/25 07:35
Plt Count 207 10^3/uL (130-400) 06/25/25 07:35
PT 15.7 Sec (11.4-14.6) H 06/15/25 13:55
INR 1.22 06/15/25 13:55
APTT 83.0 Sec (23.4-35.0) H 06/23/25 04:40
Sodium 136 mmol/L (135-145) 06/25/25 07:35
Potassium 3.5 mmol/L (3.5-5.1) 06/25/25 07:35
BUN 26 mg/dl (9-20) H 06/25/25 07:35
Creatinine 2.1 mg/dL (0.7-1.3) H 06/25/25 07:35
Glucose 177 mg/dl (70-99) H 06/25/25 07:35
Vital Signs and I&O:
Vital Signs
Temp Pulse Resp BP Pulse Ox
97.1 F 96 17 171/80 94
06/25/25 07:15 06/25/25 08:15 06/25/25 07:50 06/25/25 08:15 06/25/25 07:50
Vital Signs
Temp Pulse Resp BP Pulse Ox
97.1 F 96 17 171/80 94
06/25/25 07:15 06/25/25 08:15 06/25/25 07:50 06/25/25 08:15 06/25/25 07:50
Intake & Output
06/23/25 06/24/25 06/25/25 06/26/25
06:59 06:59 06:59 06:59
Intake Total 1724.6 / 1737.6 1562 / 1562 1592 / 1592
Output Total 1899 / 1974 685 / 685 2350 / 2350
Balance -175.4 / -237.4 877 / 877 -758 / -758
Physical Exam
Physical Exam
Gen: NAD, AA
HEENT: NC/AT, sclera anicteric
Neck: No JVD
CV: RRR, NL s1/s2, no M/R/G
Lungs: CTAB
Abd: S/ND
: Carbone with scooter urine
Ext: No LE edema
Skin: Warm, dry
--- NOTE | 2025-06-25 09:55 | W.PN.ID1 ---
Date of Service
Date of Service: June 25, 2025
Today's Communication
- continue with meropenem
- Trend wbc.
Assessment / Plan
Leukocytosis with L shift, trending up
Severe Acute pancreatitis s/p biliary stent, pancreatic stent 06/17
Ascites vs developing peripancreatic fluid collection
SAMANTHA on CKD3, baseline Cr ~1.9
BPH, chronic QUINONEZ/hydronephrosis worse after geller dc. Geller reinserted 06/24.
- 06/22 blood cultures x2 no growth to date
- 06/16-06/21 multiple CXRs read as atelectasis vs developing pneumonia; patient however with no cough or sputum production
- 06/24 CT increase peripancreatic fluid; new LUQ fluid collection only 10 mm in the coronal plan - too small for drain per IR. Per GI, PD stent is supposed to self-dislodge as seen in CT
- continue with meropenem
- Trend wbc.
Chief Complaint
-: Leukocytosis
Subjective / Review of Systems
afebrile
bp stable
geller replaced for bladder obstruction with 1.1L output
Vital Signs / Physical Exam
Vital Signs
Vital Signs
Temp Pulse Resp BP Pulse Ox
97.1 F 96 17 171/80 94
06/25/25 07:15 06/25/25 08:15 06/25/25 07:50 06/25/25 08:15 06/25/25 07:50
Physical Exam
Constitutional: No Acute Distress
Cardiovascular: Regular Rate and S1/S2; Negative Murmur or Rub
Pulmonary: Clear and Symmetric; Negative Wheezes or Rales
Gastrointestinal: Soft, Non Tender, Distended and Normal Bowel Sounds
Skin: Warm and Dry; Negative Rash or Jaundice
Objective Data
Lab Data
Lab Results
06/25/25 07:35
06/25/25 07:35
PT 15.7 Sec (11.4-14.6) H 06/15/25 13:55
INR 1.22 06/15/25 13:55
APTT 83.0 Sec (23.4-35.0) H 06/23/25 04:40
Estimated Creat Clear 38 ml/min 06/25/25 07:35
Lactic Acid 0.6 mmol/L (0.7-2.0) L 06/21/25 09:12
Total Bilirubin 1.0 mg/dl (0.2-1.3) 06/25/25 07:35
AST 47 U/L (17-59) 06/25/25 07:35
ALT 61 U/L (0-50) H 06/25/25 07:35
Alkaline Phosphatase 131 U/L (38-126) H 06/25/25 07:35
C-Reactive Protein Cancelled 06/17/25 06:00
Most recent labs reviewed.
Micro Results:
06/21/25 12:39 Blood Culture - Preliminary
Blood/Venous No Growth in 72 hours- Final report to follow
06/21/25 09:56 Blood Culture - Preliminary
Blood/Venous No Growth in 72 hours- Final report to follow
06/22/25 11:26 C. difficile GDH Antigen & Toxins - Final
Feces/Stool Negative for toxigenic C.difficile
06/15/25 12:01 Blood Culture - Final
Blood/Venous No Growth - Final Report
06/15/25 11:30 Blood Culture - Final
Blood/Venous No Growth - Final Report
06/14/25 21:22 Blood Culture - Final
Blood/Venous No Growth - Final Report
06/14/25 21:22 Blood Culture - Final
Blood/Venous No Growth - Final Report
06/15/25 19:59 Urine Culture - Final
Urine NO GROWTH
06/24/25 CT a/p:
1. SEVERE ACUTE PANCREATITIS with an interval increase in peripancreatic fluid.
2. 6.1 cm acute peripancreatic collection in the left upper quadrant of the abdomen.
3. Plastic biliary stent in place.
4. Dislodged pancreatic stent located in a small bowel loop in the left side of the abdomen.
5. Small volume of ascites.
6. Moderate pneumobilia in the liver secondary to interval biliary sphincterotomy.
7. Moderate to severe distention of the urinary bladder consistent with ACUTE URINARY BLADDER OUTLET OBSTRUCTION.
8. SEVERE BILATERAL HYDROURETER and MODERATE BILATERAL HYDRONEPHROSIS which has increased since 06/15/2025.
9. Severely enlarged prostate gland.
--- NOTE | 2025-06-25 10:19 | W.PN.HOSP.TC ---
Today's Communication/Plan
-
Clinically feeling better
cont Merrem
follow AM labs
cont on Carbone
Assessment / Plan
Assessment / Plan
74yo M with PMHx of HTN, Afib, CHARLIE, DM, chronic urinary retention with self cath at home admitted with abdominal pain, nausea, vomiting, CT found acute pancreatitis and duodenitis as well as acute cholangittis with stones seen in CBD on CT, had ERCP
on 06/17/25 and remained on Abx afterwards. Due to worsening leukocytosis CT abd/pelvis repeated on 06/24/25 and showed b/l hydronephrosis 2/2 bladder outlet obstruction, so Carbone was placed back. Also concern for loculated fluid collection in the
left upper quadrant, however most likely developing pancreatic cyst and GI with IRAD did not recommend drainage and possible HAP
A/P:
#Acute gall stone pancreatitis
#Choledocholithiasis with cholangitis
#Transaminitis 2/2 above
s/p hydration
Bcx NTD
GI follows: S/P ERCP on 06/17/25 with sphincterotomy and stent placement, that later dislodged - discussed with GI and since LFT WNL, there is no further concerns
LFT elevated again on 06/21/25 - US RUQ without new pathology, showed patent stent, LFT started to improve with better HR control
GEnSX eventually planning cholecystectomy after full recovery
CT on 06/24/25 showed persistent pancreatic inflammation and loculated fluid collection in the left upper quadrant of the abdomen 6cm, ID switched to Merrem as of 06/24/25, As per IRAD review: Size of this collection is overstated. It�s only 10 mm
in the coronal plane. It�s too small to put a drain into
#Persistent leukocytosis
repeated Bcx NTD
Chest XR without overt pneumonia
follow CBC
Patient started to improve on 06/22/25
No signs of developing sepsis - not hypotensive and not febrile
Redness around PICC line - remove
ID consult
#Concern for LLL HAP
Ct showed airspace consolidation in the basilar segments of the left lower lobe containing air bronchograms.
Now on merrem as per ID
#Diarrhea
most likely 2/2 previous ileus
hold laxatives
C.diff neg
#Paroxysmal Afib with RVR
poor control on max Cardizem improved on Amiodarone on 06/21/25. Cont PO amio and BB as per cardio
cotn telemetry
Cardiology followed: signed off
TSH WNL
HEparin drip switched to Eliquis finalized decisions on cholecystectomy
Echo: EF 55%, normal systolic and diastolic function, no significant valvular disease
#Acute/subacute CVA
Band-shaped focus of decreased density within the right parietal lobe as described, which likely represents an area of acute to subacute infarction seen on CT on 06/21/25
cont Heparin and later Eliquis as per neurology
start statin when LFT improved
MRI/MRA brain pending
accuchecks
PT/OT
TSH 0.72 - WNL
HgbA1c 6.5%
LDL 85
#SAMANTHA on CKD stage 3b
#Moderate L hydroureter 2/2 chronic bladder outlet obstruction
#BPH with chronic urinary retention on self cath at home
#Volume overload without CHF
#Large BPH s/p TURP
US showed no hydronephrosis b/l as of 06/21/25
Cr baseline 1.9-1.8
SAMANTHA resolved as of 06/20/25, but then worsened with TOV again
follow Cr
Wash Box Operator follows: lasix on 06/23/25
Carbone removed on 06/22/25 but worsening b/l hydronephrosis - placed back on 06/24/25
#Anasarca
2/2 IVF for pancreatitis
Lasix
#DM with possible mild DKA
restarted insulin SS with accuchecks since on diet since 06/22/25
DM diet when able to eat
DM SOCIAL MEDIA PROJECT MANAGER follows
#Acute hypoxic respiratory failure on 6l O2 2/2 acute disease
off O2 as of 06/21/25
chest XR with atelectasis - IS
ABG w/o hypercarbia
#Distended abd
since admission
moderate ascites on initial CT
#Acute metabolic encephalopathy
worsened on 06/21/[address]
CT head reasonable with new heparin drip and AMS
Cannot exclude iatrogenic: received Haldol 8h prior on the top of CKD
#Ileus - resolved
s/p NG tube
BS present
XR on 06/19/25 - no obstructive pattern, BM daily since then
#Hypokalemia
#Hypomagnesemia
#Hypokalemia
#Hypocalcemia
replete and follow
#Duodenitis
PPI as per GI
#Hepatosplenomegaly
Advise outpatient follow up, unclear reason for now
#Diverticulosis w/o diverticulitis
high fiber diet
DVT ppx Eliquis
Full code
I have spent at least 53min critical care time reviewing chart, test results, communication with consultants, bedside and providing direct patient care
Anticipated Discharge: > 48 hours
Subjective/Interval History
-
Date of Service: June 25, 2025
Objective Data
-
Labs:
Laboratory Results
06/25/25
07:35
WBC 25.3 H
Hgb 10.1 L
Hct 29.5 L
Plt Count 207
Sodium 136
Potassium 3.5
Chloride 105
Carbon Dioxide 26
BUN 26 H
Creatinine 2.1 H
Glucose 177 H
Calcium 7.7 L
Total Bilirubin 1.0
AST 47
ALT 61 H
Alkaline Phosphatase 131 H
Vital Signs:
Vital Signs
Temp Pulse Resp BP Pulse Ox
97.1 F 96 17 171/80 94
06/25/25 07:15 06/25/25 08:15 06/25/25 07:50 06/25/25 08:15 06/25/25 07:50
I&O
06/24/25 06/25/25 06/26/25
06:59 06:59 06:59
Intake Total 1562 / 1562 1592 / 1592
Output Total 685 / 685 2350 / 2350
Balance 877 / 877 -758 / -758
Review of Systems
-
History Source: Patient
All other systems: Reviewed and negative
Physical Exam
-
General: No Apparent Distress
HEENT: Normocephalic
Respiratory: Clear to Auscultation
Cardiac: Regular Rhythm
GI: Nontender and Distended
Genito-urinary: Clear Urine and Carbone
Musculoskeletal: No Clubbing, No Cyanosis and No Edema
Neuro: Awake, Alert, Oriented and AO x 3
Psych: Calm
[2025-06-25] MEDS: LANTUS 0.2 UNITS SC (10:25)
[2025-06-25] MEDS: NOVOLOG FLEXPEN-MODERATE RESISTANCE 3 UNITS SC ×2 (10:26→13:44)
[2025-06-25] MEDS: NOVOLOG FLEXPEN 14 UNITS SC ×3 (10:26→17:57)
[2025-06-25 12:01] LABS: Glucose - Point of Care 227 mg/dl (70-99)
--- NOTE | 2025-06-25 14:13 | W.PN.NEPH.PH ---
Today's Communication / Plan
-
Lasix
Assessment/Plan
-
Impression:
SAMANTHA (2.7)
CKD 3b(1.7-1.9 )
Metabolic acidosis
Hyperkalemia
Profound abdominal pain likely due to evolving pancreatitis/sepsis
Abnormal LFTs
History of HTN
History of diabetes
History of profound BPH requiring self-catheterization daily
Plan:
lasix today
follow BMP
remains on broad spectrum abx
-
-
Date of Service: June 25, 2025
CC / HPI / ROS
-
Chief Complaint:
SAMANTHA
History of Present Illness:
SAMANTHA/Cr down to 2.1
WBC remains elevated 25
geller back in due to failed voiding trial 06/24/2025
BP stable
Afib controlled with amiodarone and on IV heparin
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
Review of Systems:
no pain
awake and interactive
Labs
-
Labs:
WBC 25.3 10^3/uL (4.8-10.8) H 06/25/25 07:35
RBC 3.32 10^6/uL (4.70-6.10) L 06/25/25 07:35
Hgb 10.1 g/dL (13.0-18.0) L 06/25/25 07:35
Hct 29.5 % (39.0-52.0) L 06/25/25 07:35
Plt Count 207 10^3/uL (130-400) 06/25/25 07:35
Sodium 136 mmol/L (135-145) 06/25/25 07:35
Potassium 3.5 mmol/L (3.5-5.1) 06/25/25 07:35
Chloride 105 mmol/L (98-107) 06/25/25 07:35
Carbon Dioxide 26 mmol/L (22-30) 06/25/25 07:35
BUN 26 mg/dl (9-20) H 06/25/25 07:35
Creatinine 2.1 mg/dL (0.7-1.3) H 06/25/25 07:35
eGFR 32.42 06/25/25 07:35
Glucose 177 mg/dl (70-99) H 06/25/25 07:35
Calcium 7.7 mg/dl (8.4-10.2) L 06/25/25 07:35
Phosphorus 4.1 mg/dl (2.5-4.5) 06/24/25 04:49
Lhm-F-Lurjpmwltsw Pept 6250 pg/ml 06/22/25 04:17
Albumin 2.7 g/dl (3.5-5.0) L 06/25/25 07:35
Physical Exam
-
Vital Signs:
Vital Signs
Temp Pulse Resp BP Pulse Ox
98.3 F 91 18 137/78 95
06/25/25 11:38 06/25/25 11:38 06/25/25 11:38 06/25/25 11:38 06/25/25 11:38
Cardiovascular:: Regular rate and rhythm
Respiratory:: Bilateral: CTA
Lung Excursion:: Normal
Abdomen:: Nontender and Soft
Bowel Sounds:: Normal
Extremity Edema:: +3: Bilateral:
[2025-06-25] MEDS: DUONEB INH ×2 (15:02→20:04)
[2025-06-25] MEDS: LASIX 20 MG IV (16:02)
[2025-06-25 16:29] LABS: Glucose - Point of Care 133 mg/dl (70-99)
[2025-06-25] MEDS: NOVOLOG FLEXPEN-MODERATE RESISTANCE SC (17:04)
[2025-06-25] MEDS: LIPITOR 40 MG PO (17:36)
--- NOTE | 2025-06-25 18:41 | CM ---
Chart reviewed.
cont Merrem IV
follow AM labs; elevated WBCs
cont on [place]
Pt and informed of the following SNF results:
[facility]- accepted
[facility] _ denied, Once pt is closer to d/c can send in updated clinicals
[facility] - referral viewed 06/21/25
[facility] - referral reviewed 06/21/25
Plan: DC to SNF [facility] is 1st choice.
[2025-06-25] MEDS: LIDOCAINE 4% PATCH 1 PATCH TOPICAL (20:33)
[2025-06-25] MEDS: MELATONIN 5 MG PO (20:34)
[2025-06-25] MEDS: DILAUDID 1 MG PO (20:34)
[2025-06-25 21:09] LABS: Glucose - Point of Care 74 mg/dl (70-99)
[2025-06-25] MEDS: TYLENOL 650 MG PO (23:01)
[2025-06-26] VITALS (7 sets, daily range): BP systolic 132–160; BP diastolic 62–71; PULSE 90; O2SAT 95; BMI 30.4
[2025-06-26] MEDS: STERILE WATER FOR INJECTION 10 ML IV ×3 (04:23→21:20)
[2025-06-26] MEDS: MERREM 500 MG IV ×3 (04:23→21:20)
[2025-06-26 07:13] LABS: Hematocrit 29.1 % (39.0-52.0); Hemoglobin 9.9 g/dL (13.0-18.0); Mean Corp Hgb Conc. 34.0 g/dL (33.0-37.0); Mean Corpuscular Volume 87.1 fL (80.0-94.0); Nucleated Red Blood Cells % 0 % (-); Platelet Count 235 10^3/uL (130-400); Red Cell Dist. Width 13.1 % (11.5-14.5)
[2025-06-26] MEDS: DUONEB INH ×2 (07:29→11:37)
[2025-06-26 07:52] LABS: ALT (SGPT) 73 U/L (0-50); AST (SGOT) 67 U/L (17-59); Albumin 2.7 g/dl (3.5-5.0); Alkaline Phosphatase 134 U/L (38-126); Blood Urea Nitrogen 26 mg/dl (9-20); Calcium 7.4 mg/dl (8.4-10.2); Carbon Dioxide 28 mmol/L (22-30); Chloride 104 mmol/L (98-107); Estimated Creatinine Clearance 38 ml/min; Glucose 137 mg/dl (70-99); Potassium 3.4 mmol/L (3.5-5.1); Sodium 137 mmol/L (135-145); Total Protein 5.5 g/dl (6.3-8.2); eGFR 32.42
[2025-06-26 08:05] LABS: Glucose - Point of Care 161 mg/dl (70-99)
[2025-06-26] MEDS: LANTUS 0.2 UNITS SC (08:16)
[2025-06-26] MEDS: NOVOLOG FLEXPEN 14 UNITS SC ×3 (08:17→18:01)
[2025-06-26] MEDS: LASIX 20 MG IV (08:18)
[2025-06-26] MEDS: NOVOLOG FLEXPEN-MODERATE RESISTANCE 1 UNITS SC ×2 (08:18→18:01)
[2025-06-26] MEDS: VITAMIN D3 (cholecalciferol) 25 MCG PO (08:19)
[2025-06-26] MEDS: NORVASC 10 MG PO (08:19)
[2025-06-26] MEDS: VITAMIN B-12 1000 MCG PO (08:19)
[2025-06-26] MEDS: LOPRESSOR 100 MG PO ×2 (08:19→21:19)
[2025-06-26] MEDS: PACERONE 200 MG PO ×2 (08:19→21:19)
[2025-06-26] MEDS: PROTONIX 40 MG PO ×2 (08:19→21:19)
[2025-06-26] MEDS: VISBIOME 2 CAP PO (08:19)
[2025-06-26] MEDS: REMOVE LIDOCAINE PATCH 1 PATCH REMOVE (08:20)
[2025-06-26] MEDS: ELIQUIS 5 MG PO ×2 (08:20→21:19)
[2025-06-26] MEDS: KCL 40 MEQ PO (08:37)
[2025-06-26 09:12] LABS: Magnesium 1.8 mg/dl (1.6-2.3)
--- NOTE | 2025-06-26 10:57 | W.PN.HOSP.TC ---
Today's Communication/Plan
-
cont merrem as leukocytosis improving
Lasix as per nephro
cont Carbone
PT/OT
labs in AM - follow LFT
Assessment / Plan
Assessment / Plan
74yo M with PMHx of HTN, Afib, CHARLIE, DM, chronic urinary retention with self cath at home admitted with abdominal pain, nausea, vomiting, CT found acute pancreatitis and duodenitis as well as acute cholangittis with stones seen in CBD on CT, had ERCP
on 06/17/25 and remained on Abx afterwards. Due to worsening leukocytosis CT abd/pelvis repeated on 06/24/25 and showed b/l hydronephrosis 2/2 bladder outlet obstruction, so Carbone was placed back. Also concern for loculated fluid collection in the
left upper quadrant, however most likely developing pancreatic cyst and GI with IRAD did not recommend drainage and possible HAP
A/P:
#Acute gall stone pancreatitis
#Choledocholithiasis with cholangitis
#Transaminitis 2/2 above
s/p hydration
Bcx NTD
GI follows: S/P ERCP on 06/17/25 with sphincterotomy and stent placement, that later dislodged - discussed with GI and since LFT WNL, there is no further concerns
LFT elevated again on 06/21/25 - US RUQ without new pathology, showed patent stent, LFT started to improve with better HR control
GEnSX eventually planning cholecystectomy after full recovery
CT on 06/24/25 showed persistent pancreatic inflammation and loculated fluid collection in the left upper quadrant of the abdomen 6cm, ID switched to Merrem as of 06/24/25, As per IRAD review: Size of this collection is overstated. It�s only 10 mm
in the coronal plane. It�s too small to put a drain into
#Persistent leukocytosis
repeated Bcx NTD
Chest XR without overt pneumonia
follow CBC
Patient started to improve on 06/22/25
No signs of developing sepsis - not hypotensive and not febrile
Redness around PICC line - remove
ID consult
#Concern for LLL HAP
Ct showed airspace consolidation in the basilar segments of the left lower lobe containing air bronchograms.
Now on merrem as per ID
#Diarrhea
most likely 2/2 previous ileus
hold laxatives
C.diff neg
#Paroxysmal Afib with RVR
poor control on max Cardizem improved on Amiodarone on 06/21/25. Cont PO amio and BB as per cardio
cotn telemetry
Cardiology followed: signed off
TSH WNL
HEparin drip switched to Eliquis finalized decisions on cholecystectomy
Echo: EF 55%, normal systolic and diastolic function, no significant valvular disease
#Acute/subacute CVA
Band-shaped focus of decreased density within the right parietal lobe as described, which likely represents an area of acute to subacute infarction seen on CT on 06/21/25
cont Heparin and later Eliquis as per neurology
start statin when LFT improved
MRI/MRA brain pending
accuchecks
PT/OT
TSH 0.72 - WNL
HgbA1c 6.5%
LDL 85
#SAMANTHA on CKD stage 3b
#Moderate L hydroureter 2/2 chronic bladder outlet obstruction
#BPH with chronic urinary retention on self cath at home
#Volume overload without CHF
#Large BPH s/p TURP
US showed no hydronephrosis b/l as of 06/21/25
Cr baseline 1.9-1.8
SAMANTHA resolved as of 06/20/25, but then worsened with TOV again
follow Cr
Pharmacist Manager follows: lasix on 06/23/25
Carbone removed on 06/22/25 but worsening b/l hydronephrosis - placed back on 06/24/25
#Anasarca
2/2 IVF for pancreatitis
Lasix
#DM with possible mild DKA
restarted insulin SS with accuchecks since on diet since 06/22/25
DM diet when able to eat
DM DROP BOARD WORKER follows
#Acute hypoxic respiratory failure on 6l O2 2/2 acute disease
off O2 as of 06/21/25
chest XR with atelectasis - IS
ABG w/o hypercarbia
#Distended abd
since admission
moderate ascites on initial CT
#Acute metabolic encephalopathy
worsened on 06/21/25
No [address]
CT head reasonable with new heparin drip and AMS
Cannot exclude iatrogenic: received Haldol 8h prior on the top of CKD
#Ileus - resolved
s/p NG tube
BS present
XR on 06/19/25 - no obstructive pattern, BM daily since then
#Hypokalemia
#Hypomagnesemia
#Hypokalemia
#Hypocalcemia
replete and follow
#Duodenitis
PPI as per GI
#Hepatosplenomegaly
Advise outpatient follow up, unclear reason for now
#Diverticulosis w/o diverticulitis
high fiber diet
DVT ppx Eliquis
Full code
I have spent at least 53min critical care time reviewing chart, test results, communication with consultants, bedside and providing direct patient care
Anticipated Discharge: > 48 hours
Subjective/Interval History
-
Date of Service: June 26, 2025
Objective Data
-
Labs:
Laboratory Results
06/26/25
07:03
WBC 22.4 H
Hgb 9.9 L
Hct 29.1 L
Plt Count 235
Sodium 137
Potassium 3.4 L
Chloride 104
Carbon Dioxide 28
BUN 26 H
Creatinine 2.1 H
Glucose 137 H
Calcium 7.4 L
Total Bilirubin 0.9
AST 67 H
ALT 73 H
Alkaline Phosphatase 134 H
Vital Signs:
Vital Signs
Temp Pulse Resp BP Pulse Ox
98.6 F 81 18 160/67 95
06/26/25 07:48 06/26/25 07:48 06/26/25 07:48 06/26/25 07:48 06/26/25 07:48
I&O
06/25/25 06/26/25 06/27/25
06:59 06:59 06:59
Intake Total 1592 / 1592 960 / 960
Output Total 2350 / 2350 3250 / 3250
Balance -758 / -758 -2290 / -2290
Review of Systems
-
History Source: Patient
All other systems: Reviewed and negative
Physical Exam
-
General: No Apparent Distress
HEENT: Normocephalic
GI: Soft, Nontender and Nondistended
Musculoskeletal: No Clubbing, No Cyanosis, Edema, Right Lower Extrem and Edema, Left Lower Extrem
Neuro: Awake, Alert, Oriented and AO x 3
Psych: Calm
--- NOTE | 2025-06-26 11:28 | W.PN.NEPH.PH ---
Today's Communication / Plan
-
hold lasix
Assessment/Plan
-
Impression:
SAMANTHA (2.7)
CKD 3b(1.7-1.9 )
Metabolic acidosis
Hyperkalemia
Profound abdominal pain likely due to evolving pancreatitis/sepsis
Abnormal LFTs
History of HTN
History of diabetes
History of profound BPH requiring self-catheterization daily
Plan:
hold lasix today, will use po lasix tomorrow
follow BMP
remains on broad spectrum abx
-
-
Date of Service: June 26, 2025
CC / HPI / ROS
-
Chief Complaint:
SAMANTHA
History of Present Illness:
SAMANTHA/Cr down to 2.1 stable
WBC remains elevated 22 but better
geller back in due to failed voiding trial 06/24/2025
BP stable
Afib controlled with amiodarone and on IV heparin
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
Review of Systems:
no pain
awake and interactive
Labs
-
Labs:
WBC 22.4 10^3/uL (4.8-10.8) H 06/26/25 07:03
RBC 3.34 10^6/uL (4.70-6.10) L 06/26/25 07:03
Hgb 9.9 g/dL (13.0-18.0) L 06/26/25 07:03
Hct 29.1 % (39.0-52.0) L 06/26/25 07:03
Plt Count 235 10^3/uL (130-400) 06/26/25 07:03
Sodium 137 mmol/L (135-145) 06/26/25 07:03
Potassium 3.4 mmol/L (3.5-5.1) L 06/26/25 07:03
Chloride 104 mmol/L (98-107) 06/26/25 07:03
Carbon Dioxide 28 mmol/L (22-30) 06/26/25 07:03
BUN 26 mg/dl (9-20) H 06/26/25 07:03
Creatinine 2.1 mg/dL (0.7-1.3) H 06/26/25 07:03
eGFR 32.42 06/26/25 07:03
Glucose 137 mg/dl (70-99) H 06/26/25 07:03
Calcium 7.4 mg/dl (8.4-10.2) L 06/26/25 07:03
Phosphorus 3.9 mg/dl (2.5-4.5) 06/26/25 07:03
Yru-Q-Uropjwskpug Pept 6250 pg/ml 06/22/25 04:17
Albumin 2.7 g/dl (3.5-5.0) L 06/26/25 07:03
Physical Exam
-
Vital Signs:
Vital Signs
Temp Pulse Resp BP Pulse Ox
98.1 F 83 18 150/71 95
06/26/25 11:22 06/26/25 11:22 06/26/25 11:22 06/26/25 11:22 06/26/25 11:22
Cardiovascular:: Regular rate and rhythm
Respiratory:: Bilateral: Coarse
Lung Excursion:: Normal
Abdomen:: Nontender and Soft
Bowel Sounds:: Normal
Extremity Edema:: +2: Bilateral:
[2025-06-26 11:36] LABS: Glucose - Point of Care 243 mg/dl (70-99)
[2025-06-26] MEDS: NOVOLOG FLEXPEN-MODERATE RESISTANCE 3 UNITS SC (12:28)
[2025-06-26] MEDS: TYLENOL 650 MG PO (14:10)
--- NOTE | 2025-06-26 15:50 | CM ---
Reviewed chart. Pt continues on IV lasix, IV ABX, and IV pain med,
[facility]. [facility] choice [facility]. Will review referrals when pt is closer to discharge
Plan: DC to SNF.
[2025-06-26 17:09] LABS: Glucose - Point of Care 197 mg/dl (70-99)
[2025-06-26] MEDS: LIPITOR 40 MG PO (18:00)
[2025-06-26] MEDS: LIDOCAINE 4% PATCH 1 PATCH TOPICAL (21:19)
[2025-06-26] MEDS: MELATONIN 5 MG PO (21:20)
[2025-06-26 21:21] LABS: Glucose - Point of Care 187 mg/dl (70-99)
[2025-06-27] VITALS (8 sets, daily range): BP systolic 124–171; BP diastolic 64–85; PULSE 88; BMI 29.9
[2025-06-27] MEDS: MERREM 500 MG IV ×3 (05:12→20:04)
[2025-06-27] MEDS: STERILE WATER FOR INJECTION 10 ML IV ×3 (05:13→20:05)
[2025-06-27 07:14] LABS: Glucose - Point of Care 259 mg/dl (70-99)
[2025-06-27 07:17] LABS: Hematocrit 29.1 % (39.0-52.0); Hemoglobin 9.8 g/dL (13.0-18.0); Mean Corp Hgb Conc. 33.7 g/dL (33.0-37.0); Mean Corpuscular Volume 87.9 fL (80.0-94.0); Nucleated Red Blood Cells % 0 % (-); Platelet Count 276 10^3/uL (130-400); Red Cell Dist. Width 13.1 % (11.5-14.5)
[2025-06-27] MEDS: LANTUS 0.2 UNITS SC (07:28)
[2025-06-27] MEDS: NOVOLOG FLEXPEN 14 UNITS SC ×3 (07:28→17:44)
[2025-06-27] MEDS: NOVOLOG FLEXPEN-MODERATE RESISTANCE 5 UNITS SC (07:28)
[2025-06-27] MEDS: NORVASC 10 MG PO (07:37)
[2025-06-27] MEDS: ELIQUIS 5 MG PO ×2 (07:37→20:06)
[2025-06-27] MEDS: VITAMIN D3 (cholecalciferol) 25 MCG PO (07:37)
[2025-06-27] MEDS: VISBIOME 2 CAP PO (07:37)
[2025-06-27] MEDS: PACERONE 200 MG PO ×2 (07:38→20:08)
[2025-06-27] MEDS: VITAMIN B-12 1000 MCG PO (07:38)
[2025-06-27] MEDS: PROTONIX 40 MG PO ×2 (07:38→20:09)
[2025-06-27] MEDS: LOPRESSOR 100 MG PO ×2 (07:38→20:07)
[2025-06-27] MEDS: REMOVE LIDOCAINE PATCH 1 PATCH REMOVE (07:43)
[2025-06-27 07:48] LABS: ALT (SGPT) 103 U/L (0-50); AST (SGOT) 93 U/L (17-59); Albumin 2.8 g/dl (3.5-5.0); Alkaline Phosphatase 160 U/L (38-126); Blood Urea Nitrogen 31 mg/dl (9-20); Calcium 7.7 mg/dl (8.4-10.2); Carbon Dioxide 27 mmol/L (22-30); Chloride 104 mmol/L (98-107); Estimated Creatinine Clearance 32 ml/min; Glucose 221 mg/dl (70-99); Potassium 4.0 mmol/L (3.5-5.1); Sodium 135 mmol/L (135-145); Total Protein 5.7 g/dl (6.3-8.2); eGFR 30.66
[2025-06-27] MEDS: LASIX IV (09:58)
--- NOTE | 2025-06-27 10:02 | W.PN.NEPH.PH ---
Today's Communication / Plan
-
po lasix
Assessment/Plan
-
Impression:
SAMANTHA (2.7)
CKD 3b(1.7-1.9 )
Metabolic acidosis
Hyperkalemia
Profound abdominal pain likely due to evolving pancreatitis/sepsis
Abnormal LFTs
History of HTN
History of diabetes
History of profound BPH requiring self-catheterization daily
Plan:
po lasix 40mg daily
follow BMP
-
-
Date of Service: June 27, 2025
CC / HPI / ROS
-
Chief Complaint:
SAMANTHA
History of Present Illness:
SAMANTHA/Cr stable at 2.2
WBC remains elevated
geller back in due to failed voiding trial 06/24/2025
BP stable
Afib controlled with amiodarone and on IV heparin
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
Review of Systems:
no pain
awake and interactive
Labs
-
Labs:
WBC 19.4 10^3/uL (4.8-10.8) H 06/27/25 06:26
RBC 3.31 10^6/uL (4.70-6.10) L 06/27/25 06:26
Hgb 9.8 g/dL (13.0-18.0) L 06/27/25 06:26
Hct 29.1 % (39.0-52.0) L 06/27/25 06:26
Plt Count 276 10^3/uL (130-400) 06/27/25 06:26
Sodium 135 mmol/L (135-145) 06/27/25 06:26
Potassium 4.0 mmol/L (3.5-5.1) 06/27/25 06:26
Chloride 104 mmol/L (98-107) 06/27/25 06:26
Carbon Dioxide 27 mmol/L (22-30) 06/27/25 06:26
BUN 31 mg/dl (9-20) H 06/27/25 06:26
Creatinine 2.2 mg/dL (0.7-1.3) H 06/27/25 06:26
eGFR 30.66 06/27/25 06:26
Glucose 221 mg/dl (70-99) H 06/27/25 06:26
Calcium 7.7 mg/dl (8.4-10.2) L 06/27/25 06:26
Phosphorus 3.9 mg/dl (2.5-4.5) 06/26/25 07:03
Jmj-N-Mkabdfbxcqx Pept 6250 pg/ml 06/22/25 04:17
Albumin 2.8 g/dl (3.5-5.0) L 06/27/25 06:26
Physical Exam
-
Vital Signs:
Vital Signs
Temp Pulse Resp BP Pulse Ox
98.8 F 86 16 155/74 98
06/27/25 07:00 06/27/25 07:00 06/27/25 07:00 06/27/25 07:00 06/27/25 07:00
Cardiovascular:: Regular rate and rhythm
Respiratory:: Bilateral: CTA
Lung Excursion:: Normal
Abdomen:: Nontender and Soft
Bowel Sounds:: Normal
Extremity Edema:: +3: Bilateral:
[2025-06-27] MEDS: LASIX 40 MG PO (11:11)
--- NOTE | 2025-06-27 11:26 | W.PN.HOSP.TC ---
Today's Communication/Plan
-
venous US UE
cont merrem
follow LFT and CBC. Currently without abd pain
Assessment / Plan
Assessment / Plan
74yo M with PMHx of HTN, Afib, CHARLIE, DM, chronic urinary retention with self cath at home admitted with abdominal pain, nausea, vomiting, CT found acute pancreatitis and duodenitis as well as acute cholangittis with stones seen in CBD on CT, had ERCP
on 06/17/25 and remained on Abx afterwards. Due to worsening leukocytosis CT abd/pelvis repeated on 06/24/25 and showed b/l hydronephrosis 2/2 bladder outlet obstruction, so Carbone was placed back. Also concern for loculated fluid collection in the
left upper quadrant, however most likely developing pancreatic cyst and GI with IRAD did not recommend drainage and possible HAP
A/P:
#Acute gall stone pancreatitis
#Choledocholithiasis with cholangitis
#Transaminitis 2/2 above
s/p hydration
Bcx NTD
GI follows: S/P ERCP on 06/17/25 with sphincterotomy and stent placement, that later dislodged - discussed with GI and since LFT WNL, there is no further concerns
LFT elevated again on 06/21/25 - US RUQ without new pathology, showed patent stent, LFT started to improve with better HR control
GEnSX eventually planning cholecystectomy after full recovery
CT on 06/24/25 showed persistent pancreatic inflammation and loculated fluid collection in the left upper quadrant of the abdomen 6cm, ID switched to Merrem as of 06/24/25, As per IRAD review: Size of this collection is overstated. It�s only 10 mm
in the coronal plane. It�s too small to put a drain into
#Persistent leukocytosis
repeated Bcx NTD
Chest XR without overt pneumonia
follow CBC
Patient started to improve on 06/22/25
No signs of developing sepsis - not hypotensive and not febrile
Redness around PICC line - remove
ID consult
#B/L UE edema
US venous b/l UE
#Concern for LLL HAP
Ct showed airspace consolidation in the basilar segments of the left lower lobe containing air bronchograms.
Now on merrem as per ID
#Diarrhea
most likely 2/2 previous ileus
hold laxatives
C.diff neg
#Paroxysmal Afib with RVR
poor control on max Cardizem improved on Amiodarone on 06/21/25. Cont PO amio and BB as per cardio
cotn telemetry
Cardiology followed: signed off
TSH WNL
HEparin drip switched to Eliquis finalized decisions on cholecystectomy
Echo: EF 55%, normal systolic and diastolic function, no significant valvular disease
#Acute/subacute CVA
Band-shaped focus of decreased density within the right parietal lobe as described, which likely represents an area of acute to subacute infarction seen on CT on 06/21/25
cont Heparin and later Eliquis as per neurology
start statin when LFT improved
MRI/MRA brain pending
accuchecks
PT/OT
TSH 0.72 - WNL
HgbA1c 6.5%
LDL 85
#SAMANTHA on CKD stage 3b
#Moderate L hydroureter 2/2 chronic bladder outlet obstruction
#BPH with chronic urinary retention on self cath at home
#Volume overload without CHF
#Large BPH s/p TURP
US showed no hydronephrosis b/l as of 06/21/25
Cr baseline 1.9-1.8
SAMANTHA resolved as of 06/20/25, but then worsened with TOV again
follow Cr
Underwriting Sales Representative follows: lasix on 06/23/25
Carbone removed on 06/22/25 but worsening b/l hydronephrosis - placed back on 06/24/25
#Anasarca
2/2 IVF for pancreatitis
Lasix
#DM with possible mild DKA
restarted insulin SS with accuchecks since on diet since 06/22/25
DM diet when able to eat
DM KITCHEN DESIGNER follows
#Acute hypoxic respiratory failure on 6l O2 2/2 acute disease
off O2 as of 06/21/25
chest XR with atelectasis - IS
ABG w/o hypercarbia
#Distended abd
since admission
moderate ascites on initial CT
#Acute metabolic encephalopathy
worsened on 06/21/[address]
CT head reasonable with new heparin drip and AMS
Cannot exclude iatrogenic: received Haldol 8h prior on the top of CKD
#Ileus - resolved
s/p NG tube
BS present
XR on 06/19/25 - no obstructive pattern, BM daily since then
#Hypokalemia
#Hypomagnesemia
#Hypokalemia
#Hypocalcemia
replete and follow
#Duodenitis
PPI as per GI
#Hepatosplenomegaly
Advise outpatient follow up, unclear reason for now
#Diverticulosis w/o diverticulitis
high fiber diet
DVT ppx Eliquis
Full code
I have spent at least 53min critical care time reviewing chart, test results, communication with consultants, bedside and providing direct patient care
Anticipated Discharge: 24 - 48 hours
Subjective/Interval History
-
Date of Service: June 27, 2025
Objective Data
-
Labs:
Laboratory Results
06/27/25
06:26
WBC 19.4 H
Hgb 9.8 L
Hct 29.1 L
Plt Count 276
Sodium 135
Potassium 4.0
Chloride 104
Carbon Dioxide 27
BUN 31 H
Creatinine 2.2 H
Glucose 221 H
Calcium 7.7 L
Total Bilirubin 1.0
AST 93 H
ALT 103 H
Alkaline Phosphatase 160 H
Vital Signs:
Vital Signs
Temp Pulse Resp BP Pulse Ox
98.8 F 86 16 155/74 98
06/27/25 07:00 06/27/25 07:00 06/27/25 07:00 06/27/25 07:00 06/27/25 07:00
I&O
06/26/25 06/27/25 06/28/25
06:59 06:59 06:59
Intake Total 960 / 960 240 / 240
Output Total 3250 / 3250 1850 / 1850
Balance -2290 / -2290 -1610 / -1610
Review of Systems
-
History Source: Patient
All other systems: Reviewed and negative
Physical Exam
-
General: No Apparent Distress
HEENT: Normocephalic
Respiratory: Clear to Auscultation
Cardiac: Regular Rhythm
GI: Soft, Nontender and Nondistended
Musculoskeletal: Edema, Right Upper Extrem and Edema, Left Upper Extrem
Neuro: Awake, Alert, Oriented and AO x 3
Psych: Calm
[2025-06-27 12:45] LABS: Glucose - Point of Care 357 mg/dl (70-99)
[2025-06-27] MEDS: NOVOLOG FLEXPEN-MODERATE RESISTANCE 9 UNITS SC (13:18)
[2025-06-27 16:50] LABS: Glucose - Point of Care 209 mg/dl (70-99)
[2025-06-27] MEDS: LIPITOR 40 MG PO (17:44)
[2025-06-27] MEDS: NOVOLOG FLEXPEN-MODERATE RESISTANCE 3 UNITS SC (17:44)
[2025-06-27] MEDS: LIDOCAINE 4% PATCH TOPICAL ×2 (20:06→21:00)
[2025-06-27] MEDS: FLUSH (NSS) 2 FLUSH IV (20:10)
[2025-06-27 21:14] LABS: Glucose - Point of Care 221 mg/dl (70-99)
[2025-06-28 03:22] VITALS: BP 146/63
[2025-06-28] MEDS: MERREM 500 MG IV ×3 (04:06→20:55)
[2025-06-28] MEDS: FLUSH (NSS) 2 FLUSH IV (04:06)
[2025-06-28] MEDS: STERILE WATER FOR INJECTION 10 ML IV ×3 (04:07→20:56)
[2025-06-28 06:00] VITALS: BMI 29.0
[2025-06-28 07:50] VITALS: BP 140/67
--- NOTE | 2025-06-28 08:11 | PN.DE.MGMTRT ---
Insulin Management
- -
06/28/2025: Diabetes Management Follow up
Patient admitted 06/14 with c/o severe mid - upper abdominal pain into back with nausea, chest pain - acute pancreatitis.
PMH: HTN, HLD, diabetes, BPH, urinary retention, ckd 3b. Has had diabetes 30+ years. Prior to admission was taking glimepiride 4 mg daily, metformin 500 mg BID. A1C on admission 6.5%, cr 3--2.1, eGFR 32.42 today.
Patient awake alert and oriented, sitting up in chair, able discuss diabetes care. States he has been taking glimepiride and metformin for about 3 - 4 years and sees his primary doctor for ongoing diabetes care. He has never tested his glucose.
Insulin infusion stopped 06/22.
Yesterday received Lantus 20 units in AM, and AC NovoLog 14 units, premeal glucose range was 209 to 357 received 3-9 units of corrective insulin, HS 221.
Fasting glucose today 251. Will increase AM Lantus to 25 units and AC NovoLog from 14 units to 18 units, reduce moderate insulin to low corrective with meals.
Pt will be seen by the Diabetes Nurse Educator to provide glucose monitor and educate on testing procedure and appropriate times to test today.
Discussed with nurse. Will cont to follow
Diabetes History
- -
Type of Diabetes: 2 requiring insulin
Pre-Admission Diabetes Regimen
Lab Results
Hemoglobin A1c 6.5 % (4.0-5.9) H 06/15/25 04:45
Insulin Pump Settings
IP Diabetes Regimen
06/27/25 06/27/25 06/27/25
12:44 16:48 21:13
POC Glucose 357 H 209 H 221 H
Patient Education
[2025-06-28 08:18] LABS: Glucose - Point of Care 251 mg/dl (70-99)
[2025-06-28] MEDS: NOVOLOG FLEXPEN-MODERATE RESISTANCE 5 UNITS SC (08:49)
[2025-06-28] MEDS: NOVOLOG FLEXPEN 14 UNITS SC (08:50)
[2025-06-28] MEDS: LANTUS 0.2 UNITS SC (08:51)
[2025-06-28] MEDS: VISBIOME 2 CAP PO (08:51)
[2025-06-28] MEDS: ELIQUIS 5 MG PO ×2 (08:51→20:54)
[2025-06-28] MEDS: NORVASC 10 MG PO (08:52)
[2025-06-28] MEDS: PACERONE 200 MG PO ×2 (08:52→20:54)
[2025-06-28] MEDS: PROTONIX 40 MG PO ×2 (08:52→20:55)
[2025-06-28] MEDS: VITAMIN D3 (cholecalciferol) 25 MCG PO (08:52)
[2025-06-28 08:53] LABS: Hematocrit 28.2 % (39.0-52.0); Hemoglobin 9.6 g/dL (13.0-18.0); Mean Corp Hgb Conc. 34.0 g/dL (33.0-37.0); Mean Corpuscular Volume 86.0 fL (80.0-94.0); Nucleated Red Blood Cells % 0 % (-); Platelet Count 342 10^3/uL (130-400); Red Cell Dist. Width 12.8 % (11.5-14.5)
[2025-06-28] MEDS: LASIX 40 MG PO (08:53)
[2025-06-28] MEDS: REMOVE LIDOCAINE PATCH REMOVE (08:53)
[2025-06-28] MEDS: LOPRESSOR 100 MG PO ×2 (08:53→20:54)
[2025-06-28] MEDS: VITAMIN B-12 1000 MCG PO (08:54)
[2025-06-28 09:20] LABS: ALT (SGPT) 125 U/L (0-50); AST (SGOT) 104 U/L (17-59); Albumin 3.1 g/dl (3.5-5.0); Alkaline Phosphatase 172 U/L (38-126); Blood Urea Nitrogen 33 mg/dl (9-20); Calcium 7.9 mg/dl (8.4-10.2); Carbon Dioxide 26 mmol/L (22-30); Chloride 102 mmol/L (98-107); Estimated Creatinine Clearance 36 ml/min; Glucose 219 mg/dl (70-99); Potassium 3.9 mmol/L (3.5-5.1); Sodium 135 mmol/L (135-145); Total Protein 6.5 g/dl (6.3-8.2); eGFR 34.38
--- NOTE | 2025-06-28 10:33 | W.PN.HOSP.TC ---
Today's Communication/Plan
-
WBC improving, but slowly - would cont MErrem pending further ID reccs
slowly uptrending AST, ALT and alk phos but clinically patient improving - discussing with GI and GenSx if CCY should take place sooner
Assessment / Plan
Assessment / Plan
74yo M with PMHx of HTN, Afib, CHARLIE, DM, chronic urinary retention with self cath at home admitted with abdominal pain, nausea, vomiting, CT found acute pancreatitis and duodenitis as well as acute cholangittis with stones seen in CBD on CT, had ERCP
on 06/17/25 and remained on Abx afterwards. Due to worsening leukocytosis CT abd/pelvis repeated on 06/24/25 and showed b/l hydronephrosis 2/2 bladder outlet obstruction, so Carbone was placed back. Also concern for loculated fluid collection in the
left upper quadrant, however most likely developing pancreatic cyst and GI with IRAD did not recommend drainage and possible HAP
A/P:
#Acute gall stone pancreatitis
#Choledocholithiasis with cholangitis
#Transaminitis 2/2 above
s/p hydration
Bcx NTD
GI follows: S/P ERCP on 06/17/25 with sphincterotomy and stent placement, that later dislodged - discussed with GI and since LFT WNL, there is no further concerns
LFT elevated again on 06/21/25 - US RUQ without new pathology, showed patent stent, LFT started to improve with better HR control
GEnSX eventually planning cholecystectomy after full recovery
CT on 06/24/25 showed persistent pancreatic inflammation and loculated fluid collection in the left upper quadrant of the abdomen 6cm, ID switched to Merrem as of 06/24/25, As per IRAD review: Size of this collection is overstated. It�s only 10 mm
in the coronal plane. It�s too small to put a drain into
#Persistent leukocytosis
repeated Bcx NTD
Chest XR without overt pneumonia
follow CBC
Patient started to improve on 06/22/25
No signs of developing sepsis - not hypotensive and not febrile
Redness around PICC line - remove
ID consult
#B/L UE edema
US venous b/l UE
#Concern for LLL HAP
Ct showed airspace consolidation in the basilar segments of the left lower lobe containing air bronchograms.
Now on merrem as per ID
#Diarrhea
most likely 2/2 previous ileus
hold laxatives
C.diff neg
#Paroxysmal Afib with RVR
poor control on max Cardizem improved on Amiodarone on 06/21/25. Cont PO amio and BB as per cardio
cotn telemetry
Cardiology followed: signed off
TSH WNL
HEparin drip switched to Eliquis finalized decisions on cholecystectomy
Echo: EF 55%, normal systolic and diastolic function, no significant valvular disease
#Acute/subacute CVA
Band-shaped focus of decreased density within the right parietal lobe as described, which likely represents an area of acute to subacute infarction seen on CT on 06/21/25
cont Heparin and later Eliquis as per neurology
start statin when LFT improved
MRI/MRA brain pending
accuchecks
PT/OT
TSH 0.72 - WNL
HgbA1c 6.5%
LDL 85
#SAMANTHA on CKD stage 3b
#Moderate L hydroureter 2/2 chronic bladder outlet obstruction
#BPH with chronic urinary retention on self cath at home
#Volume overload without CHF
#Large BPH s/p TURP
US showed no hydronephrosis b/l as of 06/21/25
Cr baseline 1.9-1.8
SAMANTHA resolved as of 06/20/25, but then worsened with TOV again
follow Cr
Tufting Supervisor follows: lasix on 06/23/25
Carbone removed on 06/22/25 but worsening b/l hydronephrosis - placed back on 06/24/25
#Anasarca
2/2 IVF for pancreatitis
Lasix
#DM with possible mild DKA
restarted insulin SS with accuchecks since on diet since 06/22/25
DM diet when able to eat
DM ENVIRONMENTAL ENGINEERING INTERN follows
#Acute hypoxic respiratory failure on 6l O2 2/2 acute disease
off O2 as of 06/21/25
chest XR with atelectasis - IS
ABG w/o hypercarbia
#Distended abd
since admission
moderate ascites on initial CT
#Acute metabolic encephalopathy
worsened on 06/21/25
[address]
CT head reasonable with new heparin drip and AMS
Cannot exclude iatrogenic: received Haldol 8h prior on the top of CKD
#Ileus - resolved
s/p NG tube
BS present
XR on 06/19/25 - no obstructive pattern, BM daily since then
#Hypokalemia
#Hypomagnesemia
#Hypokalemia
#Hypocalcemia
replete and follow
#Duodenitis
PPI as per GI
#Hepatosplenomegaly
Advise outpatient follow up, unclear reason for now
#Diverticulosis w/o diverticulitis
high fiber diet
DVT ppx Eliquis
Full code
I have spent at least 53min critical care time reviewing chart, test results, communication with consultants, bedside and providing direct patient care
Anticipated Discharge: 24 - 48 hours
Subjective/Interval History
-
Date of Service: June 28, 2025
Objective Data
-
Labs:
Laboratory Results
06/28/25
07:55
WBC 16.0 H
Hgb 9.6 L
Hct 28.2 L
Plt Count 342 D
Sodium 135
Potassium 3.9
Chloride 102
Carbon Dioxide 26
BUN 33 H
Creatinine 2.0 H
Glucose 219 H
Calcium 7.9 L
Total Bilirubin 1.2
AST 104 H
ALT 125 H
Alkaline Phosphatase 172 H
Vital Signs:
Vital Signs
Temp Pulse Resp BP Pulse Ox
98.3 F 88 16 140/67 95
06/28/25 07:50 06/28/25 08:53 06/28/25 07:50 06/28/25 08:53 06/28/25 08:37
I&O
06/27/25 06/28/25 06/29/25
06:59 06:59 06:59
Intake Total 240 / 240 960 / 960
Output Total 1850 / 1850 2775 / 2775
Balance -1610 / -1610 -1815 / -1815
Review of Systems
-
History Source: Patient
All other systems: Reviewed and negative
Physical Exam
-
General: No Apparent Distress
HEENT: Normocephalic
Cardiac: Regular Rhythm
GI: Soft, Nontender and Nondistended
Neuro: Awake, Alert, Oriented and AO x 3
Psych: Calm
[2025-06-28] MEDS: NOVOLOG FLEXPEN-LOW RESISTANCE SC (10:34)
[2025-06-28] MEDS: LANTUS 0.05 UNITS SC (10:35)
[2025-06-28] MEDS: NOVOLOG FLEXPEN 18 UNITS SC ×3 (10:36→18:02)
[2025-06-28] MEDS: TYLENOL 650 MG PO ×2 (10:40→17:26)
--- NOTE | 2025-06-28 11:15 | W.PN.GI.CBS2 ---
Addendum entered and electronically signed by Jesse Wu MD 06/28/25 16:07:
I saw and examined the patient.
The METHODS SPECIALIST or PA's note was reviewed and I agree with the note.
Comment: 74-year-old male presenting with severe biliary pancreatitis. Slow improvement. I reviewed with Dr. Marte, recommends outpatient follow-up in 6 to 8 weeks. Mild increase in AST and ALT. Will continue to monitor. Afebrile, white blood
cell count trending down, abdominal pain has resolved. Fatigue may also be in setting of deconditioning from prolonged hospitalization. Discussed with hospitalist and general surgery as well.
Original Note:
Today's Communication / Plan
-
Etiology of recurrent rise of LFT's unclear -- clinically pt feeling better without pain, fever and WBC's improving but still with fatigue
will review imaging with Dr. Marte with noted collection and stent in SB and decide on timing of repeat imaging
cont to trend LFT's
cont diet
Should have eventual cholecystectomy
eventual OP follow up with Dr Marte outpatient
Assessment / Plan
-
Summary: 74yo presents with abdominal pain to back and nausea after eating dinner on 06/14. Admitted for sepsis with WBC 21,900, hbg 15.2, and after admission creat up to 2.7, lactate 4.7 with rise in bili to 7.5, AST 492, ALT 329, and lipase
>4000. He takes NSAIDs several times per week for pain. He did have several episode of non bloody emesis after onset of pain. No ETOH use, no new medications, no hx pancreatitis in past or family hx pancreatic issues. No GPL-1 use or wt loss.
06/14/25 US abdomen with fatty liver, mild hepatomegaly
06/15/25 CT AP w/o contrast- Severe acute pancreatitis. Mild hepatosplenomegaly. Probable stones in the common bile duct. Mild ascites.
06/15/25 EUS - Multiple CBD stones. Diffuse pancreatic echogenicity and hyperechoic strands in head.
06/15/25 ERCP- Major papilla was not found due to edema
06/17/25 ERCP- Duodenitis. CBD stones removed with biliary sphincterotomy and balloon extraction and 10Fr x 5cm stent placed into CHD. Pancreatic sphincterotomy and 4Fr x 4cm external pigtail and no internal flaps stent placed into PD
06/24/25 CT AP w/PO CONTRAST only- Severe acute pancreatitis. 6.1 x 4.0 x 2.0 cm acute peripancreatic fluid collection in LUQ (reread as 10mm). Biliary stent in place. Dislodged pancreatic stent in SB. Small ascites. Moderate pneumobilia due to
sphincterotomy.
Laboratory Tests
06/21/25 06/24/25 06/25/25
03:17 04:49 07:35
Total Bilirubin 2.6 H D 1.0 1.0
AST 446 H 33 47
ALT 228 H 69 H 61 H
Alkaline Phosphatase 152 H 116 131 H
06/26/25 06/27/25 06/28/25
07:03 06:26 07:55
Total Bilirubin 0.9 1.0 1.2
AST 67 H 93 H 104 H
ALT 73 H 103 H 125 H
Alkaline Phosphatase 134 H 160 H 172 H
Impression:
Gallstone with severe acute pancreatitis
Choledocholithiasis s/p ERCP removal
pancreatic fluid collection 6.1 x 4.0 x 2.0 cm (reread as 10mm). Biliary stent in place and Dislodged pancreatic stent in SB
recurrent rise of LFT's
leukocytosis - WBC up to 25K now improving
Acute CVA
elevated lactate - resolved
SAMANTHA worsening after admission
other med problems:
-obesity, HTN, hyperlipidemia, NIDDM, shingles, urinary retention with st cath daily, arthritis, vasectomy, BPH prior turp, prostate biopsy, spinal injection
PLAN:
Etiology of recurrent rise of LFT's unclear -- clinically pt feeling better without pain, fever and WBC's improving but still with fatigue
will review imaging with Dr. Marte with noted collection and stent in SB and decide on timing of repeat imaging
cont to trend LFT's
cont diet
Should have eventual cholecystectomy
eventual OP follow up with Dr Marte outpatient
Subjective
Subjective
Date of Service: June 28, 2025
asked to see for slow rise of LFT's, on low fat diet, 06/28 loose stools
Objective
Data Reviewed
Laboratory Data:
Laboratory Results
06/28/25 07:55
06/28/25 07:55
Laboratory Results
PT 15.7 Sec (11.4-14.6) H 06/15/25 13:55
INR 1.22 06/15/25 13:55
APTT 83.0 Sec (23.4-35.0) H 06/23/25 04:40
Phosphorus 3.9 mg/dl (2.5-4.5) 06/26/25 07:03
Magnesium 1.8 mg/dl (1.6-2.3) 06/26/25 07:03
Total Bilirubin 1.2 mg/dl (0.2-1.3) 06/28/25 07:55
AST 104 U/L (17-59) H 06/28/25 07:55
ALT 125 U/L (0-50) H 06/28/25 07:55
Alkaline Phosphatase 172 U/L (38-126) H 06/28/25 07:55
Lipase 187 U/L (23-300) 06/22/25 04:17
Vital Signs and I&O:
Vital Signs
Temp Pulse Resp BP Pulse Ox
98.3 F 88 16 140/67 95
06/28/25 07:50 06/28/25 08:53 06/28/25 07:50 06/28/25 08:53 06/28/25 08:37
I&O
06/27/25 06/28/25 06/29/25
06:59 06:59 06:59
Intake Total 240 / 240 960 / 960
Output Total 1850 / 1850 2775 / 2775
Balance -1610 / -1610 -1814 / -1814
Physical Exam
Physical Exam
HEENT: Anicteric and Moist mucous membranes
Cardiology: Normal Sinus Rhythm
Pulmonary: Clear
GI: Soft, Distended (but improved from admission) and Non Tender
Extremities: Edema
Neuro: Non Focal
--- NOTE | 2025-06-28 11:16 | CM ---
Addendum entered by Gissell Sebastian 06/28/25 13:08:
Per MD d/c planned for tomorrow on IV anbx.
midline to be placed.
TC to [facility] [phone], and OK with admission tomorrow.
[facility]
Report# [phone]

Ambulance transport forms completed.
Original Note:
Patient seen bedside wit spouse.
Agreeable to [facility] for skilled rehab pending bed availability on day of d/c.
IMM completed, signed by spouse.
Patient will require ambulance transport.
Per patient and spouse anticipated d/c 1-2 days.
Plan: skilled rehab once medically cleared, agreeable to [facility].
[2025-06-28 11:20] VITALS: BP 143/68
--- NOTE | 2025-06-28 11:23 | W.PN.ID1 ---
Date of Service
Date of Service: June 28, 2025
Today's Communication
- continue with meropenem d5 tentatively of 14 day course
Assessment / Plan
Leukocytosis with L shift, trending up
Severe Acute pancreatitis s/p biliary stent, pancreatic stent 06/17
Ascites vs developing peripancreatic fluid collection
SAMANTHA on CKD3, baseline Cr ~1.9
BPH, chronic QUINONEZ/hydronephrosis worse after geller dc. Geller reinserted 06/24.
- 06/22 blood cultures x2 finalized negative
- 06/16-06/21 multiple CXRs read as atelectasis vs developing pneumonia; patient however with no cough or sputum production
- 06/24 CT increase peripancreatic fluid; new LUQ fluid collection only 10 mm in the coronal plan - too small for drain per IR. Per GI, PD stent is supposed to self-dislodge as seen in CT
- renal function approaching his baseline
- continue with meropenem d5 tentatively of 14 day course
- Trend wbc.
Chief Complaint
-: Leukocytosis
Subjective / Review of Systems
afebrile
bp stable
no events overnight
asking about dc
Vital Signs / Physical Exam
Vital Signs
Vital Signs
Temp Pulse Resp BP Pulse Ox
98.3 F 88 16 140/67 95
06/28/25 07:50 06/28/25 08:53 06/28/25 07:50 06/28/25 08:53 06/28/25 08:37
Physical Exam
Constitutional: No Acute Distress
Cardiovascular: Regular Rate and S1/S2; Negative Murmur or Rub
Pulmonary: Clear and Symmetric; Negative Wheezes or Rales
Gastrointestinal: Soft, Non Tender, Non Distended and Normal Bowel Sounds
Skin: Warm and Dry; Negative Rash or Jaundice
Objective Data
Lab Data
Lab Results
06/28/25 07:55
06/28/25 07:55
PT 15.7 Sec (11.4-14.6) H 06/15/25 13:55
INR 1.22 06/15/25 13:55
APTT 83.0 Sec (23.4-35.0) H 06/23/25 04:40
Estimated Creat Clear 36 ml/min 06/28/25 07:55
Lactic Acid 0.6 mmol/L (0.7-2.0) L 06/21/25 09:12
Total Bilirubin 1.2 mg/dl (0.2-1.3) 06/28/25 07:55
AST 104 U/L (17-59) H 06/28/25 07:55
ALT 125 U/L (0-50) H 06/28/25 07:55
Alkaline Phosphatase 172 U/L (38-126) H 06/28/25 07:55
C-Reactive Protein Cancelled 06/17/25 06:00
Most recent labs reviewed.
Micro Results:
06/21/25 12:39 Blood Culture - Final
Blood/Venous No Growth - Final Report
06/21/25 09:56 Blood Culture - Final
Blood/Venous No Growth - Final Report
06/22/25 11:26 C. difficile GDH Antigen & Toxins - Final
Feces/Stool Negative for toxigenic C.difficile
06/15/25 12:01 Blood Culture - Final
Blood/Venous No Growth - Final Report
06/15/25 11:30 Blood Culture - Final
Blood/Venous No Growth - Final Report
06/14/25 21:22 Blood Culture - Final
Blood/Venous No Growth - Final Report
06/14/25 21:22 Blood Culture - Final
Blood/Venous No Growth - Final Report
06/15/25 19:59 Urine Culture - Final
Urine NO GROWTH
06/24/25 CT a/p:
1. SEVERE ACUTE PANCREATITIS with an interval increase in peripancreatic fluid.
2. 6.1 cm acute peripancreatic collection in the left upper quadrant of the abdomen.
3. Plastic biliary stent in place.
4. Dislodged pancreatic stent located in a small bowel loop in the left side of the abdomen.
5. Small volume of ascites.
6. Moderate pneumobilia in the liver secondary to interval biliary sphincterotomy.
7. Moderate to severe distention of the urinary bladder consistent with ACUTE URINARY BLADDER OUTLET OBSTRUCTION.
8. SEVERE BILATERAL HYDROURETER and MODERATE BILATERAL HYDRONEPHROSIS which has increased since 06/15/2025.
9. Severely enlarged prostate gland.
Other: Report Reviewed (US of the upper extremity no thrombus)
[2025-06-28 11:32] LABS: Glucose - Point of Care 247 mg/dl (70-99)
[2025-06-28] MEDS: NOVOLOG FLEXPEN-LOW RESISTANCE 2 UNITS SC (13:24)
--- NOTE | 2025-06-28 14:00 | W.PN.NEPH.PH ---
Today's Communication / Plan
-
cont po lasix
follow labs
Assessment/Plan
-
Impression:
SAMANTHA (2.7)
CKD 3b(1.7-1.9 )
Metabolic acidosis
Hyperkalemia
Profound abdominal pain likely due to evolving pancreatitis/sepsis
Abnormal LFTs
History of HTN
History of diabetes
History of profound BPH requiring self-catheterization daily
Plan:
stable renal function close to baseline
cont po lasix 40mg daily, wt decreasing
BP stable on Amlodipine and BB
follow BMP
-
-
Date of Service: June 28, 2025
CC / HPI / ROS
-
Chief Complaint:
SAMANTHA
History of Present Illness:
SAMANTHA/Cr stable at 2.
WBC improving to 16k
geller back in due to failed voiding trial 06/24/2025
BP stable
Afib controlled with amiodarone
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
Review of Systems:
no pain
sleeping during visit
per staff eating well
he offer no cp or sob, no abd pain
wt is down
Labs
-
Labs:
WBC 16.0 10^3/uL (4.8-10.8) H 06/28/25 07:55
RBC 3.28 10^6/uL (4.70-6.10) L 06/28/25 07:55
Hgb 9.6 g/dL (13.0-18.0) L 06/28/25 07:55
Hct 28.2 % (39.0-52.0) L 06/28/25 07:55
Plt Count 342 10^3/uL (130-400) D 06/28/25 07:55
Sodium 135 mmol/L (135-145) 06/28/25 07:55
Potassium 3.9 mmol/L (3.5-5.1) 06/28/25 07:55
Chloride 102 mmol/L (98-107) 06/28/25 07:55
Carbon Dioxide 26 mmol/L (22-30) 06/28/25 07:55
BUN 33 mg/dl (9-20) H 06/28/25 07:55
Creatinine 2.0 mg/dL (0.7-1.3) H 06/28/25 07:55
eGFR 34.38 06/28/25 07:55
Glucose 219 mg/dl (70-99) H 06/28/25 07:55
Calcium 7.9 mg/dl (8.4-10.2) L 06/28/25 07:55
Phosphorus 3.9 mg/dl (2.5-4.5) 06/26/25 07:03
Yyc-G-Waywoglduyh Pept 6250 pg/ml 06/22/25 04:17
Albumin 3.1 g/dl (3.5-5.0) L 06/28/25 07:55
Physical Exam
-
Vital Signs:
Vital Signs
Temp Pulse Resp BP Pulse Ox
98.4 F 87 16 143/68 97
06/28/25 11:20 06/28/25 11:20 06/28/25 11:20 06/28/25 11:20 06/28/25 11:20
Cardiovascular:: Regular rate and rhythm
Respiratory:: Bilateral: CTA
Lung Excursion:: Normal
Abdomen:: Nontender and Soft
Extremity Edema:: +3: Bilateral:
Geller Catheter: Yes
[2025-06-28 15:35] VITALS: BP 131/57
[2025-06-28] MEDS: MAALOX 30 ML PO (15:35)
--- NOTE | 2025-06-28 16:46 | PTCARENOTE ---
Pt AAO x3, FRY; OOB to chair with assist x1; sl unsteady w/OOB activity. Occ needs encouragement to participate in OOB activity. VSS. Pt with (+) edema of BUE/BLE. On room air- pulse ox 96%, no SOB noted. Abd obese, firm , al PO well. Carbone
P/I mod amts clear yellow urine. Rt midline IV site placed by IV team. Resting in bed at present. Will continue to monitor.
[2025-06-28] MEDS: LIPITOR 40 MG PO (17:22)
[2025-06-28 17:53] LABS: Glucose - Point of Care 188 mg/dl (70-99)
[2025-06-28] MEDS: NOVOLOG FLEXPEN-LOW RESISTANCE 1 UNITS SC (18:02)
[2025-06-28] MEDS: LIDOCAINE 4% PATCH 1 PATCH TOPICAL (20:55)
[2025-06-28 21:19] LABS: Glucose - Point of Care 122 mg/dl (70-99)
[2025-06-28 23:22] VITALS: BP 141/60
[2025-06-29] MEDS: MERREM 500 MG IV ×2 (03:35→12:32)
[2025-06-29] MEDS: TYLENOL 650 MG PO (03:35)
[2025-06-29] MEDS: STERILE WATER FOR INJECTION 10 ML IV ×2 (03:36→12:32)
[2025-06-29] MEDS: DILAUDID 1 MG PO (05:31)
--- NOTE | 2025-06-29 05:59 | VATNOTE ---
PT C/O 'EXCRUCIATING' PAIN AT SITE OF MIDLINE IN RUE. PT YELLED ALOUD WHEN I ATTEMPTED TO MOVE HIS ARM. PT STATES HIS PREVIOUS PICC LINE WAS EQUALLY PAINFUL. SITE APPEARS WNL. GAUZE INTACT BENEATH TSM AND NO BLEEDING NOTED. ML FLUSHES WELL AND GOOD
BR OBTAINED. ORDERED AM LABS DRAWN. 2 SMALL BLISTERS NOTED BENEATH ML DRSG. PT SEEMS VERY CONCERNED AND OVERWHELMED OVER PENDING D/C AND NEW THERAPIES RELATED TO INSULIN ADMINISTRATION WELL IV ABX AN OUTPATIENT. PNC TO ADMINISTER PAIN MED
FOR RUE PAIN. REASSURED PT AND WILL HAVE VAT CONSIDER ANALGESIC ADMINISTRATION PRIOR TO ML REDRESS TODAY.
[2025-06-29 06:00] VITALS: BMI 29.1
[2025-06-29 06:31] LABS: ALT (SGPT) 108 U/L (0-50); AST (SGOT) 107 U/L (17-59); Albumin 2.6 g/dl (3.5-5.0); Alkaline Phosphatase 138 U/L (38-126); Blood Urea Nitrogen 30 mg/dl (9-20); Calcium 7.6 mg/dl (8.4-10.2); Carbon Dioxide 32 mmol/L (22-30); Chloride 100 mmol/L (98-107); Estimated Creatinine Clearance 34 ml/min; Glucose 155 mg/dl (70-99); Potassium 3.8 mmol/L (3.5-5.1); Sodium 134 mmol/L (135-145); Total Protein 5.5 g/dl (6.3-8.2); eGFR 32.42
[2025-06-29 07:10] LABS: Glucose - Point of Care 214 mg/dl (70-99)
[2025-06-29 07:45] VITALS: BP 142/65
--- NOTE | 2025-06-29 08:10 | PN.DE.MGMTRT ---
Insulin Management
- -
06/29/2025: Diabetes Management Follow up
Patient admitted 06/14 with c/o severe mid - upper abdominal pain into back with nausea, chest pain - acute pancreatitis.
PMH: HTN, HLD, diabetes, BPH, urinary retention, ckd 3b. Has had diabetes 30+ years. Prior to admission was taking glimepiride 4 mg daily, metformin 500 mg BID. A1C on admission 6.5%, cr 3--2.1, eGFR 32.42 today.
Patient awake alert and oriented, sitting up in chair, able discuss diabetes care. States he has been taking glimepiride and metformin for about 3 - 4 years and sees his primary doctor for ongoing diabetes care. He has never tested his glucose. He
is anxious for discharge today.
Yesterday received Lantus 25 units in AM, and AC NovoLog 18 units, glucose range 188 to 251, HS glucose 122.
Fasting glucose today 155 venous 214 POC. Will continue AM Lantus 25 units and AC NovoLog 18 units, with low corrective with meals.
Pt will be seen by the Diabetes Nurse Educator to provide glucose monitor and educate on testing procedure and appropriate times to test today.
Discussed with nurse. Will cont to follow
Diabetes History
- -
Type of Diabetes: 2 requiring insulin
Pre-Admission Diabetes Regimen
06/28/25 06/29/25
07:55 05:40
Creatinine 2.0 H 2.1 H
Lab Results
Hemoglobin A1c 6.5 % (4.0-5.9) H 06/15/25 04:45
Insulin Pump Settings
IP Diabetes Regimen
06/28/25 06/28/25 06/28/25
07:55 08:16 11:30
Glucose 219 H
POC Glucose 251 H 247 H
06/28/25 06/28/25 06/29/25
17:52 21:18 05:40
Glucose 155 H
POC Glucose 188 H 122 H
06/29/25
07:08
Glucose
POC Glucose 214 H
Meal type: Dinner
Meal type: Lunch
Meal type: Breakfast
Amount consumed: 100%
Amount consumed: 50%
Amount consumed: 100%
Patient Education
[2025-06-29] MEDS: NORVASC 10 MG PO (08:25)
[2025-06-29] MEDS: LANTUS 0.25 UNITS SC (08:25)
[2025-06-29] MEDS: VISBIOME 2 CAP PO (08:25)
[2025-06-29] MEDS: PROTONIX 40 MG PO (08:25)
[2025-06-29] MEDS: LASIX 40 MG PO (08:26)
[2025-06-29] MEDS: ELIQUIS 5 MG PO (08:26)
[2025-06-29] MEDS: VITAMIN D3 (cholecalciferol) 25 MCG PO (08:26)
[2025-06-29] MEDS: LOPRESSOR 100 MG PO (08:26)
[2025-06-29] MEDS: PACERONE 200 MG PO (08:26)
[2025-06-29] MEDS: REMOVE LIDOCAINE PATCH 1 PATCH REMOVE (08:26)
[2025-06-29] MEDS: VITAMIN B-12 1000 MCG PO (08:26)
[2025-06-29] MEDS: NOVOLOG FLEXPEN 18 UNITS SC ×2 (08:27→12:33)
[2025-06-29] MEDS: NOVOLOG FLEXPEN-LOW RESISTANCE 2 UNITS SC (08:27)
[2025-06-29 08:58] LABS: Hematocrit 29.6 % (39.0-52.0); Hemoglobin 10.1 g/dL (13.0-18.0); Mean Corp Hgb Conc. 34.1 g/dL (33.0-37.0); Mean Corpuscular Volume 87.1 fL (80.0-94.0); Platelet Count 399 10^3/uL (130-400); Red Cell Dist. Width 12.7 % (11.5-14.5)
--- NOTE | 2025-06-29 09:01 | W.PN.GI.CBS2 ---
Addendum entered and electronically signed by Jesse Wu MD 06/29/25 14:59:
I saw and examined the patient.
The LAST TRIMMER or PA's note was reviewed and I agree with the note.
Comment: 4-year-old male presenting with severe biliary pancreatitis. Slow improvement. I reviewed with Dr. Marte, recommends outpatient follow-up in 6 to 8 weeks. Mild increase in AST and ALT. Recommend close outpatient follow up repeat LFTs one
week. Afebrile, white blood cell count trending down, abdominal pain has resolved. Fatigue may also be in setting of deconditioning from prolonged hospitalization. GI will sign off pls call with ?s or changes in clinical status. Pt being discharged
today.
Original Note:
Today's Communication / Plan
-
remains afebrile and asking for discharge
Today labs with lower alk phos and ALT and minimal rise AST with normal bilirubin
I sent message to arrange 6-8 week follow up with Dr. Marte
cont to trend LFT's -- will need repeat at [facility] in 1 week -- second set of labs sent and pending
cont diet as tolerated
Should have eventual cholecystectomy
remain on Eliquis
still with LE edema - remains on Lasix with nephrology management
stable from GI standpoint
updated at bedside
Assessment / Plan
-
Summary: 74yo presents with abdominal pain to back and nausea after eating dinner on 06/14. Admitted for sepsis with WBC 21,900, hbg 15.2, and after admission creat up to 2.7, lactate 4.7 with rise in bili to 7.5, AST 492, ALT 329, and lipase
>4000. He takes NSAIDs several times per week for pain. He did have several episode of non bloody emesis after onset of pain. No ETOH use, no new medications, no hx pancreatitis in past or family hx pancreatic issues. No GPL-1 use or wt loss.
06/14/25 US abdomen with fatty liver, mild hepatomegaly
06/15/25 CT AP w/o contrast- Severe acute pancreatitis. Mild hepatosplenomegaly. Probable stones in the common bile duct. Mild ascites.
06/15/25 EUS - Multiple CBD stones. Diffuse pancreatic echogenicity and hyperechoic strands in head.
06/15/25 ERCP- Major papilla was not found due to edema
06/17/25 ERCP- Duodenitis. CBD stones removed with biliary sphincterotomy and balloon extraction and 10Fr x 5cm stent placed into CHD. Pancreatic sphincterotomy and 4Fr x 4cm external pigtail and no internal flaps stent placed into PD
06/24/25 CT AP w/PO CONTRAST only- Severe acute pancreatitis. 6.1 x 4.0 x 2.0 cm acute peripancreatic fluid collection in LUQ (reread as 10mm). Biliary stent in place. Dislodged pancreatic stent in SB. Small ascites. Moderate pneumobilia due to
sphincterotomy.
Laboratory Tests
06/21/25 06/24/25 06/25/25
03:17 04:49 07:35
Total Bilirubin 2.6 H D 1.0 1.0
AST 446 H 33 47
ALT 228 H 69 H 61 H
Alkaline Phosphatase 152 H 116 131 H
06/26/25 06/27/25 06/28/25
07:03 06:26 07:55
Total Bilirubin 0.9 1.0 1.2
AST 67 H 93 H 104 H
ALT 73 H 103 H 125 H
Alkaline Phosphatase 134 H 160 H 172 H
Impression:
Gallstone with severe acute pancreatitis
Choledocholithiasis s/p ERCP removal
pancreatic fluid collection 6.1 x 4.0 x 2.0 cm (reread as 10mm). Biliary stent in place and Dislodged pancreatic stent in SB
recurrent rise of LFT's
leukocytosis - WBC up to 25K now improving
Acute CVA
elevated lactate - resolved
SAMANTHA worsening after admission
a fib with RVR on Eliquis
other med problems:
-obesity, HTN, hyperlipidemia, NIDDM, shingles, urinary retention with st cath daily, arthritis, vasectomy, BPH prior turp, prostate biopsy, spinal injection
PLAN:
remains afebrile and asking for discharge
Today labs with lower alk phos and ALT and minimal rise AST with normal bilirubin
I sent message to arrange 6-8 week follow up with Dr. Marte
cont to trend LFT's -- will need repeat at [facility] in 1 week -- second set of labs send this am and pending
cont diet as tolerated
Should have eventual cholecystectomy
remain on Eliquis
still with LE edema - remains on Lasix with nephrology management
stable from GI standpoint
updated at bedside
Subjective
Subjective
Date of Service: June 29, 2025
Pt anxious for discharge, tolerating diet, feeling better
Objective
Data Reviewed
Laboratory Data:
Laboratory Results
06/29/25 08:33
Laboratory Results
PT 15.7 Sec (11.4-14.6) H 06/15/25 13:55
INR 1.22 06/15/25 13:55
APTT 83.0 Sec (23.4-35.0) H 06/23/25 04:40
Phosphorus 3.9 mg/dl (2.5-4.5) 06/26/25 07:03
Magnesium 1.8 mg/dl (1.6-2.3) 06/26/25 07:03
Total Bilirubin 1.0 mg/dl (0.2-1.3) 06/29/25 05:40
AST 107 U/L (17-59) H 06/29/25 05:40
ALT 108 U/L (0-50) H 06/29/25 05:40
Alkaline Phosphatase 138 U/L (38-126) H 06/29/25 05:40
Lipase 187 U/L (23-300) 06/22/25 04:17
Vital Signs and I&O:
Vital Signs
Temp Pulse Resp BP Pulse Ox
98.4 F 75 18 141/60 96
06/28/25 23:22 06/28/25 23:22 06/28/25 23:22 06/28/25 23:22 06/28/25 23:22
I&O
06/28/25 06/29/25 06/30/25
06:59 06:59 06:59
Intake Total 960 / 960 1560 / 1560
Output Total 2775 / 2775 2200 / 2200
Balance -1815 / -1815 -640 / -640
Physical Exam
Physical Exam
HEENT: Anicteric and Moist mucous membranes
Cardiology: Normal Sinus Rhythm
Pulmonary: Clear
GI: Soft, Distended (mild but improved from admission) and Non Tender
Extremities: Edema
Neuro: Non Focal
[2025-06-29 09:57] LABS: ALT (SGPT) 120 U/L (0-50); AST (SGOT) 119 U/L (17-59); Albumin 3.1 g/dl (3.5-5.0); Alkaline Phosphatase 161 U/L (38-126); Blood Urea Nitrogen 32 mg/dl (9-20); Calcium 8.0 mg/dl (8.4-10.2); Carbon Dioxide 31 mmol/L (22-30); Chloride 99 mmol/L (98-107); Estimated Creatinine Clearance 36 ml/min; Glucose 236 mg/dl (70-99); Potassium 4.3 mmol/L (3.5-5.1); Sodium 144 mmol/L (135-145); Total Protein 6.4 g/dl (6.3-8.2); eGFR 34.38
[2025-06-29 10:06] VITALS: BP 141/62; PULSE 90
--- NOTE | 2025-06-29 10:17 | W.PN.ID1 ---
Date of Service
Date of Service: June 29, 2025
Today's Communication
- continue with meropenem d6 of 28 day course
- follow up with GI
Assessment / Plan
Leukocytosis with L shift, trending up
Severe Acute pancreatitis s/p biliary stent, pancreatic stent 06/17
Ascites vs developing peripancreatic fluid collection
SAMANTHA on CKD3, baseline Cr ~1.9
BPH, chronic QUINONEZ/hydronephrosis worse after geller dc. Geller reinserted 06/24.
- 06/22 blood cultures x2 finalized negative
- 06/16-06/21 multiple CXRs read as atelectasis vs developing pneumonia; patient however with no cough or sputum production
- 06/24 CT increase peripancreatic fluid; new LUQ fluid collection only 10 mm in the coronal plan - too small for drain per IR. Per GI, PD stent is supposed to self-dislodge as seen in CT
- renal function approaching his baseline
- continue with meropenem d6 of 28 day course
- follow up with GI
Chief Complaint
-: Leukocytosis
Subjective / Review of Systems
afebrile
bp stable
no events overnight
Vital Signs / Physical Exam
Vital Signs
Vital Signs
Temp Pulse Resp BP Pulse Ox
98.7 F 80 16 142/65 96
06/29/25 07:45 06/29/25 07:45 06/29/25 07:45 06/29/25 07:45 06/29/25 07:45
Physical Exam
Constitutional: No Acute Distress
Cardiovascular: Regular Rate and S1/S2; Negative Murmur or Rub
Pulmonary: Clear and Symmetric; Negative Wheezes or Rales
Gastrointestinal: Soft, Non Tender, Non Distended and Normal Bowel Sounds
Skin: Warm and Dry; Negative Rash or Jaundice
Lines: Other (midline)
Objective Data
Lab Data
Lab Results
06/29/25 08:33
06/29/25 08:33
PT 15.7 Sec (11.4-14.6) H 06/15/25 13:55
INR 1.22 06/15/25 13:55
APTT 83.0 Sec (23.4-35.0) H 06/23/25 04:40
Estimated Creat Clear 36 ml/min 06/29/25 08:33
Lactic Acid 0.6 mmol/L (0.7-2.0) L 06/21/25 09:12
Total Bilirubin 1.2 mg/dl (0.2-1.3) 06/29/25 08:33
AST 119 U/L (17-59) H 06/29/25 08:33
ALT 120 U/L (0-50) H 06/29/25 08:33
Alkaline Phosphatase 161 U/L (38-126) H 06/29/25 08:33
C-Reactive Protein Cancelled 06/17/25 06:00
Most recent labs reviewed.
Micro Results:
06/21/25 12:39 Blood Culture - Final
Blood/Venous No Growth - Final Report
06/21/25 09:56 Blood Culture - Final
Blood/Venous No Growth - Final Report
06/22/25 11:26 C. difficile GDH Antigen & Toxins - Final
Feces/Stool Negative for toxigenic C.difficile
06/15/25 12:01 Blood Culture - Final
Blood/Venous No Growth - Final Report
06/15/25 11:30 Blood Culture - Final
Blood/Venous No Growth - Final Report
06/14/25 21:22 Blood Culture - Final
Blood/Venous No Growth - Final Report
06/14/25 21:22 Blood Culture - Final
Blood/Venous No Growth - Final Report
06/15/25 19:59 Urine Culture - Final
Urine NO GROWTH
11/27/25 CT a/p:
1. SEVERE ACUTE PANCREATITIS with an interval increase in peripancreatic fluid.
2. 6.1 cm acute peripancreatic collection in the left upper quadrant of the abdomen.
3. Plastic biliary stent in place.
4. Dislodged pancreatic stent located in a small bowel loop in the left side of the abdomen.
5. Small volume of ascites.
6. Moderate pneumobilia in the liver secondary to interval biliary sphincterotomy.
7. Moderate to severe distention of the urinary bladder consistent with ACUTE URINARY BLADDER OUTLET OBSTRUCTION.
8. SEVERE BILATERAL HYDROURETER and MODERATE BILATERAL HYDRONEPHROSIS which has increased since 06/15/2025.
9. Severely enlarged prostate gland.
[2025-06-29 10:22] VITALS: BP 141/62; PULSE 90
--- NOTE | 2025-06-29 11:05 | W.PN.HOSP.TC ---
Today's Communication/Plan
-
dc
Assessment / Plan
Assessment / Plan
74yo M with PMHx of HTN, Afib, CHARLIE, DM, chronic urinary retention with self cath at home admitted with abdominal pain, nausea, vomiting, CT found acute pancreatitis and duodenitis as well as acute cholangittis with stones seen in CBD on CT, had ERCP
on 06/17/25 and remained on Abx afterwards. Due to worsening leukocytosis CT abd/pelvis repeated on 06/24/25 and showed b/l hydronephrosis 2/2 bladder outlet obstruction, so Carbone was placed back. Also concern for loculated fluid collection in the
left upper quadrant, however most likely developing pancreatic cyst and GI with IRAD did not recommend drainage and possible HAP. ID consult: merrem for 14 days through 07/06/25. GI - LFT in 1 week upon d/c. Eventual cholecystectomy - referral to
[facility] to be provided. Stable for d/c to STR to cont Abx.
A/P:
#Acute gall stone pancreatitis
#Choledocholithiasis with cholangitis
#Transaminitis 2/2 above
s/p hydration
Bcx NTD
GI follows: S/P ERCP on 06/17/25 with sphincterotomy and stent placement, that later dislodged - discussed with GI and since LFT WNL, there is no further concerns
LFT elevated again on 06/21/25 - US RUQ without new pathology, showed patent stent, LFT started to improve with better HR control
GEnSX eventually planning cholecystectomy after full recovery
CT on 06/24/25 showed persistent pancreatic inflammation and loculated fluid collection in the left upper quadrant of the abdomen 6cm, ID switched to Merrem as of 06/24/25, As per IRAD review: Size of this collection is overstated. It�s only 10 mm
in the coronal plane. It�s too small to put a drain into
#Persistent leukocytosis
repeated Bcx NTD
Chest XR without overt pneumonia
follow CBC
Patient started to improve on 06/22/25
No signs of developing sepsis - not hypotensive and not febrile
Redness around PICC line - remove
ID consult: merrem for 14 days through 07/06/25
#B/L UE edema
US venous b/l UE without DVT
#Concern for LLL HAP
Ct showed airspace consolidation in the basilar segments of the left lower lobe containing air bronchograms.
Now on merrem as per ID
#Diarrhea
most likely 2/2 previous ileus
hold laxatives
C.diff neg
#Paroxysmal Afib with RVR
poor control on max Cardizem improved on Amiodarone on 06/21/25. Cont PO amio and BB as per cardio
cotn telemetry
Cardiology followed: signed off
TSH WNL
HEparin drip switched to Eliquis finalized decisions on cholecystectomy
Echo: EF 55%, normal systolic and diastolic function, no significant valvular disease
#Acute/subacute CVA
Band-shaped focus of decreased density within the right parietal lobe as described, which likely represents an area of acute to subacute infarction seen on CT on 06/21/25
cont Heparin and later Eliquis as per neurology
start statin when LFT improved
MRI/MRA brain pending
accuchecks
PT/OT
TSH 0.72 - WNL
HgbA1c 6.5%
LDL 85
#SAMANTHA on CKD stage 3b
#Moderate L hydroureter 2/2 chronic bladder outlet obstruction
#BPH with chronic urinary retention on self cath at home
#Volume overload without CHF
#Large BPH s/p TURP
US showed no hydronephrosis b/l as of 06/21/25
Cr baseline 1.9-1.8
SAMANTHA resolved as of 06/20/25, but then worsened with TOV again
follow Cr
Delivery Tech follows: lasix on 06/23/25
Carbone removed on 06/22/25 but worsening b/l hydronephrosis - placed back on 06/24/25 and removed on D/C, patient to continue TID self straight cath upon d/c
#Anasarca
2/2 IVF for pancreatitis
Lasix
#DM with possible mild DKA
restarted insulin SS with AccuCheck since on diet since 06/22/25
DM diet when able to eat
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
#Acute hypoxic respiratory failure on 6l O2 2/2 acute disease
off O2 as of 06/21/25
chest XR with atelectasis - IS
ABG w/o hypercarbia
#Distended abd
since admission
moderate ascites on initial CT
#Acute metabolic encephalopathy
worsened on 06/21/[address]
CT head reasonable with new heparin drip and AMS
Cannot exclude iatrogenic: received Haldol 8h prior on the top of CKD
#Ileus - resolved
s/p NG tube
BS present
XR on 06/19/25 - no obstructive pattern, BM daily since then
#Hypokalemia
#Hypomagnesemia
#Hypokalemia
#Hypocalcemia
replete and follow
#Duodenitis
PPI as per GI
#Hepatosplenomegaly
Advise outpatient follow up, unclear reason for now
#Diverticulosis w/o diverticulitis
high fiber diet
DVT ppx Eliquis
Full code
I have spent at least 36min critical care time reviewing chart, test results, communication with consultants, bedside and providing direct patient care
Anticipated Discharge: Today
Subjective/Interval History
-
Date of Service: June 29, 2025
Objective Data
-
Labs:
Laboratory Results
06/29/25 06/29/25
05:40 08:33
WBC Cancelled 17.6 H
Hgb Cancelled 10.1 L
Hct Cancelled 29.6 L
Plt Count Cancelled 399
Sodium 134 L 144 D
Potassium 3.8 4.3
Chloride 100 99
Carbon Dioxide 32 H 31 H
BUN 30 H 32 H
Creatinine 2.1 H 2.0 H
Glucose 155 H 236 H
Calcium 7.6 L 8.0 L
Total Bilirubin 1.0 1.2
AST 107 H 119 H
ALT 108 H 120 H
Alkaline Phosphatase 138 H 161 H
Vital Signs:
Vital Signs
Temp Pulse Resp BP Pulse Ox
98.7 F 80 16 142/65 96
06/29/25 07:45 06/29/25 07:45 06/29/25 07:45 06/29/25 07:45 06/29/25 07:45
I&O
06/28/25 06/29/25 06/30/25
06:59 06:59 06:59
Intake Total 960 / 960 1560 / 1560
Output Total 2775 / 2775 2200 / 2200
Balance -1815 / -1815 -640 / -640
Review of Systems
-
History Source: Patient
All other systems: Reviewed and negative
Physical Exam
-
General: No Apparent Distress
HEENT: Normocephalic
Respiratory: Clear to Auscultation
GI: Soft, Nontender and Nondistended
Neuro: Awake, Alert, Oriented and AO x 3
Psych: Calm
--- NOTE | 2025-06-29 11:12 | CM ---
Per MD d/c planned for today on IV anbx.
Midline placed and info sent via [email or web address].
IV anbx script sent via [email or web address].
Updated clinicals sent via [email or web address].
TC to [facility] [phone], and updated.
[facility]
Report# [phone]

Ambulance transport forms completed and on chart.
--- NOTE | 2025-06-29 11:21 | W.DCSUMMARY ---
Addendum entered and electronically signed by Ruiz Landon MD 06/29/25 13:00:
Discussed 28 days course of Abx with patients
Addendum entered and electronically signed by Ruiz Landon MD 06/29/25 12:55:
Correction: 28 day course of MErrem till 07/20/25
Original Note:
Discharge Summary
Discharge Data
Date of Admission: 06/14/25
Date of Discharge: 06/29/25
-
Pending Results: No
Hospital Course
74yo M with PMHx of HTN, Afib, CHARLIE, DM, chronic urinary retention with self cath at home admitted with abdominal pain, nausea, vomiting, CT found acute pancreatitis and duodenitis as well as acute cholangittis with stones seen in CBD on CT, had ERCP
on 06/17/25 and remained on Abx afterwards. Due to worsening leukocytosis CT abd/pelvis repeated on 06/24/25 and showed b/l hydronephrosis 2/2 bladder outlet obstruction, so Carbone was placed back. Also concern for loculated fluid collection in the
left upper quadrant, however most likely developing pancreatic cyst and GI with IRAD did not recommend drainage and possible HAP. ID consult: merrem for 14 days through 07/06/25. GI - LFT in 1 week upon d/c. Eventual cholecystectomy - referral to
Gen[facility] to be provided. Stable for d/c to STR to cont Abx. All appropriate follow ups provided
I have spent at least 36min critical care time reviewing chart, test results, communication with consultants, bedside and providing direct patient car
Patient was managed for:
#Acute gall stone pancreatitis
#Choledocholithiasis with cholangitis
#Transaminitis 2/2 above
#Persistent leukocytosis
#B/L UE edema
#Concern for LLL HAP
#Diarrhea
#Paroxysmal Afib with RVR
#Acute/subacute CVA
#SAMANTHA on CKD stage 3b
#Moderate L hydroureter 2/2 chronic bladder outlet obstruction
#BPH with chronic urinary retention on self cath at home
#Volume overload without CHF
#Large BPH s/p TURP
#Anasarca
#DM with possible mild DKA
#Acute hypoxic respiratory failure on 6l O2 2/2 acute disease
#Distended abd
#Acute metabolic encephalopathy
#Ileus - resolved
#Hypokalemia
#Hypomagnesemia
#Hypokalemia
#Hypocalcemia
#Duodenitis
#Hepatosplenomegaly
#Diverticulosis w/o diverticulitis
Discharge Plan
-
Patient Disposition: Care Home/SNF
Discharge Diagnosis/Procedures: cholangitis, pancreatitis
Diet: Low Fat and Diabetic, Carb Controlled
Activity: As tolerated
Blood Work: repeat LFT's in [address] Jim Marte if continued rise after admission
Referrals:
Tianna Gutierrez PA-C [Specified Professional Personl, Cardiology] - 07/14/25 2:40 pm
Referral Note: You have a follow up visit with Cardiology at the [place] office. Please call with questions.
Houston Bledsoe MD [Active, Surgical] - in two to four weeks
Referral Note: to discuss removal of gallbladder
Jim Marte MD [Active, Gastroenterology]
Referral Note: call to arrange 6-8 week follow up
Steven Silva MD [Family Provider, Family Practice]
Additional Discharge Medication Instructions: Merrem through 07/06/25
Prescriptions:
New
furosemide 40 mg Tablet
40 mg PO DAILY Qty: 30 0RF
atorvastatin 40 mg Tablet
40 mg PO QPM Qty: 30 0RF
amiodarone [Pacerone] 200 mg Tablet
200 mg PO BID Qty: 60 0RF
cyanocobalamin (vitamin B-12) 500 mcg Tablet
1,000 mcg PO DAILY Qty: 30 0RF
pantoprazole 40 mg Tablet,Delayed Release (Dr/Ec)
40 mg PO BID Qty: 60 0RF
Eliquis 5 mg Tablet
5 mg PO BID Qty: 60 0RF
meropenem 500 mg Recon Soln
500 mg IV Q8H Qty: 0 0RF
metoprolol tartrate 50 mg Tablet
100 mg PO BID Qty: 120 0RF
insulin aspart U-100 100 unit/mL (3 mL) Insulin Pen
18 unit SC AC Qty: 15 0RF
insulin glargine [Lantus Solostar U-100 Insulin] 100 unit/mL (3 mL) insulin pen
25 unit SC DAILY Qty: 15 0RF
Continued
atenolol 100 MG tablet
100 mg PO DAILY
cyanocobalamin (vitamin B-12) 1,000 MCG tablet
1,000 mcg PO DAILY
cholecalciferol (vitamin D3) [Vitamin D3] 25 MCG capsule
1,000 unit PO DAILY
alfuzosin 10 MG tablet extended release 24 hr
10 mg PO DAILY
multivitamin with folic acid [Tab-A-Thea] 1 TABLET tablet
1 tab PO DAILY
magnesium oxide 400 MG tablet
400 mg PO DAILY
Slow Fe 137 mg (45 mg iron) Tablet Extended Release
137 mg PO DAILY
amlodipine [Norvasc] 10 mg Tablet
10 mg PO DAILY
metformin 500 mg Tablet
500 mg PO BID
bethanechol chloride 25 mg Tablet
25 mg PO BID
glimepiride 4 mg Tablet
4 mg PO DAILY
Discontinued
potassium chloride [Klor-Con M20] 20 MEQ tablet,ER particles/crystals
20 meq PO BID
saw palmetto 450 MG capsule
900 mg PO DAILY
hydrochlorothiazide 50 mg Tablet
50 mg PO DAILY
Discharge Orders:
Discharge Patient (As Directed); Ordered 06/29/25
Ordered By: Ruiz Landon
Discharge Date and Time
Print Language: NEPALI
[2025-06-29 12:14] LABS: Glucose - Point of Care 314 mg/dl (70-99)
[2025-06-29] MEDS: NOVOLOG FLEXPEN-LOW RESISTANCE 4 UNITS SC (12:33)
--- NOTE | 2025-06-29 14:00 | PTCARENOTE ---
06/29/2025 DIABETES EDUCATION CONSULT
I met with patient to review diabetes management, has had diabetes managed with oral medications. His HbA1c currently is 6.5% and BS while inpatient range from 257 - 300's. I educated and demonstrated on insulin injection technique, timing, and
storage. Discussed long and short acting insulin; onset/peak/duration, and encouraged to review injections with RN while admitted. During consult, RN reviewed insulin administration with patient. Discussed normal target glucose ranges and a
monitoring schedule 15 minutes before each meal when prescribed Novolog, and before bedtime.
I provided written material: including Managing Your Diabetes booklet, glucometer and CGM instructions, hypoglycemia protocol, glucose tracker, medic alert bracelet and outpatient DSME program.
I provided patient with a [employer] glucometer sample kit. He declined a demonstration, states he is exhausted. He will be discharged to [facility], states he will review with staff at this location.
Encouraged patient to follow up with PCP for post d/c appointment and to monitor medication and blood glucose levels. He states he already has an appointment set. He has office phone #, I encouraged him to outreach once home for questions and
concerns. Patient verbalized understanding.
[2025-06-29 14:55] VITALS: BP 142/65
--- NOTE | 2025-06-29 16:18 | W.PN.NEPH.PH ---
Today's Communication / Plan
-
ok for d/c to [facility]
Assessment/Plan
-
Impression:
SAMANTHA (2.7)
CKD 3b(1.7-1.9 )
Metabolic acidosis
Hyperkalemia
Profound abdominal pain likely due to evolving pancreatitis/sepsis
Abnormal LFTs
History of HTN
History of diabetes
History of profound BPH requiring self-catheterization daily
Plan:
stable renal function close to baseline
cont po lasix 40mg daily, titrate dose as needed
BP stable on Amlodipine and BB
follow BMP in week
f/u nephro
d/w pt
-
-
Date of Service: June 29, 2025
CC / HPI / ROS
-
Chief Complaint:
SAMANTHA
History of Present Illness:
SAMANTHA/Cr stable at 2.
geller back in due to failed voiding trial 06/24/2025
BP stable
Afib controlled with amiodarone
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
Review of Systems:
no pain
no sob
no abd pain
wt no sig change, non oliguric
Labs
-
Labs:
WBC 17.6 10^3/uL (4.8-10.8) H 06/29/25 08:33
RBC 3.40 10^6/uL (4.70-6.10) L 06/29/25 08:33
Hgb 10.1 g/dL (13.0-18.0) L 06/29/25 08:33
Hct 29.6 % (39.0-52.0) L 06/29/25 08:33
Plt Count 399 10^3/uL (130-400) 06/29/25 08:33
Sodium 144 mmol/L (135-145) D 06/29/25 08:33
Potassium 4.3 mmol/L (3.5-5.1) 06/29/25 08:33
Chloride 99 mmol/L (98-107) 06/29/25 08:33
Carbon Dioxide 31 mmol/L (22-30) H 06/29/25 08:33
BUN 32 mg/dl (9-20) H 06/29/25 08:33
Creatinine 2.0 mg/dL (0.7-1.3) H 06/29/25 08:33
eGFR 34.38 06/29/25 08:33
Glucose 236 mg/dl (70-99) H 06/29/25 08:33
Calcium 8.0 mg/dl (8.4-10.2) L 06/29/25 08:33
Phosphorus 3.9 mg/dl (2.5-4.5) 06/26/25 07:03
Ent-G-Vjlwbtcbicz Pept 6250 pg/ml 06/22/25 04:17
Albumin 3.1 g/dl (3.5-5.0) L 06/29/25 08:33
Physical Exam
-
Vital Signs:
Vital Signs
Temp Pulse Resp BP Pulse Ox
98.3 F 78 16 142/65 95
06/29/25 14:55 06/29/25 14:55 06/29/25 14:55 06/29/25 14:55 06/29/25 14:55
Cardiovascular:: Regular rate and rhythm
Respiratory:: Bilateral: CTA
Lung Excursion:: Normal
Abdomen:: Nontender and Soft
Extremity Edema:: +3: Bilateral:
Geller Catheter: Yes
== END 2025-06-29 15:39 | DRG 438 ==
LOC: 4 EAST ACU 22:28
PROVIDERS: Clinical Nurse Specialist Family Health; Hospitalist; Internal Medicine; Internal Medicine Critical Care Medicine; Internal Medicine Gastroenterology; Nurse Practitioner Adult Health; Nurse Practitioner Primary Care; Physician Assistant Medical; Radiology Diagnostic Radiology; Specialist; ADMITTING PHYSICIAN Hospitalist; ATTENDING PHYSICIAN Internal Medicine; CONSULT PHYSICIAN Internal Medicine Cardiovascular Disease; CONSULT PHYSICIAN Psychiatry & Neurology Neurology; CONSULT PHYSICIAN Specialist; CONSULT PHYSICIAN Student in an Organized Health Care Education/Training Program; CONSULT PHYSICIAN Surgery; EMERGENCY PHYSICIAN Emergency Medicine; FAMILY PHYSICIAN Family Medicine; OTHER PHYSICIAN Internal Medicine; OTHER PHYSICIAN Student in an Organized Health Care Education/Training Program
PROC: 0FJB8ZZ Inspection of Hepatobiliary Duct, Via Natural or Artificial Opening Endoscopic (ICD-10-PCS; 2025-06-15)
PROC: 0DJ08ZZ Inspection of Upper Intestinal Tract, Via Natural or Artificial Opening Endoscopic (ICD-10-PCS; 2025-06-15)
PROC: 0D9670Z Drainage of Stomach with Drainage Device, Via Natural or Artificial Opening (ICD-10-PCS; 2025-06-16)
PROC: 0F778DZ Dilation of Common Hepatic Duct with Intraluminal Device, Via Natural or Artificial Opening Endoscopic (ICD-10-PCS; 2025-06-17)
PROC: 0F7D8DZ Dilation of Pancreatic Duct with Intraluminal Device, Via Natural or Artificial Opening Endoscopic (ICD-10-PCS; 2025-06-17)
PROC: BF111ZZ Fluoroscopy of Biliary and Pancreatic Ducts using Low Osmolar Contrast (ICD-10-PCS; 2025-06-17)
PROC: 0FC78ZZ Extirpation of Matter from Common Hepatic Duct, Via Natural or Artificial Opening Endoscopic (ICD-10-PCS; 2025-06-17)
PROC: 0FCD8ZZ Extirpation of Matter from Pancreatic Duct, Via Natural or Artificial Opening Endoscopic (ICD-10-PCS; 2025-06-17)
PROC: 02HV33Z Insertion of Infusion Device into Superior Vena Cava, Percutaneous Approach (ICD-10-PCS; 2025-06-21)
DX: K85.10 Biliary acute pancreatitis without necrosis or infection (principal); E11.10 Type 2 diabetes mellitus with ketoacidosis without coma; G92.8 Other toxic encephalopathy; J96.01 Acute respiratory failure with hypoxia; I63.9 Cerebral infarction, unspecified; J18.9 Pneumonia, unspecified organism; N17.9 Acute kidney failure, unspecified; E87.1 Hypo-osmolality and hyponatremia; R18.8 Other ascites; M48.54XA Collapsed vertebra, not elsewhere classified, thoracic region, initial encounter for fracture; K56.7 Ileus, unspecified; J98.11 Atelectasis; F05 Delirium due to known physiological condition; E87.0 Hyperosmolality and hypernatremia; N13.30 Unspecified hydronephrosis; K80.70 Calculus of gallbladder and bile duct without cholecystitis without obstruction; K76.0 Fatty (change of) liver, not elsewhere classified; R16.2 Hepatomegaly with splenomegaly, not elsewhere classified; E11.65 Type 2 diabetes mellitus with hyperglycemia; I12.9 Hypertensive chronic kidney disease with stage 1 through stage 4 chronic kidney disease, or unspecified chronic kidney disease; R33.8 Other retention of urine; E87.6 Hypokalemia; E83.42 Hypomagnesemia; E83.51 Hypocalcemia; E87.5 Hyperkalemia; N40.1 Benign prostatic hyperplasia with lower urinary tract symptoms; M19.90 Unspecified osteoarthritis, unspecified site; I48.0 Paroxysmal atrial fibrillation; N18.32 Chronic kidney disease, stage 3b; E66.9 Obesity, unspecified; E86.1 Hypovolemia; K21.9 Gastro-esophageal reflux disease without esophagitis; K57.30 Diverticulosis of large intestine without perforation or abscess without bleeding; Y95 Nosocomial condition; N32.0 Bladder-neck obstruction; E87.70 Fluid overload, unspecified; K29.80 Duodenitis without bleeding; Z86.19 Personal history of other infectious and parasitic diseases; Z90.79 Acquired absence of other genital organ(s); Z83.79 Family history of other diseases of the digestive system; Z79.84 Long term (current) use of oral hypoglycemic drugs; Z79.899 Other long term (current) drug therapy; Z68.29 Body mass index [BMI] 29.0-29.9, adult; Z82.49 Family history of ischemic heart disease and other diseases of the circulatory system; Z83.3 Family history of diabetes mellitus
CPT/HCPCS: 36600; 70450; 70544; 70547; 70551; 71045; 74018; 74019; 74176; 74330; 76000; 76700; 80048; 80053; 80061; 80076; 81003; 81015; 82077; 82140; 82248; 82533; 82570; 82787; 82805; 82947; 82962; 83036; 83605; 83690; 83735; 83880; 83935; 84100; 84132; 84156; 84300; 84443; 84478; 84484; 85025; 85027; 85610; 85730; 86140; 87040; 87086; 87324; 87449; 93005; 93306; 93970; 94640; 96365; 96375; 97110; 97116; 97129; 97163; 97167; 97530; 97535; 99291; C1769; C2617; C2625; J0282

== ENCOUNTER → 2025-07-02 10:37 | Outpatient (REF) | payer OTHER, MEDICARE, SELFPAY ==
[2025-07-02 11:33] LABS: Hematocrit 29.1 % (39.0-52.0); Hemoglobin 9.4 g/dL (13.0-18.0); Mean Corp Hgb Conc. 32.3 g/dL (33.0-37.0); Mean Corpuscular Volume 92.1 fL (80.0-94.0); Platelet Count 356 10^3/uL (130-400); Red Cell Dist. Width 12.7 % (11.5-14.5)
[2025-07-02 11:45] LABS: ALT (SGPT) 73 U/L (0-50); AST (SGOT) 48 U/L (17-59); Albumin 2.9 g/dl (3.5-5.0); Alkaline Phosphatase 124 U/L (38-126); Blood Urea Nitrogen 31 mg/dl (9-20); Calcium 8.0 mg/dl (8.4-10.2); Chloride 98 mmol/L (98-107); Glucose 237 mg/dl (70-99); Potassium 4.4 mmol/L (3.5-5.1); Sodium 134 mmol/L (135-145); Total Protein 5.9 g/dl (6.3-8.2); eGFR 32.42
[2025-07-02 11:53] LABS: Carbon Dioxide 31 mmol/L (22-30)
== END ==
LOC: OLABP 10:37
PROVIDERS: ATTENDING PHYSICIAN Family Medicine
DX: A41.9 Sepsis, unspecified organism (principal); K85.10 Biliary acute pancreatitis without necrosis or infection; G92.8 Other toxic encephalopathy; I63.9 Cerebral infarction, unspecified; K56.7 Ileus, unspecified; K80.51 Calculus of bile duct without cholangitis or cholecystitis with obstruction; E87.0 Hyperosmolality and hypernatremia; J18.9 Pneumonia, unspecified organism; J96.01 Acute respiratory failure with hypoxia; I48.0 Paroxysmal atrial fibrillation; E11.10 Type 2 diabetes mellitus with ketoacidosis without coma; R18.8 Other ascites; I10 Essential (primary) hypertension; N32.0 Bladder-neck obstruction; D72.829 Elevated white blood cell count, unspecified; N17.9 Acute kidney failure, unspecified; N18.30 Chronic kidney disease, stage 3 unspecified; N40.0 Benign prostatic hyperplasia without lower urinary tract symptoms; R60.1 Generalized edema; R74.01 Elevation of levels of liver transaminase levels
CPT/HCPCS: 36415; 80053; 85027

== ENCOUNTER → 2025-07-07 10:03 | Outpatient (REF) | payer OTHER, MEDICARE, SELFPAY ==
[2025-07-07 10:41] LABS: Hematocrit 27.0 % (39.0-52.0); Hemoglobin 8.5 g/dL (13.0-18.0); Mean Corp Hgb Conc. 31.5 g/dL (33.0-37.0); Mean Corpuscular Volume 93.4 fL (80.0-94.0); Nucleated Red Blood Cells % 0 % (-); Platelet Count 239 10^3/uL (130-400); Red Cell Dist. Width 13.4 % (11.5-14.5)
[2025-07-07 10:53] LABS: ALT (SGPT) 42 U/L (0-50); AST (SGOT) 33 U/L (17-59); Albumin 3.1 g/dl (3.5-5.0); Alkaline Phosphatase 80 U/L (38-126); Blood Urea Nitrogen 36 mg/dl (9-20); Calcium 8.0 mg/dl (8.4-10.2); Carbon Dioxide 30 mmol/L (22-30); Chloride 101 mmol/L (98-107); Glucose 193 mg/dl (70-99); Potassium 4.6 mmol/L (3.5-5.1); Sodium 137 mmol/L (135-145); Total Protein 5.7 g/dl (6.3-8.2); eGFR 30.66
== END ==
LOC: OLABP 10:03
PROVIDERS: ATTENDING PHYSICIAN Family Medicine
DX: I10 Essential (primary) hypertension (principal); N32.0 Bladder-neck obstruction; D72.829 Elevated white blood cell count, unspecified; N17.9 Acute kidney failure, unspecified; N18.30 Chronic kidney disease, stage 3 unspecified; N40.0 Benign prostatic hyperplasia without lower urinary tract symptoms; R60.1 Generalized edema; R74.01 Elevation of levels of liver transaminase levels; A41.9 Sepsis, unspecified organism; K85.10 Biliary acute pancreatitis without necrosis or infection
CPT/HCPCS: 36415; 80053; 85025

== ENCOUNTER → 2025-07-09 11:25 | Outpatient (REF) | payer OTHER, MEDICARE, SELFPAY ==
[2025-07-09 11:58] LABS: Hematocrit 29.0 % (39.0-52.0); Hemoglobin 9.2 g/dL (13.0-18.0); Mean Corp Hgb Conc. 31.7 g/dL (33.0-37.0); Mean Corpuscular Volume 94.2 fL (80.0-94.0); Nucleated Red Blood Cells % 0 % (-); Platelet Count 227 10^3/uL (130-400); Red Cell Dist. Width 13.8 % (11.5-14.5)
[2025-07-09 12:10] LABS: Blood Urea Nitrogen 38 mg/dl (9-20); Calcium 8.5 mg/dl (8.4-10.2); Carbon Dioxide 30 mmol/L (22-30); Chloride 100 mmol/L (98-107); Glucose 203 mg/dl (70-99); Potassium 4.5 mmol/L (3.5-5.1); Sodium 137 mmol/L (135-145); eGFR 34.38
== END ==
LOC: OLABP 11:25
PROVIDERS: ATTENDING PHYSICIAN Family Medicine
DX: I10 Essential (primary) hypertension (principal); N32.0 Bladder-neck obstruction; D72.829 Elevated white blood cell count, unspecified; N17.9 Acute kidney failure, unspecified; N18.30 Chronic kidney disease, stage 3 unspecified; N40.0 Benign prostatic hyperplasia without lower urinary tract symptoms; R60.1 Generalized edema; R74.01 Elevation of levels of liver transaminase levels; A41.9 Sepsis, unspecified organism; K85.10 Biliary acute pancreatitis without necrosis or infection; G92.8 Other toxic encephalopathy; I63.9 Cerebral infarction, unspecified; K56.7 Ileus, unspecified; K80.51 Calculus of bile duct without cholangitis or cholecystitis with obstruction; E87.0 Hyperosmolality and hypernatremia; J18.9 Pneumonia, unspecified organism; J96.01 Acute respiratory failure with hypoxia; I48.0 Paroxysmal atrial fibrillation; E11.10 Type 2 diabetes mellitus with ketoacidosis without coma; R18.8 Other ascites
CPT/HCPCS: 36415; 80048; 85025

== ENCOUNTER → 2025-07-10 10:25 | Outpatient (REF) | payer OTHER, MEDICARE, SELFPAY ==
[2025-07-10 12:06] LABS: Urine Character Clear (Clear)
[2025-07-10 12:14] LABS: Urine Squamous Cell 0-2 /LPF (Few)
[2025-07-10 12:15] LABS: Urine White Cell 0-2 /HPF (0-5)
== END ==
LOC: OLABP 10:25
PROVIDERS: ATTENDING PHYSICIAN Family Medicine
DX: A41.9 Sepsis, unspecified organism (principal); K85.10 Biliary acute pancreatitis without necrosis or infection; G92.8 Other toxic encephalopathy; I65.9 Occlusion and stenosis of unspecified precerebral artery; K56.7 Ileus, unspecified; K80.51 Calculus of bile duct without cholangitis or cholecystitis with obstruction; E87.0 Hyperosmolality and hypernatremia; J18.9 Pneumonia, unspecified organism; J96.01 Acute respiratory failure with hypoxia; I48.0 Paroxysmal atrial fibrillation; E11.10 Type 2 diabetes mellitus with ketoacidosis without coma; R18.8 Other ascites; I10 Essential (primary) hypertension; N32.0 Bladder-neck obstruction; D72.829 Elevated white blood cell count, unspecified; N17.9 Acute kidney failure, unspecified; N18.30 Chronic kidney disease, stage 3 unspecified; N40.0 Benign prostatic hyperplasia without lower urinary tract symptoms; R60.1 Generalized edema; R74.01 Elevation of levels of liver transaminase levels
CPT/HCPCS: 81003; 81015; 87086

== ENCOUNTER → 2025-07-12 10:45 | Outpatient (REF) | payer OTHER, MEDICARE, SELFPAY ==
[2025-07-12 12:17] LABS: Hematocrit 30.2 % (39.0-52.0); Hemoglobin 9.4 g/dL (13.0-18.0); Mean Corp Hgb Conc. 31.1 g/dL (33.0-37.0); Mean Corpuscular Volume 91.2 fL (80.0-94.0); Nucleated Red Blood Cells % 0 % (-); Platelet Count 244 10^3/uL (130-400); Red Cell Dist. Width 14.2 % (11.5-14.5)
[2025-07-12 12:21] LABS: ALT (SGPT) 26 U/L (0-50); AST (SGOT) 22 U/L (17-59); Albumin 3.7 g/dl (3.5-5.0); Alkaline Phosphatase 85 U/L (38-126); Blood Urea Nitrogen 33 mg/dl (9-20); Calcium 8.7 mg/dl (8.4-10.2); Carbon Dioxide 31 mmol/L (22-30); Chloride 98 mmol/L (98-107); Glucose 197 mg/dl (70-99); Potassium 4.2 mmol/L (3.5-5.1); Sodium 137 mmol/L (135-145); Total Protein 6.5 g/dl (6.3-8.2); eGFR 30.66
[2025-07-12 12:27] LABS: C-Reactive Protein 7.10 mg/L (0.0-10.00)
== END ==
LOC: OLABP 10:45
PROVIDERS: ATTENDING PHYSICIAN Family Medicine
DX: A41.9 Sepsis, unspecified organism (principal); R18.8 Other ascites; K85.10 Biliary acute pancreatitis without necrosis or infection; I10 Essential (primary) hypertension; G92.8 Other toxic encephalopathy; K80.51 Calculus of bile duct without cholangitis or cholecystitis with obstruction; E87.0 Hyperosmolality and hypernatremia; R74.01 Elevation of levels of liver transaminase levels; R60.1 Generalized edema; E11.10 Type 2 diabetes mellitus with ketoacidosis without coma
CPT/HCPCS: 36415; 80053; 85025; 85652; 86140

== ENCOUNTER → 2025-07-14 11:12 | Outpatient (REF) | payer OTHER, MEDICARE, SELFPAY ==
[2025-07-14 12:07] LABS: Hematocrit 26.6 % (39.0-52.0); Hemoglobin 8.3 g/dL (13.0-18.0); Mean Corp Hgb Conc. 31.2 g/dL (33.0-37.0); Mean Corpuscular Volume 92.7 fL (80.0-94.0); Nucleated Red Blood Cells % 0 % (-); Platelet Count 175 10^3/uL (130-400); Red Cell Dist. Width 14.5 % (11.5-14.5)
== END ==
LOC: OLABP 11:12
PROVIDERS: ATTENDING PHYSICIAN Family Medicine
DX: A41.9 Sepsis, unspecified organism (principal); K85.10 Biliary acute pancreatitis without necrosis or infection; G92.8 Other toxic encephalopathy; I63.9 Cerebral infarction, unspecified; K56.7 Ileus, unspecified; K80.51 Calculus of bile duct without cholangitis or cholecystitis with obstruction; E87.0 Hyperosmolality and hypernatremia; J18.9 Pneumonia, unspecified organism; J96.01 Acute respiratory failure with hypoxia; I48.0 Paroxysmal atrial fibrillation; E11.10 Type 2 diabetes mellitus with ketoacidosis without coma; R18.8 Other ascites; I10 Essential (primary) hypertension; N32.0 Bladder-neck obstruction; D72.829 Elevated white blood cell count, unspecified; N17.9 Acute kidney failure, unspecified; N18.30 Chronic kidney disease, stage 3 unspecified; N40.0 Benign prostatic hyperplasia without lower urinary tract symptoms; R60.1 Generalized edema; R74.01 Elevation of levels of liver transaminase levels
CPT/HCPCS: 36415; 85025